=== PATIENT | female | born 1945 | race Caucasian/White ===

== ENCOUNTER → 2019-03-19 11:52 | Outpatient (BNVA) | payer MEDICARE, SELFPAY | PROVIDERS: Family Provider Family Medicine; PCP Physician Assistant; Visit Provider Orthopaedic Surgery | DX: R22.31 Localized swelling, mass and lump, right upper limb (principal) | CPT/HCPCS: 73110; 73130 ==

== ENCOUNTER 2019-04-09 14:08 | Outpatient (CLI) | payer MEDICARE, SELFPAY ==
--- NOTE | 2019-04-09 14:14 | US_ITS ---
WS: [id number] Ultrasound of the soft tissue of the right hand, 04/09/2019 Clinical Data: MASS OF RIGHT WRIST Comparison: None. Findings: There are 3 soft tissue nodules of the right hand. The largest soft tissue nodule is over the thenar eminence and it measures 1.86 x 2.46 x 5.67 cm. It has a well-defined border with mixed echotexture. Vascular flow is noted. The next soft tissue nodule is in the interspace between the heads of the right second and third meta carpals. This small nodule measured 0.36 x 0.69 x 0.8 cm. Again it has a well-defined border with nex t echotexture. There is also vascular supply. The third nodule is on the soft tissue overlying the distal phalanx of the second finger on the ulnar side. It measures 0.36 x 0.69 x 0.80 cm. Again the border is well defined with a mixed echotexture. There is also a vascular supply. US/US soft tissue/extremity 41505 Impression: Nonspecific subcutaneous soft tissue nodules of the right hand which have no di stinguishing characteristics. A biopsy would provide the diagnosis.
== END 2019-04-09 14:09 | disposition home or self-care (01) ==
LOC: US 14:10
PROVIDERS: Family Provider Physician Assistant; PCP Physician Assistant; Visit Provider Orthopaedic Surgery
DX: R22.31 Localized swelling, mass and lump, right upper limb (principal)
CPT/HCPCS: 76882

== ENCOUNTER 2019-06-28 05:55 | Day surgery (SDC) | payer MEDICARE, SELFPAY ==
[2019-06-24 11:43] VITALS: BMI 28.3
--- NOTE | 2019-06-24 11:58 | XR_ITS ---
WS: [id number] PROCEDURE: XR chest 2V* [id number] CLINICAL INFORMATION: Pacemaker generator exchange COMPARISON: July 13, 2018 FINDINGS: Cardiac pacer. Heart: Cardiomegaly. Aortic calcification. Lungs: Moderate chronic emphysematous changes. No acute-appearing pulmonary infiltrates. Bones: Normal visualized bony structures. XR/XR chest 2V* [id number] IMPRESSION: No acute chest findings.
--- NOTE | 2019-06-24 12:29 | ECG_ITS ---
Measurements Intervals [place] Rate: 90 P: 80 ID: [id number] QRS: 257 QRSD: 150 T: -61 QT: 402 QTc: 492 ELECTRONIC VENTRICULAR PACEMAKER ABNORMAL RHYTHM ECG Compared to ECG 07/13/2018 00:24:12 No significant changes Electronically Signed On 06-24-2019 18:14:16 CDT by Derik Worthington M.D. [id number]
--- NOTE | 2019-06-24 12:45 | P.ANESASSM_ITS ---
Pre-Anesthetic Assessment Pre-Anesthetic Assessment: Height/Weight: Height 1.63 m Weight 74.843 kg Proposed Procedure: Operation Date: 06/28/19 07:00 Proposed Procedures p Defibillator Generator Exchange(Not Applicable) - Bill King MD Social: Social History: No alcohol and No tobacco Exam: Pre-Anes Outpt Exam: alert, oriented x 3, clear to auscultation bilaterally and regular rate & rhythm Airway: Submandibular: WNL Cervical ROM: WNL MP: 2 Dentition: False (upper and lower) History/ROS: No significant history except as noted Pulmonary: Pulmonary: COPD and CASAS : : None reported Hepatic: Hepatic: None reported GI: GI: GERD (controlled) Metabolic: Metabolic: DM and Hyperlipidemia Musc/skel: Musc/skel: RA Neuropsych: Neuropsych: Neuropathy (feet) and None reported Anesthetic Plan: ASA status: 4 Anesthesia: Anesthesia Evaluation and MAC Risk of > 500 ml blood loss (7ml/kg in children): No PFSH Anesthesia 2 PFSH: Medical History Anemia Cardiomyopathy CHF (congestive heart failure), NYHA class III Chronic systolic (congestive) heart failure COPD (chronic obstructive pulmonary disease) Diabetes mellitus Hypertension ICD (implantable cardioverter-defibrillator) battery depletion Non-ischemic cardiomyopathy Peripheral neuropathy Rheumatoid arthritis Surgical History S/P ICD (internal cardiac defibrillator) procedure Family History Mother Diabetes Hypertension CHF (congestive heart failure) Social History Smoking and tobacco status: never smoked Alcohol intake: never Data Anesthesia Cardiac Studies: No Data to Display
[2019-06-24 12:47] LABS: Anion Gap 19.5 (5-19); Blood Urea Nitrogen 21 mg/dL (8-23); Calcium 9.8 mg/dL (8.5-10.5); Carbon Dioxide 22 mmol/L (22-29); Chloride 99 mmol/L (98-107); Glucose 270 mg/dL (65-115); Osmolality Calculated 288 mOsm/kg (285-295); Potassium 4.5 mmol/L (3.5-5.1); Sodium 136 mmol/L (136-145)
[2019-06-24 13:07] LABS: Basophils # 0.1 10^3/uL (0.0-0.1); Basophils % 0.6 %; Eosinophils # 0.7 10^3/uL (0.0-0.8); Eosinophils % 7.4 %; Hematocrit 34.8 % (37.0-47.0); Hemoglobin 10.5 g/dL (11.5-15.3); Lymphocytes # 1.4 10^3/uL (0.8-4.8); Lymphocytes % 14.5 %; Mean Corpuscular HGB Conc 30.2 g/dL (30.0-36.0); Mean Corpuscular Hemoglobin 25.3 pg (28.0-34.0); Mean Corpuscular Volume 83.9 fL (81-99); Mean Platelet Volume 10.4 fL (7.4-10.4); Monocytes # 0.7 10^3/uL (0.2-0.9); Monocytes % 7.5 %; Neutrophils # 6.4 10^3/uL (1.8-7.7); Neutrophils % 68.9 %; Nucleated Red Blood Cells % 0 %; Platelet Count 189 10^3/cmm (130-400); Red Blood Count 4.15 10^6/uL (4.1-5.3); Red Cell Distribution Width 15.7 % (12.1-15.1); White Blood Count 9.3 10^3/uL (4.0-10.0)
[2019-06-24 13:23] LABS: INR 0.99 (0.8-1.2)
[2019-06-24 13:26] LABS: Add Urine Microscopic? YES; Bilirubin Urine Neg (NEGATIVE); Blood Urine Neg (Negative); Glucose Urine UA 1+ (Normal); Ketones Urine Negative (Negative); Leukocyte Esterase Urine 1+ (Negative); Nitrate Urine Negative (Negative); Protein Urine Neg (Negative); Urine Appearance Clear (CLEAR); Urine Color Yellow (Yellow); Urobilinogen Urine Norm (Negative); pH Urine 5 (5-7)
[2019-06-24 13:27] LABS: Add Urine Culture? Yes; Bacteria Urine 1+; Squamous Epithelial Cell Urine 0-4 (0-5)
[2019-06-28 06:05] VITALS: BP 179/83; PULSE 77; RESP 18; TEMP 36.4; O2SAT 97
[2019-06-28] MEDS: sodium chloride 0.9% 1,000 ML 30 ML IV (06:19)
[2019-06-28 06:22] LABS: Glucose Point of Care 237 mg/dL (70-110)
--- NOTE | 2019-06-28 06:32 | ANES.PAUD2 ---
Pre-Anesthetic Update Pre-Anesthetic Assessment: Date of Surgery/Procedure: 06/28/19 Proposed Procedure: Operation Date: 06/28/19 07:00 Proposed Procedures p Defibillator Generator Exchange(Not Applicable) - Bill King MD Any changes to Pre-Anesthetic Assessment?: No Last Intake: Intake Last Liquid Date 06/27/19 Last Solid Date 06/27/19 Labs Last 48hrs: Laboratory Results - last 48 hr 06/28/19 06:18 POC Glucose 237 Vitals: Temperature 97.5 F L 06/28/19 06:05 Temperature Source Temporal Artery S can 06/28/19 06:05 Pulse Rate 77 06/28/19 06:05 Pulse Rhythm 06/28/19 06:05 Pulse Strength 3+ Normal 06/28/19 06:05 Respiratory Rate 18 06/28/19 06:05 Blood Pressure 179/83 06/28/19 06:05 Blood Pressure Jerrica n 115 06/28/19 06:05 Pulse Oximetry 97 06/28/19 06:05 Oxygen Delivery Me thod 06/28/19 06:05 Exam: Pre-Anes Outpt Exam: alert, oriented x 3, clear to auscultation bilaterally and regular rate & rhythm Cardiac Studies: No Data to Display
--- NOTE | 2019-06-28 06:37 | W.PM.OPSUD ---
Surgery/Procedure H&P Update DATE OF PROCEDURE: June 28, 2019 DATE H&P PERFORMED: 06/24/19 H&P UPDATE INFORMATION: I have reviewed H&P completed within last 30 days, I have examined patient prior to procedure and No changes to prior documentation PREOP DIAGNOSIS: Defibrillator generator end of service PRIMARY INDICATION FOR PROCEDURE: Defibrillator generator end of service PLANNED PROCEDURE: Operation Date: 06/28/19 07:00 Proposed Procedures p Defibillator Generator Exchange(Not Applicable) - Bill King MD
[2019-06-28] MEDS: lidocaine 1% INJ 20 mL SUBCUT (07:18)
[2019-06-28] MEDS: vancomycin 1,000 MG SDV 1000 MG IRRIGATION (07:18)
[2019-06-28 07:59] VITALS: BP 153/63; PULSE 70; RESP 16; TEMP 36.4; O2SAT 99
[2019-06-28 08:19] VITALS: RESP 18
[2019-06-28] MEDS: meperidine 50 mg/mL INJ 12.5 MG IVP (08:19)
[2019-06-28 08:27] VITALS: BP 156/59; PULSE 70; RESP 18; O2SAT 98
--- NOTE | 2019-06-28 09:44 | P.OP_ITS ---
Operative Report Date of procedure: June 28, 2019 Pre-op Diagnosis: Defibrillator generator end of service Post-op diagnosis: same Procedure Done: Implantable defibrillator generator exchange Implants: Medtronic Amplia MRI Quad JUNIOR NETWORK ENGINEER-D SureScan Specimens removed/disposition: Old generator given to the Medtronic in home sales representative Pathology: none sent Anesthesia: MAC and Local (9 cc) Complications: None Condition: stable Disposition: same day Brief History: Pleasant 73-year-old female with a Medtronic defibrillator at end of service. Leads have been previously interrogated and are appropriately functioning. We will plan for generator exchange. Details risk procedure Discussed. Proper consents reviewed and signed. Procedure: Patient was appropriately positioned and sterilely prepped and draped. IV consicious sedation was given with anesthesia monitoring. 1% lidocaine was infiltrated through the prior insertion incision site. # 15 scalpel blade was used to incise the skin down to subcutaneous layer. Subsequently, using sharp and blunt dissection the pseudocapsule to the old generator was reached and opened with a scalpel blade. This area was then enhanced utilizing Metzenbaum scissors with care taken not to injure the pacing leads. Once the pocket was adequate opened, hemostats were utilized to deliver the old generator. Set screws were released and the leads were removed and inserted properly into the new generator with set screws then secured. The old generator was removed from the field. The incision was irrigated with antibiotic solution. Hemostasis was confirmed. The new generator was placed back into the old subcutaneous pocket. The wound was then closed in 2 layers of 3-0 Vicryl suture. Skin was closed in a subcuticular manner with 4-0 undyed Vicryl suture. A 2 layer pressure dressing was then applied. The entire system was interrogated and appropriate parameters obtained. Patient tolerated procedure well and was taken to the recovery room in stable condition. I did risk reduction counselor with the family at the completion of the procedure. Medtronic Generator: [id number]
== END 2019-06-28 09:45 | disposition home or self-care (01) ==
PROVIDERS: Anesthesiology; Family Provider Physician Assistant; PCP Physician Assistant; Visit Provider Thoracic Surgery (Cardiothoracic Vascular Surgery)
PROC: 0JPT0PZ Removal of Cardiac Rhythm Related Device from Trunk Subcutaneous Tissue and Fascia, Open Approach (ICD-10-PCS; CPT 33263; principal; 2019-06-28 07:00)
DX: Z45.02 Encounter for adjustment and management of automatic implantable cardiac defibrillator (principal); J44.9 Chronic obstructive pulmonary disease, unspecified; K21.9 Gastro-esophageal reflux disease without esophagitis; E78.5 Hyperlipidemia, unspecified; M06.9 Rheumatoid arthritis, unspecified; I11.0 Hypertensive heart disease with heart failure; I50.20 Unspecified systolic (congestive) heart failure; E11.42 Type 2 diabetes mellitus with diabetic polyneuropathy; Z82.49 Family history of ischemic heart disease and other diseases of the circulatory system; Z83.3 Family history of diabetes mellitus; Z79.82 Long term (current) use of aspirin; Z79.4 Long term (current) use of insulin
CPT/HCPCS: 33263; 12345; 36415; 36416; 71046; 80048; 81001; 82962; 85025; 85610; 87086; 93005; 96365; 96374; C1882; J2001; J2175; J2250; J2704; J3010; J3370; J7030; J7050

== ENCOUNTER 2019-08-11 13:37 | Outpatient (CLI) | payer MEDICARE, SELFPAY | END 2019-08-11 13:38 | disposition home or self-care (01) | LOC: SPT 13:41 | PROVIDERS: Family Provider Physician Assistant; PCP Physician Assistant; Visit Provider Orthopaedic Surgery | DX: Z46.89 Encounter for fitting and adjustment of other specified devices (principal); G56.00 Carpal tunnel syndrome, unspecified upper limb | CPT/HCPCS: 97760; L3908 ==

== ENCOUNTER 2019-09-30 18:26 | Observation (INO) | payer MEDICARE, SELFPAY ==
[2019-09-30 18:28] VITALS: BMI 27.6
--- NOTE | 2019-09-30 18:31 | ECG_ITS ---
[facility] Test Date: 2019-09-30 Pat Name: Peri Monge Department: Room: Gender: Female Edi Consultant: : 1945 Requested By: Angel Lamar Order Number: [id number] Jacey MD: Haroon Solis M.D. Measurements Intervals [place] Rate: 91 P: 66 IN: 148 QRS: 232 QRSD: 152 T: 42 QT: 416 QTc: 514 Interpretive Statements ELECTRONIC VENTRICULAR PACEMAKER ABNORMAL RHYTHM ECG Compared to ECG 06/24/2019 12:36:25 No significant changes Electronically Signed On 10-01-2019 16:01:27 CDT by Haroon Solis M.D. [id number]
--- NOTE | 2019-09-30 18:31 | XRR_ITS ---
PROCEDURE INFORMATION: Exam: XR Chest, 1 View Exam date and time: 09/30/2019 6:57 PM Age: 74 years old Clinical indication: Type not specified; Prior surgery; Surgery type: Pacemaker; Patient HX: Chest pain and high BP today; Additional info: Cp TECHNIQUE: Imaging protocol: XR of the chest Views: 1 view. COMPARISON: CR XR chest 2V* [id number] 06/24/2019 12:49 PM FINDINGS: Lungs: Lungs are well aerated without a focal area of consolidation. Pleural space: Unremarkable. No pleural effusion. No pneumothorax. Heart/Mediastinum: Unremarkable. No cardiomegaly. Vasculature: Pacemaker is present via a left subclavian approach. Bones/joints: Unremarkable. XR/XR chest 1V portable [id number] IMPRESSION: Lungs are well aerated without a focal area of consolidation.
[2019-09-30 18:33] VITALS: BP 216/79; PULSE 95; RESP 16; TEMP 37; O2SAT 96
--- NOTE | 2019-09-30 18:43 | PC.NURSE ---
EKG done at 1840 and shown to ER doctor
--- NOTE | 2019-09-30 18:46 | ED_ITS ---
HPI - Chest Pain General: Chief Complaint: Chest Pain Stated Complaint: CHEST PAIN Time Seen by Provider: 09/30/19 18:31 Source: patient and EMS Mode of arrival: EMS Limitations: no limitations History of Present Illness: HPI narrative: 74-year-old female who has a pacemaker and states started having chest pain roughly 1 hour ago. States her pain was a pressure type pain was having dyspnea along with diaphoresis. Patient states her pain is improved with nitro. She denies any abdominal pain. She did have nausea. MD complaint: chest pain Onset (ago): hour(s) Timing of current episode: episodic Prior episodes: No Pain location: substernal Pain radiation: left arm Severity: moderate Quality: tightness Relieving factors: nitroglycerin Exacerbating factors: nothing Associated symptoms: Deny abdominal pain, dyspnea, fever(s), nausea or vomiting Treatment prior to arrival: aspirin and nitroglycerin Review of Systems Const: Denies: fever(s), chills, body aches or change in appetite Eyes: Denies: blurry vision or eye discomfort ENMT: Denies: throat pain or dental pain Card: Reports: chest pain Resp: Denies: dyspnea GI: Denies: abdominal pain, nausea, vomiting or diarrhea : Denies: dysuria Musc: Denies: neck pain or back pain Skin/Breast: Denies: rash Neuro: Denies: headache(s) Psych: Denies: depression Bernabe/Lymph: Denies: easy bruising All/Imm: Denies: urticaria PFSH ED PFSH: Medical History Anemia Cardiac resynchronization therapy defibrillator (COMPUTER FORENSICS EXAMINER-D) in place Cardiomyopathy Carpal tunnel syndrome of right wrist CHF (congestive heart failure), NYHA class III Chronic systolic (congestive) heart failure COPD (chronic obstructive pulmonary disease) Diabetes mellitus Hypertension ICD (implantable cardioverter-defibrillator) battery depletion Non-ischemic cardiomyopathy Peripheral neuropathy Rheumatoid arthritis Surgical History S/P ICD (internal cardiac defibrillator) procedure Family History Mother Diabetes Hypertension CHF (congestive heart failure) Social History Smoking and tobacco status: never smoked Alcohol intake: never Physical Exam Const: COMMON NORMALS: no acute distress, patient oriented x3 and healthy appearing HENMT: COMMON NORMALS: normocephalic and atraumatic HEAD & SCALP: normocephalic and atraumatic Eye: COMMON NORMALS: Equal, round and reactive pupils present and EOMs intact bilaterally PUPIL: Yes Equal, round and reactive pupils present Neck/C-Spine: COMMON NORMALS: full ROM and supple Chest: COMMONS NORMALS: normal inspection of the chest and normal palpation of entire chest wall Resp: COMMON NORMALS: normal respiratory effort, No retractions, No use of accessory muscles and clear to auscultation bilaterally AUSCULTATION: clear to auscultation bilaterally Cardio: COMMON NORMALS: regular rate, regular rhythm and No murmurs present (Cardio) RATE: regular rate RHYTHM: regular rhythm GI: COMMON NORMALS: Normal to inspection, nondistended, normoactive bowel sounds present, Soft to palpation, non-tender and no masses PALPATION: Yes Soft to palpation Extremity: COMMON NORMALS: normal to inspection and full ROM Neuro: COMMON NORMALS: patient oriented x3, moves all extremities and no focal motor deficits Psych: COMMON NORMALS: mental status grossly normal, Normal thought process present and cooperative THOUGHT PROCESS: Normal thought process present Skin: COMMON NORMALS: no rashes or lesions noted and no wounds GENERAL SKIN EXAM: no rashes or lesions noted Course Vital Signs: Vital signs: Vital Signs Temperature 98.6 F 09/30/19 18:33 Pulse Rate 93 09/30/19 19:18 Respiratory Rate 20 H 09/30/19 21:20 Blood Pressure 214/113 09/30/19 21:20 Pulse Oximetry 97 09/30/19 21:20 MDM - Chest Pain MDM Narrative: Medical decision making narrative: Patient presents here with chest pain. Patient initial troponin repeat troponin had a negative delta. Patient does have multiple risk factors and will admit for chest pain rule out. Patient has been hypertensive here as well. I spoke to hospitalist who is seen patient will admit to the CSU. Lab Data: Labs: Lab Results 09/30/19 09/30/19 09/30/19 Range/Units 18:27 18:27 18:57 WBC 8.8 (4.0-10.0) 10^3/ uL RBC 4.27 (4.1-5.3) 10^6/u L Hgb 11.1 L (11.5-15.3) g/dL Hct 36.7 L (37.0-47.0) % MCV 85.9 (81-99) fL MCH 26.0 L (28.0-34.0) pg MCHC 30.2 (30.0-36.0) g/dL RDW 14.8 (12.1-15.1) % Plt Count 194 (130-400) 10^3/c mm MPV 10.2 (7.4-10.4) fL Neut % (Auto) 68.8 % Lymph % (Auto) 17.9 % Greenlee % (Auto) 8.0 % Eos % (Auto) 3.7 % Baso % (Auto) 0.8 % Neut # (Auto) 6.06 (1.8-7.7) 10^3/u L Lymph # (Auto) 1.6 (0.8-4.8) 10^3/u L Greenlee # (Auto) 0.7 (0.2-0.9) 10^3/u L Eos # (Auto) 0.3 (0.0-0.8) 10^3/u L Baso # (Auto) 0.1 (0.0-0.1) 10^3/u L Nucleated RBC % (a uto) 0 % Nucleated RBCs # 0.0 /100WBC PT (10.5-13.3) SECO NDS INR (0.8-1.2) Sodium 142 (136-145) mmol/L Potassium 4.1 (3.5-5.1) mmol/L Chloride 107 (98-107) mmol/L Carbon Dioxide 22 (22-29) mmol/L Anion Gap 17.1 (5-19) BUN 23 (8-23) mg/dL Creatinine 1.3 H (0.5-0.9) mg/dL GFR Calculation Not Reportable Glucose 200 H (65-115) mg/dL Calculated Osmolal ity 296 H (285-295) mOsm/k g Calcium 9.6 (8.5-10.5) mg/dL Total Bilirubin 0.2 (0.15-1.2) mg/dL AST 20 (0-32) U/L ALT 22 (0-33) U/L Alkaline Phosphata se 66 (35-105) IU/L Troponin T Baselin e 19 H (0-10) ng/L Troponin T [address] [facility] [place] (0-10) ng/L Total Protein 7.4 (6.6-8.7) g/dL Albumin 4.5 (3.5-5.2) g/dL Globulin 2.9 (1.3-4.6) g/dL 09/30/19 09/30/19 Range/Units 18:57 20:40 WBC (4.0-10.0) 10^3/ uL RBC (4.1-5.3) 10^6/u L Hgb (11.5-15.3) g/dL Hct (37.0-47.0) % MCV (81-99) fL MCH (28.0-34.0) pg MCHC (30.0-36.0) g/dL RDW (12.1-15.1) % Plt Count (130-400) 10^3/c mm MPV (7.4-10.4) fL Neut % (Auto) % Lymph % (Auto) % Greenlee % (Auto) % Eos % (Auto) % Baso % (Auto) % Neut # (Auto) (1.8-7.7) 10^3/u L Lymph # (Auto) (0.8-4.8) 10^3/u L Greenlee # (Auto) (0.2-0.9) 10^3/u L Eos # (Auto) (0.0-0.8) 10^3/u L Baso # (Auto) (0.0-0.1) 10^3/u L Nucleated RBC % (a uto) % Nucleated RBCs # /100WBC PT 13.10 (10.5-13.3) SECO NDS INR 0.97 (0.8-1.2) Sodium (136-145) mmol/L Potassium (3.5-5.1) mmol/L Chloride (98-107) mmol/L Carbon Dioxide (22-29) mmol/L Anion Gap (5-19) BUN (8-23) mg/dL Creatinine (0.5-0.9) mg/dL GFR Calculation Glucose (65-115) mg/dL Calculated Osmolal ity (285-295) mOsm/k g Calcium (8.5-10.5) mg/dL Total Bilirubin (0.15-1.2) mg/dL AST (0-32) U/L ALT (0-33) U/L Alkaline Phosphata se (35-105) IU/L Troponin T Baselin e (0-10) ng/L Troponin T [address] [facility] [place] 26.51 H (0-10) ng/L Total Protein (6.6-8.7) g/dL Albumin (3.5-5.2) g/dL Globulin (1.3-4.6) g/dL Imaging Data^: CXR: Attestation: I personally reviewed and interpreted this imaging study as follows: My impression: no acute abnormality EKG Data^: EKG 1: Attestation: I personally reviewed and interpreted this EKG as follows: EKG interpretation date: 09/30/19 EKG interpretation time: 18:39 Interpretation: paced rhythm hr91 no st or t wave abnormalities qrs 148 qtc 152 EKG 2: Attestation: I personally reviewed and interpreted this EKG as follows: EKG interpretation date: 09/30/19 EKG interpretation time: 19:57 Interpretation: paced rhythm no st or t wave abnormalities qrs 152 qtc 486 Discharge Plan Discharge Patient Disposition: Admitted As Inpatient Admit Provider: Harry Qureshi Clinical Impression: Chest pain Qualifiers: Chest pain type: unspecified Qualified Code(s): R07.9 - Chest pain, unspecified Condition: Stable Referrals: Nancy Swan PA [Primary Care Provider] - Coding Level of Care Code ED Enrollment Nurse for Chg Fwd Exam Comprehensive
[2019-09-30 19:01] LABS: Basophils # 0.1 10^3/uL (0.0-0.1); Basophils % 0.8 %; Eosinophils # 0.3 10^3/uL (0.0-0.8); Eosinophils % 3.7 %; Hematocrit 36.7 % (37.0-47.0); Hemoglobin 11.1 g/dL (11.5-15.3); Lymphocytes # 1.6 10^3/uL (0.8-4.8); Lymphocytes % 17.9 %; Mean Corpuscular HGB Conc 30.2 g/dL (30.0-36.0); Mean Corpuscular Volume 85.9 fL (81-99); Mean Platelet Volume 10.2 fL (7.4-10.4); Monocytes # 0.7 10^3/uL (0.2-0.9); Neutrophils # 6.06 10^3/uL (1.8-7.7); Neutrophils % 68.8 %; Nucleated Red Blood Cells % 0 %; Platelet Count 194 10^3/cmm (130-400); Red Blood Count 4.27 10^6/uL (4.1-5.3); Red Cell Distribution Width 14.8 % (12.1-15.1); White Blood Count 8.8 10^3/uL (4.0-10.0)
[2019-09-30 19:10] LABS: INR 0.97 (0.8-1.2)
[2019-09-30 19:15] LABS: Alanine Aminotransferase 22 U/L (0-33); Albumin Level 4.5 g/dL (3.5-5.2); Alkaline Phosphatase 66 IU/L (35-105); Anion Gap 17.1 (5-19); Aspartate Amino Transferase 20 U/L (0-32); Blood Urea Nitrogen 23 mg/dL (8-23); Calcium 9.6 mg/dL (8.5-10.5); Carbon Dioxide 22 mmol/L (22-29); Chloride 107 mmol/L (98-107); Globulin 2.9 g/dL (1.3-4.6); Glucose 200 mg/dL (65-115); Osmolality Calculated 296 mOsm/kg (285-295); Potassium 4.1 mmol/L (3.5-5.1); Sodium 142 mmol/L (136-145); Total Bilirubin 0.2 mg/dL (0.15-1.2); Total Protein 7.4 g/dL (6.6-8.7)
[2019-09-30 19:18] VITALS: BP 228/89; PULSE 93; RESP 15; O2SAT 96
[2019-09-30] MEDS: hyDRALAzine 20 mg/mL INJ 1 mL 10 MG IVP (19:32)
[2019-09-30 20:08] LABS: Troponin(5th) Baseline 19 ng/L (0-10)
[2019-09-30] MEDS: nitroglycerin 0.4 mg sublingual Tablet SUBLINGUAL (20:22)
--- NOTE | 2019-09-30 20:31 | ECG_ITS ---
[facility] Test Date: 2019-09-30 Pat Name: Peri Monge Department: Room: Gender: Female Claims Vice President: : 1945 Requested By: Angel Lamar Order Number: [id number] Jacey MD: Haroon Solis M.D. Measurements Intervals [place] Rate: 101 P: 83 ND: 142 QRS: 267 QRSD: 152 T: 87 QT: 428 QTc: 555 Interpretive Statements ELECTRONIC VENTRICULAR PACEMAKER ABNORMAL RHYTHM ECG Compared to ECG 09/30/2019 18:39:53 No significant changes Electronically Signed On 10-01-2019 16:15:05 CDT by Haroon Solis M.D. [id number]
[2019-09-30 21:05] LABS: Troponin 5 2HR 26.51 ng/L (0-10); Troponin 5 2HR Delta 7.51 ABS# (0-10)
--- NOTE | 2019-09-30 21:05 | P.HP_ITS ---
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 King for convenience of care, her lives in [place], she never had discharge of her device, coming in with chief complaint of chest pain. Dr. King has exchanged device around June when she saw him for orthopnea and PND, her Lasix dose was increased at that time. Recent interrogation of ICD revealed normal function of the leads no ICD discharge noted no significant arrhythmia. She got diagnosed with carpal tunnel syndrome 09/09 EMG. Patient is stating that she was in [place] with her in her car when she started experiencing chest discomfort which he is describing a pressure-like sensation with a bandlike pattern around her chest, she started experiencing shortness of breath, could not take deep breaths, her phone deception was bad hence called her cousin who called ambulance for her while she was in the parking lot [facility] Patient is stating that she kept experiencing band like constrictin discomfort around her chest until she got 2 doses of nitroglycerin and loading dose of aspirin. On arrival to the ED she was hypertensive systolic pressure in 2 20s/120, EKG showed paced rhythm, first troponin 19second troponin, 27, she has been having intermittent chest discomfort in the ED, her chest discomfort improved with hydralazine and use of labetalol which decreased her blood pressure from 200 to 170s. Patient is denying dysuria, diarrhea, she is endorsing using 3 L of oxygen [id number], limited physical activity because of dyspnea on exertion, recently her Lasix dose has been increased to [address] Worthington. She has quit smoking in remote past, denies recent firing of AICD. Patient is endorsing that she keeps feeling pain around her device area and it has been sensitive since June. Review of Systems Const: Reports: body aches and fatigue; Denies: fever(s) or chills Eyes: Denies: change in vision ENMT: Denies: throat pain Card: Reports: chest pain, palpitations and orthopnea; Denies: edema or swelling of feet/ankles Resp: Reports: dyspnea and pain on inspiration; Denies: productive cough or non-productive cough GI: Reports: diarrhea; Denies: abdominal pain, vomiting, coffee ground emesis or constipation : Denies: flank pain Musc: Denies: neck pain Skin/Breast: Denies: rash Neuro: Denies: headache(s) Psych: Denies: anxiety Endo: Denies: polyuria Bernabe/Lymph: Denies: easy bruising All/Imm: Denies: urticaria Medications/Allergies Home Medications Medication Instructions Recorded Confirmed Last Taken Type cholecalciferol (vitamin D3) 125 5,000 unit PO DAILY 03/19/19 09/30/19 06/27/19 History mcg (5,000 unit) capsule doxepin 50 mg capsule 50 mg PO BEDTIME 03/19/19 09/30/19 06/27/19 History ferrous sulfate 325 mg (65 mg 325 mg PO BEDTIME 03/19/19 09/30/19 06/27/19 History iron) tablet gabapentin 300 mg capsule 300 mg PO DAILY 03/19/19 09/30/19 09/29/19 History garlic 500 mg capsule 1,000 mg PO DAILY 03/19/19 09/30/19 06/27/19 History hydroxychloroquine 200 mg tablet 200 mg PO BID 03/19/19 09/30/19 09/30/19 History melatonin 5 mg capsule 5 mg PO BEDTIME 03/19/19 09/30/19 06/26/19 History omeprazole 40 mg capsule,delayed 40 mg PO DAILY 03/19/19 09/30/19 09/30/19 History release aspirin 81 mg tablet,delayed 81 mg PO DAILY 06/24/19 09/30/19 09/30/19 History release fluticasone 250 mcg-salmeterol 50 1 inh INHALATION DAILY 06/24/19 09/30/19 06/26/19 History mcg/dose blistr powdr for inhalation furosemide 20 mg tablet 40 mg PO DAILY tab 06/24/19 09/30/19 09/30/19 History lisinopril 2.5 mg tablet 10 mg PO DAILY tab 06/24/19 09/30/19 09/30/19 History tiotropium bromide 2.5 1 inh INHALATION BID 06/24/19 09/30/19 09/30/19 History mcg/actuation mist for inhalation Carpal Tunnel Brace #1 ea NS 08/11/19 09/30/19 Unknown Rx carvedilol 25 mg tablet 25 mg PO BID 30 Days #60 tab 09/01/19 09/30/19 09/30/19 Rx insulin degludec 200 unit/mL (3 98 unit SUBCUT QAM ml 09/01/19 09/30/19 09/30/19 History mL) subcutaneous pen biotin 2 cap PO DAILY 09/30/19 09/30/19 Unknown History flaxseed oil 2,000 mg PO DAILY 09/30/19 09/30/19 Unknown History metformin 1,000 mg PO BID 09/30/19 09/30/19 09/30/19 History potassium gluconate 595 mg PO DAILY 09/30/19 09/30/19 Unknown History triamcinolone acetonide 1 applic TOPICAL BID PRN 09/30/19 09/30/19 Unknown Hi story Allergies Allergy/AdvReac Type Severity Reaction Status Date / Time codeine Allergy Severe ALGY-Swell Verified 09/30/19 18:37 Lip/Tongue/Throat Penicillins Allergy ALGY-Swell Verified 09/30/19 18:37 Lip/Tongue/Throat PFSH Acute PFSH: Medical History Anemia Cardiac resynchronization therapy defibrillator (DIGITAL CONTENT COORDINATOR-D) in place Cardiomyopathy Carpal tunnel syndrome of right wrist CHF (congestive heart failure), NYHA class III Chronic systolic (congestive) heart failure COPD (chronic obstructive pulmonary disease) Diabetes mellitus Hypertension ICD (implantable cardioverter-defibrillator) battery depletion Non-ischemic cardiomyopathy Peripheral neuropathy Rheumatoid arthritis Surgical History S/P ICD (internal cardiac defibrillator) procedure Family History Mother Diabetes Hypertension CHF (congestive heart failure) Social History (Updated 09/30/19 @ 22:15 by Harry Qureshi MD) Smoking and tobacco status: former smoker Alcohol intake: current Alcohol intake frequency: holidays/special occasions only Substance/Drug Use: never Household members: spouse Housing: House Marital status: Vitals/I&O/Wt Last Vital Signs Temp 98.6 F 09/30/19 18:33 Pulse 93 09/30/19 19:18 Resp 15 09/30/19 19:18 BP 228/89 09/30/19 19:18 Pulse Ox 96 09/30/19 19:18 Weight last 48 hrs Weight 73.028 kg Physical Exam Narrative: EXAM NARRATIVE: Head to toe examination This is a very pleasant female No active chest discomfort, Systolic blood pressure ranging between 1 70-200mmhg No active signs of CHF exacerbation Currently pursed lip chronic breathing saturating well treated nasal cannula no active use of respiratory accessory muscles AICD device area sensitive to touch No active drainage or signs of cellulitis S1, S2 no active signs of heart failure No lower extremity edema Abdomen soft distended bowel sound present Bilateral breath sounds diminished, no active rhonchi or wheezing Appropriate mood and affect EOMI, PERRLA Data : 09/30/19 18:57 09/30/19 18:27 A&P Assessment and plan (1) Unstable angina: Status: Acute (2) Hypertensive emergency: Status: Acute (3) Non-ischemic cardiomyopathy: Status: Acute (4) Chronic systolic (congestive) heart failure: Status: Acute (5) CHF (congestive heart failure), NYHA class III: Status: Acute Qualifiers: Congestive heart failure type: systolic Congestive heart failure chronicity: chronic Qualified Code(s): I50.22 - Chronic systolic (congestive) heart failure (6) Diabetes mellitus: Status: Acute Qualifiers: Diabetes mellitus type: type 2 Diabetes mellitus assistant terminal manager insulin use: without care home use Diabetes mellitus complication status: without complication Qualified Code(s): E11.9 - Type 2 diabetes mellitus without complications (7) Hypertension: Status: Acute Qualifiers: Hypertension type: essential hypertension Qualified Code(s): I10 - Essential (primary) hypertension (8) Subcutaneous mass of right hand: Status: Acute Additional A&P Information Unstable angina Paced rhythm chest pain-free Troponin not significantly high I am suspecting hypertensive emergency to be the cause of her symptoms considering her poor ejection fraction, will interrogate her device tonight Rule out coronary ischemia with stress test in the morning N.p.o. after midnight, hold Coreg Echo and stress test in the morning if abnormal will inform Dr. Worthington Hypertensive emergency Chest discomfort with troponin leak I would add hydralazine because of her poor EF Target mean arterial pressure reduction 25% in next few hours Congestive heart failure without acute exacerbation Clinically looks compensated, continue home dose of Lasix Added hydralazine Subcutaneous mass of right hand No active exacerbation, seems to be a ganglion Seeing surgeon outpatient Oxygen dependent COPD: No acute exacerbation currently saturating well on 3 L Chronic kidney disease: Baseline creatinine 1.3, No acute exacerbation Poorly controlled type 2 diabetes I would continue moderate sliding scale Full code DVT prophylaxis Heparin Cardiac diet n.p.o. after midnight Attestations Medical Necessity Statement*: Anticipating discharge in less than 48 hours currently needs stress test to rule coronary ischemia to be the cause of her chest pain considering poor EF nonischemic cardiomyopathy Time Spent in Patient Care: (>than 50% of time spent in counselling and/or direct pt care on unit) . 40 minutes Coding Level of Care Code Acute Hotel Or Motel Room Service Supervisor for Ora Fwd Diagnoses Unstable angina I20.0 Hypertensive emergency I16.1 Non-ischemic cardiomyopathy I42.8 Chronic systolic (congestive) heart failure I50.22 CHF (congestive heart failure), NYHA class III I50.22 Congestive heart failure type: systolic Congestive heart failure chronicity: chronic Diabetes mellitus E11.9 Diabetes mellitus type: type 2 Diabetes mellitus assistant terminal manager insulin use: without care home use Diabetes mellitus complication status: without complication Hypertension I10 Hypertension type: essential hypertension Subcutaneous mass of right hand R22.31
[2019-09-30 21:20] VITALS: BP 214/113; RESP 20; O2SAT 97
[2019-09-30] MEDS: labetalol 5 mg/mL SDV 20mL 20 MG IVP (21:21)
[2019-09-30 21:32] VITALS: BP 188/78; PULSE 82; RESP 20; O2SAT 97
[2019-09-30 22:31] LABS: D Dimer 0.68 ug/mIFEU (0-0.59)
--- NOTE | 2019-09-30 22:32 | CTR_ITS ---
PROCEDURE INFORMATION: Exam: CT Angiography Chest With Contrast Exam date and time: 09/30/2019 10:43 PM Age: 74 years old Clinical indication: Other: Hypoxia; Prior surgery; Surgery date: 6+ months; Surgery type: Pacer TECHNIQUE: Imaging protocol: Computed tomographic angiography of the chest with intravenous contrast. 3D rendering: MIP and/or 3D reconstructed images were created by the technologist. Radiation optimization: All CT scans at this facility use at least one of these dose optimization techniques: automated exposure control; mA and/or kV adjustment per patient size (includes targeted exams where dose is matched to clinical indication); or iterative reconstruction. Contrast material: OMNI; Contrast volume: 95 ml; Contrast route: INTRAVENOUS (IV); COMPARISON: CTA Chest-Pulmonary Emb [id number] 07/13/2018 12:57 AM RADIATION DOSE METRICS: Total DLP (mGy-cm): 635.73 FINDINGS: Tubes, catheters and devices: Pacemaker. Pulmonary arteries: Normal. No pulmonary emboli. Aorta: Unremarkable. No aortic aneurysm. No aortic dissection. Lungs: Centrilobular emphysematous changes. Pleural space: Unremarkable. No pneumothorax. No pleural effusion. Heart: Unremarkable. No cardiomegaly. No pericardial effusion. Lymph nodes: Unremarkable. No enlarged lymph nodes. Bones/joints: Unremarkable. No acute fracture. Soft tissues: Left adrenal 13 mm nodule, dedicated adrenal imaging advised. CT/CT angio chest PE protcl [id number] IMPRESSION: 1. Negative for pulmonary embolus or airspace infiltrate 2. Centrilobular emphysematous changes. 3. Left adrenal 13 mm nodule, dedicated adrenal imaging advised. Radiation Dose CTDIVOL = (mGy): DLP = 635.73 (mGy-cm)
[2019-09-30] MEDS: iodixanol 320 mg/mL 100mL Btl 95 ML IV (22:51)
--- NOTE | 2019-09-30 23:00 | ECG_ITS ---
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 Interpretive Statements NAME OF STUDY: LEXISCAN SESTAMIBI STRESS TEST INDICATION: Non Ischemic Cardiomyopathy with Chest Pain PROCEDURE: At the baseline, the EKG revealed 100% V paced rhythm. The baseline blood pressure was 226/113 mm Hg with a heart rate of 96 beats/min. Lexiscan was infused over a period of 20 seconds. A total of 0.4 milligrams of Lexiscan was infused. The stress phase was continued for a total of 5 minutes. Heart rate at the end of the stress phase was 112 with a blood pressure 216/76. The EKG at the peak infusion revealed no significant changes. Sestamibi was injected 20 seconds after the Lexiscan infusion. Blood pressure at the end of the recovery phase was 196/86 with a heart rate of 108 per minute. CONCLUSION: 1. No significant EKG changes with the LexiScan infusion 2. No LexiScan induced chest pain or cardiac arrhythmia 3. Normal blood pressure and heart rate response 4. Sestamibi/sestamibi perfusion scan pending; see separate report. Electronically Signed On 10-02-2019 12:41:06 CDT by Derik Worthington M.D. [id number]
[2019-09-30 23:31] VITALS: BP 218/95; PULSE 86; RESP 24; TEMP 36.7; O2SAT 100
--- NOTE | 2019-09-30 23:32 | PC.NURSE ---
Patient received from ed via stretcher. Patient able to ambulate without assistance. Had patient placed in wheelchair and taken to CT. Patient returned to room. VS taken. Current BP 218/95. Patient denies any c/o headache, chest pain or discomforts. Informed Dr Qureshi of elevated BP. Waiting for orders. Admission complete as documented. Provided patient with long nasal cannula. Patient reports using 3L O2 at home.
[2019-09-30] MEDS: hyDRALAzine 20 mg/mL INJ 1 mL IVP (23:47)
[2019-09-30] MEDS: heparin 5,000 unit/mL INJ 1 mL 5000 UNIT SUBCUT (23:49)
[2019-10-01] VITALS (11 sets, daily range): BP systolic 116–213; BP diastolic 48–96; PULSE 73–110; RESP 17–26; TEMP 36.8–36.9; O2SAT 96–100
--- NOTE | 2019-10-01 00:31 | ECG_ITS ---
[facility] Test Date: 2019-10-01 Pat Name: Peri Monge Department: Room: 105 Gender: Female Supervisor Receiving And Processing: : 1945 Requested By: Angel Lamar Order Number: [id number] Jacey MD: Haroon Solis M.D. Measurements Intervals [place] Rate: 93 P: 78 KS: 148 QRS: 251 QRSD: 157 T: 42 QT: 447 QTc: 559 Interpretive Statements ELECTRONIC VENTRICULAR PACEMAKER ABNORMAL RHYTHM ECG Compared to ECG 09/30/2019 19:57:46 No significant changes Electronically Signed On 10-01-2019 16:16:05 CDT by Haroon Solis M.D. [id number]
[2019-10-01 01:01] LABS: Anion Gap 17.8 (5-19); Blood Urea Nitrogen 19 mg/dL (8-23); Carbon Dioxide 22 mmol/L (22-29); Chloride 107 mmol/L (98-107); Glucose 142 mg/dL (65-115); Magnesium 1.8 mg/dL (1.7-2.3); Osmolality Calculated 295 mOsm/kg (285-295); Potassium 3.8 mmol/L (3.5-5.1); Sodium 143 mmol/L (136-145)
[2019-10-01 01:24] LABS: Troponin 5 6HR 39.73 ng/L (0-10)
[2019-10-01 01:32] LABS: Troponin 5 6HR Delta 20.73 ng/L (0-12)
[2019-10-01] MEDS: heparin 5,000 unit/mL INJ 1 mL 5000 UNIT SUBCUT ×2 (06:03→18:00)
[2019-10-01 06:04] LABS: Glucose Point of Care 104 mg/dL (70-110)
--- NOTE | 2019-10-01 07:00 | USCV_ITS ---
Peri Monge Age: 74 Gender: F : 1945 Exam Date: 10/01/2019 06:51 Ordering Phys: Harry Qureshi MD Technologist: Karely Gonzalez Exam Location: [facility] [place] Indication: CHEST PAIN BP: 182 / 78 HR: 94 Rhythm: Sinus Technical Quality: Technically difficult study MEASUREMENTS (Male / Female) Normal Values 2D ECHO LV Diastolic Diameter PLAX 2.3 cm 4.2 - 5.9 / 3.9 - 5.3 cm LV Systolic Diameter PLAX 1.3 cm LV Chamber Size 3.1 cm IVS Diastolic Thickness 1.6 cm 0.6 - 1.0 / 0.6 - 0.9 cm IVS Systolic Thickness 2.3 cm LVPW Diastolic Thickness 2.6 cm 0.6 - 1.0 / 0.6 - 0.9 cm LVPW Systolic Thickness 2.7 cm RV Chamber Size 1.4 cm LVOT Diameter 2.0 cm LV Ejection Fraction 2D Teich 75.1 % LV Ejection Fraction MOD 2C 57.5 % LV Ejection Fraction 2C AL 56.2 % LA Diameter 3.5 cm LA Width 1.9 cm LA Height 4.1 cm RA Width 2.4 cm RA Height 3.4 cm Aorta at Sinotubular Diameter 2.6 cm M-MODE LV Diastolic Diameter MM 4.6 cm 4.2 - 5.9 / 3.9 - 5.3 cm LV Systolic Diameter MM 3.6 cm LV Ejection Fraction MM Teich 43.8 % IVS Diastolic Thickness MM 0.9 cm 0.6 - 1.0 / 0.6 - 0.9 cm IVS Systolic Thickness MM 1.2 cm LVPW Diastolic Thickness MM 0.9 cm 0.6 - 1.0 / 0.6 - 0.9 cm LVPW Systolic Thickness MM 1.3 cm Aortic Annulus Diameter 3.5 cm LA Ao Ratio MM 1.0 MV E Point Septal Separation 1.1 cm DOPPLER AV Peak Velocity 168.0 cm/s LVOT Peak Velocity 119.0 cm/s AV Area Cont Eq vti 1.9 cm squared AV Area Cont Eq pk 2.3 cm squared MV Area PHT 3.0 cm squared Mitral E to A Ratio 0.8 MV E' Velocity 9.0 cm/s Mitral E to MV E' Ratio 8.3 Mitral E to LV E' Lateral Ratio 7.9 Mitral E to LV E' Septal Ratio 8.7 TR Peak Velocity 280.0 cm/s TR Peak Gradient 31.3 mmHg TV Peak E Velocity 68.0 cm/s Right Atrial Pressure 3.0 mmHg Pulmonary Artery Systolic Pressu 34.4 mmHg PV Peak Velocity 101.0 cm/s RV Acceleration Time 0.2 s RV Ejection Time 0.4 s RV AcT/ET 0.5 FINDINGS Left Ventricle Moderate left ventricular hypertrophy. Normal left ventricular size and systolic function, EF 60 %. Mild diffuse hypokinesia of the septum and inferior wall region.Grade I/IV diastolic dysfunction (abnormal relaxation filling pattern), normal to mildly elevated filling pressures. Right Ventricle Pacemaker/defibrillator wire in the right ventricle. Normal RV size ejection fraction. Right Atrium Pacemaker/defibrillator wire in the right atrium . Left Atrium Possibly of normal size Mitral Valve Thickened mitral valve. Aortic Valve Thickened aortic valve. Tricuspid Valve Could not be visualized well Pulmonic Valve Could not be visualized well Pericardium No significant pericardial effusion Aorta Normal aortic annulus size. CONCLUSIONS Moderate left ventricular hypertrophy. Normal left ventricular size and systolic function, EF 60 %. Mild diffuse hypokinesia of the septum and inferior wall region.Grade I/IV diastolic dysfunction (abnormal relaxation filling pattern), normal to mildly elevated filling pressures. Pacemaker/defibrillator wire in the right ventricle. Normal RV size ejection fraction. Thickened aortic valve. There is no pericardial effusion. Technically difficult study because of the poor ultrasonic window. Dr Derik Worthington MD FACC (Electronically Signed) Final Date: 01 October 2019 18:35 S
--- NOTE | 2019-10-01 07:15 | PC.NURSE ---
Patient taken to nuclear medicine for stress test.
[2019-10-01] MEDS: regadenoson 0.4 Mg/5 ml Syringe IVP (07:54)
--- NOTE | 2019-10-01 07:54 | SUR.PREOP ---
Patient reports no pain or discomfort prior to the start of the procedure.
--- NOTE | 2019-10-01 09:40 | PC.NURSE ---
Patient back in room. Assumed care of patient.
[2019-10-01] MEDS: carvedilol 25 mg Tablet PO ×2 (09:56→17:54)
[2019-10-01] MEDS: FUROsemide 40 mg Tablet PO (09:57)
[2019-10-01] MEDS: aspirin 81 mg EC Tablet PO (09:57)
[2019-10-01] MEDS: hydroxychloroquine 200 mg Tablet PO ×2 (09:57→17:54)
[2019-10-01] MEDS: pantoprazole DR 40 mg Tablet PO (09:57)
[2019-10-01] MEDS: gabapentin 300 mg Capsule PO (09:57)
[2019-10-01] MEDS: lisinopril 10 mg Tablet PO (09:58)
[2019-10-01] MEDS: hyDRALAzine 25 mg Tablet PO ×2 (09:58→17:55)
--- NOTE | 2019-10-01 10:08 | PC.CHAP ---
Pastoral Care Encounter/Spiritual Assessment Type of Contact [] Declined state highway police officer visit [] Patient/Family/Request visit [] Outpatient visit [] Follow-up visit [] Physician referral [] Code/Alert [x] Routine visit [] Staff referral [] Actively dying [] Patient sleeping [] Family support [] [] Out of room [] Palliative care [] [] Receiving care in room [] Pre-surgical visit [] Trauma [] Long length of stay [] ICU visit [] Other: Relational/Emotional Strength [] Patient feels connected with others/family/visitors/staff [] Distress [] Loneliness/isolation [] Abandonment Spirituality of Patient [] Person of Joycelyn [] Attends Scientology of their Joycelyn [] Believes in Prayer [] Reads Bible or Baptism materials [] There are Spiritual issues to be addressed Community Program Assistant Interventions [x] Prayer [x] Active listening [x] Non-anxious presence [x] Spiritual/emotional support [] Crisis/trauma care [] Spiritual counseling [] Bereavement support [] Provided bereavement packet [] Provided Bible/devotional materials [] Provided toy/stuffed animal, coloring book to patient or family member [] Provided Communion [] Anointing/[place] [] Salvation [x] Completed spiritual assessment [] Other: Impact on Illness or Injury [] Angry [] Fearful [] Anxious [] Often cries [] Exhaustion [] Unable to work [] Unable to attend adventism [] Unable to walk/stand [] Unable to read [] Unable to drive [] Unable to eat/drink [] Unable to sleep [] Unable to be with family [] Patient intubated [] Other: Summary patient complete stress test... pain in chest has passed..... Time spent with patient 10 min
[2019-10-01 11:34] LABS: Glucose Point of Care 249 mg/dL (70-110)
--- NOTE | 2019-10-01 12:56 | PC.RESP ---
Pulmonary Rehab information sent to patient.
[2019-10-01 17:08] LABS: Glucose Point of Care 128 mg/dL (70-110)
--- NOTE | 2019-10-01 18:41 | PM.DCS ---
Discharge Providers Date of Admission: 09/30/19 21:05 Date of Discharge: October 01, 2019 Attending Provider at Admission: Harry Qureshi MD Attending Provider at Discharge: Rena Garcia MD Primary Care Provider: Nancy Swan Diagnoses at Discharge Discharge Diagnosis (1) Unstable angina: Status: Acute (2) Hypertensive emergency: Status: Acute (3) Non-ischemic cardiomyopathy: Status: Acute (4) Chronic systolic (congestive) heart failure: Status: Acute (5) CHF (congestive heart failure), NYHA class III: Status: Acute Qualifiers: Congestive heart failure chronicity: chronic Congestive heart failure type: systolic Qualified Code(s): I50.22 - Chronic systolic (congestive) heart failure (6) Diabetes mellitus: Status: Acute Qualifiers: Diabetes mellitus complication status: without complication Diabetes mellitus director long term care insulin use: without director long term care use Diabetes mellitus type: type 2 Qualified Code(s): E11.9 - Type 2 diabetes mellitus without complications (7) Hypertension: Status: Acute Qualifiers: Hypertension type: essential hypertension Qualified Code(s): I10 - Essential (primary) hypertension (8) Subcutaneous mass of right hand: Status: Acute Reason for Visit Reason for Visit: CHEST PAIN Hospital Course Discharge Summary: Peri Monge is a 74 year old female who carries history of type 2 diabetes, chronic home 02 use at 3lpm, hypertension, systolic congestive heart failure nonischemic cardiomyopathy CHF class III 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 On arrival to the ED she was hypertensive systolic pressure in 2 20s/120, EKG showed paced rhythm, first troponin 19second troponin, 27, she has been having intermittent chest discomfort in the ED, her chest discomfort improved with hydralazine and use of labetalol which decreased her blood pressure from 200 to 170s. Suspected cause was hypertensive emergency to be the cause of her symptoms considering her poor ejection fraction. She did undergo a cardiac stress test on 09/29 which showed no significant reversibility, suggestive of myocardial scarring versus attenuation artifact. Normal LV action fraction 59%. LV wall motion analysis revealing no gross wall motion normalities. Echo showed Moderate left ventricular hypertrophy. Normal left ventricular size and systolic function, EF 60 %. Mild diffuse hypokinesia of the septum and inferior wall region.Grade I/IV diastolic dysfunction. CTA negative for PE or pneumonia. Above findings discussed with her outaoteint e business consultant. Recommend follow up in one week. Hydralazine was added to her home hypertensive regimen. Physical Exam Narrative: EXAM NARRATIVE: GEN: Awake, alert and oriented, no acute distress CVS: S1S2 N RS: CTA B/L Abd: Soft, nt/nd , bs+ BRIDAL GOWN FITTER: no focal neuro deficits Discharge Data Data Completed and Pending: Completed Studies During Hospitalization Category Date Time Status CT angio chest PE protcl [id number] Stat Cat Scan 09/30/19 22:32 Completed Sestamibi Stress Test Request Routi ne Exams 09/30/19 23:00 Draft XR chest 1V linus ble [id number] Stat Exams 09/30/19 18:31 Completed NM nain perf SPECT r/s* [id number] Routin e Nuc Med 10/01/19 23:00 Completed CV echo complete* [id number] Routine Ultrasound 10/01/19 07:00 Completed Labs from last 24 hours 10/01/19 10/01/19 10/01/19 17:01 11:18 06:00 WBC RBC Hgb Hct MCV MCH MCHC RDW Plt Count MPV Neut % (Auto) Lymph % (Auto) [place] % (Auto) Eos % (Auto) Baso % (Auto) Neut # (Auto) Lymph # (Auto) [place] # (Auto) Eos # (Auto) Baso # (Auto) Nucleated RBC % (a uto) Nucleated RBCs # PT INR D-Dimer Sodium Potassium Chloride Carbon Dioxide Anion Gap BUN Creatinine GFR Calculation Glucose POC Glucose 128 249 104 Calculated Osmolal ity Calcium Magnesium Total Bilirubin AST ALT Alkaline Phosphata se Troponin T Baselin e Troponin T 120 Min [place] Troponin T Troponin T Hi Sens 6Hr Troponin T Hi Sens 6Hr Delta Total Protein Albumin Globulin 10/01/19 10/01/19 09/30/19 00:40 00:40 20:40 WBC RBC Hgb Hct MCV MCH MCHC RDW Plt Count MPV Neut % (Auto) Lymph % (Auto) [place] % (Auto) Eos % (Auto) Baso % (Auto) Neut # (Auto) Lymph # (Auto) [place] # (Auto) Eos # (Auto) Baso # (Auto) Nucleated RBC % (a uto) Nucleated RBCs # PT INR D-Dimer Sodium 143 Potassium 3.8 Chloride 107 Carbon Dioxide 22 Anion Gap 17.8 BUN 19 Creatinine 1.1 H GFR Calculation Not Reportable Glucose 142 H POC Glucose Calculated Osmolal ity 295 Calcium 9.0 Magnesium 1.8 Total Bilirubin AST ALT Alkaline Phosphata se Troponin T Baselin e Troponin T 120 Min [place] 26.51 H Delta Troponin T 7.51 Troponin T Hi Sens 6Hr 39.73 H Troponin T Hi Sens 6Hr Delta 20.73 H* Total Protein Albumin Globulin 09/30/19 09/30/19 09/30/19 18:57 18:57 18:57 WBC 8.8 RBC 4.27 Hgb 11.1 L Hct 36.7 L MCV 85.9 MCH 26.0 L MCHC 30.2 RDW 14.8 Plt Count 194 MPV 10.2 Neut % (Auto) 68.8 Lymph % (Auto) 17.9 [place] % (Auto) 8.0 Eos % (Auto) 3.7 Baso % (Auto) 0.8 Neut # (Auto) 6.06 Lymph # (Auto) 1.6 [place]ern # (Auto) 0.7 Eos # (Auto) 0.3 Baso # (Auto) 0.1 Nucleated RBC % (a uto) 0 Nucleated RBCs # 0.0 PT 13.10 INR 0.97 D-Dimer 0.68 H Sodium Potassium Chloride Carbon Dioxide Anion Gap BUN Creatinine GFR Calculation Glucose POC Glucose Calculated Osmolal ity Calcium Magnesium Total Bilirubin AST ALT Alkaline Phosphata se Troponin T Baselin e Troponin T 120 Min [place] Troponin T Troponin T Hi Sens 6Hr Troponin T Hi Sens 6Hr [place] Total Protein Albumin Globulin 09/30/19 09/30/19 18:27 18:27 WBC RBC Hgb Hct MCV MCH MCHC RDW Plt Count MPV Neut % (Auto) Lymph % (Auto) [place] % (Auto) Eos % (Auto) Baso % (Auto) Neut # (Auto) Lymph # (Auto) [place] # (Auto) Eos # (Auto) Baso # (Auto) Nucleated RBC % (a uto) Nucleated RBCs # PT INR D-Dimer Sodium 142 Potassium 4.1 Chloride 107 Carbon Dioxide 22 Anion Gap 17.1 BUN 23 Creatinine 1.3 H GFR Calculation Not Reportable Glucose 200 H POC Glucose Calculated Osmolal ity 296 H Calcium 9.6 Magnesium Total Bilirubin 0.2 AST 20 ALT 22 Alkaline Phosphata se 66 Troponin T Baselin e 19 H Troponin T 120 Min [place] Troponin T Troponin T Hi Sens 6Hr Troponin T Hi Sens 6Hr [place] Total Protein 7.4 Albumin 4.5 Globulin 2.9 Vitals: Last Vital Signs Temp 98.4 F 10/01/19 17:00 Pulse 74 10/01/19 17:00 Resp 26 H 10/01/19 17:00 BP 164/74 10/01/19 17:00 Pulse Ox 99 10/01/19 17:00 Discharge Plan Discharge Patient Disposition: Home Condition: Stable Prescriptions: New hydralazine 25 mg Tablet 25 mg PO TID 30 Days Qty: 90 RF: 0 Continued fluticasone propion-salmeterol [Wixela Inhub] 250-50 mcg/dose blister with device 1 inh INHALATION DAILY RF: 0 Spiriva Respimat 2.5 mcg/actuation mist 1 inh INHALATION BID RF: 0 aspirin 81 mg tablet,delayed release (DR/EC) 81 mg PO DAILY RF: 0 Tresiba FlexTouch U-200 200 unit/mL (3 mL) insulin pen 98 unit SUBCUT QAM RF: 0 (DME) Carpal Tunnel Brace See Rx Instructions .Route .MEDSUPPLY Qty: 1 RF: 0 doxepin 50 mg capsule 50 mg PO BEDTIME RF: 0 ferrous sulfate 325 mg (65 mg iron) tablet 325 mg PO BEDTIME RF: 0 gabapentin 300 mg capsule 300 mg PO DAILY RF: 0 hydroxychloroquine 200 mg tablet 200 mg PO BID RF: 0 omeprazole 40 mg capsule,delayed release(DR/EC) 40 mg PO DAILY RF: 0 cholecalciferol (vitamin D3) 5,000 unit capsule 5,000 unit PO DAILY RF: 0 garlic 500 mg capsule 1,000 mg PO DAILY RF: 0 melatonin 5 mg capsule 5 mg PO BEDTIME RF: 0 lisinopril 2.5 mg tablet 10 mg PO DAILY RF: 0 furosemide 20 mg tablet 40 mg PO DAILY RF: 0 carvedilol 25 mg tablet 25 mg PO BID 30 Days Qty: 60 RF: 5 metformin 1,000 mg Tablet 1,000 mg PO BID RF: 0 triamcinolone acetonide 0.5 % ointment 1 applic TOPICAL BID PRN (Reason: unknown) RF: 0 flaxseed oil 1,000 mg Capsule 2,000 mg PO DAILY RF: 0 potassium gluconate 595 mg (99 mg) Tablet 595 mg PO DAILY RF: 0 biotin 2 cap PO DAILY RF: 0 Discharge Orders: Discharge Order (Routine); Ordered 10/01/19 Ordered By: Rena Garcia Referrals: Derik Worthington MD [Physician] - 1 week (You will have a Cardiology follow up with Dr. Worthington within one week. [facility] will be calling you to arrange an appointment date and time. If you don't hear from them by Friday please call the office. ) Nancy Swan PA [Primary Care Provider] - (Please schedule a hospital follow up with your primary care doctor within one week. ) Discharge Diet: Cardiac and Low Salt Discharge Activity: Resume usual activity Patient Instructions: Hydralazine (By mouth), Hypertension, Chest Pain Stoplight Discharge Date/Time: 10/01/19 19:29 Discharge Attestations Time Spent in Discharge Care*: greater than 30 min Quality Metrics Clinical Quality Measures During this hospital stay, did patient experience: None Coding Level of Care Code Acute Can Top Setter for g Fwd Diagnoses Unstable angina I20.0 Hypertensive emergency I16.1 Non-ischemic cardiomyopathy I42.8 Chronic systolic (congestive) heart failure I50.22 CHF (congestive heart failure), NYHA class III I50.22 Congestive heart failure chronicity: chronic Congestive heart failure type: systolic Diabetes mellitus E11.9 Diabetes mellitus complication status: without complication Diabetes mellitus residential insulin use: without director long term care use Diabetes mellitus type: type 2 Hypertension I10 Hypertension type: essential hypertension Subcutaneous mass of right hand R22.31
--- NOTE | 2019-10-01 23:00 | NMCV_ITS ---
NM nain perf SPECT r/s* [id number] Peri Monge Age: 74 Gender: F : 1945 Exam Date: 10/01/2019 23:00 Ordering Phys: Harry Qureshi MD Technologist: ROXANNE Martin Exam Location: [facility] Indications: CHEST PAIN STRESS TEST [facility] IMAGE PROTOCOL Rest/Stress 1 Lexiscan Day Radiopharmaceutical Dose (mCi) Administration Site Administered by Rest: Tc-99m 10.8 IV ROXANNE Kang Sestamibi Stress:Tc-99m 32.6 IV ROXANNE Kang Sestamibi Rest: 01-Oct-2019 60 Discovery 630 Stress: 01-Oct-2019 30 Discovery 630 0.4mg Lexiscan. Images obtained in supine and prone position. SPECT RESULTS Technical Quality: Excellent Raw Data Analysis: Normal Image Corrections: No attenuation or motion correction applied Summed Stress Score: 1 Summed Rest Score: 0 Summed Difference Score: 1 PERFUSION FINDINGS A small area of slightly decreased tracer uptake was noted in the mid anterolateral region, with a supine imaging. No significant reversibility was noted in this region. With the prone imaging, there is fairly uniform tracer uptake. FUNCTIONAL RESULTS (calculated via Gated SPECT) Stress Image LV EF (%): 59 Stress EDV (mL):108 TID: 1.19 Stress ESV (mL):44 FUNCTIONAL FINDINGS: Segmental wall motion analysis revealing mild diffuse hypokinesia of the septum . IMPRESSIONS 1. Myocardial perfusion may revealing a small area of slightly decreased tracer uptake in the mid anterolateral region, with no significant reversibility, suggestive of myocardial scarring versus attenuation artifact. 2. Normal LV action fraction 59%. 3. LV wall motion analysis revealing no gross wall motion normalities. 4. LV volume, upper limit of normal. 5. Slightly elevated transient ischemic dilatation ratio, may suggest endocardial ischemia. But the positive predictive value of this finding is limited. Clinical correlation is recommended. No similar previous studies are available for comparison Dr Derik Worthington MD FACC (Electronically Signed) Final Date: 01 October 2019 17:36 S
== END 2019-10-01 19:29 | disposition home or self-care (01) ==
LOC: ER 21:06 → CSU 21:15
PROVIDERS: Emergency Medicine; Admitting Provider Internal Medicine; PCP Physician Assistant; Visit Provider Student in an Organized Health Care Education/Training Program
DX: I20.0 Unstable angina (principal); I16.1 Hypertensive emergency; I42.8 Other cardiomyopathies; I11.0 Hypertensive heart disease with heart failure; I50.22 Chronic systolic (congestive) heart failure; E11.42 Type 2 diabetes mellitus with diabetic polyneuropathy; Z79.4 Long term (current) use of insulin; R22.31 Localized swelling, mass and lump, right upper limb; Z79.82 Long term (current) use of aspirin; M06.9 Rheumatoid arthritis, unspecified; Z87.891 Personal history of nicotine dependence
CPT/HCPCS: 12345; 36415; 36416; 71045; 71275; 78452; 80048; 80053; 82962; 83735; 84484; 85025; 85378; 85610; 93005; 93017; 93306; 94640; 96372; 96374; 96375; 99282; 99285; A9500; G0378; J0360; J1644; J1815; J2785; J3490; Q9967

== ENCOUNTER → 2019-10-07 10:04 | Outpatient (BNVA) | payer MEDICARE, SELFPAY | PROVIDERS: PCP Physician Assistant; Visit Provider Internal Medicine Rheumatology | DX: M05.79 Rheumatoid arthritis with rheumatoid factor of multiple sites without organ or systems involvement (principal); Z79.899 Other long term (current) drug therapy; Z11.59 Encounter for screening for other viral diseases; Z11.1 Encounter for screening for respiratory tuberculosis; G56.03 Carpal tunnel syndrome, bilateral upper limbs; I50.22 Chronic systolic (congestive) heart failure; E11.9 Type 2 diabetes mellitus without complications; Z79.4 Long term (current) use of insulin; Z87.891 Personal history of nicotine dependence | CPT/HCPCS: 36415; 85651; 86140; 86480; 86704; 86803; 87340; 99204 ==

== ENCOUNTER → 2020-01-11 11:00 | Outpatient (BNVA) | payer MEDICARE, SELFPAY | PROVIDERS: PCP Physician Assistant; Visit Provider Internal Medicine Rheumatology | DX: M05.79 Rheumatoid arthritis with rheumatoid factor of multiple sites without organ or systems involvement (principal); R76.8 Other specified abnormal immunological findings in serum; I42.8 Other cardiomyopathies; E11.9 Type 2 diabetes mellitus without complications; Z79.4 Long term (current) use of insulin; I50.9 Heart failure, unspecified; Z87.891 Personal history of nicotine dependence; Z79.899 Other long term (current) drug therapy | CPT/HCPCS: 99214 ==

== ENCOUNTER → 2020-05-25 10:50 | Outpatient (BNVA) | payer MEDICARE, SELFPAY | PROVIDERS: PCP Physician Assistant; Visit Provider Internal Medicine Rheumatology | DX: M05.79 Rheumatoid arthritis with rheumatoid factor of multiple sites without organ or systems involvement (principal); Z79.899 Other long term (current) drug therapy; R76.8 Other specified abnormal immunological findings in serum; E11.9 Type 2 diabetes mellitus without complications; Z79.4 Long term (current) use of insulin; Z95.810 Presence of automatic (implantable) cardiac defibrillator; Z87.891 Personal history of nicotine dependence | CPT/HCPCS: 99214 ==

== ENCOUNTER → 2020-06-09 12:28 | Outpatient (BNVA) | payer MEDICARE, SELFPAY | PROVIDERS: PCP Physician Assistant; Visit Provider Orthopaedic Surgery | DX: Z20.828 Contact with and (suspected) exposure to other viral communicable diseases (principal) | CPT/HCPCS: 87635 ==

== ENCOUNTER 2020-06-15 05:53 | Day surgery (SDC) | payer MEDICARE, SELFPAY ==
[2020-06-14 14:59] VITALS: BMI 29.5
[2020-06-15] VITALS (7 sets, daily range): BP systolic 164–205; BP diastolic 63–94; PULSE 60–87; RESP 16–20; TEMP 36.2–36.6; O2SAT 95–100
[2020-06-15] MEDS: sodium chloride 0.9% 1,000 ML 30 ML IV (06:06)
--- NOTE | 2020-06-15 06:40 | P.ANESASSM_ITS ---
Pre-Anesthetic Assessment Pre-Anesthetic Assessment: Height/Weight: Height 1.63 m Weight 78.018 kg Preop Diagnosis: Masses right hand, forearm, index, long finger Proposed Procedure: Operation Date: 06/15/20 07:00 Proposed Procedures p excision of mass right forearm, hand, index, long and ring fingers ([id number]) R22.31(Right) - Dc Sow MD Was Beta Lindsay taken within 24 hours: Yes Was Clonidine taken within 24 hours: N/A Last intake: Intake Last Liquid Date 06/14/20 Last Liquid Time 21:00 Last Solid Date 06/14/20 Last Solid Time 21:00 Social: Social History: No alcohol and No tobacco Exam: Pre-Anes Outpt Exam: alert and oriented x 3 Additional Exam Findings (including area of procedure): Markedly diminished BS Airway: Submandibular: WNL Cervical ROM: WNL MP: 2 Pulmonary: Pulmonary: COPD CV/HEM: CV/HEM: Arrythmia, CAD and CHF : : None reported Hepatic: Hepatic: None reported GI: GI: None reported Metabolic: Metabolic: DM Musc/skel: Musc/skel: None reported Neuropsych: Neuropsych: Anxiety Anesthetic Plan: ASA status: 4 Anesthesia: MAC Meds/Allergies Current Medications: Current Medications Generic Name Dose Route Start Last Admin Trade Name Freq PRN Reason Stop Dose Admin Sodium Chloride 1,000 mls @ 30 ml s/hr 06/15/20 06:00 06/15/20 06:06 Sodium Chloride 0.9% IV 06/16/20 05:59 30 mls/hr .Q24H AARON Administration PFSH Anesthesia PFSH: Medical History Anemia Cardiac resynchronization therapy defibrillator (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) in 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 Cardiomyopathy Carpal tunnel syndrome Carpal tunnel syndrome of right wrist CHF (congestive heart failure), NYHA class III Chronic systolic (congestive) heart failure COPD (chronic obstructive pulmonary disease) Diabetes mellitus Hepatitis B core antibody positive High risk medication use Hypertension ICD (implantable cardioverter-defibrillator) battery depletion Immunization counseling Non-ischemic cardiomyopathy Peripheral neuropathy Rheumatoid arthritis Seropositive rheumatoid arthritis of multiple sites Surgical History History of appendectomy History of hysterectomy with bilateral oophorectomy S/P ICD (internal cardiac defibrillator) procedure Family History Mother Diabetes Hypertension CHF (congestive heart failure) Other CAD (coronary artery disease) Cancer Hyperlipidemia Lung disease Denies family history of Rheumatoid arthritis Lupus Chronic kidney disease (CKD) Stroke Social History Smoking and tobacco status: former smoker Alcohol intake: current Alcohol intake frequency: holidays/special occasions only Household members: spouse Housing: House Marital status: History of recent travel: No Data Anesthesia Cardiac Studies: No Data to Display
--- NOTE | 2020-06-15 06:51 | W.PM.OPSUD ---
Surgery/Procedure H&P Update DATE OF PROCEDURE: June 15, 2020 DATE H&P PERFORMED: 05/15/20 PREOP DIAGNOSIS: Masses right hand, forearm, index, long finger PLANNED PROCEDURE: Operation Date: 06/15/20 07:00 Proposed Procedures p excision of mass right forearm, hand, index, long and ring fingers ([id number]) R22.31(Right) - Dc Sow MD
[2020-06-15] MEDS: clindamycin 600 MG/50 ML PREMIX 100 MG IV (07:00)
[2020-06-15 07:01] LABS: Glucose Point of Care 187 mg/dL (70-110)
--- NOTE | 2020-06-15 08:20 | W.PM.OPSUD ---
Surgery/Procedure H&P Update DATE OF PROCEDURE: June 15, 2020 DATE H&P PERFORMED: 05/15/20 PREOP DIAGNOSIS: Masses right hand, forearm, index, long finger PLANNED PROCEDURE: Operation Date: 06/15/20 07:00 Proposed Procedures p excision of mass right forearm, hand, index, long and ring fingers ([id number]) R22.31(Right) - Dc Sow MD
--- NOTE | 2020-06-15 08:21 | P.OP_ITS ---
Operative Report Date of procedure: June 15, 2020 Pre-op Diagnosis: Masses right hand, index, long finger Post-op diagnosis: same Post-op Findings: As above Implants: Excision ganglion right hand Excision mucinous cyst right index finger Excision fibrous nodule base right long finger Pathology: none sent Anesthesia: Local ([place] block) Estimated blood loss (mL): 5 Tourniquet time (min): 55 Findings: Patient had a ganglion cyst measuring approximately 3 x 3 cm over the dorsal radial wrist. The cyst was well encapsulated and filled with a thick gelatinous fluid. It was adherent to the deep wrist joint capsule and extensor pollicis longus tendon. There was a 5 mm x 5 mm mucinous cyst dorsally over the distal interphalangeal joint of the index finger. A small fibrous subcutaneous nodule perhaps 3 mm in diameter was identified in the subcutaneous tissues of the dorsal skin corresponding to the level of the radial base of the long finger just proximal to the metacarpal phalangeal joint Condition: stable Disposition: PACU Brief History: Ms Rader had a history of multiple tender masses over arm including a gelatinous mass over the dorsal radial wrist, a mucinous cyst about the DIP joint of the index finger and a palpable nodule at the base of the long finger. She also complained of swelling along her radial wrist which clinically did not correspond to a palpable mass and actually had improved by the time of surgery and surgical exploration and excision of cyst was not warranted. Procedure: The patient was taken to the operating room and given 900 mg of clindamycin. [place] block was provided by the anesthesia service. Initial attention was applied to the mass at the base of the long finger. A transverse vision 1 cm long was made overlying the palpable mass. Dissection was carried down bluntly through the skin revealing the fibrous nodule in the subcutaneous tissues. A small fibrous mass was easily excised from loose attachments in the subcutaneous fat. Dorsal extensor tendon was identified. Several small osteophytes were felt in the dorsal joint which were not excised. Attention was then focused on the distal interphalangeal joint of the index finger. A 6 mm transverse incision was made over the dorsum of the mass. The mass the incision was extended in the like fashion by extending one end of the incision proximally and distally. This brought us down to a fairly well-defined firm nodular mass over the lying the extensor tendon insertion. Utilizing a sc alpel this was sharply excised. Next a 3 cm long transverse incision was made in line with the increases over the volar radial wrist. Superficial neurovascular structures were retracted radially and ulnarly with skin hook and blunt dissection was used to the subcutaneous fat reviewed the dorsal aspect of the fluctuant ganglion. Initial dissection was accomplished from the radial aspect beneath the mass, allowing it to be elevated. Dissection was then accomplished distally and proximally elevating it off the capsule. It was finally dissected off the extensor pollicis longus tendon there is a sharply adherent. All wounds were irrigated with saline. space was closed with a 3-0 Vicryl deep over the dorsal radial wrist. Skin edges from all incisions were closed with interrupted 4-0 Prolene. Incisions were covered with Xeroflo gauze and 4 x 4's. Tube gauze was placed over the fingertip of the index finger. Web roll was applied across the long finger and wrist and an Darrius wrap applied over the wrist hand and index finger. The tourniquet was deflated.Patient was taken to recovery room in stable condition.
[2020-06-15] MEDS: HYDROmorphone 1 mg/mL INJ 1 mL 0.25 MG IVP (09:01)
--- NOTE | 2020-06-15 13:32 | ANE.PACU2 ---
Inpatient post-anesthesia follow up: Airway intact: Yes Vital signs: Temperature 97.2 F Pulse Rate 60 Respiratory Rate 18 Blood Pressure 205/88 Pulse Oximetry 100 Oxygen Delivery Me thod Nasal Cannula Oxygen Flow Rate 2 Fraction of Inspir ed Oxygen Hydration adequate: Yes Nausea and vomiting: No Pain level: 3 Mental status: Baseline
== END 2020-06-15 09:15 | disposition home or self-care (01) ==
PROVIDERS: PCP Physician Assistant; Visit Provider Orthopaedic Surgery
PROC: (CPT 25111; principal; 2020-06-15 07:00)
DX: M67.49 Ganglion, multiple sites (principal); Z79.82 Long term (current) use of aspirin; J44.9 Chronic obstructive pulmonary disease, unspecified; I11.0 Hypertensive heart disease with heart failure; I50.22 Chronic systolic (congestive) heart failure; E11.42 Type 2 diabetes mellitus with diabetic polyneuropathy; Z82.49 Family history of ischemic heart disease and other diseases of the circulatory system; Z83.3 Family history of diabetes mellitus; Z87.891 Personal history of nicotine dependence
CPT/HCPCS: 25111; 26160 ×2; 36416; 82962; J1170; J2704; J3490; J7030

== ENCOUNTER → 2020-08-21 11:03 | Outpatient (BNVA) | payer MEDICARE, SELFPAY | PROVIDERS: PCP Physician Assistant; Visit Provider Internal Medicine Cardiovascular Disease | DX: I50.22 Chronic systolic (congestive) heart failure (principal); I42.8 Other cardiomyopathies; I50.33 Acute on chronic diastolic (congestive) heart failure; R06.02 Shortness of breath | CPT/HCPCS: 80048; 83880 ==

== ENCOUNTER → 2020-08-31 13:57 | Outpatient (BNVA) | payer MEDICARE, SELFPAY | PROVIDERS: PCP Physician Assistant; Visit Provider Internal Medicine Rheumatology | DX: M05.79 Rheumatoid arthritis with rheumatoid factor of multiple sites without organ or systems involvement (principal); Z79.899 Other long term (current) drug therapy; Z79.52 Long term (current) use of systemic steroids; E11.9 Type 2 diabetes mellitus without complications; Z79.4 Long term (current) use of insulin; Z71.89 Other specified counseling; Z95.0 Presence of cardiac pacemaker; Z87.891 Personal history of nicotine dependence | CPT/HCPCS: 99214 ==

== ENCOUNTER 2020-09-01 20:14 | Emergency (ER) | payer MEDICARE, SELFPAY ==
[2020-09-01 20:19] VITALS: BP 176/67; PULSE 83; RESP 19; TEMP 36.9; O2SAT 96; BMI 27.8
--- NOTE | 2020-09-01 20:28 | CTR_ITS ---
PROCEDURE INFORMATION: Exam: CT Head Without Contrast Exam date and time: 09/01/2020 8:28 PM Age: 75 years old Clinical indication: Numbness / parasthesia; Patient HX: Left sided face/arm numbness x 1hour; Additional info: Facial and arm numbness TECHNIQUE: Imaging protocol: Computed tomography of the head without contrast. Radiation optimization: All CT scans at this facility use at least one of these dose optimization techniques: automated exposure control; mA and/or kV adjustment per patient size (includes targeted exams where dose is matched to clinical indication); or iterative reconstruction. Other technique: STROKE PROTOCOL was implemented. COMPARISON: No relevant prior studies available. RADIATION DOSE METRICS: Total DLP (mGy-cm): 904.71 FINDINGS: Brain: Mild atrophy and mild white matter chronic microvascular changes are noted. No hemorrhage or evidence of acute infarction is seen. Cerebral ventricles: No ventriculomegaly. Paranasal sinuses: Visualized sinuses are unremarkable. No fluid levels. Mastoid air cells: Visualized mastoid air cells are well aerated. Bones/joints: No acute fracture. Soft tissues: Unremarkable. CT/CT head wo con* [id number] IMPRESSION: No acute intracranial abnormality. ASSESSMENT: ASPECTS ([place] Stroke Program Early CT Score) is 10. Radiation Dose CTDIVOL = (mGy): DLP = 904.71 (mGy-cm)
--- NOTE | 2020-09-01 20:36 | XRR_ITS ---
PROCEDURE INFORMATION: Exam: XR Chest Exam date and time: 09/01/2020 8:36 PM Age: 75 years old Clinical indication: Chest wall pain; Prior surgery; Surgery type: Pacemaker; Patient HX: Left sided numbness face/arm x 1hour w/ cp TECHNIQUE: Imaging protocol: XR of the chest. Views: 1 view. COMPARISON: CR XR chest 1V portable [id number] 09/30/2019 6:45 PM FINDINGS: Tubes, catheters and devices: The AICD and its leads appear stable in position. Lungs: No acute airspace process is visualized. Pleural spaces: Unremarkable. No pleural effusion. No pneumothorax. Heart/Mediastinum: Unremarkable. No cardiomegaly. Bones/joints: Unremarkable. XR/XR chest 1V portable [id number] IMPRESSION: No acute cardiopulmonary abnormality.
--- NOTE | 2020-09-01 20:36 | CTR_ITS ---
PROCEDURE INFORMATION: Exam: CT Angiography Head With Contrast, Arteriography Exam date and time: 09/01/2020 8:36 PM Age: 75 years old Clinical indication: Numbness; Additional info: Left arm and face numbness TECHNIQUE: Imaging protocol: Computed tomography angiography of the head with contrast. Exam focused on the arteries. 3D rendering (Not supervised by radiologist): MIP and/or 3D reconstructed images were created by the technologist. Radiation optimization: All CT scans at this facility use at least one of these dose optimization techniques: automated exposure control; mA and/or kV adjustment per patient size (includes targeted exams where dose is matched to clinical indication); or iterative reconstruction. Contrast material: VISI 320; Contrast volume: 95 ml; Contrast route: INTRAVENOUS (IV); COMPARISON: CT head wo con* [id number] 09/01/2020 8:35 PM RADIATION DOSE METRICS: Total DLP (mGy-cm): 2633.48 FINDINGS: ANTERIOR CIRCULATION: Right internal carotid artery: Mild stenosis of the right carotid siphon is appreciated. No aneurysm. Right middle cerebral artery: Unremarkable. No occlusion or significant stenosis. No aneurysm. Right anterior cerebral artery: Unremarkable. No occlusion or significant stenosis. No aneurysm. Left internal carotid artery: Mild stenosis of the left carotid siphon is appreciated. No aneurysm. Left middle cerebral artery: Unremarkable. No occlusion or significant stenosis. No aneurysm. Left anterior cerebral artery: Unremarkable. No occlusion or significant stenosis. No aneurysm. POSTERIOR CIRCULATION: Right vertebral artery: Unremarkable. No occlusion or significant stenosis. No aneurysm. Left vertebral artery: The diminutive non-dominant left vertebral artery terminates as the PICA branch Basilar artery: Unremarkable. No occlusion or significant stenosis. No aneurysm. Right posterior cerebral artery: Unremarkable. No occlusion or significant stenosis. No aneurysm. Left posterior cerebral artery: Unremarkable. No occlusion or significant stenosis. No aneurysm. IMPRESSION: Mild stenoses of bilateral carotid siphons. Otherwise, the intracranial arteries are patent. PROCEDURE INFORMATION: Exam: CT Angiography Neck With Contrast Exam date and time: 09/01/2020 8:36 PM Age: 75 years old Clinical indication: Numbness; Additional info: Left arm and face numbness TECHNIQUE: Imaging protocol: Computed tomography angiography of the neck with contrast. 3D rendering (Not supervised by radiologist): MIP and/or 3D reconstructed images were created by the technologist. Radiation optimization: All CT scans at this facility use at least one of these dose optimization techniques: automated exposure control; mA and/or kV adjustment per patient size (includes targeted exams where dose is matched to clinical indication); or iterative reconstruction. Contrast material: VISI 320; Contrast volume: 95 ml; Contrast route: INTRAVENOUS (IV); COMPARISON: CT head wo con* [id number] 09/01/2020 8:35 PM RADIATION DOSE METRICS: Total DLP (mGy-cm): 2633.48 FINDINGS: Right common carotid artery: Atherosclerotic plaque is present in the right common carotid artery. Mild stenosis of the right carotid bulb is appreciated. Right internal carotid artery: See Right common carotid artery finding. Right external carotid artery: No occlusion or stenosis of the origin. Left common carotid artery: Atherosclerotic plaque is present in the left common carotid artery. No area of significant stenosis. Left internal carotid artery: Noncalcified plaque causes mild stenosis of the proximal left ICA. Left external carotid artery: No occlusion or stenosis of the origin. Right vertebral artery: Atherosclerotic plaque causes near-complete occlusion of the right vertebral artery origin. Otherwise, the right vertebral artery is patent. Left vertebral artery: No stenosis. No dissection or occlusion. Soft tissues: Normal. No significant soft tissue swelling. Bones/joints: A small 8 x 13 mm low-density lesion, possibly cyst, is seen in the right anterior aspect of the larynx posterior to the hyoid bone. 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 No acute fracture is visualized. Lungs: Mild centrilobular emphysema is appreciated. Mild scarring is observed in both lung apices. CT/CT angio headneck* [id number] IMPRESSION: 1. 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 2. Mild stenosis of the right carotid bulb and proximal left ICA. 3. Small low-density, possibly cystic, lesion in the superior larynx. 4. Centrilobular emphysema. REFERENCES: NASCET CRITERIA. The degree of internal carotid artery stenosis is based on NASCET criteria. Normal is no stenosis. Mild is less than 50% stenosis. Moderate is 50-69% stenosis. Severe is 70% to 99% stenosis. Total occlusion is no detectable patent lumen. Radiation Dose CTDIVOL = (mGy): DLP = 2633.48~2633.48 (mGy-cm)
--- NOTE | 2020-09-01 20:37 | ECG_ITS ---
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 Measurements Intervals [place] Rate: 78 P: 74 CA: 168 QRS: 237 QRSD: 148 T: 23 QT: 431 QTc: 492 Interpretive Statements ELECTRONIC VENTRICULAR PACEMAKER Compared to ECG 10/01/2019 01:48:58 No significant changes Electronically Signed On 09-01-2020 22:08:55 CDT by Adilson Montgomery M.D. [id number] f
[2020-09-01 20:52] LABS: Basophils % 0.5 %; Eosinophils # 0.2 10^3/uL (0.0-0.8); Eosinophils % 2.1 %; Hematocrit 29.5 % (37.0-47.0); Hemoglobin 9.2 g/dL (11.5-15.3); Lymphocytes % 25.2 %; Mean Corpuscular HGB Conc 31.2 g/dL (30.0-36.0); Mean Corpuscular Hemoglobin 29.1 pg (28.0-34.0); Mean Corpuscular Volume 93.4 fL (81-99); Mean Platelet Volume 10.5 fL (7.4-10.4); Monocytes # 0.6 10^3/uL (0.2-0.9); Monocytes % 7.6 %; Neutrophils # 5.13 10^3/uL (1.8-7.7); Neutrophils % 63.5 %; Nucleated Red Blood Cells % 0 %; Platelet Count 160 10^3/cmm (130-400); Red Blood Count 3.16 10^6/uL (4.1-5.3); Red Cell Distribution Width 15.4 % (12.1-15.1); White Blood Count 8.1 10^3/uL (4.0-10.0)
--- NOTE | 2020-09-01 20:53 | W.ED.NEUROSD ---
HPI - Neuro Symptoms/Deficit General: Chief Complaint: Neuro Symptoms/Deficit Stated Complaint: left sided numbess in face and arm Time Seen by Provider: 09/01/20 20:20 History of Present Illness: HPI Narrative: 75-year-old female with a history of nonischemic cardiomyopathy and pacer defibrillator placement. She states that an hour prior to arrival, she began to get some chest pain while sitting at the computer playing a game. Denies significant shortness of breath. She states her chest still hurts. She states there was a pressure in her head, and then her left face and left arm began to get numb. They do not feel weak. No language problems. No vision changes. No lower extremity symptoms. Onset (ago): hour(s) Last Observed Normal: 19:00 Timing confirmed by: spouse Location: left face and left arm History of same: No Severity: mild Quality: numb Relieving factors: none Exacerbating factors: none Context: sudden onset On Anticoagulants: No Associated symptoms: Reports chest pain, headache(s) and nausea; Deny cough, diaphoresis, fevers/chills, anorexia, short of breath, syncope, vomiting or weakness Treatments Prior to Arrival: Aspirin (Baby aspirin daily) Review of Systems Const: Denies: fever(s) or diaphoresis Eyes: Denies: change in vision or blurry vision ENMT: Denies: odynophagia or sinus pain Card: Reports: chest pain; Denies: syncope Resp: Denies: dyspnea, productive cough, non-productive cough or wheezing GI: Reports: nausea; Denies: vomiting : Denies: dysuria or hematuria Musc: Denies: neck pain Skin/Breast: Denies: rash or erythema Neuro: Reports: headache(s) Psych: Denies: anxiety PFSH ED PFSH: Medical History (Updated 09/02/20 @ 00:33 by Aaron Gutiérrez DO) Anemia Cardiac resynchronization therapy defibrillator (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 MACHINIST-D) in 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 Cardiomyopathy Carpal tunnel syndrome Carpal tunnel syndrome of right wrist CHF (congestive heart failure), NYHA class III Chronic steroid use counseled about blood sugar monitoring Chronic systolic (congestive) heart failure COPD (chronic obstructive pulmonary disease) Diabetes mellitus Hepatitis B core antibody positive Hepatitis B PCR is negative High risk medication use Hypertension ICD (implantable cardioverter-defibrillator) battery depletion Immunization counseling Non-ischemic cardiomyopathy Peripheral neuropathy Rheumatoid arthritis Seropositive rheumatoid arthritis of multiple sites Surgical History History of appendectomy History of hysterectomy with bilateral oophorectomy S/P ICD (internal cardiac defibrillator) procedure Family History Mother Diabetes Hypertension CHF (congestive heart failure) Other CAD (coronary artery disease) Cancer Hyperlipidemia Lung disease Denies family history of Rheumatoid arthritis Lupus Chronic kidney disease (CKD) Stroke Social History Smoking and tobacco status: former smoker Alcohol intake: current Alcohol intake frequency: holidays/special occasions only Household members: spouse Housing: House Marital status: History of recent travel: No NIH stroke score NIHSS: Level Of Consciousness - 1a: 0 Level Of Consciousness Questions - 1b: Both Correct Level Of Consciousness Commands - 1c: Both Correct Best Gaze - 2: Normal Visual Parnell - 3: No Visual Loss Facial Palsy - 4: Normal Motor Arm Right - 5: No Drift Motor Arm Left - 5: No Drift Motor Leg Right - 6: No Drift Motor Leg Left - 6: No Drift Limb Ataxia - 7: Absent Sensory - 8: Mild To Moderate Loss Best Language - 9: No Aphasia Dysarthia - 10: Normal Extinction And Inattention - 11: 0 Score: Total Score: 1 Physical Exam Const: GENERAL APPEARANCE: well developed ORIENTATION/CONSCIOUSNESS: Yes oriented to person, Yes oriented to place and Yes oriented to time HENMT: COMMON NORMALS: normocephalic, external ears normal and Normal external nose present HEAD & SCALP: normocephalic FACE & SINUS: normal facial exam NOSE: Normal external nose present and No nasal discharge present EXTERNAL EAR: Yes external ears normal Eye: COMMON NORMALS: Equal, round and reactive pupils present, EOMs intact bilaterally and conjunctivae normal EYELID: eyelids normal CONJUNCTIVA: Yes conjunctivae normal PUPIL: Yes Equal, round and reactive pupils present Neck/C-Spine: GENERAL: No tracheal deviation Chest: COMMONS NORMALS: normal inspection of the chest CHEST: No tenderness Resp: COMMON NORMALS: clear to auscultation bilaterally EFFORT & INSPECTION: No tachypneic, No respiratory distress, No retractions, No uses accessory muscles and No tracheal deviation AUSCULTATION: clear to auscultation bilaterally, no rhonchi, no wheezes and lung sounds not diminished Cardio: COMMON NORMALS: regular rate and regular rhythm RATE: regular rate RHYTHM: regular rhythm HEART SOUNDS: Murmur heart sound present PERIPHERAL PULSES: radial pulses present GI: INSPECTION: No abdominal distension AUSCULTATION: No Hyperactive bowel sounds present and No Hypoactive bowel sounds present PALPATION: No Guarding due to palpation present (GI) and No Rigid due to palpation PERCUSSION: no dullness to percussion and no tympanic to percussion Neuro: SENSORIUM/ORIENTATION: Yes oriented to person, Yes oriented to place and Yes oriented to time Psych: COMMON NORMALS: mental status grossly normal Skin: COMMON NORMALS: no rashes or lesions noted GENERAL SKIN EXAM: no rashes or lesions noted Course Vital Signs: Vital signs: Vital Signs Temperature 98.5 F 09/01/20 20:19 Pulse Rate 76 09/02/20 01:11 Respiratory Rate 18 09/02/20 01:11 Blood Pressure 142/96 09/02/20 01:11 Pulse Oximetry 96 09/02/20 01:11 MDM - Neuro Symptoms/Deficit MDM Narrative: Medical decision making narrative: NIH of 1 on arrival. This improved to 0 after IV fluid. Patient appears clinically dry. She has a increased BUN and creatinine over baseline. She was given IV fluid for this. She also has a potassium of 6 on arrival. She is given calcium, bicarbonate, IV fluid and albuterol. Repeat potassium shows 4.4. She informed us that her research pharmacist had increased her potassium of late, I think that that paired with mild dehydration may be the culprit. CT of the head is negative. CTA shows high-grade stenosis of the right vertebral artery, which does not match her symptoms. She was informed about this, and that follow-up as needed. She would like to go home. Lab Data: Labs: Lab Results 09/01/20 09/01/20 09/01/20 Range/Units 20:25 20:25 20:25 WBC 8.1 (4.0-10.0) 10^3/ uL RBC 3.16 L (4.1-5.3) 10^6/u L Hgb 9.2 L (11.5-15.3) g/dL Hct 29.5 L (37.0-47.0) % MCV 93.4 (81-99) fL MCH 29.1 (28.0-34.0) pg MCHC 31.2 (30.0-36.0) g/dL RDW 15.4 H (12.1-15.1) % Plt Count 160 (130-400) 10^3/c mm MPV 10.5 H (7.4-10.4) fL Neut % (Auto) 63.5 % Lymph % (Auto) 25.2 % [place] % (Auto) 7.6 % Eos % (Auto) 2.1 % Baso % (Auto) 0.5 % Neut # (Auto) 5.13 (1.8-7.7) 10^3/u L Lymph # (Auto) 2.0 (0.8-4.8) 10^3/u L [place] # (Auto) 0.6 (0.2-0.9) 10^3/u L Eos # (Auto) 0.2 (0.0-0.8) 10^3/u L Baso # (Auto) 0.0 (0.0-0.1) 10^3/u L Nucleated RBC % (a uto) 0 % Nucleated RBCs # 0.0 /100WBC PT 13.50 (12.1-14.9) SECO NDS INR 1.00 (0.8-1.2) APTT 26.0 (23.9-36.7) SECO NDS Sodium 139 (136-145) mmol/L Potassium 6.0 H (3.5-5.1) mmol/L Chloride 100 (98-107) mmol/L Carbon Dioxide 25 (22-29) mmol/L Anion Gap 20.0 H (5-19) BUN 40 H (8-23) mg/dL Creatinine 1.8 H (0.5-0.9) mg/dL GFR Calculation Not Reportable Glucose 193 H (65-115) mg/dL POC Glucose (70-110) mg/dL Calculated Osmolal ity 303 H (285-295) mOsm/k g Calcium 8.5 (8.5-10.5) mg/dL Magnesium 1.7 (1.7-2.3) mg/dL Total Bilirubin 0.2 (0.15-1.2) mg/dL AST 33 H (0-32) U/L ALT 40 H (0-33) U/L Alkaline Phosphata se 46 (35-105) IU/L Troponin T Baselin e (0-10) ng/L Troponin T 120 Min rosebud (0-10) ng/L Delta Troponin T (0-10) ABS# NT-Pro-B Natriuret Pep 320 H (0-125) pg/mL Total Protein 6.5 L (6.6-8.7) g/dL Albumin 4.4 (3.5-5.2) g/dL Globulin 2.1 (1.3-4.6) g/dL Triglycerides 541 H (0-150) mg/dL Cholesterol 258 H (0-200) mg/dL LDL Cholesterol Di rect 158 H (0-100) mg/dL LDL Cholesterol, C alc Not Reportable HDL Cholesterol 32 L (60-100) mg/dL LDL/HDL Ratio Not Reportable Cholesterol/HDL Ra pritesh 8.06 H (0.0-4.40) mg/dL Urine Color (Yellow) Urine Appearance (CLEAR) Urine pH (5-7) Ur Specific Gravit y (1.005-1.030) Urine Protein (Negative) Urine Glucose (UA) (Normal) Urine Ketones (Negative) Urine Blood (Negative) Urine Nitrate (Negative) Urine Bilirubin (Negative) Urine Urobilinogen (Negative) mg/dL Ur Leukocyte Yael ase (Negative) Urine RBC (0-2) /hpf Urine WBC (0-5) /hpf Ur Squamous Epith Cells (0-5) /hpf Amorphous Sediment Urine Bacteria (NONE) /hpf 09/01/20 09/01/20 09/01/20 Range/Units 20:25 21:15 21:25 WBC (4.0-10.0) 10^3/ uL RBC (4.1-5.3) 10^6/u L Hgb (11.5-15.3) g/dL Hct (37.0-47.0) % MCV (81-99) fL MCH (28.0-34.0) pg MCHC (30.0-36.0) g/dL RDW (12.1-15.1) % Plt Count (130-400) 10^3/c mm MPV (7.4-10.4) fL Neut % (Auto) % Lymph % (Auto) % [place] % (Auto) % Eos % (Auto) % Baso % (Auto) % Neut # (Auto) (1.8-7.7) 10^3/u L Lymph # (Auto) (0.8-4.8) 10^3/u L [place] # (Auto) (0.2-0.9) 10^3/u L Eos # (Auto) (0.0-0.8) 10^3/u L Baso # (Auto) (0.0-0.1) 10^3/u L Nucleated RBC % (a uto) % Nucleated RBCs # /100WBC PT (12.1-14.9) SECO NDS INR (0.8-1.2) APTT (23.9-36.7) SECO NDS Sodium (136-145) mmol/L Potassium (3.5-5.1) mmol/L Chloride (98-107) mmol/L Carbon Dioxide (22-29) mmol/L Anion Gap (5-19) BUN (8-23) mg/dL Creatinine (0.5-0.9) mg/dL GFR Calculation Glucose (65-115) mg/dL POC Glucose 181 H (70-110) mg/dL Calculated Osmolal ity (285-295) mOsm/k g Calcium (8.5-10.5) mg/dL Magnesium (1.7-2.3) mg/dL Total Bilirubin (0.15-1.2) mg/dL AST (0-32) U/L ALT (0-33) U/L Alkaline Phosphata se (35-105) IU/L Troponin T Baselin e 31 H (0-10) ng/L Troponin T 120 Min rosebud (0-10) ng/L Delta Troponin T (0-10) ABS# NT-Pro-B Natriuret Pep (0-125) pg/mL Total Protein (6.6-8.7) g/dL Albumin (3.5-5.2) g/dL Globulin (1.3-4.6) g/dL Triglycerides (0-150) mg/dL Cholesterol (0-200) mg/dL LDL Cholesterol Di rect (0-100) mg/dL LDL Cholesterol, C alc HDL Cholesterol (60-100) mg/dL LDL/HDL Ratio Cholesterol/HDL Ra pritesh (0.0-4.40) mg/dL Urine Color Straw (Yellow) Urine Appearance Clear (CLEAR) Urine pH 5 (5-7) Ur Specific Gravit y 1.005 (1.005-1.030) Urine Protein Neg (Negative) Urine Glucose (UA) Norm (Normal) Urine Ketones Negative (Negative) Urine Blood Neg (Negative) Urine Nitrate Negative (Negative) Urine Bilirubin Neg (Negative) Urine Urobilinogen Norm (Negative) mg/dL Ur Leukocyte Yael ase Trace H (Negative) Urine RBC 0-4 H (0-2) /hpf Urine WBC 5-10 H (0-5) /hpf Ur Squamous Epith Cells 0-4 H (0-5) /hpf Amorphous Sediment Not Reportable Urine Bacteria Trace (NONE) /hpf 09/01/20 09/01/20 Range/Units 22:45 23:40 WBC (4.0-10.0) 10^3/ uL RBC (4.1-5.3) 10^6/u L Hgb (11.5-15.3) g/dL Hct (37.0-47.0) % MCV (81-99) fL MCH (28.0-34.0) pg MCHC (30.0-36.0) g/dL RDW (12.1-15.1) % Plt Count (130-400) 10^3/c mm MPV (7.4-10.4) fL Neut % (Auto) % Lymph % (Auto) % [place] % (Auto) % Eos % (Auto) % Baso % (Auto) % Neut # (Auto) (1.8-7.7) 10^3/u L Lymph # (Auto) (0.8-4.8) 10^3/u L [place] # (Auto) (0.2-0.9) 10^3/u L Eos # (Auto) (0.0-0.8) 10^3/u L Baso # (Auto) (0.0-0.1) 10^3/u L Nucleated RBC % (a uto) % Nucleated RBCs # /100WBC PT (12.1-14.9) SECO NDS INR (0.8-1.2) APTT (23.9-36.7) SECO NDS Sodium (136-145) mmol/L Potassium 4.4 (3.5-5.1) mmol/L Chloride (98-107) mmol/L Carbon Dioxide (22-29) mmol/L Anion Gap (5-19) BUN (8-23) mg/dL Creatinine (0.5-0.9) mg/dL GFR Calculation Glucose (65-115) mg/dL POC Glucose (70-110) mg/dL Calculated Osmolal ity (285-295) mOsm/k g Calcium (8.5-10.5) mg/dL Magnesium (1.7-2.3) mg/dL Total Bilirubin (0.15-1.2) mg/dL AST (0-32) U/L ALT (0-33) U/L Alkaline Phosphata se (35-105) IU/L Troponin T Baselin e (0-10) ng/L Troponin T 120 Min rosebud 29.81 H (0-10) ng/L Delta Troponin T -1.19 L (0-10) ABS# NT-Pro-B Natriuret Pep (0-125) pg/mL Total Protein (6.6-8.7) g/dL Albumin (3.5-5.2) g/dL Globulin (1.3-4.6) g/dL Triglycerides (0-150) mg/dL Cholesterol (0-200) mg/dL LDL Cholesterol Di rect (0-100) mg/dL LDL Cholesterol, C alc HDL Cholesterol (60-100) mg/dL LDL/HDL Ratio Cholesterol/HDL Ra pritesh (0.0-4.40) mg/dL Urine Color (Yellow) Urine Appearance (CLEAR) Urine pH (5-7) Ur Specific Gravit y (1.005-1.030) Urine Protein (Negative) Urine Glucose (UA) (Normal) Urine Ketones (Negative) Urine Blood (Negative) Urine Nitrate (Negative) Urine Bilirubin (Negative) Urine Urobilinogen (Negative) mg/dL Ur Leukocyte Yael ase (Negative) Urine RBC (0-2) /hpf Urine WBC (0-5) /hpf Ur Squamous Epith Cells (0-5) /hpf Amorphous Sediment Urine Bacteria (NONE) /hpf Discharge Plan Discharge Patient Disposition: Home Clinical Impression: Arm paresthesia, left, Acute hyperkalemia Chest pain Qualifiers: Chest pain type: unspecified Qualified Code(s): R07.9 - Chest pain, unspecified Condition: Stable Prescriptions: No Action fluticasone propion-salmeterol [Wixela Inhub] 250-50 mcg/dose blister with device 1 inh INHALATION DAILY RF: 0 Spiriva Respimat 2.5 mcg/actuation mist 1 inh INHALATION BID RF: 0 aspirin 81 mg tablet,delayed release (DR/EC) 81 mg PO DAILY RF: 0 Tresiba FlexTouch U-200 200 unit/mL (3 mL) insulin pen 74 unit SUBCUT QAM RF: 0 (DME) Carpal Tunnel Brace See Rx Instructions .Route .MEDSUPPLY Qty: 1 RF: 0 prednisone 10 mg tablet See Rx Instructions PO DAILY Qty: 40 RF: 3 hydralazine 100 mg tablet 100 mg PO TID Qty: 270 RF: 0 prednisone 5 mg tablet 5 mg PO DAILY Qty: 30 RF: 3 Xeljanz 5 mg tablet 5 mg PO BID Qty: 60 RF: 3 doxepin 50 mg capsule 50 mg PO BEDTIME RF: 0 ferrous sulfate 325 mg (65 mg iron) tablet 325 mg PO BEDTIME RF: 0 gabapentin 300 mg capsule 300 mg PO DAILY RF: 0 omeprazole 40 mg capsule,delayed release(DR/EC) 40 mg PO DAILY RF: 0 melatonin 5 mg capsule 5 mg PO DAILY RF: 0 ascorbate calcium (vitamin C) 500 mg tablet 500 mg PO BID RF: 0 cholecalciferol (vitamin D3) 25 mcg (1,000 unit) capsule 25 mcg PO DAILY RF: 0 lisinopril 40 mg tablet 40 mg PO DAILY Qty: 90 RF: 3 nitroglycerin [Nitrostat] 0.4 mg tablet, sublingual 0.4 mg sublingual Q5M PRN (Reason: chest pain) Qty: 50 RF: 1 carvedilol 25 mg tablet 25 mg PO BID 30 Days Qty: 60 RF: 5 furosemide [Lasix] 20 mg tablet 60 mg PO DAILY Qty: 90 RF: 5 potassium gluconate 595 mg (99 mg) tablet 892.5 mg PO DAILY Qty: 45 RF: 5 metformin 1,000 mg Tablet 1,000 mg PO BID RF: 0 triamcinolone acetonide 0.5 % ointment 1 applic TOPICAL BID PRN (Reason: unknown) RF: 0 Discharge Orders: Discharge ED (Routine); Ordered 09/02/20 Ordered By: Aaron Gutiérrez Referrals: Nancy Swan PA [Primary Care Provider] - 4-7 days Discharge Diet: Advance as tolerated Discharge Activity: Increase activity as tolerated Patient Instructions: Chest Pain (ED), Hyperkalemia (ED), Paresthesia (ED) Activity Restrictions/Additional Instructions: Return for weakness, worsening numbness, return of chest pain, other concerning symptoms. Coding Level of Care Code ED Dedicated Local Truck Driver for Chg Fwd Exam Comprehensive
[2020-09-01] MEDS: iodixanol 320 mg/mL 100mL Btl IV (20:54)
[2020-09-01 21:09] LABS: Troponin(5th) Baseline 31 ng/L (0-10)
[2020-09-01] MEDS: sodium chloride 0.9% 500 ML IV (21:15)
[2020-09-01 21:18] LABS: Albumin Level 4.4 g/dL (3.5-5.2); Alkaline Phosphatase 46 IU/L (35-105); Blood Urea Nitrogen 40 mg/dL (8-23); Calcium 8.5 mg/dL (8.5-10.5); Carbon Dioxide 25 mmol/L (22-29); Chloride 100 mmol/L (98-107); Chol HDL Ratio 8.06 mg/dL (0.0-4.40); Cholesterol 258 mg/dL (0-200); Globulin 2.1 g/dL (1.3-4.6); Glucose 193 mg/dL (65-115); HDL Cholesterol 32 mg/dL (60-100); Magnesium 1.7 mg/dL (1.7-2.3); NT Pro B Type Natriuretic Pept 320 pg/mL (0-125); Osmolality Calculated 303 mOsm/kg (285-295); Sodium 139 mmol/L (136-145); Total Bilirubin 0.2 mg/dL (0.15-1.2); Total Protein 6.5 g/dL (6.6-8.7); Triglycerides 541 mg/dL (0-150)
[2020-09-01 21:20] LABS: Alanine Aminotransferase 40 U/L (0-33); Aspartate Amino Transferase 33 U/L (0-32)
[2020-09-01 21:31] LABS: Glucose Point of Care 181 mg/dL (70-110)
[2020-09-01 21:37] VITALS: BP 152/100; PULSE 80; RESP 20; O2SAT 96
[2020-09-01 22:03] LABS: Add Urine Microscopic? YES; Bilirubin Urine Neg (Negative); Blood Urine Neg (Negative); Glucose Urine UA Norm (Normal); Ketones Urine Negative (Negative); Leukocyte Esterase Urine Trace (Negative); Nitrate Urine Negative (Negative); Protein Urine Neg (Negative); Specific Gravity, Urine 1.005 (1.005-1.030); Urine Appearance Clear (CLEAR); Urine Color Straw (Yellow); Urobilinogen Urine Norm (Negative); pH Urine 5 (5-7)
[2020-09-01 22:05] LABS: Add Urine Culture? No; Bacteria Urine TRACE /hpf; RBC Urine 0-4 /hpf (0-2); Squamous Epithelial Cell Urine 0-4 /hpf (0-5)
[2020-09-01 22:27] VITALS: PULSE 70; RESP 17; O2SAT 96
[2020-09-01 22:33] VITALS: PULSE 78
--- NOTE | 2020-09-01 22:37 | ECG_ITS ---
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
[2020-09-01 22:38] VITALS: BP 146/92; PULSE 84; RESP 20; O2SAT 96
[2020-09-01 22:43] LABS: LDL Cholesterol Direct 158 mg/dL (0-100)
[2020-09-01] MEDS: calcium gluconate 0.1 gm/mL 10% SDV 10mL 1 GM IVP (22:45)
[2020-09-01] MEDS: sodium bicarbonate 8.4% 1 mEq/mL 50mL Syr 50 MEQ IVP (22:45)
[2020-09-01 23:23] LABS: Troponin 5 2HR 29.81 ng/L (0-10)
[2020-09-01 23:29] LABS: Troponin 5 2HR Delta -1.19 ABS# (0-10)
[2020-09-02 00:18] LABS: Potassium 4.4 mmol/L (3.5-5.1)
[2020-09-02 00:38] VITALS: BP 142/96; PULSE 76; RESP 18; O2SAT 96
[2020-09-02 01:11] VITALS: BP 142/96; PULSE 76; RESP 18; O2SAT 96
== END 2020-09-02 01:05 | disposition home or self-care (01) ==
PROVIDERS: Emergency Provider Emergency Medicine; PCP Physician Assistant
DX: R20.2 Paresthesia of skin (principal); E87.5 Hyperkalemia; R07.9 Chest pain, unspecified; Z79.82 Long term (current) use of aspirin; Z79.4 Long term (current) use of insulin; I11.0 Hypertensive heart disease with heart failure; I50.22 Chronic systolic (congestive) heart failure; J44.9 Chronic obstructive pulmonary disease, unspecified; Z86.19 Personal history of other infectious and parasitic diseases; E11.42 Type 2 diabetes mellitus with diabetic polyneuropathy; Z87.891 Personal history of nicotine dependence
CPT/HCPCS: 36415; 36416; 70450; 70496; 70498; 71045; 80053; 80061; 81001; 82962; 83721; 83735; 83880; 84132; 84484; 85025; 85610; 85730; 93005; 94640; 96361; 96374; 96375; 99284; J0610; J7040; J7611; Q9967

== ENCOUNTER → 2020-09-05 09:08 | Outpatient (BNVA) | payer MEDICARE, SELFPAY | PROVIDERS: PCP Physician Assistant; Visit Provider Internal Medicine Cardiovascular Disease | DX: I50.32 Chronic diastolic (congestive) heart failure (principal); I50.22 Chronic systolic (congestive) heart failure; E11.9 Type 2 diabetes mellitus without complications; I20.0 Unstable angina; I42.8 Other cardiomyopathies; I42.9 Cardiomyopathy, unspecified | CPT/HCPCS: 80048; 83880 ==

== ENCOUNTER → 2020-09-20 09:56 | Outpatient (BNVA) | payer MEDICARE, SELFPAY | PROVIDERS: PCP Physician Assistant; Visit Provider Internal Medicine Cardiovascular Disease | DX: I50.32 Chronic diastolic (congestive) heart failure (principal); I50.22 Chronic systolic (congestive) heart failure; E87.5 Hyperkalemia; R07.9 Chest pain, unspecified; Z79.899 Other long term (current) drug therapy; I42.9 Cardiomyopathy, unspecified | CPT/HCPCS: 80048; 83880 ==

== ENCOUNTER 2020-09-26 12:19 | Inpatient (IN) | payer MEDICARE, SELFPAY ==
[2020-09-26] VITALS (13 sets, daily range): BP systolic 130–222; BP diastolic 52–101; PULSE 65–89; RESP 16–24; TEMP 37.4; O2SAT 87–100; BMI 29.2
--- NOTE | 2020-09-26 12:39 | XR_ITS ---
WS: [id number] XR chest 1V portable [id number] REASON FOR EXAM: chest pain FINDINGS: Pacemaker in place over the left chest with transvenous left subclavian vein leads to the right atriu m and the right jugular apex. Additional old leads are also present. The heart is mildly enlarged. There is slight accentuation of the minor fissure and subtle increased density in the adjacent lung. This abnormality is not identifiable on previous examination of 09/01/2020. XR/XR chest 1V portable [id number] IMPRESSION: Subtle abnormality in the right lung which may be early manifestation of pneumo nitis.
--- NOTE | 2020-09-26 12:39 | ECG_ITS ---
[facility] ED Test Date: 2020-09-26 Pat Name: Peri Monge Department: Room: Gender: Female Ui Architect: : 1945 Requested By: Pamela Moreira Order Number: [id number] Jacey MD: Malathi Leon M.D. Measurements Intervals [place] Rate: 78 P: 72 MD: 163 QRS: 257 QRSD: 143 T: 47 QT: 397 QTc: 454 Interpretive Statements ELECTRONIC VENTRICULAR PACEMAKER A sense V paced rhythm Compared to ECG 09/01/2020 23:07:08 No significant changes Electronically Signed On 10-12-2020 9:59:25 CDT by Malathi Leon M.D. [id number]
--- NOTE | 2020-09-26 12:54 | ED_ITS ---
HPI - SOB/Dyspnea General: Chief Complaint: Shortness of Breath/Dyspnea Stated Complaint: chest pain, SOB Time Seen by Provider: 09/26/20 12:44 History of Present Illness: HPI Narrative: The patient is a 75-year-old female with past medical history COPD, CHF with malfunctional ICD, diabetes type 2, hypertension comes to the ER complaining of 4 days increased shortness of breath, hypoxia, and chest pain. She was seen at [facility] and sent over. She had a negative Covid swab around that time. She has very shallow respirations and was on a nonrebreather when I saw her. Ordered BiPAP. She also complains of worsening cough that has become productive over the past day or 2. She has pain with inspiration and feels like her lungs are catching on the sides of her ribs. MD elicited complaint: shortness of breath, cough, pain with inspiration and chest pain Pertinent past history: COPD, congestive heart failure and diabetes Onset (ago): day(s) (4) Context: recent illness Timing: constant Severity: severe Exacerbating factors: exertion, coughing and deep breaths Relieving factors: oxygen Known history of: COPD, congestive heart failure and diabetes Associated symptoms: Reports chest congestion, chest pain and cough; Deny abdominal pain, dizziness, extremity pain, fever(s), nausea or polyuria Treatment prior to arrival: oxygen Review of Systems General: Reports: 10 or more systems reviewed and unremarkable except in HPI and below Const: Denies: fever(s) Eyes: Denies: change in vision, blurry vision or eye redness ENMT: Denies: throat pain, swelling of lips/tongue, ear or mastoid pain or nasal congestion Card: Reports: chest pain Resp: Reports: dyspnea, productive cough, wheezing and chest congestion GI: Denies: abdominal pain or nausea : Denies: flank pain, difficulty voiding, urinary frequency or urinary urgency Musc: Denies: neck pain, back pain, extremity pain, joint pain, joint redness, limited range of motion or muscle weakness Skin/Breast: Denies: rash, pruritus, erythema, skin pain or skin tenderness Neuro: Denies: headache(s), numbness in extremities, weakness in extremities, sensory changes, difficulty walking, dizziness, confusion or Slurred speech present Psych: Denies: anxiety or depression Endo: Denies: polyuria All/Imm: Denies: urticaria, throat swelling or tongue swelling [facility] ED PFSH: Medical History (Updated 09/27/20 @ 00:22 by Octavio Shea MD) AICD malfunction Anemia Cardiac resynchronization therapy defibrillator (MANAGER OF BUSINESS-D) in place Cardiomyopathy Carpal tunnel syndrome Carpal tunnel syndrome of right wrist CHF (congestive heart failure), NYHA class III Chronic steroid use counseled about blood sugar monitoring Chronic systolic (congestive) heart failure COPD (chronic obstructive pulmonary disease) Diabetes mellitus Hepatitis B core antibody positive Hepatitis B PCR is negative High risk medication use Hypertension ICD (implantable cardioverter-defibrillator) battery depletion Immunization counseling Non-ischemic cardiomyopathy Peripheral neuropathy Rheumatoid arthritis Seropositive rheumatoid arthritis of multiple sites Surgical History History of appendectomy History of hysterectomy with bilateral oophorectomy S/P ICD (internal cardiac defibrillator) procedure Family History Mother Diabetes Hypertension CHF (congestive heart failure) Other CAD (coronary artery disease) Cancer Hyperlipidemia Lung disease Denies family history of Rheumatoid arthritis Lupus Chronic kidney disease (CKD) Stroke Social History Alcohol intake: current Alcohol intake frequency: holidays/special occasions only Household members: spouse Housing: House Marital status: History of recent travel: No Physical Exam Narrative: EXAM NARRATIVE: Patient on nonrebreather and respiratory distress with shallow breathing, tachypnea, use of accessory muscles. Reduced breath sounds as well. Const: COMMON NORMALS: no acute distress, patient oriented x3, no limitations, alert and well nourished GENERAL APPEARANCE: cooperative, well kempt, well developed, in distress and anxious NUTRITIONAL APPEARANCE: overweight ORIENTATION/CONSCIOUSNESS: Yes awake, Yes oriented to person, Yes oriented to place and Yes oriented to time HENMT: COMMON NORMALS: normocephalic, external ears normal and Normal external nose present HEAD & SCALP: normal to inspection and normocephalic NOSE: Normal external nose present EXTERNAL EAR: Yes external ears normal MOUTH: Normal oral and palatal mucosa present THROAT: posterior oropharynx normal Eye: COMMON NORMALS: Equal, round and reactive pupils present and EOMs intact bilaterally GENERAL EYE: appearance normal, both eyes and all related structures PUPIL: Yes Equal, round and reactive pupils present Neck/C-Spine: COMMON NORMALS: full ROM, no lymphadenopathy, no meningeal signs and no JVD GENERAL: Yes normal visual inspection Lymph: LYMPHATIC: no lymphadenopathy noted Chest: COMMONS NORMALS: normal inspection of the chest and normal palpation of entire chest wall Resp: EFFORT & INSPECTION: Yes able to speak in complete sentences, Yes tachypneic, Yes respiratory distress and Yes uses accessory muscles AUSCULTATION: diminished lung sounds Cardio: COMMON NORMALS: no JVD, regular rate, regular rhythm, S1 normal heart sound present, S2 normal heart sound present and Peripheral pulses 2+ throughout RATE: regular rate RHYTHM: regular rhythm HEART SOUNDS: S1 normal heart sound present and S2 normal heart sound present PERIPHERAL PULSES: Peripheral pulses 2+ throughout GI: COMMON NORMALS: Normal to inspection, nondistended, normoactive bowel sounds present, Soft to palpation, non-tender and no masses INSPECTION: Yes normal to inspection PALPATION: Yes Soft to palpation : COMMON NORMALS: Yes no CVA tenderness BLADDER/KIDNEY EXAM: Yes no CVA tenderness Back/Pelvis: COMMON NORMALS: no CVA tenderness, thoracic and lumbar spine normal to inspection, no thoracic nor lumbar tenderness and thoraco-lumbar ROM normal Extremity: COMMON NORMALS: normal to inspection, full ROM, capillary refill normal, no joint enlargement and no pedal edema GENERAL: Yes normal exam except as noted Neuro: COMMON NORMALS: patient oriented x3, CN's II-XII intact bilaterally, moves all extremities, no focal motor deficits, no sensory deficits noted and gait normal SENSORIUM/ORIENTATION: Yes alert, Yes oriented to person, Yes oriented to place and Yes oriented to time MENINGEAL SIGNS: Yes no meningeal signs Psych: COMMON NORMALS: mental status grossly normal, Normal thought process present, cooperative, normal affect and speech normal APPEARANCE: Yes well kempt ATTITUDE: Yes calm SPEECH: Yes normal speech THOUGHT PROCESS: Normal thought process present Skin: COMMON NORMALS: no rashes or lesions noted GENERAL SKIN EXAM: no rashes or lesions noted Course Vital Signs: Vital signs: Vital Signs Temperature 99.4 F 09/26/20 12:24 Pulse Rate 65 09/26/20 22:15 Respiratory Rate 16 09/26/20 22:15 Blood Pressure 130/52 09/26/20 22:15 Pulse Oximetry 94 09/26/20 22:58 MDM - SOB/Dyspnea MDM Narrative: Medical decision making narrative: The patient is a 75-year-old female with COPD who came to the ER significantly short of breath. She wears 3 L at baseline and was requiring 6 L, shallow respirations and satting in the 70s and her ABG. She required BiPAP. After CT she felt quite a bit better and was back to her baseline oxygenation on [address] did show right lung mass likely cancerous with local spread there and a metastasis in the left lung. Discussed this with the patient and recommended admission for further treatment. Discussed with Dr. Hargrove who will consult on this patient. Dr. Carpenter accepts for admission. Lab Data: Labs: Lab Results 09/26/20 09/26/20 09/26/20 Range/Units 13:45 14:00 14:32 WBC 14.0 H (4.0-10.0) 10^3/ uL RBC 3.22 L (4.1-5.3) 10^6/u L Hgb 9.0 L (11.5-15.3) g/dL Hct 30.1 L (37.0-47.0) % MCV 93.5 (81-99) fL MCH 28.0 (28.0-34.0) pg MCHC 29.9 L (30.0-36.0) g/dL RDW 15.3 H (12.1-15.1) % Plt Count 276 (130-400) 10^3/c mm MPV 9.5 (7.4-10.4) fL Neut % (Auto) 72.5 % Lymph % (Auto) 11.8 % Murray % (Auto) 8.5 % Eos % (Auto) 1.1 % Baso % (Auto) 0.4 % Neut # (Auto) 10.13 H (1.8-7.7) 10^3/u L Lymph # (Auto) 1.7 (0.8-4.8) 10^3/u L Murray # (Auto) 1.2 H (0.2-0.9) 10^3/u L Eos # (Auto) 0.2 (0.0-0.8) 10^3/u L Baso # (Auto) 0.1 (0.0-0.1) 10^3/u L Nucleated RBC % (a uto) 0.3 % Nucleated RBCs # 0.0 /100WBC D-Dimer (0-0.59) ug/mIFE U Specimen Type Arterial Sample Site Radial, left ABG pH 7.41 (7.35-7.45) ABG pCO2 54.2 H (35-45) mmHg ABG pO2 44.1 L (80.0-100.0) mmH g ABG HCO3 34.2 H (22-26) mmol/L ABG Base Excess 8.4 H (-2.0-2.0) mmol/ L Paco Test Pos Hematocrit 27.8 L (37-47) % Hgb O2 Saturation 77.4 L (95-100) % Carboxyhemoglobin 1.1 (0.4-20.1) %THgb Methemoglobin 0.6 (0.4-1.5) % Total Hemoglobin 9.1 L (12-16) g/dL O2 Delivery Device Nc O2 Liters/Min 6.0 % Burial Vault Deliverer And Installer ID Cak Sodium (136-145) mmol/L Potassium (3.5-5.1) mmol/L Chloride (98-107) mmol/L Carbon Dioxide (22-29) mmol/L Anion Gap (5-19) BUN (8-23) mg/dL Creatinine (0.5-0.9) mg/dL GFR Calculation Glucose (65-115) mg/dL Calculated Osmolal ity (285-295) mOsm/k g Lactate (0.5-2.2) mmol/L Calcium (8.5-10.5) mg/dL Iron (37-145) ug/dL TIBC mcg/dl % Saturation (20-50) % Unsat Iron Binding (112-347) ug/dL Total Bilirubin (0.15-1.2) mg/dL AST (0-32) U/L ALT (0-33) U/L Alkaline Phosphata se (35-105) IU/L Troponin T Baselin e (0-10) ng/L Troponin T 120 Min [place] (0-10) ng/L Delta Troponin T (0-10) ABS# NT-Pro-B Natriuret Pep (0-125) pg/mL Total Protein (6.6-8.7) g/dL Albumin (3.5-5.2) g/dL Globulin (1.3-4.6) g/dL Procalcitonin (0-0.5) ng/mL TSH (0.27-4.20) uIU/ mL Urine Color (Yellow) Urine Appearance (CLEAR) Urine pH (5-7) Ur Specific Gravit y (1.005-1.030) Urine Protein (Negative) Urine Glucose (UA) (Normal) Urine Ketones (Negative) Urine Blood (Negative) Urine Nitrate (Negative) Urine Bilirubin (Negative) Urine Urobilinogen (Negative) mg/dL Ur Leukocyte Yael ase (Negative) SARS-CoV-2 Ag (Rap id) Negative (Negative) 09/26/20 09/26/20 09/26/20 Range/Units 14:32 14:32 14:32 WBC (4.0-10.0) 10^3/ uL RBC (4.1-5.3) 10^6/u L Hgb (11.5-15.3) g/dL Hct (37.0-47.0) % MCV (81-99) fL MCH (28.0-34.0) pg MCHC (30.0-36.0) g/dL RDW (12.1-15.1) % Plt Count (130-400) 10^3/c mm MPV (7.4-10.4) fL Neut % (Auto) % Lymph % (Auto) % Murray % (Auto) % Eos % (Auto) % Baso % (Auto) % Neut # (Auto) (1.8-7.7) 10^3/u L Lymph # (Auto) (0.8-4.8) 10^3/u L Murray # (Auto) (0.2-0.9) 10^3/u L Eos # (Auto) (0.0-0.8) 10^3/u L Baso # (Auto) (0.0-0.1) 10^3/u L Nucleated RBC % (a uto) % Nucleated RBCs # /100WBC D-Dimer 1.71 H (0-0.59) ug/mIFE U Specimen Type Sample Site ABG pH (7.35-7.45) ABG pCO2 (35-45) mmHg ABG pO2 (80.0-100.0) mmH g ABG HCO3 (22-26) mmol/L ABG Base Excess (-2.0-2.0) mmol/ L Paco Test Hematocrit (37-47) % Hgb O2 Saturation (95-100) % Carboxyhemoglobin (0.4-20.1) %THgb Methemoglobin (0.4-1.5) % Total Hemoglobin (12-16) g/dL O2 Delivery Device O2 Liters/Min % Burial Vault Deliverer And Installer ID Sodium 140 (136-145) mmol/L Potassium 4.3 (3.5-5.1) mmol/L Chloride 95 L (98-107) mmol/L Carbon Dioxide 33 H (22-29) mmol/L Anion Gap 16.3 (5-19) BUN 41 H (8-23) mg/dL Creatinine 1.5 H (0.5-0.9) mg/dL GFR Calculation Not Reportable Glucose 122 H (65-115) mg/dL Calculated Osmolal ity 301 H (285-295) mOsm/k g Lactate (0.5-2.2) mmol/L Calcium 9.3 (8.5-10.5) mg/dL Iron (37-145) ug/dL TIBC mcg/dl % Saturation (20-50) % Unsat Iron Binding (112-347) ug/dL Total Bilirubin 0.2 (0.15-1.2) mg/dL AST 20 (0-32) U/L ALT 25 (0-33) U/L Alkaline Phosphata se 48 (35-105) IU/L Troponin T Baselin e 38 H (0-10) ng/L Troponin T 120 Min [place] (0-10) ng/L Delta Troponin T (0-10) ABS# NT-Pro-B Natriuret Pep 2282 H (0-125) pg/mL Total Protein 6.9 (6.6-8.7) g/dL Albumin 4.2 (3.5-5.2) g/dL Globulin 2.7 (1.3-4.6) g/dL Procalcitonin (0-0.5) ng/mL TSH (0.27-4.20) uIU/ mL Urine Color (Yellow) Urine Appearance (CLEAR) Urine pH (5-7) Ur Specific Gravit y (1.005-1.030) Urine Protein (Negative) Urine Glucose (UA) (Normal) Urine Ketones (Negative) Urine Blood (Negative) Urine Nitrate (Negative) Urine Bilirubin (Negative) Urine Urobilinogen (Negative) mg/dL Ur Leukocyte Yael ase (Negative) SARS-CoV-2 Ag (Rap id) (Negative) 09/26/20 09/26/20 09/26/20 Range/Units 14:32 14:37 15:23 WBC (4.0-10.0) 10^3/ uL RBC (4.1-5.3) 10^6/u L Hgb (11.5-15.3) g/dL Hct (37.0-47.0) % MCV (81-99) fL MCH (28.0-34.0) pg MCHC (30.0-36.0) g/dL RDW (12.1-15.1) % Plt Count (130-400) 10^3/c mm MPV (7.4-10.4) fL Neut % (Auto) % Lymph % (Auto) % Murray % (Auto) % Eos % (Auto) % Baso % (Auto) % Neut # (Auto) (1.8-7.7) 10^3/u L Lymph # (Auto) (0.8-4.8) 10^3/u L Murray # (Auto) (0.2-0.9) 10^3/u L Eos # (Auto) (0.0-0.8) 10^3/u L Baso # (Auto) (0.0-0.1) 10^3/u L Nucleated RBC % (a uto) % Nucleated RBCs # /100WBC D-Dimer (0-0.59) ug/mIFE U Specimen Type Sample Site ABG pH (7.35-7.45) ABG pCO2 (35-45) mmHg ABG pO2 (80.0-100.0) mmH g ABG HCO3 (22-26) mmol/L ABG Base Excess (-2.0-2.0) mmol/ L Paco Test Hematocrit (37-47) % Hgb O2 Saturation (95-100) % Carboxyhemoglobin (0.4-20.1) %THgb Methemoglobin (0.4-1.5) % Total Hemoglobin (12-16) g/dL O2 Delivery Device O2 Liters/Min % Burial Vault Deliverer And Installer ID Sodium (136-145) mmol/L Potassium (3.5-5.1) mmol/L Chloride (98-107) mmol/L Carbon Dioxide (22-29) mmol/L Anion Gap (5-19) BUN (8-23) mg/dL Creatinine (0.5-0.9) mg/dL GFR Calculation Glucose (65-115) mg/dL Calculated Osmolal ity (285-295) mOsm/k g Lactate 0.9 (0.5-2.2) mmol/L Calcium (8.5-10.5) mg/dL Iron 21 L (37-145) ug/dL TIBC 259 mcg/dl % Saturation 8.1 L (20-50) % Unsat Iron Binding 238 (112-347) ug/dL Total Bilirubin (0.15-1.2) mg/dL AST (0-32) U/L ALT (0-33) U/L Alkaline Phosphata se (35-105) IU/L Troponin T Baselin e (0-10) ng/L Troponin T 120 Min [place] (0-10) ng/L Delta Troponin T (0-10) ABS# NT-Pro-B Natriuret Pep (0-125) pg/mL Total Protein (6.6-8.7) g/dL Albumin (3.5-5.2) g/dL Globulin (1.3-4.6) g/dL Procalcitonin 0.12 (0-0.5) ng/mL TSH 1.65 (0.27-4.20) uIU/ mL Urine Color Yellow (Yellow) Urine Appearance Clear (CLEAR) Urine pH 5 (5-7) Ur Specific Gravit y 1.010 (1.005-1.030) Urine Protein Neg (Negative) Urine Glucose (UA) Norm (Normal) Urine Ketones Negative (Negative) Urine Blood Neg (Negative) Urine Nitrate Negative (Negative) Urine Bilirubin Neg (Negative) Urine Urobilinogen Norm (Negative) mg/dL Ur Leukocyte Yael ase Negative (Negative) SARS-CoV-2 Ag (Rap id) (Negative) 09/26/20 Range/Units 16:58 WBC (4.0-10.0) 10^3/ uL RBC (4.1-5.3) 10^6/u L Hgb (11.5-15.3) g/dL Hct (37.0-47.0) % MCV (81-99) fL MCH (28.0-34.0) pg MCHC (30.0-36.0) g/dL RDW (12.1-15.1) % Plt Count (130-400) 10^3/c mm MPV (7.4-10.4) fL Neut % (Auto) % Lymph % (Auto) % Murray % (Auto) % Eos % (Auto) % Baso % (Auto) % Neut # (Auto) (1.8-7.7) 10^3/u L Lymph # (Auto) (0.8-4.8) 10^3/u L Murray # (Auto) (0.2-0.9) 10^3/u L Eos # (Auto) (0.0-0.8) 10^3/u L Baso # (Auto) (0.0-0.1) 10^3/u L Nucleated RBC % (a uto) % Nucleated RBCs # /100WBC D-Dimer (0-0.59) ug/mIFE U Specimen Type Sample Site ABG pH (7.35-7.45) ABG pCO2 (35-45) mmHg ABG pO2 (80.0-100.0) mmH g ABG HCO3 (22-26) mmol/L ABG Base Excess (-2.0-2.0) mmol/ L Paco Test Hematocrit (37-47) % Hgb O2 Saturation (95-100) % Carboxyhemoglobin (0.4-20.1) %THgb Methemoglobin (0.4-1.5) % Total Hemoglobin (12-16) g/dL O2 Delivery Device O2 Liters/Min % Burial Vault Deliverer And Installer ID Sodium (136-145) mmol/L Potassium (3.5-5.1) mmol/L Chloride (98-107) mmol/L Carbon Dioxide (22-29) mmol/L Anion Gap (5-19) BUN (8-23) mg/dL Creatinine (0.5-0.9) mg/dL GFR Calculation Glucose (65-115) mg/dL Calculated Osmolal ity (285-295) mOsm/k g Lactate (0.5-2.2) mmol/L Calcium (8.5-10.5) mg/dL Iron (37-145) ug/dL TIBC mcg/dl % Saturation (20-50) % Unsat Iron Binding (112-347) ug/dL Total Bilirubin (0.15-1.2) mg/dL AST (0-32) U/L ALT (0-33) U/L Alkaline Phosphata se (35-105) IU/L Troponin T Baselin e (0-10) ng/L Troponin T 120 Min [place] 35.99 H (0-10) ng/L Delta Troponin T -2.01 L (0-10) ABS# NT-Pro-B Natriuret Pep (0-125) pg/mL Total Protein (6.6-8.7) g/dL Albumin (3.5-5.2) g/dL Globulin (1.3-4.6) g/dL Procalcitonin (0-0.5) ng/mL TSH (0.27-4.20) uIU/ mL Urine Color (Yellow) Urine Appearance (CLEAR) Urine pH (5-7) Ur Specific Gravit y (1.005-1.030) Urine Protein (Negative) Urine Glucose (UA) (Normal) Urine Ketones (Negative) Urine Blood (Negative) Urine Nitrate (Negative) Urine Bilirubin (Negative) Urine Urobilinogen (Negative) mg/dL Ur Leukocyte Yael ase (Negative) SARS-CoV-2 Ag (Rap id) (Negative) Discharge Plan Discharge Patient Disposition: Admitted As Inpatient Admit Provider: Soren Gerardo Clinical Impression: Lung mass, Acute respiratory distress, COPD (chronic obstructive pulmonary disease) Condition: Stable Coding Level of Care Code ED Assistant Professor Of History for Chg Fwd Exam Comprehensive
[2020-09-26] MEDS: albuterol 8 gm MDI 2 PUFF INHALATION (13:40)
[2020-09-26] MEDS: ondansetron 2 mg/ML SDV 2 mL 4 MG IVP (13:46)
[2020-09-26 13:57] LABS: ABG PCO2 54.2 mmHg (35-45); ABG PH Result 7.41 (7.35-7.45); Arterial Blood Gas Hematocrit 27.8 % (37-47); Base Excess ABG 8.4 mmol/L (-2.0-2.0); Blood Gas Allen Test Pos; Blood Gas Operator Identificat CAK; Blood Gas Sample Site Radial, left; Blood Gas Sample Type Arterial; Carboxyhemoglobin 1.1 %THgb (0.4-20.1); HCO3 ABG 34.2 mmol/L (22-26); HGB O2 Sat 77.4 % (95-100); Methemoglobin 0.6 % (0.4-1.5); Oxygen Device NC; PO2 ABG 44.1 mmHg (80.0-100.0); Total Hemoglobin 9.1 g/dL (12-16)
[2020-09-26 14:29] LABS: SARS Covid-2 Antigen Negative (Negative)
--- NOTE | 2020-09-26 14:39 | ECG_ITS ---
[facility] Test Date: 2020-09-26 Pat Name: Peri Monge Department: Room: Gender: Female Silk Spooler: : 1945 Requested By: Pamela Moreira Order Number: [id number] Jacey MD: Adilson Montgomery M.D. Measurements Intervals [place] Rate: 78 P: 75 IA: 159 QRS: 247 QRSD: 140 T: 24 QT: 417 QTc: 478 Interpretive Statements ELECTRONIC VENTRICULAR PACEMAKER ABNORMAL RHYTHM ECG Compared to ECG 09/26/2020 12:55:28 No significant changes Electronically Signed On 09-27-2020 0:53:58 CDT by Adilson Montgomery M.D. [id number]
[2020-09-26 14:44] LABS: Basophils # 0.1 10^3/uL (0.0-0.1); Basophils % 0.4 %; Eosinophils # 0.2 10^3/uL (0.0-0.8); Eosinophils % 1.1 %; Hematocrit 30.1 % (37.0-47.0); Lymphocytes # 1.7 10^3/uL (0.8-4.8); Lymphocytes % 11.8 %; Mean Corpuscular HGB Conc 29.9 g/dL (30.0-36.0); Mean Corpuscular Volume 93.5 fL (81-99); Mean Platelet Volume 9.5 fL (7.4-10.4); Monocytes # 1.2 10^3/uL (0.2-0.9); Monocytes % 8.5 %; Neutrophils # 10.13 10^3/uL (1.8-7.7); Neutrophils % 72.5 %; Nucleated Red Blood Cells % 0.3 %; Platelet Count 276 10^3/cmm (130-400); Positive C 1; Positive M 1; Red Blood Count 3.22 10^6/uL (4.1-5.3); Red Cell Distribution Width 15.3 % (12.1-15.1)
[2020-09-26 14:59] LABS: D Dimer 1.71 ug/mIFEU (0-0.59)
[2020-09-26 15:01] LABS: Lactate (Lactic Acid level) 0.9 mmol/L (0.5-2.2)
[2020-09-26 15:05] LABS: Troponin(5th) Baseline 38 ng/L (0-10)
[2020-09-26 15:15] LABS: Alanine Aminotransferase 25 U/L (0-33); Albumin Level 4.2 g/dL (3.5-5.2); Alkaline Phosphatase 48 IU/L (35-105); Aspartate Amino Transferase 20 U/L (0-32); Blood Urea Nitrogen 41 mg/dL (8-23); Calcium 9.3 mg/dL (8.5-10.5); Carbon Dioxide 33 mmol/L (22-29); Chloride 95 mmol/L (98-107); Globulin 2.7 g/dL (1.3-4.6); Glucose 122 mg/dL (65-115); NT Pro B Type Natriuretic Pept 2282 pg/mL (0-125); Osmolality Calculated 301 mOsm/kg (285-295); Sodium 140 mmol/L (136-145); Total Bilirubin 0.2 mg/dL (0.15-1.2); Total Protein 6.9 g/dL (6.6-8.7)
[2020-09-26 15:31] LABS: Add Urine Microscopic? NO; Charge for UA Resulting for Rev
[2020-09-26 15:36] LABS: Anion Gap 16.3 (5-19); Potassium 4.3 mmol/L (3.5-5.1)
--- NOTE | 2020-09-26 15:43 | CT_ITS ---
WS: [id number] CT angio chest PE protcl [id number] REASON FOR EXAM: dyspnea, on bipap. covid neg TECHNIQUE: Coronal and sagittal 2-D and MIP reformations. IV CONTRAST ADMINISTERED: 67 mL of Visipaque 320 TOTAL EXAM DLP: 615.[address] scans at [facility] use at least one of these dose optimization techniques: automat ed exposure control; mA and/or kV adjustment per patient size (includes targeted exams where dose is matched to clinical indication); or iterative reconstruction. FINDINGS: No pulmonary emboli. Normal thoracic aorta. As noted on the preceding chest x-ray there is volume loss of the right upper lobe and there is a coa rse reticular interstitial infiltrative pattern adjacent to the major. What was construed as possible infiltrate in the more central right lung is in fact a 3.2 x 3.0 spiculated mass inseparable from th e pleura in the posterior lateral right upper lung. There is a 1.5 cm cavitated satellite lesion carine cent to the main mass. There is a 3.4 x 2.0 cm mass infiltrating the right upper hilum and involving the right upper lobe bronchus. This mass may actually invade the mediastinum. There are an additional 8 mm nodule in the superior aspect of the right lower lobe and anterior aspect of the right lower lo be. There may be some smaller nodules in the right lower lobe as well. There is a 14 mm spiculated mass in the medial anterior right upper lobe at the level of the main pul monary artery. There is no pleural effusion. 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 Uncertain as to whether the peripheral or the central mass is primar y with the other as metastatic, but most likely the central abnormality is the primary. There are multiple presumed right lung metastases and very likely lymphangitic spread of carcinoma. There is a presumed left lung metastasis. The findings on the current chest x-ray are somewhat subtle but in retrospect m alignancy could have been suspicioned. The chest x-ray from 09/01/2020 shows no h int of the extensive abnormality that is now present in the right chest. Althou gh this is rapid development the appearance is that of carcinoma of the lung.
[2020-09-26 15:51] LABS: Bilirubin Urine Neg (Negative); Blood Urine Neg (Negative); Glucose Urine UA Norm (Normal); Ketones Urine Negative (Negative); Leukocyte Esterase Urine Negative (Negative); Nitrate Urine Negative (Negative); Protein Urine Neg (Negative); Urine Appearance Clear (CLEAR); Urine Color Yellow (Yellow); Urobilinogen Urine Norm (Negative); pH Urine 5 (5-7)
[2020-09-26] MEDS: iodixanol 320 mg/mL 100mL Btl IV (16:12)
[2020-09-26 17:47] LABS: Troponin 5 2HR 35.99 ng/L (0-10)
[2020-09-26 17:56] LABS: Troponin 5 2HR Delta -2.01 ABS# (0-10)
[2020-09-26] MEDS: levofloxacin-dextrose 5 % 750 MG/150 ML PREMIX 100 MG IV (18:29)
--- NOTE | 2020-09-26 18:39 | ECG_ITS ---
[facility] ED Test Date: 2020-09-26 Pat Name: Peri Monge Department: Room: Gender: Female Flame Burner: : 1945 Requested By: Pamela Moreira Order Number: [id number] Jacey MD: Malathi Leon M.D. Measurements Intervals [place] Rate: 80 P: 72 IN: 163 QRS: 237 QRSD: 144 T: 19 QT: 400 QTc: 462 Interpretive Statements ELECTRONIC VENTRICULAR PACEMAKER ABNORMAL RHYTHM ECG Compared to ECG 09/26/2020 15:11:39 No significant changes Electronically Signed On 10-05-2020 12:44:16 CDT by Malathi Leon M.D. [id number]
[2020-09-26] MEDS: cloNIDine 0.1 mg Tablet 0.2 MG PO (19:10)
[2020-09-26 20:40] LABS: Procalcitonin 0.12 ng/mL (0-0.5); Thyroid Stimulating Hormone 1.65 uIU/mL (0.27-4.20)
[2020-09-26 20:47] LABS: Troponin 5 6HR 30.76 ng/L (0-10)
[2020-09-26 20:49] LABS: Troponin 5 6HR Delta -7.24 ng/L (0-12)
--- NOTE | 2020-09-26 21:12 | PC.PHAR ---
Pharmacokinetic dosing service Date: 09/26/20 Time: 1899 Objective: Patient: Peri Monge Floor: ed Age: 75 yo Serum creatinine: 1.5 mg/dL Height: 64.0 Inches Weight (kg): 77.111 Diagnosis: Relevant medical/social history: Cultures and sensitivities: Other labs: Assessment: IBW (kg): 54.70 Dosing wt(kg): 77.111 Estimated Creatinine clearance (ml/min): 28.8 CRCL method: Cockcroft and Gault using ibw(default). Drug selected: Vancomycin Loading dose (mg): 0 Vd (liters): 69.4 (factor used: 0.9 L/kg) Deshawn (hr-1): 0.028 Half life (hrs): 24.76 Recommended dose: 1000 mg Interval: 24 hrs Infusion time (hrs): 1.5 Predicted peak (mcg/mL): 28.8 Predicted trough (mcg/mL): 15.34 Total body weight is being used for vancomycin dosing. Renal function is stable [ ] /unstable [ ] Recommendations: Give Vancomycin 1000 mg q 24 hrs with an expected Cpeak of 28.8 mcg/ml and an expected Ctrough of 15.34 mcg/ml Renal dosing of other antibiotics (review renal dosing of other medications and list guidelines here): Thank you for the consult, will continue to follow. Signature: Merly Gracia [facility]
[2020-09-26] MEDS: ipratropium-albuterol 3 mL Neb INHALATION (21:29)
[2020-09-26] MEDS: vancomycin 1,000 MG in sodium chloride 0.9% 250 ML 250 MG IV (22:12)
[2020-09-26] MEDS: FUROsemide 10 mg/mL SDV 4mL 40 MG IVP (22:12)
[2020-09-26 22:45] LABS: Iron 21 ug/dL (37-145); Percent Saturation 8.1 % (20-50); Total Iron Binding Capacity 259 mcg/dl; Unsaturated Iron Binding 238 ug/dL (112-347)
[2020-09-26] MEDS: hyDRALAzine 50 mg Tablet PO (23:06)
[2020-09-26] MEDS: carvedilol 25 mg Tablet PO (23:06)
--- NOTE | 2020-09-26 23:52 | PC.NURSE ---
Assumed care of patient from RENEE Zuleta at [id number] 09/26/20
[2020-09-27] VITALS (18 sets, daily range): BP systolic 118–147; BP diastolic 45–70; PULSE 62–78; RESP 16–22; TEMP 36.7–37; O2SAT 96–100
--- NOTE | 2020-09-27 02:07 | P.HP_ITS ---
Providers/Chief Complaint Admitting Physician: Soren Gerardo MD Primary Care Provider: Nancy Swan Chief Complaint: chest pain, SOB History of Present Illness Peri Monge is a 75 year old female with PMH as outlined below who presented to the ER today with c/o dyspnea, cough, minimal expectoration over past 4 days. Also reports pleuritic type chest pain with deep breaths on right side. Upon arrival at ER she was noted to be hypoxic with ABG 7.4/44/34/77.4%, started on BIpap following which 02 sat is currently 99% on 3lpm NC. This is her baseline home 02 requirement from COPD. CTA chest performed today showed 3.2 x 3.0 spiculated mass inseparable from the pleura in the posterior lateral right upper lung. There is a 1.5 cm cavitated satellite lesion adjacent to the main mass. 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 This is new compared to 09/2019. She denies any fever or chills. Rapid ccovid Ag negative here today and with PCP earlier today. SBP upon arrival at 222, has a h/o uncontrolled HTN, now BP aat 119/45 at time of eval after receiving Clonidine 0.2mg. Review of Systems General: Reports: 10 or more systems reviewed and unremarkable except in HPI and below Const: Denies: fever(s), chills or body aches Eyes: Denies: change in vision, blurry vision or photophobia ENMT: Reports: hoarseness; Denies: throat pain, enlarged tonsils, odynophagia or nasal congestion Card: Denies: chest pain, palpitations, irregular heart rhythm, edema, swelling of feet/ankles, lightheadedness, pre-syncope, dyspnea on exertion or orthopnea Resp: Denies: dyspnea, productive cough, non-productive cough, wheezing, stridor, pain on inspiration, change in phlegm color, hemoptysis or chest congestion GI: Denies: abdominal pain, nausea, vomiting, hematemesis, coffee ground emesis, dysphagia, heartburn, diarrhea, constipation, GI cramping, change in stool character, hematochezia or melena : Denies: flank pain, difficulty voiding, dysuria, urinary frequency, urinary urgency, urinary hesitancy or hematuria Musc: Denies: neck pain, back pain, extremity pain, joint swelling, joint warmth or deformity Neuro: Denies: headache(s), numbness in extremities, weakness in extremities, sensory changes, difficulty walking, frequent falls, dizziness, vertigo, behavioral changes, Slurred speech present or seizure-like activity Psych: Denies: anxiety, depression, suicidal ideation or homicidal ideation Endo: Denies: polyuria, polydipsia, tired all the time, cold intolerance or hot flashes Bernabe/Lymph: Denies: easy bruising or easy bleeding Medications/Allergies Home Medications Medication Instructions Recorded Confirmed Last Taken Type doxepin 50 mg capsule 50 mg PO BEDTIME 03/19/19 09/26/20 09/25/20 History ferrous sulfate 325 mg (65 mg 325 mg PO BID 03/19/19 09/26/20 09/25/20 History iron) tablet gabapentin 300 mg capsule 300 mg PO DAILY 03/19/19 09/26/20 09/25/20 History aspirin 81 mg tablet,delayed 81 mg PO DAILY 06/24/19 09/26/20 09/25/20 History release fluticasone 250 mcg-salmeterol 50 1 inh INHALATION DAILY 06/24/19 09/26/20 06/14/20 History mcg/dose blistr powdr for inhalation tiotropium bromide 2.5 1 inh INHALATION BID 06/24/19 09/26/20 06/14/20 History mcg/actuation mist for inhalation Carpal Tunnel Brace #1 ea NS 08/11/19 09/26/20 Unknown Rx metformin 1,000 mg PO BID 09/30/19 09/26/20 09/25/20 History triamcinolone acetonide 1 applic TOPICAL BID PRN 09/30/19 09/26/20 06/14/20 History ascorbate calcium (vitamin C) 500 500 mg PO BID 03/09/20 09/26/20 09/25/20 History mg tablet cholecalciferol (vitamin D3) 25 25 mcg PO DAILY 03/09/20 09/26/20 09/25/20 History mcg (1,000 unit) capsule melatonin 5 mg capsule 5 mg PO DAILY cap 03/09/20 09/26/20 09/25/20 History omeprazole 40 mg capsule,delayed 40 mg PO DAILY 03/09/20 09/26/20 09/25/20 History release lisinopril 40 mg tablet 40 mg PO DAILY #90 tab 04/20/20 09/26/20 09/25/20 Rx nitroglycerin 0.4 mg sublingual 0.4 mg SUBLINGUAL Q5M PRN #50 tab 04/21/20 09/26/20 Unknown Rx tablet prednisone 10 mg tablet See Rx Instructions PO DAILY #40 05/25/20 09/26/20 06/14/20 Rx tab carvedilol 25 mg tablet 25 mg PO BID 30 Days #60 tab 05/31/20 09/26/20 09/25/20 Rx insulin degludec 200 unit/mL (3 70 unit SUBCUT QAM ml 08/21/20 09/26/20 09/25/20 History mL) subcutaneous pen potassium gluconate 595 mg (99 mg) 892.5 mg PO DAILY #45 tab 08/22/20 09/26/20 09/25/20 Rx tablet prednisone 5 mg tablet 5 mg PO DAILY #30 tab 08/31/20 09/26/20 Unknown Rx tofacitinib 5 mg tablet 5 mg PO BID #60 tab 08/31/20 09/26/20 09/25/20 Rx isosorbide mononitrate 60 mg 60 mg PO DAILY #90 tab 09/21/20 09/26/20 09/25/20 Rx tablet,extended release 24 hr Lasix 40 mg PO DAILY 09/26/20 09/26/20 09/25/20 History garlic 300 mg PO DAILY 09/26/20 09/26/20 09/25/20 History hydralazine 50 mg PO TID 09/26/20 09/26/20 09/25/20 History Allergies Allergy/AdvReac Type Severity Reaction Status Date / Time codeine Allergy Severe ALGY-Swell Verified 09/22/20 10:22 Lip/Tongue/Throat Penicillins Allergy ALGY-Swell Verified 09/22/20 10:22 Lip/Tongue/Throat sulfasalazine AdvReac Intermediate made her Verified 09/22/20 10:22 feel very bad PFSH Acute PFSH: Medical History AICD malfunction Anemia Cardiac resynchronization therapy defibrillator (CHUCKING MACHINE SET UP OPERATOR-D) in place Cardiomyopathy Carpal tunnel syndrome Carpal tunnel syndrome of right wrist CHF (congestive heart failure), NYHA class III Chronic steroid use counseled about blood sugar monitoring Chronic systolic (congestive) heart failure COPD (chronic obstructive pulmonary disease) Diabetes mellitus Hepatitis B core antibody positive Hepatitis B PCR is negative High risk medication use Hypertension ICD (implantable cardioverter-defibrillator) battery depletion Immunization counseling Non-ischemic cardiomyopathy Peripheral neuropathy Rheumatoid arthritis Seropositive rheumatoid arthritis of multiple sites Surgical History History of appendectomy History of hysterectomy with bilateral oophorectomy S/P ICD (internal cardiac defibrillator) procedure Family History Mother Diabetes Hypertension CHF (congestive heart failure) Other CAD (coronary artery disease) Cancer Hyperlipidemia Lung disease Denies family history of Rheumatoid arthritis Lupus Chronic kidney disease (CKD) Stroke Social History Alcohol intake: current Alcohol intake frequency: holidays/special occasions only Household members: spouse Housing: House Marital status: History of recent travel: No Vitals/I&O/Wt Last Vital Signs Temp 99.4 F 09/26/20 12:24 Pulse 63 09/27/20 01:27 Resp 18 09/27/20 01:27 BP 119/45 09/27/20 01:27 Pulse Ox 99 09/27/20 01:27 09/26/20 09/26/20 09/27/20 14:59 22:59 06:59 Intake Total 150 / 150 250 / 400 Output Total 1000 / 1000 Balance 150 / 150 -750 / -600 Weight last 48 hrs Weight 77.111 kg Physical Exam Narrative: EXAM NARRATIVE: General: No acute distress, AO x3 HEENT: PERRLA, pupils bilaterally equal and reactive, pallors not present Chest: Normal vesicular breath sounds, no added sounds, equal good air entry bilaterally CVS: S1-S2 regular, no murmurs, no tachycardia, no gallops, no rubs Abdomen: Soft, nontender, no organomegaly, bowel sounds present Neuro: No focal deficits, no facial deformity, AO x3, power 5/5 in all limbs Extremities: LE swelling +, 1+ edema, chronic per patient. Data : 09/26/20 14:32 09/26/20 14:32 Micro: Microbiology 09/26/20 16:58 Blood Culture - Preliminary Blood SPECIMEN COLLECTED 09/26/20 16:55 Blood Culture - Preliminary Blood SPECIMEN COLLECTED A&P Assessment and plan (1) Lung mass: Newly discovered lung mass, possible maliganancy per CT description Pulmonary consult for possible tissue diagnosis Status: Acute (2) Acute respiratory distress: Likely multifactorial related to lung mass, COPD exacerbation, hypertensive urgency and CHF. Possibility of pneumonia cannot be excluded at this time. Check pro-Jerry Currently back to baseline oxygen requirement of 3 L/min BP now better controlled Resume home dose of antihypertensives. Lasix 40 mg IV every 12 hours Daily weight, monitor PAO DuoNeb every 6 hours scheduled along with budesonide 0.5 twice daily for COPD exacerbation Continue home dose of steroids BiPAP as needed Empiric antibiotic coverage for possible pneumonia Aspergillus galactomannan index with a.m. labs to screen for opportunistic fungal pneumonia Status: Acute (3) COPD (chronic obstructive pulmonary disease): As above Status: Acute (4) Chronic diastolic heart failure: Lasix 60 mg IV every 12 Status: Acute (5) Seropositive rheumatoid arthritis of multiple sites: Status: Acute Additional A&P Information DVT prophylaxis: Lovenox Full code Attestations Medical Necessity Statement*: Expected to cross greater than 2 midnights for acute hypoxic respiratory failure, newly discovered lung mass, which may need further bronchoscopic assessment Coding Level of Care Code Acute Clinic Manager for [facility] Fwd Diagnoses Lung mass R91.8 Acute respiratory distress R06.03 COPD (chronic obstructive pulmonary disease) J44.9 Chronic diastolic heart failure I50.32 Seropositive rheumatoid arthritis of multiple sites M05.79
[2020-09-27 03:00] LABS: Procalcitonin 0.12 ng/mL (0-0.5)
[2020-09-27] MEDS: ipratropium-albuterol 3 mL Neb INHALATION ×4 (04:12→20:30)
[2020-09-27 06:41] LABS: Basophils % 0.3 %; Eosinophils % 0.1 %; Hematocrit 24.9 % (37.0-47.0); Hemoglobin 7.6 g/dL (11.5-15.3); Lymphocytes # 0.5 10^3/uL (0.8-4.8); Mean Corpuscular HGB Conc 30.5 g/dL (30.0-36.0); Mean Corpuscular Hemoglobin 28.1 pg (28.0-34.0); Mean Corpuscular Volume 92.2 fL (81-99); Mean Platelet Volume 10.1 fL (7.4-10.4); Monocytes # 0.3 10^3/uL (0.2-0.9); Monocytes % 2.7 %; Neutrophils # 8.92 10^3/uL (1.8-7.7); Neutrophils % 86.6 %; Nucleated Red Blood Cells % 0 %; Platelet Count 250 10^3/cmm (130-400); Red Cell Distribution Width 15.3 % (12.1-15.1); White Blood Count 10.3 10^3/uL (4.0-10.0)
[2020-09-27 06:50] LABS: Estmated Average Glucose 169; Hemoglobin A1C 7.5 % (4.0-6.0)
[2020-09-27] MEDS: budesonide 0.5 mg/2 mL Neb INHALATION ×2 (08:17→20:30)
--- NOTE | 2020-09-27 09:43 | PC.CHAP ---
Pastoral Care Encounter/Spiritual Assessment Type of Contact [] Declined quality assurance analyst visit [] Patient/Family/Request visit [] Outpatient visit [] Follow-up visit [] Physician referral [] Code/Alert [x] Routine visit [] Staff referral [] Actively dying [] Patient sleeping [] Family support [] [] Out of room [] Palliative care [] [] Receiving care in room [] Pre-surgical visit [] Trauma [] Long length of stay [] ICU visit [] Other: Relational/Emotional Strength [x] Patient feels connected with others/family/visitors/staff [] Distress [] Loneliness/isolation [] Abandonment Spirituality of Patient [x] Person of Joycelyn [] Attends Mu-Ism of their Joycelyn [] Believes in Prayer [] Reads Bible or Episcopalian materials [] There are Spiritual issues to be addressed Collections Technician Interventions [x] Prayer [x] Active listening [] Non-anxious presence [] Spiritual/emotional support [] Crisis/trauma care [] Spiritual counseling [] Bereavement support [] Provided bereavement packet [] Provided Bible/devotional materials [] Provided toy/stuffed animal, coloring book to patient or family member [] Provided Communion [] Anointing/Randolph [] Salvation [x] Completed spiritual assessment [] Other: Impact on Illness or Injury [] Angry [] Fearful [] Anxious [] Often cries [] Exhaustion [] Unable to work [] Unable to attend hindu [] Unable to walk/stand [] Unable to read [] Unable to drive [] Unable to eat/drink [] Unable to sleep [] Unable to be with family [] Patient intubated [] Other: Summary Time spent with patient 10 min
[2020-09-27 10:04] LABS: Alanine Aminotransferase 19 U/L (0-33); Albumin Level 3.6 g/dL (3.5-5.2); Alkaline Phosphatase 43 IU/L (35-105); Cholesterol 168 mg/dL (0-200); Creatine Phosphokinase 30 U/L (26-192); Potassium 4.7 mmol/L (3.5-5.1)
[2020-09-27 11:13] LABS: Aspartate Amino Transferase 12 U/L (0-32); Blood Urea Nitrogen 45 mg/dL (8-23); Calcium 8.7 mg/dL (8.5-10.5); Carbon Dioxide 29 mmol/L (22-29); Ferritin 177 ng/mL (15-150); Globulin 2.8 g/dL (1.3-4.6); Glucose 327 mg/dL (65-115); HDL Cholesterol 41 mg/dL (60-100); LDL Cholesterol Calculated 109 mg/dL (50-129); NT Pro B Type Natriuretic Pept 3088 pg/mL (0-125); Total Bilirubin 0.2 mg/dL (0.15-1.2); Total Protein 6.4 g/dL (6.6-8.7); Triglycerides 92 mg/dL (0-150); VLDL Cholestrol Calculation 18 mg/dL (0-30)
[2020-09-27 11:17] LABS: Anion Gap 16.7 (5-19); Chloride 94 mmol/L (98-107); Osmolality Calculated 304 mOsm/kg (285-295); Sodium 135 mmol/L (136-145)
[2020-09-27] MEDS: hyDRALAzine 50 mg Tablet PO ×3 (11:30→21:13)
[2020-09-27] MEDS: gabapentin 300 mg Capsule PO (11:30)
[2020-09-27] MEDS: carvedilol 25 mg Tablet PO ×2 (11:30→17:16)
[2020-09-27] MEDS: ascorbic acid 500 mg Tablet PO ×2 (11:30→17:16)
[2020-09-27] MEDS: isosorbide mononitrate ER 60 mg Tablet PO (11:30)
[2020-09-27] MEDS: pantoprazole DR 40 mg Tablet PO (11:30)
[2020-09-27] MEDS: aspirin 81 mg EC Tablet PO (11:30)
[2020-09-27] MEDS: ferrous sulfate EC 325 mg Tablet PO ×2 (11:30→17:16)
[2020-09-27] MEDS: FUROsemide 10 mg/mL SDV 4mL 40 MG IVP ×2 (11:31→21:14)
--- NOTE | 2020-09-27 14:46 | PM.CONSULT ---
Providers/Reason For Consult Consulting Physician/Specialty*: Peter Hargrove MD / Pulmonary Reason for Consult*: Lung opacities in pt with chronic smoking history Requesting Physician: Octavio Shea MD Attending Physician: Soren Gerardo MD Primary Care Provider: Nancy Swan History of Present Illness History of Present Illness Peri Monge is a 75 year old female With PMH COPD on 3 L home oxygen, chronic systolic heart failure, s/p AICD, uncontrolled hypertension, immunosuppressed due to seropositive rheumatoid arthritis on Xeljanz and prednisone, presented to ED on 09/26/2020 complaining of dyspnea, cough, minimal expectoration over past 4 days and pleuritic type chest pain on right side which started 6 months ago. In the ED, patient noted to be hypoxic with ABG 7. 4/44/34/77% (likely venous), initially started on BiPAP and later placed on 3 L nasal cannula saturating 99%. CT chest reported 3.2 x 3 spiculated mass inseparable from the pleura in the posterior lateral right posterior lateral right upper lung. There is a 1.5 cm cavitated satellite lesion adjacent to the main mass. There is a 3.4 x 2.0 cm mass infiltrating the right upper hilum and involving the right upper lobe bronchus.Findings were concerning for malignancy and this is new compared to 09/2019. She denies any fever or chills. Denied any recent weight loss or unusual fatigue. Rapid ccovid Ag negative here today and with PCP earlier today. Patient reported taking 2 doses of COVID-19 vaccine. SBP upon arrival at 222, has a h/o uncontrolled HTN, later down to 119/45 after receiving Clonidine 0.2mg. Pulmonary consulted for findings on the chest CT. Patient seen at bedside today She reported smoking for 51 years and quit 10 years ago-at some point 3 packs/day Her right pleuritic chest pain started 6 months ago but she she was not concerned to follow-up Reported having cough minimal expectoration with clear color. Review of Systems General: Reports: 10 or more systems reviewed and unremarkable except in HPI and below Meds/Allergies Home Medications and Allergies Home Medications Medication Instructions Recorded Confirmed Last Taken Type doxepin 50 mg capsule 50 mg PO BEDTIME 03/19/19 09/26/20 09/25/20 History ferrous sulfate 325 mg (65 mg 325 mg PO BID 03/19/19 09/26/20 09/25/20 History iron) tablet gabapentin 300 mg capsule 300 mg PO DAILY 03/19/19 09/26/20 09/25/20 History aspirin 81 mg tablet,delayed 81 mg PO DAILY 06/24/19 09/26/20 09/25/20 History release fluticasone 250 mcg-salmeterol 50 1 inh INHALATION DAILY 06/24/19 09/26/20 06/14/20 History mcg/dose blistr powdr for inhalation tiotropium bromide 2.5 1 inh INHALATION BID 06/24/19 09/26/20 06/14/20 History mcg/actuation mist for inhalation Carpal Tunnel Brace #1 ea NS 08/11/19 09/26/20 Unknown Rx metformin 1,000 mg PO BID 09/30/19 09/26/20 09/25/20 History triamcinolone acetonide 1 applic TOPICAL BID PRN 09/30/19 09/26/20 06/14/20 History ascorbate calcium (vitamin C) 500 500 mg PO BID 03/09/20 09/26/20 09/25/20 History mg tablet cholecalciferol (vitamin D3) 25 25 mcg PO DAILY 03/09/20 09/26/20 09/25/20 History mcg (1,000 unit) capsule melatonin 5 mg capsule 5 mg PO DAILY cap 03/09/20 09/26/20 09/25/20 History omeprazole 40 mg capsule,delayed 40 mg PO DAILY 03/09/20 09/26/20 09/25/20 History release lisinopril 40 mg tablet 40 mg PO DAILY #90 tab 04/20/20 09/26/20 09/25/20 Rx nitroglycerin 0.4 mg sublingual 0.4 mg SUBLINGUAL Q5M PRN #50 tab 04/21/20 09/26/20 Unknown Rx tablet prednisone 10 mg tablet See Rx Instructions PO DAILY #40 05/25/20 09/26/20 06/14/20 Rx tab carvedilol 25 mg tablet 25 mg PO BID 30 Days #60 tab 05/31/20 09/26/20 09/25/20 Rx insulin degludec 200 unit/mL (3 70 unit SUBCUT QAM ml 08/21/20 09/26/20 09/25/20 History mL) subcutaneous pen potassium gluconate 595 mg (99 mg) 892.5 mg PO DAILY #45 tab 08/22/20 09/26/20 09/25/20 Rx tablet prednisone 5 mg tablet 5 mg PO DAILY #30 tab 08/31/20 09/26/20 Unknown Rx tofacitinib 5 mg tablet 5 mg PO BID #60 tab 08/31/20 09/26/20 09/25/20 Rx isosorbide mononitrate 60 mg 60 mg PO DAILY #90 tab 09/21/20 09/26/20 09/25/20 Rx tablet,extended release 24 hr Lasix 40 mg PO DAILY 09/26/20 09/26/20 09/25/20 History garlic 300 mg PO DAILY 09/26/20 09/26/20 09/25/20 History hydralazine 50 mg PO TID 09/26/20 09/26/20 09/25/20 History Allergies Allergy/AdvReac Type Severity Reaction Status Date / Time codeine Allergy Severe ALGY-Swell Verified 09/22/20 10:22 Lip/Tongue/Throat Penicillins Allergy ALGY-Swell Verified 09/22/20 10:22 Lip/Tongue/Throat sulfasalazine AdvReac Intermediate made her Verified 09/22/20 10:22 feel very bad Current Medications Current Medications Generic Name Dose Route Start Last Admin Trade Name Contreras PRN Reason Stop Dose Admin Albuterol/Ipratropium 3 ml 09/26/20 21:00 09/27/20 14:25 Ipratropium-Albuterol 3 Ml Neb INHALATION 3 ml Q6H.RESPIRATORY AARON Administration Ascorbic Acid 500 mg 09/27/20 09:00 09/27/20 11:30 Ascorbic Acid 500 Mg Tablet PO 500 mg BID AARON Administration Aspirin 81 mg 09/27/20 09:00 09/27/20 11:30 Aspirin 81 Mg Ec Tablet PO 81 mg DAILY AARON Administration Budesonide 0.5 mg 09/27/20 08:00 09/27/20 08:17 Budesonide 0.5 Mg/2 Ml Neb INHALATION 0.5 mg BID.RESPIRATORY AARON Administration Carvedilol 25 mg 09/26/20 21:00 09/27/20 11:30 Carvedilol 25 Mg Tablet PO 25 mg BID AARON Administration Ferrous Sulfate 325 mg 09/27/20 09:00 09/27/20 11:30 Ferrous Sulfate Ec 325 Mg Tablet PO 325 mg BID AARON Administration Furosemide 40 mg 09/26/20 20:05 09/27/20 11:31 Furosemide 10 Mg/Ml Sdv 4ml IVP 40 mg Q12H AARON Administration Gabapentin 300 mg 09/27/20 09:00 09/27/20 11:30 Gabapentin 300 Mg Capsule PO 300 mg DAILY AARON Administration Hydralazine HCl 50 mg 09/26/20 21:00 09/27/20 11:30 Hydralazine 50 Mg Tablet PO 50 mg TID AARON Administration Vancomycin HCl 1,000 mg/ 250 mls @ 250 mls/hr 09/26/20 21:00 09/27/20 01:27 Sodium Chloride IV Infused Q24H AARON Infusion Imipenem/Cilastatin Sodium 250 100 mls @ 200 mls/hr 09/27/20 02:30 09/27/20 12:05 mg/ Sodium Chloride IV Infused Q6H AARON Infusion Protocol Isosorbide Mononitrate 60 mg 09/27/20 09:00 09/27/20 11:30 Isosorbide Mononitrate Er 60 Mg Tablet PO 60 mg DAILY AARON Administration Pantoprazole Sodium 40 mg 09/27/20 09:00 09/27/20 11:[address] 40 Mg Tablet PO 40 mg DAILY AARON Administration PFSH Acute PFSH: Medical History AICD malfunction Anemia Cardiac resynchronization therapy defibrillator (BOOKMOBILE LIBRARIAN-D) in place Cardiomyopathy Carpal tunnel syndrome Carpal tunnel syndrome of right wrist CHF (congestive heart failure), NYHA class III Chronic steroid use counseled about blood sugar monitoring Chronic systolic (congestive) heart failure COPD (chronic obstructive pulmonary disease) Diabetes mellitus Hepatitis B core antibody positive Hepatitis B PCR is negative High risk medication use Hypertension ICD (implantable cardioverter-defibrillator) battery depletion Immunization counseling Non-ischemic cardiomyopathy Peripheral neuropathy Rheumatoid arthritis Seropositive rheumatoid arthritis of multiple sites Surgical History History of appendectomy History of hysterectomy with bilateral oophorectomy S/P ICD (internal cardiac defibrillator) procedure Family History Mother Diabetes Hypertension CHF (congestive heart failure) Other CAD (coronary artery disease) Cancer Hyperlipidemia Lung disease Denies family history of Rheumatoid arthritis Lupus Chronic kidney disease (CKD) Stroke Social History Alcohol intake: current Alcohol intake frequency: holidays/special occasions only Household members: spouse Housing: House Marital status: History of recent travel: No Vitals/I&O/Wt Last Vital Signs Temp 98.1 F 09/27/20 08:00 Pulse 71 09/27/20 14:34 Resp 18 09/27/20 14:25 BP 147/65 09/27/20 08:00 Pulse Ox 97 09/27/20 14:25 09/26/20 09/27/20 09/27/20 22:59 06:59 14:59 Intake Total 150 / 150 550 / 700 450 / 450 Output Total 1000 / 1000 Balance 150 / 150 -450 / -300 450 / 450 Weight last 48 hrs Weight 173 lb 6.4 oz Weight 170 lb Physical Exam Narrative: EXAM NARRATIVE: General: alert, NAD, elderly lady, lying down comfortably in her bed on 2 L nasal cannula HEENT: conj clear, EOMI, PERRL, mmm, Neck: supple, no meningismus Heme: no cervical LAP Pulmonary: CTAB, no wheezing, rhonchi, crackles Cardiovascular: rrr, nl s1s2, no mrg Abdomen: soft, nt, nd, no r/g, bs+ Extremities: pulses +, no edema, no c/c : no CVA tenderness Skin: intact, no rash MSK: no back or neck pain Neurologic: grossly intact Data Micro: Micro: Microbiology 09/26/20 15:23 Bacterial Antigens - Final Urine Kidney 09/26/20 15:23 Legionella Urinary Antigen - Final Urine,Voided 09/26/20 16:58 Blood Culture - Pr eliminary Blood SPECIMEN [facility] 09/26/20 16:55 Blood Culture - Pr eliminary Blood SPECIMEN [facility] A&P Assessment and plan (1) Lung mass: Status: Acute (2) COPD (chronic obstructive pulmonary disease): Status: Acute Qualifiers: COPD type: emphysema Emphysema type: centrilobular Qualified Code(s): J43.2 - Centrilobular emphysema (3) Chronic steroid use: Status: Acute (4) Chronic diastolic heart failure: Status: Acute (5) High risk medication use: Status: Acute (6) Seropositive rheumatoid arthritis of multiple sites: Status: Acute (7) Chronic systolic (congestive) heart failure: Status: Acute #Multiple lung lesions on CT chest concerning for primary lung malignancy and patient with significant smoking history #History of COPD-not in acute exacerbation #Admitted with hypertensive urgency-now BP better controlled #Immunocompromised due to high risk medication prednisone 10 mg and Xeljanz for seropositive rheumatoid arthritis #Patient with history of CHF s/p AICD -CTA during admission showed 3.2 x 3.0 spiculated mass inseparable from the pleura in the posterior lateral right upper lung. 1.5 cm cavitated satellite lesion adjacent to the main mass. There is a 3.4 x 2.0 cm mass infiltrating the right upper hilum and involving the right upper lobe bronchus. This mass may actually invade the mediastinum. There are an additional 8 mm nodule in the superior aspect of the right lower lobe and anterior aspect of the right lower lobe. There may be some smaller nodules in the right lower lobe as well.There is a 14 mm spiculated mass in the medial anterior right upper lobe at the level of the main pulmonary artery. -Recommended to get CT-guided biopsy of the spiculated mass closer to the posterior lateral right upper lung -Discussed with pathology and agreed to coordinate with IR and do onsite evaluation -If negative plan is to send for MTB PCR and fungal PCR-given use of immunouppressive medications for seropositive rheumatoid arthritis -Currently held Xeljanz and prednisone and covered with vancomycin and imipenem -BNP 3000-on Lasix 40 every 12 -Currently on DuoNeb nebulization every 6 hour scheduled and Pulmicort 0.5 twice daily scheduled -Patient reported being on Advair and Spiriva previously-but not using anymore as she used frequently forgets taking it -I would recommend to discharge patient with Trelegy 1 puff daily -Aspergillus galactomannan index for opportunistic fungal pneumonia; Blood cultures pending, urine cultures, urine Legionella and bacterial antigens negative -If IR cannot obtain samples-I will plan for EBUS guided FNA C of mediastinal mass and do a PET/CT for complete staging. -Rest of the comorbidities managed as per hospitalist -Recommendations conveyed to hospitalist team taking care of the patient -Medical condition and plan of care explained in detail to the patient. She verbalized understanding and agreed with the plan Consult Attestations Medical Necessity Statement: Back to baseline respiratory neri and currently on 2 L nasal cannula; awaiting for CT-guided biopsy of newly discovered lung mass Time Spent in Patient Care: Greater than 35 minutes (>than 50% of time spent in counselling and/or direct pt care on unit). Critical Care Time: Critical Care Time (min): 45 Coding Level of Care Code Established Pt Acute Integration Director for O[facility] Patient Type Established History Comprehensive Exam Comprehensive Medical Decision Making Moderate Complexity Diagnoses Lung mass R91.8 COPD (chronic obstructive pulmonary disease) J43.2 COPD type: emphysema Emphysema type: centrilobular Chronic steroid use Chronic diastolic heart failure I50.32 High risk medication use Z79.899 Seropositive rheumatoid arthritis of multiple sites M05.79 Chronic systolic (congestive) heart failure I50.22 Time Spent (min) 45
[2020-09-27 16:59] LABS: Glucose Point of Care 248 mg/dL (70-110)
[2020-09-27 20:36] LABS: Glucose Point of Care 163 mg/dL (70-110)
[2020-09-27] MEDS: vancomycin 1,000 MG in sodium chloride 0.9% 250 ML 250 MG IV (21:53)
[2020-09-28] VITALS (25 sets, daily range): BP systolic 119–174; BP diastolic 54–82; PULSE 64–87; RESP 16–23; TEMP 36.1–37.2; O2SAT 92–100
[2020-09-28] MEDS: ipratropium-albuterol 3 mL Neb INHALATION ×4 (02:05→20:33)
[2020-09-28 05:35] LABS: Basophils % 0.1 %; Eosinophils # 0.1 10^3/uL (0.0-0.8); Hematocrit 23.7 % (37.0-47.0); Hemoglobin 7.3 g/dL (11.5-15.3); Lymphocytes % 10.5 %; Mean Corpuscular HGB Conc 30.8 g/dL (30.0-36.0); Mean Corpuscular Hemoglobin 28.4 pg (28.0-34.0); Mean Corpuscular Volume 92.2 fL (81-99); Mean Platelet Volume 9.6 fL (7.4-10.4); Monocytes # 0.8 10^3/uL (0.2-0.9); Monocytes % 8.3 %; Neutrophils # 6.81 10^3/uL (1.8-7.7); Neutrophils % 75.2 %; Nucleated Red Blood Cells % 0.2 %; Platelet Count 233 10^3/cmm (130-400); Red Blood Count 2.57 10^6/uL (4.1-5.3); Red Cell Distribution Width 15.6 % (12.1-15.1); White Blood Count 9.1 10^3/uL (4.0-10.0)
[2020-09-28 05:47] LABS: INR 1.09 (0.8-1.2)
[2020-09-28 05:53] LABS: Alanine Aminotransferase 27 U/L (0-33); Albumin Level 3.4 g/dL (3.5-5.2); Alkaline Phosphatase 42 IU/L (35-105); Anion Gap 13.7 (5-19); Aspartate Amino Transferase 27 U/L (0-32); Blood Urea Nitrogen 49 mg/dL (8-23); Calcium 8.7 mg/dL (8.5-10.5); Carbon Dioxide 32 mmol/L (22-29); Chloride 98 mmol/L (98-107); Globulin 2.5 g/dL (1.3-4.6); Glucose 163 mg/dL (65-115); Osmolality Calculated 307 mOsm/kg (285-295); Potassium 3.7 mmol/L (3.5-5.1); Sodium 140 mmol/L (136-145); Total Bilirubin 0.2 mg/dL (0.15-1.2); Total Protein 5.9 g/dL (6.6-8.7)
[2020-09-28 06:01] LABS: Creatinine Clr Calc Pharmacy 26.7074
[2020-09-28 06:19] LABS: NT Pro B Type Natriuretic Pept 1572 pg/mL (0-125)
[2020-09-28 06:41] LABS: Glucose Point of Care 162 mg/dL (70-110)
[2020-09-28] MEDS: budesonide 0.5 mg/2 mL Neb INHALATION ×2 (09:06→20:33)
[2020-09-28] MEDS: carvedilol 25 mg Tablet PO ×2 (10:05→18:25)
[2020-09-28] MEDS: hyDRALAzine 50 mg Tablet PO ×3 (10:06→20:28)
[2020-09-28] MEDS: isosorbide mononitrate ER 60 mg Tablet PO (10:06)
[2020-09-28] MEDS: ferrous sulfate EC 325 mg Tablet PO ×2 (10:07→18:26)
[2020-09-28 10:27] LABS: Glucose Point of Care 158 mg/dL (70-110)
[2020-09-28] MEDS: FUROsemide 10 mg/mL SDV 4mL 40 MG IVP (10:49)
--- NOTE | 2020-09-28 11:15 | CT_ITS ---
WS: [id number] CT-GUIDED LUNG BIOPSY CLINICAL INFORMATION: lung mass DLP: 1074.15 mGy.cm TECHNIQUE: The procedure including risk, benefits, and complications were discussed with the patient who agreed to proceed. Timeout was performed. Using sterile technique, the patient was prepped and dr aped in the usual sterile fashion. Patient was positioned [id number] and CT images were obtained through the right lung. The largest peripheral right lung nodule was selected. After 1% lidocaine us ing fluoroscopic guidance, a 17-gauge coaxial needle was advanced into the right lung mass. Approxima tely 5 18-gauge core samples were obtained. Post procedure CT images demonstrate small amount expecte d hemorrhage about the region. No visualized pneumothorax. No immediate complications. CT/CT biopsy lung [id number] IMPRESSION: 1. Multiple 18-gauge core samples were obtained of the right lung mass. No imm ediate complications. 2. 60 minute chest x-ray is pending. 3. Pathology is pending.
[2020-09-28 11:29] LABS: Glucose Point of Care 180 mg/dL (70-110)
[2020-09-28] MEDS: sodium chloride 0.9% 500 ML 999 ML IV (11:34)
--- NOTE | 2020-09-28 11:37 | PC.NURSE ---
Change in Condition During physician rounding this morning, Dr. Gerardo advised to give patient her cardiac medications even though she is NPO, due to patient's current hypertension. Scheduled medications were given. Patient's IV had infiltrated. During IV insertion, she became very anxious, diaphoretic, and clammy. She stated her vision became blurry. Manual BP--80/50. HR 66. Patient was placed in reverse trendelenberg while Marcia from ICU obtained IV access. Per Dr. Gerardo okay to insert IV in foot d/t patient's limited access and patient's recurrent infiltrations in arms. Per Dr. Gerardo, give 500mL bolus.
--- NOTE | 2020-09-28 11:42 | PC.NURSE ---
Bolus Volume Adjusted Per Dr. Gerardo, since BP stabilized (126/62), give 250ml of the 500ml bolus that was previously ordered.
[2020-09-28] MEDS: sodium chloride 0.9% 1,000 ML 30 ML IV (13:10)
[2020-09-28] MEDS: midazolam 1 mg/mL INJ 2 mL 2 MG IVP (13:10)
--- NOTE | 2020-09-28 13:10 | SUR.OPER ---
Addendum entered by Ching Beaver RN 09/28/20 14:20: Pt in CT at 1300 for procedure. Original Note: [address] guided biopsy of right lung mass. Time out completed. Procedure performed using moderate sedation. A total of 50 mcg Fentanyl IV and 2 mg Versed IV given. Lidocaine 1% 10 mL injected into right posterior back at area of lung biopsy per Dr. Gupta for local anesthetic. Pt tolerated well. Specimen sent to pathology as ordered. VSS. Dressing applied to right upper back following procedure. Pt to remain supine with right side down for 3 hours. Chest x-ray to be performed at 1445. Pt transferred to second floor room 256-1 via stretcher. Pt alert and oriented. Denies pain or SOB. Dressing remains D/I to back. Report given to RENEE Munguia.
[2020-09-28] MEDS: fentaNYL 50 mcg/mL INJ 2mL IVP (13:12)
--- NOTE | 2020-09-28 13:46 | XR_ITS ---
WS: [id number] CHEST XRAY TECHNIQUE: Portable chest. CLINICAL INFORMATION: post CT biopsy of right lung mass COMPARISON: September 26, 2020 FINDINGS: Heart: Stable cardiomegaly. AICD. Lungs: Status post right upper lobe lung mass biopsy. No evidence of pneumothorax or pleural fluid. P atchy interstitial pulmonary infiltrates more prominent in the right upper lobe not significantly lauren nged. Left lung is well aerated. Chronic emphysematous changes. Bones: Normal visualized bony structures. XR/XR chest 1V portable [id number] IMPRESSION: 1. No pneumothorax status post right upper lobe lung mass biopsy. 2. Stable interstitial infiltrates in the right lung worse in the right upper lobe. This is similar to previous. 3. Stable cardiomegaly.
--- NOTE | 2020-09-28 14:07 | PM.PN ---
Subjective Subjective: Interval history: No events overnight. Patient has remained comfortable. Currently on 2 L saturating 97%. Awaiting lung biopsy today. Denies any nausea vomiting, headache. States feeling is better. Vitals/I&O/Wt Last Vital Signs Temp 97.0 F L 09/28/20 13:52 Pulse 71 09/28/20 14:00 Resp 19 H 09/28/20 14:00 BP 142/55 09/28/20 14:00 Pulse Ox 97 09/28/20 14:00 09/27/20 09/28/20 09/28/20 22:59 06:59 14:59 Intake Total 440 / 890 350 / 1240 590 / 590 Output Total 550 / 550 600 / 1150 Balance -110 / 340 -250 / 90 590 / 590 Weight last 48 hrs Weight 78.335 kg Weight 78.653 kg Physical Exam Narrative: EXAM NARRATIVE: General: No acute distress, AO x3 HEENT: PERRLA, pupils bilaterally equal and reactive, pallors not present Chest: Normal vesicular breath sounds, no added sounds, equal good air entry bilaterally CVS: S1-S2 regular, no murmurs, no tachycardia, no gallops, no rubs Abdomen: Soft, nontender, no organomegaly, bowel sounds present Neuro: No focal deficits, no facial deformity, AO x3, power 5/5 in all limbs Extremities: LE swelling +, 1+ edema, chronic per patient. Data : 09/28/20 05:03 09/28/20 05:03 Micro: Microbiology 09/28/20 06:30 MRSA Culture - Final Nose 09/26/20 16:58 Blood Culture - Preliminary Blood NEGATIVE TO DATE 09/26/20 16:55 Blood Culture - Preliminary Blood NEGATIVE TO DATE 09/26/20 15:23 Bacterial Antigens - Final Urine Kidney A&P Assessment and plan (1) Lung mass: Newly discovered lung mass, possible malignancy per CT description Plan for lung biopsy today. NPO for now. Hold lovenox and ASA Status: Acute (2) Acute respiratory distress: Most likely secondary to CHF exacerbation because of hypertensive urgency likely multifactorial realong with newly diagnosed lung mass. Less likely pneumonia. Pro-Jerry negative. For now we will continue patient on broad-spectrum antibiotics with vancomycin and imipenem. MRSA negative, urine Legionella, bacterial antigen negative. Oxygen supplementation keeping saturation over 88%. Aspergillus galactomannan awaited. Check urine histoplasma antigen. Sputum culture awaited. For CHF exacerbation patient seems comfortable. Lasix 20 mg IV twice daily. Strict input output charting. Daily weights. For COPD exacerbation: DuoNebs every 6 hour, budesonide DuoNebs every 6 hour, budesonide twice daily. For now hold off on any steroids. Status: Acute (3) COPD (chronic obstructive pulmonary disease): As above Status: Acute Qualifiers: COPD type: emphysema Emphysema type: centrilobular Qualified Code(s): J43.2 - Centrilobular emphysema (4) Chronic diastolic heart failure: Status: Acute (5) Seropositive rheumatoid arthritis of multiple sites: Status: Acute Additional A&P Information Type 2 DM: A1c- 7.5 ISS at low dose protocol. DVT prophylaxis: Lovenox Full code NPO, Cardiac diet Attestations Medical Necessity Statement*: Requires further hospitalisation for management of respiratory distress 2/2 CHF, lung mass under eval most likely cancer Time Spent in Patient Care: Greater than 35 minutes (>than 50% of time spent in counselling and/or direct pt care on unit). Coding Level of Care Code Acute Cloth Laminating Supervisor for Chg Fwd Diagnoses Lung mass R91.8 Acute respiratory distress R06.03 COPD (chronic obstructive pulmonary disease) J43.2 COPD type: emphysema Emphysema type: centrilobular Chronic diastolic heart failure I50.32 Seropositive rheumatoid arthritis of multiple sites M05.79
[2020-09-28 16:48] LABS: Glucose Point of Care 178 mg/dL (70-110)
--- NOTE | 2020-09-28 18:03 | PC.RESP ---
Pulmonary Rehab information sent to patient.
[2020-09-28] MEDS: ascorbic acid 500 mg Tablet PO (18:26)
[2020-09-28 20:25] LABS: Glucose Point of Care 243 mg/dL (70-110)
[2020-09-28] MEDS: FUROsemide 10 mg/mL SDV 2mL 20 MG IVP (20:28)
[2020-09-28 20:47] LABS: Vancomycin Trough 15.3 ug/mL (10-15)
[2020-09-28] MEDS: vancomycin 1,000 MG in sodium chloride 0.9% 250 ML 250 MG IV (21:09)
--- NOTE | 2020-09-28 21:36 | P.PN_ITS ---
Subjective Subjective: Interval history: Patient seen at bedside today Appears comfortable saturating 99% on [address]-guided biopsy of right posterior pleural-based lesion today afternoon-postprocedure x-ray no evidence of pneumothorax Patient also denied any chest pain or difficulty breathing postprocedure Labs and imaging reviewed Medications: Reviewed: Yes Vitals/I&O/Wt Last Vital Signs Temp 98.9 F 09/28/20 20:00 Pulse 69 09/28/20 20:40 Resp 16 09/28/20 20:40 BP 136/64 09/28/20 20:00 Pulse Ox 98 09/28/20 20:40 09/28/20 09/28/20 09/28/20 06:59 14:59 22:59 Intake Total 350 / 1240 1090 / 1090 Output Total 600 / 1150 240 / 240 Balance -250 / 90 1090 / 1090 -240 / 850 Weight last 48 hrs Weight 172 lb 11.2 oz Weight 173 lb 6.4 oz Physical Exam Narrative: EXAM NARRATIVE: General: alert, NAD, elderly lady, lying down comfortably in her bed on 2 L nasal cannula HEENT: conj clear, EOMI, PERRL, mmm, Neck: supple, no meningismus Heme: no cervical LAP Pulmonary: CTAB, no wheezing, rhonchi, crackles Cardiovascular: rrr, nl s1s2, no mrg Abdomen: soft, nt, nd, no r/g, bs+ Extremities: pulses +, no edema, no c/c : no CVA tenderness Skin: intact, no rash MSK: no back or neck pain Neurologic: grossly intact Data : 09/28/20 05:03 09/28/20 05:03 Other Labs: Laboratory Results WBC 9.1 10^3/uL (4.0-10.0) 09/28/20 05:03 RBC 2.57 10^6/uL (4.1-5.3) L 09/28/20 05:03 Hgb 7.3 g/dL (11.5-15.3) L 09/28/20 05:03 Hct 23.7 % (37.0-47.0) L 09/28/20 05:03 MCV 92.2 fL (81-99) 09/28/20 05:03 MCH 28.4 pg (28.0-34.0) 09/28/20 05:03 MCHC 30.8 g/dL (30.0-36.0) 09/28/20 05:03 RDW 15.6 % (12.1-15.1) H 09/28/20 05:03 Plt Count 233 10^3/cmm (130-400) 09/28/20 05:03 MPV 9.6 fL (7.4-10.4) 09/28/20 05:03 Neut % (Auto) 75.2 % 09/28/20 05:03 Lymph % (Auto) 10.5 % 09/28/20 05:03 Hooker % (Auto) 8.3 % 09/28/20 05:03 Eos % (Auto) 1.0 % 09/28/20 05:03 Baso % (Auto) 0.1 % 09/28/20 05:03 Neut # (Auto) 6.81 10^3/uL (1.8-7.7) 09/28/20 05:03 Lymph # (Auto) 1.0 10^3/uL (0.8-4.8) 09/28/20 05:03 Hooker # (Auto) 0.8 10^3/uL (0.2-0.9) 09/28/20 05:03 Eos # (Auto) 0.1 10^3/uL (0.0-0.8) 09/28/20 05:03 Baso # (Auto) 0.0 10^3/uL (0.0-0.1) 09/28/20 05:03 Nucleated RBC % (auto) 0.2 % 09/28/20 05:03 Nucleated RBCs # 0.0 /100WBC 09/28/20 05:03 PT 14.40 SECONDS (12.1-14.9) 09/28/20 05:03 INR 1.09 (0.8-1.2) 09/28/20 05:03 D-Dimer 1.71 ug/mIFEU (0-0.59) H 09/26/20 14:32 Specimen Type Arterial 09/26/20 13:45 Sample Site Radial, left 09/26/20 13:45 ABG pH 7.41 (7.35-7.45) 09/26/20 13:45 ABG pCO2 54.2 mmHg (35-45) H 09/26/20 13:45 ABG pO2 44.1 mmHg (80.0-100.0) L 09/26/20 13:45 ABG HCO3 34.2 mmol/L (22-26) H 09/26/20 13:45 ABG Base Excess 8.4 mmol/L (-2.0-2.0) H 09/26/20 13:45 Paco Test Pos 09/26/20 13:45 Hematocrit 27.8 % (37-47) L 09/26/20 13:45 Hgb O2 Saturation 77.4 % (95-100) L 09/26/20 13:45 Carboxyhemoglobin 1.1 %THgb (0.4-20.1) 09/26/20 13:45 Methemoglobin 0.6 % (0.4-1.5) 09/26/20 13:45 Total Hemoglobin 9.1 g/dL (12-16) L 09/26/20 13:45 O2 Delivery Device Nc 09/26/20 13:45 O2 Liters/Min 6.0 % 09/26/20 13:45 Mutton Puncher ID Cak 09/26/20 13:45 Sodium 140 mmol/L (136-145) 09/28/20 05:03 Potassium 3.7 mmol/L (3.5-5.1) 09/28/20 05:03 Chloride 98 mmol/L (98-107) 09/28/20 05:03 Carbon Dioxide 32 mmol/L (22-29) H 09/28/20 05:03 Anion Gap 13.7 (5-19) 09/28/20 05:03 BUN 49 mg/dL (8-23) H 09/28/20 05:03 Creatinine 1.9 mg/dL (0.5-0.9) H 09/28/20 05:03 GFR Calculation Not Reportable 09/28/20 05:03 Glucose 163 mg/dL (65-115) H 09/28/20 05:03 POC Glucose 243 mg/dL (70-110) H 09/28/20 20:21 Estimat Average Glucose 169 09/27/20 05:45 Hemoglobin A1c 7.5 % (4.0-6.0) H 09/27/20 05:45 Calculated Osmolality 307 mOsm/kg (285-295) H 09/28/20 05:03 Lactate 0.9 mmol/L (0.5-2.2) 09/26/20 14:32 Calcium 8.7 mg/dL (8.5-10.5) 09/28/20 05:03 Iron 21 ug/dL (37-145) L 09/26/20 14:37 TIBC 259 mcg/dl 09/26/20 14:37 % Saturation 8.1 % (20-50) L 09/26/20 14:37 Unsat Iron Binding 238 ug/dL (112-347) 09/26/20 14:37 Ferritin 177 ng/mL (15-150) H 09/27/20 05:45 Total Bilirubin 0.2 mg/dL (0.15-1.2) 09/28/20 05:03 AST 27 U/L (0-32) 09/28/20 05:03 ALT 27 U/L (0-33) 09/28/20 05:03 Alkaline Phosphatase 42 IU/L (35-105) 09/28/20 05:03 Creatine Kinase 30 U/L (26-192) 09/27/20 05:45 Troponin T Baseline 38 ng/L (0-10) H 09/26/20 14:32 Troponin T 120 Minute 35.99 ng/L (0-10) H 09/26/20 16:58 Delta Troponin T -2.01 ABS# (0-10) L 09/26/20 16:58 Troponin T Hi Sens 6Hr 30.76 ng/L (0-10) H 09/26/20 20:26 Troponin T Hi Sens 6Hr Delta -7.24 ng/L (0-12) L 09/26/20 20:26 NT-Pro-B Natriuret Pep 1572 pg/mL (0-125) H 09/28/20 05:03 Total Protein 5.9 g/dL (6.6-8.7) L 09/28/20 05:03 Albumin 3.4 g/dL (3.5-5.2) L 09/28/20 05:03 Globulin 2.5 g/dL (1.3-4.6) 09/28/20 05:03 Triglycerides 92 mg/dL (0-150) 09/27/20 05:45 Cholesterol 168 mg/dL (0-200) 09/27/20 05:45 LDL Cholesterol, Calc 109 mg/dL (50-129) 09/27/20 05:45 Total VLDL Cholesterol 18 mg/dL (0-30) 09/27/20 05:45 HDL Cholesterol 41 mg/dL (60-100) L 09/27/20 05:45 Cholesterol/HDL Ratio 4.10 mg/dL (0.0-4.40) 09/27/20 05:45 Procalcitonin 0.12 ng/mL (0-0.5) 09/26/20 14:37 Procalcitonin 0.12 ng/mL (0-0.5) 09/26/20 14:37 TSH 1.65 uIU/mL (0.27-4.20) 09/26/20 14:37 Urine Color Yellow (Yellow) 09/26/20 15:23 Urine Appearance Clear (CLEAR) 09/26/20 15:23 Urine pH 5 (5-7) 09/26/20 15:23 Ur Specific [place] 1.010 (1.005-1.030) 09/26/20 15:23 Urine Protein Neg (Negative) 09/26/20 15:23 Urine Glucose (UA) Norm (Normal) 09/26/20 15:23 Urine Ketones Negative (Negative) 09/26/20 15:23 Urine Blood Neg (Negative) 09/26/20 15:23 Urine Nitrate Negative (Negative) 09/26/20 15:23 Urine Bilirubin Neg (Negative) 09/26/20 15:23 Urine Urobilinogen Norm mg/dL (Negative) 09/26/20 15:23 Ur Leukocyte Esterase Negative (Negative) 09/26/20 15:23 Vancomycin Trough 15.3 ug/mL (10-15) H 09/28/20 20:20 SARS-CoV-2 Ag (Rapid) Negative (Negative) 09/26/20 14:00 Impressions Chest CTA 09/26/20 15:43 IMPRESSION: 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 Uncertain as to whether the peripheral or the central mass is primary with the other as metastatic, but most likely the central abnormality is the primary. There are multiple presumed right lung metastases and very likely lymphangitic spread of carcinoma. There is a presumed left lung metastasis. The findings on the current chest x-ray are somewhat subtle but in retrospect malignancy could have been suspicioned. The chest x-ray from 09/01/2020 shows no hint of the extensive abnormality that is now present in the right chest. Although this is rapid development the appearance is that of carcinoma of the lung. Lung Biopsy CT 09/28/20 11:15 IMPRESSION: 1. Multiple 18-gauge core samples were obtained of the right lung mass. No immediate complications. 2. 60 minute chest x-ray is pending. 3. Pathology is pending. Chest X-Ray 09/28/20 13:46 IMPRESSION: 1. No pneumothorax status post right upper lobe lung mass biopsy. 2. Stable interstitial infiltrates in the right lung worse in the right upper lobe. This is similar to previous. 3. Stable cardiomegaly. Micro: Microbiology 09/28/20 13:36 Gram Stain - Final Lung - Right 09/28/20 06:30 MRSA Culture - Final Nose 09/26/20 16:58 Blood Culture - Preliminary Blood NEGATIVE TO DATE 09/26/20 16:55 Blood Culture - Preliminary Blood NEGATIVE TO DATE A&P Assessment and plan (1) Lung mass: Status: Acute (2) COPD (chronic obstructive pulmonary disease): Status: Acute Qualifiers: COPD type: emphysema Emphysema type: centrilobular Qualified Code(s): J43.2 - Centrilobular emphysema (3) Chronic steroid use: Status: Acute (4) Chronic diastolic heart failure: Status: Acute (5) High risk medication use: Status: Acute (6) Seropositive rheumatoid arthritis of multiple sites: Status: Acute (7) Chronic systolic (congestive) heart failure: Status: Acute #Multiple lung lesions on CT chest concerning for primary lung malignancy and patient with significant smoking history #History of COPD-not in acute exacerbation #Admitted with hypertensive urgency-now BP better controlled #Immunocompromised due to high risk medication prednisone 10 mg and Xeljanz for seropositive rheumatoid arthritis #Patient with history of CHF s/p AICD -CTA during admission showed 3.2 x 3.0 spiculated mass inseparable from the pleura in the posterior lateral right upper lung. 1.5 cm cavitated satellite lesion adjacent to the main mass. There is a 3.4 x 2.0 cm mass infiltrating the right upper hilum and involving the right upper lobe bronchus. This mass may a ctually invade the mediastinum. There are an additional 8 mm nodule in the superior aspect of the right lower lobe and anterior aspect of the right lower lobe. There may be some smaller nodules in the right lower lobe as well.There is a 14 mm spiculated mass in the medial anterior right upper lobe at the level of the main pulmonary artery. -Underwent CT-guided biopsy of the spiculated mass closer to the posterior lateral right upper lung on 09/28/2020-histopathology, MTB PCR, fungal PCR, microbial cultures-are pending -Also sent her urine histoplasma antigen -Currently held Xeljanz and prednisone and covered with vancomycin and imipenem -BNP 3000-on Lasix 40 every 12 -Currently on DuoNeb nebulization every 6 hour scheduled and Pulmicort 0.5 twice daily scheduled -Patient reported being on Advair and Spiriva previously-but not using anymore as she used frequently forgets taking it -I would recommend to discharge patient with Trelegy 1 puff daily -Aspergillus galactomannan index for opportunistic fungal pneumonia; Blood cultures pending, urine cultures, urine Legionella and bacterial antigens negative -Patient can be discharged from pulmonary standpoint-with 10 days of anaerobic coverage-Augmentin and I will follow up in pulmonary clinic next week to update her biopsy results and follow-up on lung findings on CT scan -Rest of the comorbidities managed as per hospitalist -Recommendations conveyed to hospitalist team taking care of the patient -Medical condition and plan of care explained in detail to the patient and her daughter at bedside. They both verbalized understanding and agreed with the plan Attestations Medical Necessity Statement*: S/p CT-guided biopsy today-can be discharged in 1 to 2 days if patient is stable Time Spent in Patient Care: Greater than 35 minutes (>than 50% of time spent in counselling and/or direct pt care on unit) . Coding Level of Care Code Established Pt Acute Wind Turbine Mechanical Engineer for Chg Fwd Patient Type Established History Comprehensive Exam Comprehensive Medical Decision Making Moderate Complexity Diagnoses Lung mass R91.8 COPD (chronic obstructive pulmonary disease) J43.2 COPD type: emphysema Emphysema type: centrilobular Chronic steroid use Chronic diastolic heart failure I50.32 High risk medication use Z79.899 Seropositive rheumatoid arthritis of multiple sites M05.79 Chronic systolic (congestive) heart failure I50.22 Time Spent (min) 45
[2020-09-29] VITALS (8 sets, daily range): BP systolic 102–139; BP diastolic 54–63; PULSE 67–76; RESP 15–18; TEMP 36.8–37.6; O2SAT 95–98
[2020-09-29 03:33] LABS: Basophils % 0.2 %; Eosinophils # 0.1 10^3/uL (0.0-0.8); Eosinophils % 1.6 %; Hematocrit 26.1 % (37.0-47.0); Hemoglobin 7.6 g/dL (11.5-15.3); Lymphocytes # 1.1 10^3/uL (0.8-4.8); Lymphocytes % 12.7 %; Mean Corpuscular HGB Conc 29.1 g/dL (30.0-36.0); Mean Corpuscular Hemoglobin 28.5 pg (28.0-34.0); Mean Corpuscular Volume 97.8 fL (81-99); Mean Platelet Volume 9.6 fL (7.4-10.4); Monocytes # 0.9 10^3/uL (0.2-0.9); Monocytes % 9.8 %; Neutrophils # 6.29 10^3/uL (1.8-7.7); Neutrophils % 72.4 %; Nucleated Red Blood Cells % 0 %; Platelet Count 200 10^3/cmm (130-400); Red Blood Count 2.67 10^6/uL (4.1-5.3); Red Cell Distribution Width 15.9 % (12.1-15.1); White Blood Count 8.7 10^3/uL (4.0-10.0)
[2020-09-29 04:00] LABS: NT Pro B Type Natriuretic Pept 795 pg/mL (0-125)
[2020-09-29] MEDS: ipratropium-albuterol 3 mL Neb INHALATION ×2 (04:07→08:30)
[2020-09-29 04:11] LABS: Alanine Aminotransferase 27 U/L (0-33); Alkaline Phosphatase 38 IU/L (35-105); Blood Urea Nitrogen 42 mg/dL (8-23); Calcium 8.3 mg/dL (8.5-10.5); Carbon Dioxide 27 mmol/L (22-29); Chloride 95 mmol/L (98-107); Globulin 2.9 g/dL (1.3-4.6); Glucose 141 mg/dL (65-115); Osmolality Calculated 293 mOsm/kg (285-295); Sodium 135 mmol/L (136-145); Total Bilirubin 0.2 mg/dL (0.15-1.2); Total Protein 5.9 g/dL (6.6-8.7)
[2020-09-29 04:12] LABS: Anion Gap 16.8 (5-19); Aspartate Amino Transferase 22 U/L (0-32); Potassium 3.8 mmol/L (3.5-5.1)
[2020-09-29 06:27] LABS: Glucose Point of Care 181 mg/dL (70-110)
[2020-09-29] MEDS: budesonide 0.5 mg/2 mL Neb INHALATION (08:30)
[2020-09-29] MEDS: ascorbic acid 500 mg Tablet PO (08:53)
[2020-09-29] MEDS: gabapentin 300 mg Capsule PO (08:54)
[2020-09-29] MEDS: pantoprazole DR 40 mg Tablet PO (08:54)
[2020-09-29] MEDS: ferrous sulfate EC 325 mg Tablet PO (08:54)
[2020-09-29] MEDS: hyDRALAzine 50 mg Tablet PO (08:54)
[2020-09-29] MEDS: isosorbide mononitrate ER 60 mg Tablet PO (08:54)
[2020-09-29] MEDS: carvedilol 25 mg Tablet PO (08:54)
--- NOTE | 2020-09-29 09:47 | PM.DCS ---
Discharge Providers Date of Admission: 09/26/20 19:19 Date of Discharge: September 29, 2020 Attending Provider at Admission: Soren Gerardo MD Attending Provider at Discharge: Soren Gerardo MD Consults: Pulmonology Intervention radiology Primary Care Provider: Nancy Swan Diagnoses at Discharge Discharge Diagnosis (1) Lung mass: Status: Acute (2) COPD (chronic obstructive pulmonary disease): Status: Acute Qualifiers: COPD type: emphysema Emphysema type: centrilobular Qualified Code(s): J43.2 - Centrilobular emphysema (3) Chronic steroid use: Status: Acute Permanent problem details: counseled about blood sugar monitoring (4) Chronic diastolic heart failure: Status: Acute Permanent problem details: Echocardiogram done in September 2019 showed EF of 60%, grade 1 diastolic dysfunction, normal RV functions. (5) High risk medication use: Status: Acute (6) Seropositive rheumatoid arthritis of multiple sites: Status: Acute (7) Chronic systolic (congestive) heart failure: Status: Acute Reason for Visit Reason for Visit: chest pain, SOB Hospital Course Hospital Course Peri Monge is a 75 year old female with PMH as outlined below who presented to the ER today with c/o dyspnea, cough, minimal expectoration over past 4 days. Also reports pleuritic type chest pain with deep breaths on right side. Upon arrival at ER she was noted to be hypoxic with ABG 7.4/44/34/77.4%, started on BIpap following which 02 sat is currently 99% on 3lpm NC. This is her baseline home 02 requirement from COPD. CTA chest performed today showed 3.2 x 3.0 spiculated mass inseparable from the pleura in the posterior lateral right upper lung. There is a 1.5 cm cavitated satellite lesion adjacent to the main mass. 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 This is new compared to 09/2019. She denies any fever or chills. Rapid ccovid Ag negative here today and with PCP earlier today. SBP upon arrival at 222, has a h/o uncontrolled HTN, now BP aat 119/45 at time of eval after receiving Clonidine 0.2mg. She returned to the hospital for management of acute respiratory failure most likely secondary from CHF because of uncontrolled hypertension. She responded well to the treatment with IV diuretics and better control of blood pressures. For last 2 days patient has remained on baseline oxygen supplementation. Patient was found to have lung mass which is highly suspicious of fungal infection versus malignancy for which she underwent right lung biopsy on September [address] guidance. She tolerated the procedure well. She is been discharged in hemodynamically stable condition with advised to follow-up with pulmonology next 1 week for further discussion biopsy results. She is to continue taking antibiotics for next 1 week. Her dose of diuretics and lisinopril have been adjusted. Physical Exam Narrative: EXAM NARRATIVE: General: No acute distress, AO x3 HEENT: PERRLA, pupils bilaterally equal and reactive, pallors not present Chest: Normal vesicular breath sounds, no added sounds, equal good air entry bilaterally CVS: S1-S2 regular, no murmurs, no tachycardia, no gallops, no rubs Abdomen: Soft, nontender, no organomegaly, bowel sounds present Neuro: No focal deficits, no facial deformity, AO x3, power 5/5 in all limbs Extremities: LE swelling +, 1+ edema, chronic per patient. Discharge Data Data Completed and Pending: Completed Studies During Hospitalization Category Date Time Status CT angio chest PE protcl [id number] Stat Cat Scan 09/26/20 15:[address] biopsy lung 32 405 Routine Cat Scan 09/28/20 11:15 Completed XR chest 1V linus ble [id number] Routine Exams 09/28/20 13:46 Completed XR chest 1V linus ble [id number] Urgent Exams 09/26/20 12:39 Completed Pending at discharge Category Date Time Status Aspergillus AG,EI A,Serum AM LABS Lab 09/27/20 05:45 Received Blood Culture Sta t Lab 09/26/20 16:58 Results Histoplasma Quant itative AG Routine Lab 09/28/20 15:25 Ordered Miscellaneous [place] t Routine Lab 09/28/20 13:36 Received Sputum Culture an d Gram Stain Stat Lab 09/27/20 11:07 Uncollected Tissue Culture an d Gram Stain Routi ne Lab 09/28/20 13:36 Results Pathology: Surgic al [PTH] Routine Pth 09/28/20 13:44 Received Labs from last 24 hours 09/29/20 09/29/20 09/29/20 06:15 02:35 02:35 WBC RBC Hgb Hct MCV MCH MCHC RDW Plt Count MPV Neut % (Auto) Lymph % (Auto) [place] % (Auto) Eos % (Auto) Baso % (Auto) Neut # (Auto) Lymph # (Auto) [place] # (Auto) Eos # (Auto) Baso # (Auto) Nucleated RBC % (a uto) Nucleated RBCs # Sodium 135 L Potassium 3.8 Chloride 95 L Carbon Dioxide 27 Anion Gap 16.8 BUN 42 H Creatinine 1.6 H GFR Calculation Not Reportable Glucose 141 H POC Glucose 181 H Calculated Osmolal ity 293 Calcium 8.3 L Total Bilirubin 0.2 AST 22 ALT 27 Alkaline Phosphata se 38 NT-Pro-B Natriuret Pep Cancelled 795 H Total Protein 5.9 L Albumin 3.0 L Globulin 2.9 Procalcitonin Cancelled 0.20 Vancomycin Trough Misc Test Referenc e 09/29/20 09/28/20 09/28/20 02:35 20:21 20:20 WBC 8.7 RBC 2.67 L Hgb 7.6 L Hct 26.1 L MCV 97.8 D MCH 28.5 MCHC 29.1 L D RDW 15.9 H Plt Count 200 MPV 9.6 Neut % (Auto) 72.4 Lymph % (Auto) 12.7 [place] % (Auto) 9.8 Eos % (Auto) 1.6 Baso % (Auto) 0.2 Neut # (Auto) 6.29 Lymph # (Auto) 1.1 [place] # (Auto) 0.9 Eos # (Auto) 0.1 Baso # (Auto) 0.0 Nucleated RBC % (a uto) 0 Nucleated RBCs # 0.0 Sodium Potassium Chloride Carbon Dioxide Anion Gap BUN Creatinine GFR Calculation Glucose POC Glucose 243 H Calculated Osmolal ity Calcium Total Bilirubin AST ALT Alkaline Phosphata se NT-Pro-B Natriuret Pep Total Protein Albumin Globulin Procalcitonin Vancomycin Trough 15.3 H Misc Test Referenc e 09/28/20 09/28/20 09/28/20 16:43 13:36 11:24 WBC RBC Hgb Hct MCV MCH MCHC RDW Plt Count MPV Neut % (Auto) Lymph % (Auto) [place] % (Auto) Eos % (Auto) Baso % (Auto) Neut # (Auto) Lymph # (Auto) [place] # (Auto) Eos # (Auto) Baso # (Auto) Nucleated RBC % (a uto) Nucleated RBCs # Sodium Potassium Chloride Carbon Dioxide Anion Gap BUN Creatinine GFR Calculation Glucose POC Glucose 178 H 180 H Calculated Osmolal ity Calcium Total Bilirubin AST ALT Alkaline Phosphata se NT-Pro-B Natriuret Pep Total Protein Albumin Globulin Procalcitonin Vancomycin Trough Misc Test Referenc e Pending 09/28/20 10:18 WBC RBC Hgb Hct MCV MCH MCHC RDW Plt Count MPV Neut % (Auto) Lymph % (Auto) [place] % (Auto) Eos % (Auto) Baso % (Auto) Neut # (Auto) Lymph # (Auto) [place] # (Auto) Eos # (Auto) Baso # (Auto) Nucleated RBC % (a uto) Nucleated RBCs # Sodium Potassium Chloride Carbon Dioxide Anion Gap BUN Creatinine GFR Calculation Glucose POC Glucose 158 H Calculated Osmolal ity Calcium Total Bilirubin AST ALT Alkaline Phosphata se NT-Pro-B Natriuret Pep Total Protein Albumin Globulin Procalcitonin Vancomycin Trough Misc Test Referenc e Addt'l Data from Hospital Stay: Laboratory Results WBC 8.7 10^3/uL (4.0- 10.0) 09/29/20 02:35 RBC 2.67 10^6/uL (4.1 -5.3) L 09/29/20 02:35 Hgb 7.6 g/dL (11.5-15 .3) L 09/29/20 02:35 Hct 26.1 % (37.0-47.0 ) L 09/29/20 02:35 MCV 97.8 fL (81-99) D 09/29/20 02:35 MCH 28.5 pg (28.0-34. 0) 09/29/20 02:35 MCHC 29.1 g/dL (30.0-3 6.0) L D 09/29/20 02:35 RDW 15.9 % (12.1-15.1 ) H 09/29/20 02:35 Plt Count 200 10^3/cmm (130 -400) 09/29/20 02:35 MPV 9.6 fL (7.4-10.4) 09/29/20 02:35 Neut % (Auto) 72.4 % 09/29/20 02:35 Lymph % (Auto) 12.7 % 09/29/20 02:35 [place] % (Auto) 9.8 % 09/29/20 02:35 Eos % (Auto) 1.6 % 09/29/20 02:35 Baso % (Auto) 0.2 % 09/29/20 02:35 Neut # (Auto) 6.29 10^3/uL (1.8 -7.7) 09/29/20 02:35 Lymph # (Auto) 1.1 10^3/uL (0.8- 4.8) 09/29/20 02:35 [place] # (Auto) 0.9 10^3/uL (0.2- 0.9) 09/29/20 02:35 Eos # (Auto) 0.1 10^3/uL (0.0- 0.8) 09/29/20 02:35 Baso # (Auto) 0.0 10^3/uL (0.0- 0.1) 09/29/20 02:35 Nucleated RBC % (a uto) 0 % 09/29/20 02:35 Nucleated RBCs # 0.0 /100WBC 09/29/20 02:35 PT 14.40 SECONDS (12 .1-14.9) 09/28/20 05:03 INR 1.09 (0.8-1.2) 09/28/20 05:03 D-Dimer 1.71 ug/mIFEU (0- 0.59) H 09/26/20 14:32 Specimen Type Arterial 09/26/20 13:45 Sample Site Radial, left 09/26/20 13:45 ABG pH 7.41 (7.35-7.45) 09/26/20 13:45 ABG pCO2 54.2 mmHg (35-45) H 09/26/20 13:45 ABG pO2 44.1 mmHg (80.0-1 00.0) L 09/26/20 13:45 ABG HCO3 34.2 mmol/L (22-2 6) H 09/26/20 13:45 ABG Base Excess 8.4 mmol/L (-2.0- 2.0) H 09/26/20 13:45 Paco Test Pos 09/26/20 13:45 Hematocrit 27.8 % (37-47) L 09/26/20 13:45 Hgb O2 Saturation 77.4 % (95-100) L 09/26/20 13:45 Carboxyhemoglobin 1.1 %THgb (0.4-20 .1) 09/26/20 13:45 Methemoglobin 0.6 % (0.4-1.5) 09/26/20 13:45 Total Hemoglobin 9.1 g/dL (12-16) L 09/26/20 13:45 O2 Delivery Device Nc 09/26/20 13:45 O2 Liters/Min 6.0 % 09/26/20 13:45 Electrostatic Painter ID Cak 09/26/20 13:45 Sodium 135 mmol/L (136-1 45) L 09/29/20 02:35 Potassium 3.8 mmol/L (3.5-5 .1) 09/29/20 02:35 Chloride 95 mmol/L (98-107 ) L 09/29/20 02:35 Carbon Dioxide 27 mmol/L (22-29) 09/29/20 02:35 Anion Gap 16.8 (5-19) 09/29/20 02:35 BUN 42 mg/dL (8-23) H 09/29/20 02:35 Creatinine 1.6 mg/dL (0.5-0. 9) H 09/29/20 02:35 GFR Calculation Not Reportable 09/29/20 02:35 Glucose 141 mg/dL (65-115 ) H 09/29/20 02:35 POC Glucose 181 mg/dL (70-110 ) H 09/29/20 06:15 Estimat Average Gl ucose 169 09/27/20 05:45 Hemoglobin A1c 7.5 % (4.0-6.0) H 09/27/20 05:45 Calculated Osmolal ity 293 mOsm/kg (285- 295) 09/29/20 02:35 Lactate 0.9 mmol/L (0.5-2 .2) 09/26/20 14:32 Calcium 8.3 mg/dL (8.5-10 .5) L 09/29/20 02:35 Iron 21 ug/dL (37-145) L 09/26/20 14:37 TIBC 259 mcg/dl 09/26/20 14:37 % Saturation 8.1 % (20-50) L 09/26/20 14:37 Unsat Iron Binding 238 ug/dL (112-34 7) 09/26/20 14:37 Ferritin 177 ng/mL (15-150 ) H 09/27/20 05:45 Total Bilirubin 0.2 mg/dL (0.15-1 .2) 09/29/20 02:35 AST 22 U/L (0-32) 09/29/20 02:35 ALT 27 U/L (0-33) 09/29/20 02:35 Alkaline Phosphata se 38 IU/L (35-105) 09/29/20 02:35 Creatine Kinase 30 U/L (26-192) 09/27/20 05:45 Troponin T Baselin e 38 ng/L (0-10) H 09/26/20 14:32 Troponin T 120 Min laura 35.99 ng/L (0-10) H 09/26/20 16:58 Delta Troponin T -2.01 ABS# (0-10) L 09/26/20 16:58 Troponin T Hi Sens 6Hr 30.76 ng/L (0-10) H 09/26/20 20:26 Troponin T Hi Sens 6Hr Delta -7.24 ng/L (0-12) L 09/26/20 20:26 NT-Pro-B Natriuret Pep 795 pg/mL (0-125) H 09/29/20 02:35 NT-Pro-B Natriuret Pep Cancelled 09/29/20 02:35 Total Protein 5.9 g/dL (6.6-8.7 ) L 09/29/20 02:35 Albumin 3.0 g/dL (3.5-5.2 ) L 09/29/20 02:35 Globulin 2.9 g/dL (1.3-4.6 ) 09/29/20 02:35 Triglycerides 92 mg/dL (0-150) 09/27/20 05:45 Cholesterol 168 mg/dL (0-200) 09/27/20 05:45 LDL Cholesterol, C alc 109 mg/dL (50-129 ) 09/27/20 05:45 Total VLDL Cholest katherine 18 mg/dL (0-30) 09/27/20 05:45 HDL Cholesterol 41 mg/dL (60-100) L 09/27/20 05:45 Cholesterol/HDL Ra pritesh 4.10 mg/dL (0.0-4 .40) 09/27/20 05:45 Procalcitonin 0.20 ng/mL (0-0.5 ) 09/29/20 02:35 Procalcitonin Cancelled 09/29/20 02:35 TSH 1.65 uIU/mL (0.27 -4.20) 09/26/20 14:37 Urine Color Yellow (Yellow) 09/26/20 15:23 Urine Appearance Clear (CLEAR) 09/26/20 15:23 Urine pH 5 (5-7) 09/26/20 15:23 Ur Specific Gravit y 1.010 (1.005-1.0 30) 09/26/20 15:23 Urine Protein Neg (Negative) 09/26/20 15:23 Urine Glucose (UA) Norm (Normal) 09/26/20 15:23 Urine Ketones Negative (Negati ve) 09/26/20 15:23 Urine Blood Neg (Negative) 09/26/20 15:23 Urine Nitrate Negative (Negati ve) 09/26/20 15:23 Urine Bilirubin Neg (Negative) 09/26/20 15:23 Urine Urobilinogen Norm mg/dL (Negat gavin) 09/26/20 15:23 Ur Leukocyte Yael ase Negative (Negati ve) 09/26/20 15:23 Vancomycin Trough 15.3 ug/mL (10-15 ) H 09/28/20 20:20 SARS-CoV-2 Ag (Rap id) Negative (Negati ve) 09/26/20 14:00 Impressions Chest CTA 09/26/20 15:43 IMPRESSION: 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 Uncertain as to whether the peripheral or the central mass is primary with the other as metastatic, but most likely the central abnormality is the primary. There are multiple presumed right lung metastases and very likely lymphangitic spread of carcinoma. There is a presumed left lung metastasis. The findings on the current chest x-ray are somewhat subtle but in retrospect malignancy could have been suspicioned. The chest x-ray from 09/01/2020 shows no hint of the extensive abnormality that is now present in the right chest. Although this is rapid development the appearance is that of carcinoma of the lung. Lung Biopsy CT 09/28/20 11:15 IMPRESSION: 1. Multiple 18-gauge core samples were obtained of the right lung mass. No immediate complications. 2. 60 minute chest x-ray is pending. 3. Pathology is pending. Chest X-Ray 09/28/20 13:46 IMPRESSION: 1. No pneumothorax status post right upper lobe lung mass biopsy. 2. Stable interstitial infiltrates in the right lung worse in the right upper lobe. This is similar to previous. 3. Stable cardiomegaly. Vitals: Last Vital Signs Temp 99.6 F 09/29/20 07:29 Pulse 74 09/29/20 08:41 Resp 16 09/29/20 08:30 BP 139/58 09/29/20 07:29 Pulse Ox 97 09/29/20 08:30 Discharge Plan Discharge Patient Disposition: Home Condition: Stable Prescriptions: New Trelegy Ellipta 100-62.5-25 mcg blister with device 1 inh inhalation DAILY Qty: 60 RF: 3 doxycycline hyclate 100 mg capsule 100 mg PO BID 7 Days Qty: 14 RF: 0 levofloxacin 500 mg tablet 500 mg PO Q48H 7 Days Qty: 4 RF: 0 Lasix 40 mg tablet 40 mg PO BID Qty: 30 RF: 0 Continued Spiriva Respimat 2.5 mcg/actuation mist 1 inh INHALATION BID RF: 0 aspirin 81 mg tablet,delayed release (DR/EC) 81 mg PO DAILY RF: 0 Tresiba FlexTouch U-200 200 unit/mL (3 mL) insulin pen 70 unit SUBCUT QAM RF: 0 prednisone 10 mg tablet See Rx Instructions PO DAILY Qty: 40 RF: 3 prednisone 5 mg tablet 5 mg PO DAILY Qty: 30 RF: 3 Xeljanz 5 mg tablet 5 mg PO BID Qty: 60 RF: 3 doxepin 50 mg capsule 50 mg PO BEDTIME RF: 0 ferrous sulfate 325 mg (65 mg iron) tablet 325 mg PO BID RF: 0 gabapentin 300 mg capsule 300 mg PO DAILY RF: 0 omeprazole 40 mg capsule,delayed release(DR/EC) 40 mg PO DAILY RF: 0 melatonin 5 mg capsule 5 mg PO DAILY RF: 0 ascorbate calcium (vitamin C) 500 mg tablet 500 mg PO BID RF: 0 cholecalciferol (vitamin D3) 25 mcg (1,000 unit) capsule 25 mcg PO DAILY RF: 0 nitroglycerin [Nitrostat] 0.4 mg tablet, sublingual 0.4 mg sublingual Q5M PRN (Reason: chest pain) Qty: 50 RF: 1 carvedilol 25 mg tablet 25 mg PO BID 30 Days Qty: 60 RF: 5 potassium gluconate 595 mg (99 mg) tablet 892.5 mg PO DAILY Qty: 45 RF: 5 isosorbide mononitrate 60 mg tablet extended release 24 hr 60 mg PO DAILY Qty: 90 RF: 3 metformin 1,000 mg Tablet 1,000 mg PO BID RF: 0 triamcinolone acetonide 0.5 % ointment 1 applic TOPICAL BID PRN (Reason: unknown) RF: 0 hydralazine 50 mg tablet 50 mg PO TID RF: 0 garlic Tablet 300 mg PO DAILY RF: 0 Changed lisinopril 40 mg tablet 20 mg PO DAILY Qty: 90 RF: 3 Discontinued fluticasone propion-salmeterol [Wixela Inhub] 250-50 mcg/dose blister with device 1 inh INHALATION DAILY RF: 0 Lasix 20 mg tablet 40 mg PO DAILY RF: 0 No Action (DME) Carpal Tunnel Brace See Rx Instructions .Route .MEDSUPPLY Qty: 1 RF: 0 Discharge Orders: Discharge Order (Routine); Ordered 09/29/20 Ordered By: Soren Gerardo Referrals: Peter Hargrove MD [Physician] - 10/06/20 10:00 am Discharge Diet: Cardiac Discharge Activity: Resume usual activity Patient Instructions: Opioid Safety Activity Restrictions/Additional Instructions: Please follow-up with your primary care provider within next week. Please repeat BMP. Please follow-up with Dr. Hargrove in his office in next 1 week. He will discuss the biopsy results with you on his visit. Please continue taking antibiotics for next 1 week as prescribed. Discharge Attestations Time Spent in Discharge Care*: greater than 30 min Specific Discharge Activities: educating patient, educating and/or supporting family/caregiver, discussing with pcp/other providers, discussing with case operator/social workers/dc planners, documenting/other paperwork and evaluating patient/reviewing data Status at Discharge: Cognitive status at discharge: cognitively intact, Behavioral status at discharge: cooperative, Functional status at discharge: independent ambulation Overall status at discharge: patient is back to baseline Quality Metrics Clinical Quality Measures During this hospital stay, did patient experience: None Coding Level of Care Code Acute Chg FW DC note Diagnoses Lung mass R91.8 COPD (chronic obstructive pulmonary disease) J43.2 COPD type: emphysema Emphysema type: centrilobular Chronic steroid use Chronic diastolic heart failure I50.32 High risk medication use Z79.899 Seropositive rheumatoid arthritis of multiple sites M05.79 Chronic systolic (congestive) heart failure I50.22
[2020-09-29] MEDS: aspirin 81 mg EC Tablet PO (10:15)
--- NOTE | 2020-09-29 10:17 | PC.SOCIAL ---
IMM Update IMM updated with patient. She verbalized an understanding, no questions voiced. Initialed, dated, timed, and placed an chart.
[2020-09-30 21:52] LABS: Aspergillus AG,EIA,Serum NOT DETECTED; Aspergillus Galactomannan Inde <0.50
[2020-10-05 17:22] LABS: Histoplasma Antigen (Quant) NONE DETECTED; Histoplasma Antigen Interpreta NEGATIVE; Histoplasma Antigen Specimen URINE
== END 2020-09-29 13:54 | disposition home or self-care (01) | DRG 291 ==
LOC: ER 15:41 → MEDSURG 23:12
PROVIDERS: Physician Assistant; Radiology Neuroradiology; Student in an Organized Health Care Education/Training Program; Admitting Provider Student in an Organized Health Care Education/Training Program; Emergency Provider Family Medicine; PCP Physician Assistant; Visit Provider Student in an Organized Health Care Education/Training Program
DX: I11.0 Hypertensive heart disease with heart failure (principal); J96.01 Acute respiratory failure with hypoxia; I50.33 Acute on chronic diastolic (congestive) heart failure; R91.8 Other nonspecific abnormal finding of lung field; J43.2 Centrilobular emphysema; E11.42 Type 2 diabetes mellitus with diabetic polyneuropathy; I42.8 Other cardiomyopathies; G56.01 Carpal tunnel syndrome, right upper limb; M05.9 Rheumatoid arthritis with rheumatoid factor, unspecified; Z99.81 Dependence on supplemental oxygen; I16.0 Hypertensive urgency; Z79.52 Long term (current) use of systemic steroids; Z79.82 Long term (current) use of aspirin; Z79.4 Long term (current) use of insulin; Z95.0 Presence of cardiac pacemaker
CPT/HCPCS: 32408; 36415; 36416; 36600; 71045; 71275; 80053; 80061; 80202; 81003; 82550; 82728; 82805; 82962; 83036; 83540; 83550; 83605; 83880; 84145; 84443; 84484; 85025; 85378; 85610; 86403; 87040; 87070; 87077; 87102; 87176; 87186; 87205; 87206; 87305; 87385; 87426; 87449; 87641; 87801; 88307; 93005; 94640; 94660; 96365; 96367; 96372; 96374; 96375; 99291; J0743; J1815; J1940; J1956; J2250; J2405; J2930; J3010; J3370; J3535; J7030; J7040; J7050; J7626; Q9967

== ENCOUNTER 2020-11-10 10:01 | Outpatient (CLI) | payer MEDICARE, SELFPAY ==
--- NOTE | 2020-11-10 10:30 | CT_ITS ---
WS: [id number] CT CHEST WITHOUT INTRAVENOUS CONTRAST HISTORY: resolution of pneumonia TECHNIQUE: Contiguous 5 mm axial imaging performed on the thorax. Coronal and sagittal reformats are submitted. All CT scans at [facility] use at least one of these dose optimization techniques: automated exposure control; mA and/or kV adjustment per patient size (includes targeted exams where dose is matched to clinical indication); or iterative reconstruction. CONTRAST: None DLP: 808.86 mGycm COMPARISON: 09/28/2020 and 09/26/2020 Lungs and central airway: Significant improvement in the dense consolidation in the RIGHT upper lobe since the prior examination. There is a residual nodular and groundglass wedge-shaped consolidation p ersisting measuring 2.5 x 2.7 cm. No additional masses or nodules. Pleura: Normal. No pleural effusion. Heart and pericardium: Mildly enlarged heart. No effusion. Pacer wires and defibrillator wire noted. Mediastinum and bubba: No adenopathy. Previously described lymph nodes have improved. Vessels: Moderate atherosclerosis thoracic aorta. No aneurysm. Pulmonary artery size is prominent. Chest wall and lower neck: No soft tissue masses. Upper abdomen: Suprarenal calcification within the aorta. Mild hepatic steatosis. No adrenal mass. Osseous structures: Mild thoracic spondylitic changes. CT/CT chest wo con [id number] IMPRESSION: 1. Nearly completely resolved RIGHT upper lobe dense consolidation since 2020. There is still a focal nodular groundglass component which is wedge-shape d. Recommend continued follow-up to assure resolution. Follow-up noncontrast ch est CT in 3 months. 2. Improving mediastinal and hilar lymph nodes. 3. Atherosclerosis aorta.
== END 2020-11-10 10:02 | disposition home or self-care (01) ==
LOC: RADWPI 10:10
PROVIDERS: PCP Physician Assistant; Visit Provider Internal Medicine Pulmonary Disease
DX: J18.9 Pneumonia, unspecified organism (principal); I70.0 Atherosclerosis of aorta
CPT/HCPCS: 71250

== ENCOUNTER → 2020-12-12 10:23 | Outpatient (BNVA) | payer MEDICARE, SELFPAY | PROVIDERS: PCP Physician Assistant; Visit Provider Internal Medicine Rheumatology | DX: M05.79 Rheumatoid arthritis with rheumatoid factor of multiple sites without organ or systems involvement (principal); Z79.899 Other long term (current) drug therapy; E11.69 Type 2 diabetes mellitus with other specified complication; Z79.4 Long term (current) use of insulin; Z71.89 Other specified counseling; Z95.0 Presence of cardiac pacemaker; Z87.891 Personal history of nicotine dependence | CPT/HCPCS: 99214 ==

== ENCOUNTER 2021-03-28 09:23 | Outpatient (CLI) | payer MEDICARE, SELFPAY ==
[2021-03-28 10:23] LABS: Basophils % 0.5 %; Eosinophils # 0.2 10^3/uL (0.0-0.8); Eosinophils % 2.2 %; Hematocrit 25.1 % (37.0-47.0); Hemoglobin 7.5 g/dL (11.5-15.3); Lymphocytes # 1.7 10^3/uL (0.8-4.8); Lymphocytes % 20.8 %; Mean Corpuscular HGB Conc 29.9 g/dL (30.0-36.0); Mean Corpuscular Hemoglobin 26.1 pg (28.0-34.0); Mean Corpuscular Volume 87.5 fl (81-99); Mean Platelet Volume 9.9 fL (7.4-10.4); Monocytes # 0.7 10^3/uL (0.2-0.9); Monocytes % 8.4 %; Neutrophils % 66.5 %; Nucleated Red Blood Cells % 0 %; Platelet Count 247 10^3/cmm (130-400); Red Blood Count 2.87 10^6/uL (4.1-5.3); Red Cell Distribution Width 16.2 % (12.1-15.1); White Blood Count 8.1 10^3/uL (4.0-10.0)
[2021-03-28 10:51] LABS: Alanine Aminotransferase 20 U/L (0-33); Albumin Level 4.4 g/dL (3.5-5.2); Alkaline Phosphatase 43 IU/L (35-105); Anion Gap 20.4 (5-19); Aspartate Amino Transferase 17 U/L (0-32); Blood Urea Nitrogen 33 mg/dL (8-23); Calcium 9.6 mg/dL (8.5-10.5); Carbon Dioxide 23 mmol/L (22-29); Chloride 100 mmol/L (98-107); Ferritin 30 ng/mL (15-150); Globulin 2.6 g/dL (1.3-4.6); Glucose 89 mg/dL (65-115); Iron 45 ug/dL (37-145); Osmolality Calculated 295 mOsm/kg (285-295); Potassium 4.4 mmol/L (3.5-5.1); Sodium 139 mmol/L (136-145); Total Bilirubin 0.2 mg/dL (0.15-1.2)
[2021-03-28 11:06] LABS: Vitamin B12 1601 pg/mL (232-1245)
[2021-03-28 11:07] LABS: Folate Level 11.9 ng/mL (4.8-37.3)
[2021-03-28 12:23] LABS: Percent Saturation 14.4 % (20-50); Total Iron Binding Capacity 311 mcg/dl; Unsaturated Iron Binding 266 ug/dL (112-347)
--- NOTE | 2021-03-28 17:13 | ONC CON_ITS ---
Dr. Reddy New Patient Note Patient: Peri Monge Unit #: [id number]: 1945 Dicatated By: Raymond Reddy M.D.Date of Visit: Mar 28, 2021 Onc MED New Patient/Consult Referring Physician: Darren NORTH History of Present Illness: Ms. Peri Monge, is a 75-year-old female with history of anemia, as per patient she was started on oral iron about 2 years ago and about 6-month ago B12 supplements were added but there was no improvement in her hemoglobin, as per medical record available to us her lab work-up done on January 31, 2021 showed white blood count 9.1 hemoglobin 7.9 hematocrit 25 platelets 263,000 with MCV 80 with a normal differential and repeat CBC on March 12, 2021 showed white blood count 8.9 hemoglobin 7.5 hematocrit 24.1 MCV 85.8 platelets 243,000 and her CMP showed creatinine around 1.7 and rest within normal range., As per PMDs note patient underwent colonoscopy on June 30 04/07/2017 which showed normal exam except a few small sized uncomplicated internal hemorrhoids and they were not bleeding. 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 Hargrove and she was diagnosed with pneumonia instead of cancer and was treated with antibiotics, with resolution. She is on home oxygen Patient denies any history of melena or hematochezia, denies any hemoptysis hematemesis but off-and-on mild, self-limiting nosebleed. Denies any indigestion heartburn denies any hematuria or vaginal bleeding denies any jaundice, Denies any night sweats, denies any weight loss, denies any recurrent fever. Denies any peripheral lymphadenopathy her past medical history significant for CHF, COPD, type 2 diabetes mellitus, peripheral neuropathy, rheumatoid arthritis with rheumatoid factor of multiple sites without organ or system involvement, chronic renal disease Patient has history of smoking quit in 2016 Past Medical History: Ms. Solorzano medical history consists of cardiomyopathy, chronic kidney disease, chronic obstructive pulmonary disease, congestive heart failure, hypertension, peripheral neuropathy, rheumatoid arthritis, and type II diabetes. Past Surgical History: Ms. Solorzano surgical/procedural history consists of defibrillator implant, right carpal tunnel repair, surgery to open fallopian tubes x3, Covid 19 vaccine-Moderna in 2020, colonoscopy in 2018, and hysterectomy in 1967 - due to cancer. Medications: Advair Diskus 1 Puff(s) (of 250-50 mcg/dose) Aerosol Powder, Breath Activated Inhalation b.i.d., Ambien 1 Tablet (of 10 mg) Oral at bedtime, Aspirin 1 Tablet (of 81 mg) Tablet, enteric coated Oral daily, Carvedilol 1 Tablet (of 12.5 mg) Oral b.i.d., Cholecalciferol 1 Tablet (of 25 mcg ) Tablet, chewable Oral b.i.d., CVS Vitamin B-12 1 Tablet (of 1000 mcg) Oral b.i.d., Doxepin HCl 1 Capsule (of 50 mg) Oral at bedtime, Furosemide 2 Tablet (of 20 mg) Oral daily, hydrALAZINE HCl 1 Tablet (of 50 mg) Oral b.i.d., Iron (Ferrous Sulfate) 1 Tablet (of 325 (65 fe) mg) Oral daily, Isosorbide Mononitrate ER 1 Tablet (of 60 mg) Tablet SR 24 HR Oral daily, Melatonin 1 Tablet (of 5 mg) Tablet, chewable Oral daily, metFORMIN HCl 1 Tablet (of 1000 mg) Oral b.i.d., Nitroglycerin Tablet, sublingual Sublingual PRN, Omeprazole 1 Capsule (of 40 mg) Capsule Delayed Release Oral daily, predniSONE 1 Tablet (of 5 mg) Oral, Spiriva Respimat 2 Puff(s) (of 1.25 mcg/act) Aerosol, solution Inhalation daily, traZODone HCl 1 Tablet (of 50 mg) Oral at bedtime, Tresiba FlexTouch 70 Unit(s) (of 200 Units/mL) Subcutaneous daily, Triamcinolone Acetonide (0.5 %) Ointment Topical b.i.d., Vitamin C 1 Tablet (of 500 mg) Tablet, chewable Oral b.i.d., Xeljanz 1 Tablet (of 5 mg) Oral b.i.d. Allergies: Codeine Phosphate and Penicillins. Social History: Ms. Monge is . Ms. Monge no longer smokes. Family History: There is no documented family history. Review Of Symptoms: Review of Systems is not available for this patient. Vital Signs: Performed on Mar 28, 2021 11:30: 4, 0, 0.00 (LOW), sq.m, 96 %, 96 /min, 20 /min, 177/71 mm(hg) (HIGH), 97.5 F (LOW), and 171 lbs (HIGH). Performance Status: 1 - No physically strenuous activity, but ambulatory and able to carry out light or sedentary work (e.g. office work, light house work). (ECOG) Physical Examination: ENMT - No mouth sores, no thrush, no jaundice, Respiratory - Poor air entry otherwise clear, Cardiovascular - Regular rate and rhythm of heart, Abdomen - Soft, bowel sounds present, Extremities - 1+ edema bilaterally. Lab/Imaging: Most recent lab results are not available for this patient. Impression: Normocytic hypochromic anemia, etiology appears multifactorial including iron deficiency, and or anemia of chronic disease, patient has underlying rheumatoid arthritis or chronic renal insufficiency or considering her age underlying myelodysplasia cannot be ruled out Chronic renal disease CHF Rheumatoid arthritis Type 2 diabetes mellitus Plan: Discussed with patient regarding her labs white blood count 8.1 hemoglobin 7.5 hematocrit 25.1 platelets 247,000 MCV 87.5 MCH 26.1 CMP within normal limit except creatinine 1.7 ferritin 30, folic acid 11.9 B12 1601, iron 45 Clinically, patient is doing reasonably well now with generalized weakness and fatigue which could be multifactorial including due to moderate anemia. Etiology of her anemia again could be multifactorial including iron deficiency as her ferritin is 30 and being acute phase reactant and patient with rheumatoid arthritis, could be falsely elevated. Patient is on oral iron supplement over 2 years, it appears she may have iron malabsorption or chronic blood loss. At this point, will consider discontinuing oral iron and give her a trial of parenteral iron Injectafer 750 mg IV weekly x2 and then repeat CBC and iron studies in 1 month after second dose, if there is no improvement in her hemoglobin, then will consider bone marrow evaluation to rule out underlying myelodysplasia. We will also suggest PMD to consider nephrology consult for chronic renal insufficiency Return to clinic 1 month after second dose of Injectafer infusion. Signed By: Raymond Reddy M.D. <<Signature on File>>
== END 2021-03-28 09:24 | disposition home or self-care (01) ==
PROVIDERS: PCP Physician Assistant; Visit Provider Internal Medicine Hematology & Oncology
DX: D50.8 Other iron deficiency anemias (principal); M06.9 Rheumatoid arthritis, unspecified; N18.9 Chronic kidney disease, unspecified; I50.9 Heart failure, unspecified; E11.9 Type 2 diabetes mellitus without complications; Z79.899 Other long term (current) drug therapy; I10 Essential (primary) hypertension
CPT/HCPCS: 36415; 80053; 82607; 82728; 82746; 83540; 83550; 85025; 99205

== ENCOUNTER 2021-04-10 14:32 | Observation (INO) | payer MEDICARE, SELFPAY ==
[2021-04-10 15:07] VITALS: BP 167/63; PULSE 88; RESP 17; TEMP 36.7; O2SAT 93; BMI 29.3
--- NOTE | 2021-04-10 15:45 | XR_ITS ---
WS: [id number] XR chest 1V portable [id number] REASON FOR EXAM: sob FINDINGS: The chest is unchanged compared to previous examination of 06/24/2019. Cardiac device over the left anterolateral chest wall with left subclavian vein leads to the right ve ntricular apex and atrium. Mild tortuosity the thoracic aorta without aneurysmal dilatation. The heart is at the upper limits of normal in size. Calcified granulomatous disease in both hemithoraces. No acute pulmonary parenchymal or pleural abnormality. Mild changes of degenerative spondylosis in the mid and lower thoracic spine. XR/XR chest 1V portable [id number] IMPRESSION: No acute chest abnormality.
--- NOTE | 2021-04-10 15:45 | ECG_ITS ---
[facility] Test Date: 2021-04-10 Pat Name: Peri Monge Department: Room: Gender: Female Equine Breeder: : 1945 Requested By: Freedom Brewer Order Number: [id number] Jacey MD: Adilson Montgomery M.D. Measurements Intervals [place] Rate: 87 P: 63 MA: 152 QRS: 253 QRSD: 146 T: 41 QT: 417 QTc: 503 Interpretive Statements ELECTRONIC VENTRICULAR PACEMAKER ABNORMAL RHYTHM ECG Compared to ECG 09/26/2020 19:12:12 No significant changes Electronically Signed On 04-10-2021 17:07:53 DIRECTOR MEDICAID by Adilson Montgomery M.D. [id number]
--- NOTE | 2021-04-10 17:16 | W.ED.SOB ---
HPI - SOB/Dyspnea General: Chief Complaint: ER Hold Stated Complaint: SOB Time Seen by Provider: 04/10/21 17:07 History of Present Illness: HPI Narrative: 75-year-old female presents emergency room with increasing shortness of breath. She has had orthopnea and exertional dyspnea with no chest pain. She has a history of COPD and congestive heart failure. She is chronically on 3 L by nasal cannula. At rest she is maintaining her oxygen sats fine on her usual 3 L but with minimal exertion she notices marked increase in dyspnea. She is not monitoring her sats at home with this at all. She is on diuretics has not recently changed them. She denies any chest pain. She has noticed increased swelling in her legs as well she does not track her weight daily so she does not know if she has gained a lot of weight. MD elicited complaint: shortness of breath, cough and pain with inspiration Timing: constant Severity: moderate Exacerbating factors: exertion Relieving factors: oxygen and rest Associated symptoms: Reports cough and orthopnea; Deny abdominal pain, chest congestion, chest pain, diaphoresis, dizziness, extremity pain, fever(s), hemoptysis, lightheadedness, myalgias, nausea, palpitations, paresthesias, polydipsia, rash, sense of impending doom, syncope or vomiting Treatment prior to arrival: oxygen Review of Systems Const: Denies: fever(s) or diaphoresis Card: Reports: orthopnea; Denies: chest pain, palpitations, lightheadedness or syncope Resp: Denies: hemoptysis or chest congestion GI: Denies: abdominal pain, nausea or vomiting : Denies: flank pain, difficulty voiding, dysuria, urinary frequency or urinary urgency Musc: Denies: extremity pain Skin/Breast: Denies: rash or pruritus Neuro: Denies: dizziness Endo: Denies: polydipsia PFS ED PFSH: Medical History AICD malfunction Anemia Cardiac resynchronization therapy defibrillator (FOUNDRY METALLURGIST-D) in place Cardiomyopathy Carpal tunnel syndrome Carpal tunnel syndrome of right wrist CHF (congestive heart failure), NYHA class III Chronic diastolic heart failure Echocardiogram done in September 2019 showed EF of 60%, grade 1 diastolic dysfunction, normal RV functions. Chronic steroid use counseled about blood sugar monitoring Chronic systolic (congestive) heart failure COPD (chronic obstructive pulmonary disease) COPD (chronic obstructive pulmonary disease) Diabetes mellitus Hepatitis B core antibody positive Hepatitis B PCR is negative High risk medication use Hypertension ICD (implantable cardioverter-defibrillator) battery depletion Immunization counseling Non-ischemic cardiomyopathy Peripheral neuropathy Rheumatoid arthritis Seropositive rheumatoid arthritis of multiple sites Surgical History History of appendectomy History of hysterectomy with bilateral oophorectomy S/P ICD (internal cardiac defibrillator) procedure Family History Mother Diabetes Hypertension CHF (congestive heart failure) Other CAD (coronary artery disease) Cancer Hyperlipidemia Lung disease Denies family history of Rheumatoid arthritis Lupus Chronic kidney disease (CKD) Stroke Social History Quit status (tobacco): has quit using tobacco Year quit tobacco: 2010 Former quit date comment: 1ppd x 45years Second hand smoke exposure: No Alcohol intake: never Household members: spouse Housing: House Marital status: History of recent travel: No Current gender identity: Female Physical Exam Const: COMMON NORMALS: no acute distress GENERAL APPEARANCE: cooperative and comfortable ORIENTATION/CONSCIOUSNESS: Yes awake, Yes oriented to person, Yes oriented to place and Yes oriented to time HENMT: COMMON NORMALS: normocephalic, atraumatic and hearing grossly normal bilaterally HEAD & SCALP: normocephalic and atraumatic Neck/C-Spine: COMMON NORMALS: no JVD Resp: AUSCULTATION: diminished lung sounds Cardio: COMMON NORMALS: no JVD, regular rate, regular rhythm and No murmurs present (Cardio) RATE: regular rate RHYTHM: regular rhythm GI: COMMON NORMALS: Soft to palpation and No hepatosplenomegaly present AUSCULTATION: Yes normoactive bowel sounds PALPATION: Yes Soft to palpation, No Tenderness to palpation present (GI), No Guarding due to palpation present (GI) and Yes No hepatosplenomegaly present Extremity: COMMON NORMALS: normal to inspection, capillary refill normal, no clubbing, cyanosis or edema, no calf tenderness and no pedal edema Neuro: SENSORIUM/ORIENTATION: Yes oriented to person, Yes oriented to place and Yes oriented to time Skin: COMMON NORMALS: no rashes or lesions noted GENERAL SKIN EXAM: no rashes or lesions noted Course Vital Signs: Vital signs: Vital Signs Temperature 98.5 F 04/11/21 12:00 Pulse Rate 73 04/11/21 12:00 Respiratory Rate 18 04/11/21 12:00 Blood Pressure 146/78 04/11/21 12:00 Pulse Oximetry 99 04/11/21 12:00 MDM - SOB/Dyspnea Medical Decision Making Symptomatic anemia with a hemoglobin of 6 1 patient has been chronically anemic has seen oncology has been receiving iron infusion has work-up ongoing. Will admit for transfusion discussed with hospitalist orders written Medical Records I reviewed the patient's medical records. Lab Data I reviewed the patient's lab results. : 04/11/21 04:15 04/11/21 04:15 Labs/Radiology: Radiology Impressions Chest X-Ray 04/10/21 15:45 IMPRESSION: No acute chest abnormality. Laboratory Results WBC 7.1 10^3/uL (4.0-10.0) 04/10/21 17:30 RBC 2.36 10^6/uL (4.1-5.3) L 04/10/21 17:30 Hgb 6.1 g/dL (11.5-15.3) L* 04/10/21 17:30 Hct 20.8 % (37.0-47.0) L* 04/10/21 17:30 MCV 88.1 fl (81-99) 04/10/21 17:30 MCH 25.8 pg (28.0-34.0) L 04/10/21 17:30 MCHC 29.3 g/dL (30.0-36.0) L 04/10/21 17:30 RDW 16.4 % (12.1-15.1) H 04/10/21 17:30 Plt Count 187 10^3/cmm (130-400) 04/10/21 17:30 MPV 10.8 fL (7.4-10.4) H 04/10/21 17:30 Neut % (Auto) 76.2 % 04/10/21 17:30 Lymph % (Auto) 9.9 % 04/10/21 17:30 [facility] % (Auto) 10.6 % 04/10/21 17:30 Eos % (Auto) 2.0 % 04/10/21 17:30 Baso % (Auto) 0.3 % 04/10/21 17:30 Reticulocyte % (Auto) 2.7 % (0.5-2.0) H 04/10/21 17:30 Neut # (Auto) 5.40 10^3/uL (1.8-7.7) 04/10/21 17:30 Lymph # (Auto) 0.7 10^3/uL (0.8-4.8) L 04/10/21 17:30 [facility] # (Auto) 0.8 10^3/uL (0.2-0.9) 04/10/21 17:30 Eos # (Auto) 0.1 10^3/uL (0.0-0.8) 04/10/21 17:30 Baso # (Auto) 0.0 10^3/uL (0.0-0.1) 04/10/21 17:30 Nucleated RBC % (auto) 0 % 04/10/21 17:30 Nucleated RBCs # 0.0 /100WBC 04/10/21 17:30 Haptoglobin 245.0 mg/L (30-200) H 04/10/21 17:30 Sodium 140 mmol/L (136-145) 04/10/21 17:30 Potassium 4.4 mmol/L (3.5-5.1) 04/10/21 17:30 Chloride 106 mmol/L (98-107) 04/10/21 17:30 Carbon Dioxide 22 mmol/L (22-29) 04/10/21 17:30 Anion Gap 16.4 (5-19) 04/10/21 17:30 BUN 28 mg/dL (8-23) H 04/10/21 17:30 Creatinine 1.4 mg/dL (0.5-0.9) H 04/10/21 17:30 GFR Calculation Not Reportable 04/10/21 17:30 Glucose 152 mg/dL (65-115) H 04/10/21 17:30 Calculated Osmolality 298 mOsm/kg (285-295) H 04/10/21 17:30 Calcium 9.2 mg/dL (8.5-10.5) 04/10/21 17:30 Iron 31 ug/dL (37-145) L 04/10/21 17:30 TIBC 292 mcg/dl 04/10/21 17:30 % Saturation 10.6 % (20-50) L 04/10/21 17:30 Unsat Iron Binding 261 ug/dL (112-347) 04/10/21 17:30 Erythropoietin 149.4 mIU/mL (2.6-18.5) H 04/10/21 18:24 Total Bilirubin 0.2 mg/dL (0.15-1.2) 04/10/21 17:30 AST 15 U/L (0-32) 04/10/21 17:30 ALT 17 U/L (0-33) 04/10/21 17:30 Alkaline Phosphatase 49 IU/L (35-105) 04/10/21 17:30 Troponin T Baseline 28 ng/L (0-10) H 04/10/21 17:30 NT-Pro-B Natriuret Pep 1673 pg/mL (0-125) H 04/10/21 17:30 Total Protein 6.4 g/dL (6.6-8.7) L 04/10/21 17:30 Albumin 4.3 g/dL (3.5-5.2) 04/10/21 17:30 Globulin 2.1 g/dL (1.3-4.6) 04/10/21 17:30 Vitamin B12 1261 pg/mL (232-1245) H 04/10/21 17:30 Folate 13.5 ng/mL (4.8-37.3) 04/10/21 18:24 TSH 2.40 uIU/mL (0.27-4.20) 04/10/21 18:24 Blood Type B Negative 04/10/21 18:24 Rho(D) Type Negative 04/10/21 18:24 Antibody Screen Negative 04/10/21 18:24 Crossmatch See Detail 04/10/21 18:24 Discharge Plan Discharge Patient Disposition: Admitted As Inpatient Admit Provider: Jake Reaves Clinical Impression: Anemia, CHF (congestive heart failure), NYHA class III, COPD (chronic obstructive pulmonary disease), Diabetes mellitus, Rheumatoid arthritis Condition: Stable Discharge Diet: Cardiac and Diabetic Discharge Activity: Increase activity as tolerated Coding Level of Care Code ED Electronics Technology Instructor for Joseg Usha
[2021-04-10] MEDS: FUROsemide 10 mg/mL SDV 10mL 80 MG IVP (17:38)
[2021-04-10 17:39] LABS: Basophils % 0.3 %; Eosinophils # 0.1 10^3/uL (0.0-0.8); Lymphocytes # 0.7 10^3/uL (0.8-4.8); Lymphocytes % 9.9 %; Mean Corpuscular HGB Conc 29.3 g/dL (30.0-36.0); Mean Corpuscular Hemoglobin 25.8 pg (28.0-34.0); Mean Corpuscular Volume 88.1 fl (81-99); Mean Platelet Volume 10.8 fL (7.4-10.4); Monocytes # 0.8 10^3/uL (0.2-0.9); Monocytes % 10.6 %; Neutrophils % 76.2 %; Nucleated Red Blood Cells % 0 %; Platelet Count 187 10^3/cmm (130-400); Red Blood Count 2.36 10^6/uL (4.1-5.3); Red Cell Distribution Width 16.4 % (12.1-15.1); White Blood Count 7.1 10^3/uL (4.0-10.0)
--- NOTE | 2021-04-10 17:45 | ECG_ITS ---
[facility] Test Date: 2021-04-10 Pat Name: Peri Monge Department: Room: Gender: Female Waterproofer Helper: : 1945 Requested By: Freedom Brewer Order Number: [id number] Mari MD: Adilson Montgomery M.D. Measurements Intervals [place] Rate: 81 P: 64 AR: 177 QRS: -16 QRSD: 145 T: 35 QT: 411 QTc: 479 Interpretive Statements ELECTRONIC VENTRICULAR PACEMAKER Compared to ECG 04/10/2021 15:19:40 ST (T wave) deviation now present Myocardial infarct finding now present Electronically Signed On 04-10-2021 20:55:09 COMMERCIAL REAL ESTATE SALES MANAGER by Adilson Montgomery M.D. [id number]
[2021-04-10 17:53] LABS: Hematocrit 20.8 % (37.0-47.0); Hemoglobin 6.1 g/dL (11.5-15.3)
[2021-04-10 18:21] LABS: Reticulocyte % 2.7 % (0.5-2.0)
--- NOTE | 2021-04-10 18:38 | PM.HP ---
Providers/Chief Complaint Admitting Physician: Jake Tillman Primary Care Provider: Nancy Swan Chief Complaint: SOB History of Present Illness Peri Monge is a 75 year old female who presents to the emergency department with complaints of swelling, and shortness of breath. She is recently been evaluated by her oncology physician, for significant anemia. She was to get an iron transfusion tomorrow. There is concerned she might need a bone marrow if this did not work. She denies any black or tarry stools. She has had no heartburn or reflux. She has had a colonoscopy in the past 2 to 3 years but has not had an EGD. No chest discomfort. She is vaccinated and had all of her immunizations including booster for Covid. In the emergency department, transfusion of blood was ordered as well as 80 mg IV of Lasix. I have changed the 2 unit transfusion to 1 unit. Review of Systems General: Reports: 10 or more systems reviewed and unremarkable except in HPI and below Const: Reports: fatigue; Denies: fever(s) Eyes: Denies: change in vision ENMT: Denies: throat pain Card: Reports: swelling of feet/ankles and dyspnea on exertion; Denies: chest pain Resp: Reports: dyspnea GI: Denies: abdominal pain, hematochezia or melena : Denies: flank pain Musc: Denies: neck pain Skin/Breast: Denies: rash Neuro: Denies: headache(s) Psych: Denies: anxiety or depression Endo: Denies: polyuria Bernabe/Lymph: Denies: easy bruising All/Imm: Denies: urticaria Medications/Allergies Home Medications Medication Instructions Recorded Confirmed Last Taken Type doxepin 50 mg capsule 50 mg PO BEDTIME 03/19/19 03/21/21 09/25/20 History ferrous sulfate 325 mg (65 mg 325 mg PO BID 03/19/19 03/21/21 09/25/20 History iron) tablet aspirin 81 mg tablet,delayed 81 mg PO DAILY 06/24/19 03/21/21 09/25/20 History release Carpal Tunnel Brace #1 ea NS 08/11/19 03/21/21 Unknown Rx metformin 1,000 mg tablet 1,000 mg PO BID 09/30/19 03/21/21 09/25/20 History ascorbate calcium (vitamin C) 500 500 mg PO BID 03/09/20 03/21/21 09/25/20 History mg tablet cholecalciferol (vitamin D3) 25 25 mcg PO DAILY 03/09/20 03/21/21 09/25/20 History mcg (1,000 unit) capsule omeprazole 40 mg capsule,delayed 40 mg PO DAILY 03/09/20 03/21/21 09/25/20 History release nitroglycerin 0.4 mg sublingual 0.4 mg SUBLINGUAL Q5M PRN #50 tab 04/21/20 03/21/21 Unknown Rx tablet (Nitrostat) prednisone 10 mg tablet See Rx Instructions PO DAILY #40 05/25/20 03/21/21 06/14/20 Rx tab insulin degludec 200 unit/mL (3 70 unit SUBCUT QAM ml 08/21/20 03/21/21 09/25/20 History mL) subcutaneous pen (Tresiba FlexTouch U-200 insulin) potassium gluconate 595 mg (99 mg) 892.5 mg PO DAILY #45 tab 08/22/20 03/21/21 09/25/20 Rx tablet garlic 300 mg PO DAILY 09/26/20 03/21/21 09/25/20 History isosorbide mononitrate 60 mg 60 mg PO QNOON #90 tab 09/29/20 03/21/21 09/25/20 Rx tablet,extended release 24 hr albuterol sulfate 90 mcg/actuation 1 inh INHALATION QID PRN #8.5 g 11/23/20 03/21/21 Unknown Rx aerosol inhaler tofacitinib 5 mg tablet (Xeljanz) 5 mg PO BID #60 tab 12/12/20 03/21/21 Unknown Rx amlodipine 5 mg tablet 5 mg PO DAILY 03/21/21 03/21/21 Unknown History carvedilol 25 mg tablet 25 mg PO BID tab 03/21/21 03/21/21 Unknown History fluticasone 250 mcg-salmeterol 50 1 inh INHALATION BID 03/21/21 03/21/21 Unknown History mcg/dose blistr powdr for inhalation (Advair Diskus) furosemide 40 mg tablet (Lasix) 40 mg PO DAILY tab 03/21/21 03/21/21 Unknown History hydralazine 25 mg tablet 25 mg PO BID #60 tab 03/21/21 03/21/21 Unknown Rx mecobalamin (vitamin B12) 1,000 1,000 mcg PO DAILY 03/21/21 03/21/21 Unknown History mcg chewable tablet zolpidem 10 mg tablet 10 mg PO BEDTIME tab 03/21/21 03/21/21 Unknown History Allergies Allergy/AdvReac Type Severity Reaction Status Date / Time codeine Allergy Severe ALGY-Swell Verified 03/21/21 07:24 Lip/Tongue/Throat Penicillins Allergy ALGY-Swell Verified 03/21/21 07:24 Lip/Tongue/Throat sulfasalazine AdvReac Intermediate made her Verified 03/21/21 07:24 feel very bad PFSH Acute PFSH: Medical History (Updated 04/10/21 @ 18:42 by Jake Reaves MD) AICD malfunction Anemia Cardiac resynchronization therapy defibrillator (GRINDING MACHINE TENDER-D) in place Cardiomyopathy Carpal tunnel syndrome Carpal tunnel syndrome of right wrist CHF (congestive heart failure), NYHA class III Chronic diastolic heart failure Echocardiogram done in September 2019 showed EF of 60%, grade 1 diastolic dysfunction, normal RV functions. Chronic steroid use counseled about blood sugar monitoring Chronic systolic (congestive) heart failure COPD (chronic obstructive pulmonary disease) COPD (chronic obstructive pulmonary disease) Diabetes mellitus Hepatitis B core antibody positive Hepatitis B PCR is negative High risk medication use Hypertension ICD (implantable cardioverter-defibrillator) battery depletion Immunization counseling Non-ischemic cardiomyopathy Peripheral neuropathy Rheumatoid arthritis Seropositive rheumatoid arthritis of multiple sites Surgical History History of appendectomy History of hysterectomy with bilateral oophorectomy S/P ICD (internal cardiac defibrillator) procedure Family History Mother Diabetes Hypertension CHF (congestive heart failure) Other CAD (coronary artery disease) Cancer Hyperlipidemia Lung disease Denies family history of Rheumatoid arthritis Lupus Chronic kidney disease (CKD) Stroke Social History Quit status (tobacco): has quit using tobacco Year quit tobacco: 2010 Former quit date comment: 1ppd x 45years Second hand smoke exposure: No Alcohol intake: never Household members: spouse Housing: House Marital status: History of recent travel: No Current gender identity: Female Vitals/I&O/Wt Last Vital Signs Temp 98.0 F 04/10/21 15:07 Pulse 88 04/10/21 15:07 Resp 17 04/10/21 15:07 BP 167/63 04/10/21 15:07 Pulse Ox 93 04/10/21 15:07 Weight last 48 hrs Weight 77.564 kg Physical Exam Narrative: General exam is a white female, mild tachypnea, pale appearing HEENT: Atraumatic normocephalic. Oropharynx clear. Neck is supple no lymphadenopathy or thyromegaly Cardiovascular regular rate and rhythm, sounds distant, no murmur Lungs diminished breath sounds bilaterally. Few crackles in the left lower lung base. No wheezes. Abdomen is soft nontender positive bowel sounds. No obvious organomegaly. exam deferred Extremities 2+ edema. No cyanosis or clubbing Skin without rash Neuro no focal deficits Data : 04/10/21 17:30 04/10/21 17:30 Other Labs: EKG demonstrates a paced ventricular rhythm Last echocardiogram done September 2019 demonstrated an EF of 60%, 1/4 diastolic dysfunction. Chest x-ray no infiltrate. Pacemaker noted. A&P Assessment and plan (1) CHF (congestive heart failure), NYHA class III: Appears to have acute diastolic heart failure. No need for repeat echocardiogram even though last one was done 1-1/2 years ago. Lasix 80 mg IV was given in the emergency department Repeat Lasix dose after transfusion Close follow-up of electrolytes Check TSH Secondary to lower extremity edema, check venous duplex. Status: Acute Qualifiers: Congestive heart failure type: systolic Congestive heart failure chronicity: chronic Qualified Code(s): I50.22 - Chronic systolic (congestive) heart failure (2) Anemia: Significant anemia already evaluated by hematology. Iron transfusion was planned tomorrow We will give 1 unit of blood today Stool Hemoccult Protonix 40 mg twice daily Anemia panel Status: Acute (3) COPD (chronic obstructive pulmonary disease): No evidence of exacerbation DuoNeb as needed Continue home medications She is on 3 L of oxygen baseline which she is on currently. Status: Acute (4) Diabetes mellitus: Sliding scale insulin Status: Acute Qualifiers: Diabetes mellitus type: type 2 Diabetes mellitus longterm insulin use: without longterm use Diabetes mellitus complication status: without complication Qualified Code(s): E11.9 - Type 2 diabetes mellitus without complications Plan History of rheumatoid arthritis Multiple other medical problems as outlined in past medical history Full code SCDs for DVT prophylaxis, no anticoagulation secondary to severe anemia Attestations Medical Necessity Statement*: Will need less than 2 midnight stay for evaluation and treatment of fluid overload consistent with acute diastolic heart failure and anemia requiring transfusion. Time Spent in Patient Care: 59 minutes spend in patient care Coding Level of Care Code Acute Video Game Creator for g Fwd Diagnoses CHF (congestive heart failure), NYHA class III I50.22 Congestive heart failure type: systolic Congestive heart failure chronicity: chronic Anemia D64.9 COPD (chronic obstructive pulmonary disease) J44.9 Diabetes mellitus E11.9 Diabetes mellitus type: type 2 Diabetes mellitus longterm insulin use: without longterm use Diabetes mellitus complication status: without complication
[2021-04-10 18:51] LABS: Alanine Aminotransferase 17 U/L (0-33); Albumin Level 4.3 g/dL (3.5-5.2); Alkaline Phosphatase 49 IU/L (35-105); Aspartate Amino Transferase 15 U/L (0-32); Blood Urea Nitrogen 28 mg/dL (8-23); Calcium 9.2 mg/dL (8.5-10.5); Carbon Dioxide 22 mmol/L (22-29); Chloride 106 mmol/L (98-107); Globulin 2.1 g/dL (1.3-4.6); Glucose 152 mg/dL (65-115); NT Pro B Type Natriuretic Pept 1673 pg/mL (0-125); Osmolality Calculated 298 mOsm/kg (285-295); Sodium 140 mmol/L (136-145); Total Bilirubin 0.2 mg/dL (0.15-1.2); Total Protein 6.4 g/dL (6.6-8.7)
[2021-04-10 18:56] LABS: Anion Gap 16.4 (5-19); Potassium 4.4 mmol/L (3.5-5.1)
[2021-04-10 19:25] LABS: Troponin(5th) Baseline 28 ng/L (0-10)
[2021-04-10 19:38] LABS: Folate Level 13.5 ng/mL (4.8-37.3)
[2021-04-10 19:39] LABS: Iron 31 ug/dL (37-145); Percent Saturation 10.6 % (20-50); Total Iron Binding Capacity 292 mcg/dl; Unsaturated Iron Binding 261 ug/dL (112-347); Vitamin B12 1261 pg/mL (232-1245)
[2021-04-10] MEDS: doxepin 50 mg Capsule PO (20:58)
[2021-04-10 21:00] VITALS: BP 174/80; BP 178/84; PULSE 84; PULSE 86; RESP 18; TEMP 36.9; O2SAT 100
[2021-04-10 21:05] VITALS: BP 178/84; PULSE 86; RESP 18; TEMP 36.9; O2SAT 100
[2021-04-10 21:40] LABS: Troponin 5 2HR 27.92 ng/L (0-10)
[2021-04-10 21:41] VITALS: PULSE 96; RESP 20; O2SAT 99
[2021-04-10 21:41] LABS: Troponin 5 2HR Delta -0.08 ABS# (0-10)
[2021-04-10] MEDS: ipratropium-albuterol 3 mL Neb INHALATION (21:44)
[2021-04-10 21:45] VITALS: PULSE 90
[2021-04-10] MEDS: insulin lispro 100 unit/1 mL SUBCUT (22:07)
[2021-04-10 22:15] LABS: Glucose Point of Care 200 mg/dL (70-110)
[2021-04-10] MEDS: FUROsemide 10 mg/mL SDV 4mL 40 MG IVP (22:50)
[2021-04-10 23:38] VITALS: BP 161/46; PULSE 83; RESP 16; TEMP 36.9; O2SAT 100
[2021-04-11] VITALS (8 sets, daily range): BP systolic 146–179; BP diastolic 59–78; PULSE 73–86; RESP 16–18; TEMP 36.8–36.9; O2SAT 93–100
[2021-04-11 00:07] LABS: Troponin 5 6HR 30.38 ng/L (0-10)
[2021-04-11 00:13] LABS: Troponin 5 6HR Delta 2.38 ng/L (0-12)
[2021-04-11] MEDS: ipratropium-albuterol 3 mL Neb INHALATION ×2 (02:38→08:21)
[2021-04-11 04:34] LABS: Basophils % 0.3 %; Eosinophils # 0.2 10^3/uL (0.0-0.8); Eosinophils % 2.4 %; Hemoglobin 7.4 g/dL (11.5-15.3); Lymphocytes # 0.8 10^3/uL (0.8-4.8); Mean Corpuscular HGB Conc 29.6 g/dL (30.0-36.0); Mean Corpuscular Hemoglobin 26.7 pg (28.0-34.0); Mean Corpuscular Volume 90.3 fl (81-99); Mean Platelet Volume 10.1 fL (7.4-10.4); Monocytes # 0.7 10^3/uL (0.2-0.9); Monocytes % 10.8 %; Neutrophils % 73.3 %; Nucleated Red Blood Cells % 0 %; Platelet Count 170 10^3/cmm (130-400); Red Blood Count 2.77 10^6/uL (4.1-5.3); Red Cell Distribution Width 15.4 % (12.1-15.1); White Blood Count 6.6 10^3/uL (4.0-10.0)
[2021-04-11 05:16] LABS: Alanine Aminotransferase 15 U/L (0-33); Alkaline Phosphatase 47 IU/L (35-105); Anion Gap 18.6 (5-19); Aspartate Amino Transferase 12 U/L (0-32); Blood Urea Nitrogen 28 mg/dL (8-23); Calcium 9.7 mg/dL (8.5-10.5); Carbon Dioxide 24 mmol/L (22-29); Chloride 100 mmol/L (98-107); Globulin 2.4 g/dL (1.3-4.6); Glucose 152 mg/dL (65-115); Osmolality Calculated 296 mOsm/kg (285-295); Potassium 3.6 mmol/L (3.5-5.1); Sodium 139 mmol/L (136-145); Total Bilirubin 0.3 mg/dL (0.15-1.2); Total Protein 6.4 g/dL (6.6-8.7)
--- NOTE | 2021-04-11 07:25 | PC.NURSE ---
REPORT TO TERRANCE, NURSE ON MED SURG
--- NOTE | 2021-04-11 07:50 | PC.NURSE ---
PATIENT TAKEN TO MEDSURG BY ED STAFF VIA CART
[2021-04-11] MEDS: pantoprazole DR 40 mg Tablet PO (09:40)
[2021-04-11] MEDS: carvedilol 25 mg Tablet PO (09:40)
[2021-04-11] MEDS: amlodipine 5 mg Tablet PO (09:40)
[2021-04-11] MEDS: hyDRALAzine 25 mg Tablet PO (09:40)
[2021-04-11] MEDS: iron sucrose 200 MG in sodium chloride 0.9% (100 ml) 100 ML 220 MG IV (11:51)
--- NOTE | 2021-04-11 13:21 | P.DS_ITS ---
Discharge Providers Date of Admission: 04/10/21 18:53 Date of Discharge: April 11, 2021 Attending Provider at Admission: Jake Reaves MD Attending Provider at Discharge: Jake Reaves MD Primary Care Provider: Nancy Swan Diagnoses at Discharge Discharge Diagnosis (1) CHF (congestive heart failure), NYHA class III: Status: Acute Qualifiers: Congestive heart failure type: systolic Congestive heart failure chronicity: chronic Qualified Code(s): I50.22 - Chronic systolic (congestive) heart failure (2) Anemia: Status: Acute (3) COPD (chronic obstructive pulmonary disease): Status: Acute (4) Diabetes mellitus: Status: Acute Qualifiers: Diabetes mellitus type: type 2 Diabetes mellitus retirement insulin 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 She was found to be significantly anemic, acute on chronic. Hemoglobin was 6.1 down from her baseline in the mid sevens. She had been evaluated by hematology and was set up for iron infusions which she had not yet received. She has underlying rheumatoid arthritis. There have been no recent evidence for any kind of GI bleeding. There was also concern of acute diastolic heart failure with her edema. She was given IV Lasix, and transfused 1 unit of packed red blood cells. With this her hemoglobin increased to 7.4. She maintained on her home oxygen amount. Edema in her lower extremities went away and she felt back to normal. It was thought she could be discharged home on a slightly higher dose of Lasix, and close follow-up with her primary care provider for a BMP in the next 3 to 5 days. CBC will be obtained then as well. 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 She was given an iron transfusion of Venofer on day of discharge. Haptoglobin was checked, and not low. Venous duplex was checked showing no DVT. Troponin had no significant delta. Physical Exam Narrative: General exam no distress Neck is supple Cardiovascular regular rate and rhythm without murmur Lungs clear Abdomen is soft, positive bowel sounds Extremities no cyanosis clubbing or edema Discharge Data Studies Completed and Pending Completed Studies During Hospitalization Category Date Time Status XR chest 1V portable [id number] Stat Exams 04/10/21 15:45 [place] [id number] Urgent Ultrasound 04/11/21 18:43 Completed Pending at discharge Category Date Time Status Erythropoietin Stat Lab 04/10/21 18:24 Received Leukocyte Reduced RBC Routine Lab 04/10/21 18:24 Results Occult Blood Stool [Immunochemical Fecal OCB] Routine Lab 04/10/21 17:54 Uncollected Type and Screen Routine Lab 04/10/21 18:24 Results Radiology Impressions Chest X-Ray 04/10/21 15:45 IMPRESSION: No acute chest abnormality. Laboratory Results WBC 6.6 10^3/uL (4.0-10.0) 04/11/21 04:15 RBC 2.77 10^6/uL (4.1-5.3) L 04/11/21 04:15 Hgb 7.4 g/dL (11.5-15.3) L 04/11/21 04:15 Hct 25.0 % (37.0-47.0) L 04/11/21 04:15 MCV 90.3 fl (81-99) 04/11/21 04:15 MCH 26.7 pg (28.0-34.0) L 04/11/21 04:15 MCHC 29.6 g/dL (30.0-36.0) L 04/11/21 04:15 RDW 15.4 % (12.1-15.1) H 04/11/21 04:15 Plt Count 170 10^3/cmm (130-400) 04/11/21 04:15 MPV 10.1 fL (7.4-10.4) 04/11/21 04:15 Neut % (Auto) 73.3 % 04/11/21 04:15 Lymph % (Auto) 12.0 % 04/11/21 04:15 Rawlins % (Auto) 10.8 % 04/11/21 04:15 Eos % (Auto) 2.4 % 04/11/21 04:15 Baso % (Auto) 0.3 % 04/11/21 04:15 Reticulocyte % (Auto) 2.7 % (0.5-2.0) H 04/10/21 17:30 Neut # (Auto) 4.80 10^3/uL (1.8-7.7) 04/11/21 04:15 Lymph # (Auto) 0.8 10^3/uL (0.8-4.8) 04/11/21 04:15 Rawlins # (Auto) 0.7 10^3/uL (0.2-0.9) 04/11/21 04:15 Eos # (Auto) 0.2 10^3/uL (0.0-0.8) 04/11/21 04:15 Baso # (Auto) 0.0 10^3/uL (0.0-0.1) 04/11/21 04:15 Nucleated RBC % (auto) 0 % 04/11/21 04:15 Nucleated RBCs # 0.0 /100WBC 04/11/21 04:15 Haptoglobin 245.0 mg/L (30-200) H 04/10/21 17:30 Sodium 139 mmol/L (136-145) 04/11/21 04:15 Potassium 3.6 mmol/L (3.5-5.1) 04/11/21 04:15 Chloride 100 mmol/L (98-107) 04/11/21 04:15 Carbon Dioxide 24 mmol/L (22-29) 04/11/21 04:15 Anion Gap 18.6 (5-19) 04/11/21 04:15 BUN 28 mg/dL (8-23) H 04/11/21 04:15 Creatinine 1.7 mg/dL (0.5-0.9) H 04/11/21 04:15 GFR Calculation Not Reportable 04/11/21 04:15 Glucose 152 mg/dL (65-115) H 04/11/21 04:15 POC Glucose 200 mg/dL (70-110) H 04/10/21 22:04 Calculated Osmolality 296 mOsm/kg (285-295) H 04/11/21 04:15 Calcium 9.7 mg/dL (8.5-10.5) 04/11/21 04:15 Iron 31 ug/dL (37-145) L 04/10/21 17:30 TIBC 292 mcg/dl 04/10/21 17:30 % Saturation 10.6 % (20-50) L 04/10/21 17:30 Unsat Iron Binding 261 ug/dL (112-347) 04/10/21 17:30 Total Bilirubin 0.3 mg/dL (0.15-1.2) 04/11/21 04:15 AST 12 U/L (0-32) 04/11/21 04:15 ALT 15 U/L (0-33) 04/11/21 04:15 Alkaline Phosphatase 47 IU/L (35-105) 04/11/21 04:15 Troponin T Baseline 28 ng/L (0-10) H 04/10/21 17:30 Troponin T 120 Minute 27.92 ng/L (0-10) H 04/10/21 20:48 Delta Troponin T -0.08 ABS# (0-10) L 04/10/21 20:48 Troponin T Hi Sens 6Hr 30.38 ng/L (0-10) H 04/10/21 23:27 Troponin T Hi Sens 6Hr Delta 2.38 ng/L (0-12) 04/10/21 23:27 NT-Pro-B Natriuret Pep 1673 pg/mL (0-125) H 04/10/21 17:30 Total Protein 6.4 g/dL (6.6-8.7) L 04/11/21 04:15 Albumin 4.0 g/dL (3.5-5.2) 04/11/21 04:15 Globulin 2.4 g/dL (1.3-4.6) 04/11/21 04:15 Vitamin B12 1261 pg/mL (232-1245) H 04/10/21 17:30 Folate 13.5 ng/mL (4.8-37.3) 04/10/21 18:24 TSH 2.40 uIU/mL (0.27-4.20) 04/10/21 18:24 Blood Type B Negative 04/10/21 18:24 Rho(D) Type Negative 04/10/21 18:24 Antibody Screen Negative 04/10/21 18:24 Crossmatch See Detail 04/10/21 18:24 Vitals Last Vital Signs Temp 98.5 F 04/11/21 12:00 Pulse 73 04/11/21 12:00 Resp 18 04/11/21 12:00 BP 146/78 04/11/21 12:00 Pulse Ox 99 04/11/21 12:00 Discharge Plan Discharge Patient Disposition: Home Condition: Stable Prescriptions: New furosemide [Lasix] 40 mg tablet 60 mg PO QAM Qty: 45 0RF Continued aspirin 81 mg tablet,delayed release (DR/EC) 81 mg PO QPM 0RF Tresiba FlexTouch U-200 200 unit/mL (3 mL) insulin pen 70 unit SUBCUT QAM 0RF (DME) Carpal Tunnel Brace See Rx Instructions .Route .MEDSUPPLY Qty: 1 0RF Rx Instructions: As directed prednisone 10 mg tablet See Rx Instructions PO DAILY Qty: 40 3RF Rx Instructions: take 1 tab daily but can take 2 if in a joint pain flare daily prn carvedilol 25 mg tablet 25 mg PO BID 0RF Rx Instructions: must administer with a meal/food amlodipine 5 mg tablet 5 mg PO QAM 0RF zolpidem 10 mg tablet 10 mg PO BEDTIME 0RF Xeljanz 5 mg tablet 5 mg PO BID Qty: 60 3RF doxepin 50 mg capsule 50 mg PO BEDTIME 0RF omeprazole 40 mg capsule,delayed release(DR/EC) 40 mg PO QAM 0RF ascorbate calcium (vitamin C) 500 mg tablet 500 mg PO BID 0RF cholecalciferol (vitamin D3) 25 mcg (1,000 unit) capsule 25 mcg PO QAM 0RF albuterol sulfate 90 mcg/actuation HFA aerosol inhaler 1 inh inhalation QID PRN (Reason: shortness of breath or wheezing) Qty: 8.5 3RF nitroglycerin [Nitrostat] 0.4 mg tablet, sublingual 0.4 mg sublingual Q5M PRN (Reason: chest pain) Qty: 50 1RF Rx Instructions: do not exceed 3 doses per episode Vitamin B-12 1,000 mcg Tablet 1,000 mcg PO BID 0RF fluticasone propion-salmeterol 100-50 mcg/dose blister with device 1 ea INHALATION BID 0RF Probiotic Acidophilus 1.5 mg (250 million cell) Capsule 1.5 mg PO BID 0RF hydralazine 25 mg tablet 75 mg PO BID 0RF isosorbide mononitrate 60 mg tablet extended release 24 hr 60 mg PO QAM 0RF potassium gluconate 595 mg (99 mg) tablet 595 mg PO QPM 0RF metformin 1,000 mg Tablet 1,000 mg PO BID 0RF garlic Tablet 300 mg PO DAILY 0RF Discontinued Lasix 40 mg tablet 40 mg PO QAM 0RF Discharge Orders: Discharge Order (Routine); Ordered 04/11/21 Ordered By: Jake Reaves Referrals: Nancy Swan PA [Primary Care Provider] - 4-7 days (BMP on Friday for recheck of potassium and kidney function as well as CBC for recheck of hemoglobin) Discharge Diet: Cardiac and Diabetic Discharge Activity: Increase activity as tolerated Patient Instructions: Opioid Safety Activity Restrictions/Additional Instructions: Take all medicine as prescribed. Keep follow-up with your primary care provider. Keep follow-up with rheumatology, and hematology. I have notified hematology to contact you regarding further iron infusions. Resume your oxygen at 3 L. 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
--- NOTE | 2021-04-11 18:43 | USCV_ITS ---
Peri Monge Age: 75 Gender: F : 1945 Exam Date: 04/11/2021 06:47 Ordering Phys: Jake Reaves MD Technologist: Exam Location: [facility] – [place] Indication: EDEMA HISTORY: Edema. PROCEDURES: The venous duplex Doppler examination of both lower extremities was performed in the standard fashion. The following venous structures were evaluated: common femoral vein, profunda vein, proximal portion of the greater saphenous vein, superficial femoral vein, and the popliteal vein. FINDINGS: Normal 2-D Doppler and augmentation and compressibility throughout the lower extremity venous structures. Additional imaging through the proximal calf veins also reveals no thrombus. Limited evaluation of the greater saphenous vein is patent with no thrombus.. CONCLUSIONS No evidence of right lower extremity DVT. No evidence of left lower extremity DVT. Anshul Gupta MD (Electronically Signed) Final Date: 11 April 2021 09:19 S
[2021-04-13 09:41] LABS: Erythropoietin 149.4 mIU/mL (2.6-18.5)
[2021-04-13 21:28] LABS: Glucose Point of Care 243 mg/dL (70-110)
== END 2021-04-11 14:33 | disposition home or self-care (01) ==
LOC: ER 17:17 → ER IP 20:34 → MEDSURG 04-11 06:50
PROVIDERS: Physician Assistant; Admitting Provider Internal Medicine; Emergency Provider Family Medicine; PCP Physician Assistant; Visit Provider Internal Medicine
DX: I50.22 Chronic systolic (congestive) heart failure (principal); D64.9 Anemia, unspecified; J44.9 Chronic obstructive pulmonary disease, unspecified; E11.42 Type 2 diabetes mellitus with diabetic polyneuropathy; M06.9 Rheumatoid arthritis, unspecified; Z79.84 Long term (current) use of oral hypoglycemic drugs; Z79.4 Long term (current) use of insulin; Z79.899 Other long term (current) drug therapy; Z82.49 Family history of ischemic heart disease and other diseases of the circulatory system; Z83.3 Family history of diabetes mellitus; Z87.891 Personal history of nicotine dependence; R60.0 Localized edema
CPT/HCPCS: 36416; 36430; 71045; 80053; 82607; 82668; 82746; 82962; 83010; 83540; 83550; 83880; 84443; 84484; 85025; 85045; 86850; 86900; 86920; 93005; 93970; 94640; 96372; 96374; 96376; 99285; G0378; J1756; J1815; J1940; P9016

== ENCOUNTER → 2021-05-10 09:40 | Outpatient (BNVA) | payer MEDICARE, SELFPAY | PROVIDERS: PCP Physician Assistant; Visit Provider Internal Medicine Pulmonary Disease | DX: Z09 Encounter for follow-up examination after completed treatment for conditions other than malignant neoplasm (principal); J15.211 Pneumonia due to Methicillin susceptible Staphylococcus aureus; R91.8 Other nonspecific abnormal finding of lung field; T82.118A Breakdown (mechanical) of other cardiac electronic device, initial encounter; Z71.89 Other specified counseling; I50.9 Heart failure, unspecified; I42.8 Other cardiomyopathies; J44.9 Chronic obstructive pulmonary disease, unspecified; Z87.891 Personal history of nicotine dependence | CPT/HCPCS: 99214 ==

== ENCOUNTER → 2021-05-16 15:22 | Outpatient (BNVA) | payer MEDICARE, SELFPAY | PROVIDERS: PCP Physician Assistant; Visit Provider Internal Medicine Rheumatology | DX: M05.79 Rheumatoid arthritis with rheumatoid factor of multiple sites without organ or systems involvement (principal); Z79.899 Other long term (current) drug therapy; D64.9 Anemia, unspecified; E11.9 Type 2 diabetes mellitus without complications; Z79.4 Long term (current) use of insulin; Z95.0 Presence of cardiac pacemaker; Z71.89 Other specified counseling; Z87.891 Personal history of nicotine dependence | CPT/HCPCS: 99214 ==

== ENCOUNTER 2021-06-01 08:07 | Outpatient (CLI) | payer MEDICARE, SELFPAY ==
[2021-06-01 08:33] LABS: Basophils % 0.3 %; Eosinophils # 0.2 10^3/uL (0.0-0.8); Eosinophils % 2.4 %; Hematocrit 27.6 % (37.0-47.0); Hemoglobin 8.4 g/dL (11.5-15.3); Lymphocytes # 1.7 10^3/uL (0.8-4.8); Lymphocytes % 17.8 %; Mean Corpuscular HGB Conc 30.4 g/dL (30.0-36.0); Mean Corpuscular Hemoglobin 26.8 pg (28.0-34.0); Mean Corpuscular Volume 87.9 fl (81-99); Monocytes # 0.8 10^3/uL (0.2-0.9); Monocytes % 7.7 %; Neutrophils # 6.84 10^3/uL (1.8-7.7); Neutrophils % 70.3 %; Nucleated Red Blood Cells % 0 %; Platelet Count 291 10^3/cmm (130-400); Red Blood Count 3.14 10^6/uL (4.1-5.3); Red Cell Distribution Width 16.2 % (12.1-15.1); White Blood Count 9.7 10^3/uL (4.0-10.0)
[2021-06-01 08:46] LABS: Ferritin 38 ng/mL (15-150); Iron 61 ug/dL (37-145); Percent Saturation 17.6 % (20-50); Total Iron Binding Capacity 346 mcg/dl; Unsaturated Iron Binding 285 ug/dL (112-347)
--- NOTE | 2021-06-01 12:07 | ONC FU_ITS ---
Dr. Reddy follow up note Patient: Peri Monge Unit #: [id number]: 1945 Dicatated By: Raymond Reddy M.D.Date of Visit:Jun 01, 2021 Onc Med Follow-up/Prog Note History of Present Illness: Ms. Peri Monge, is a 75-year-old female with history of anemia, as per patient she was started on oral iron about 2 years ago and about 6-month ago B12 supplements were added but there was no improvement in her hemoglobin, as per medical record available to us her lab work-up done on January 31, 2021 showed white blood count 9.1 hemoglobin 7.9 hematocrit 25 platelets 263,000 with MCV 80 with a normal differential and repeat CBC on March 12, 2021 showed white blood count 8.9 hemoglobin 7.5 hematocrit 24.1 MCV 85.8 platelets 243,000 and her CMP showed creatinine around 1.7 and rest within normal range., As per PMDs note patient underwent colonoscopy on June 30 04/07/2017 which showed normal exam except a few small sized uncomplicated internal hemorrhoids and they were not bleeding. 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 Hargrove and she was diagnosed with pneumonia instead of cancer and was treated with antibiotics, with resolution. She is on home oxygen Patient denies any history of melena or hematochezia, denies any hemoptysis hematemesis but off-and-on mild, self-limiting nosebleed. Denies any indigestion heartburn denies any hematuria or vaginal bleeding denies any jaundice, Denies any night sweats, denies any weight loss, denies any recurrent fever. Denies any peripheral lymphadenopathy her past medical history significant for CHF, COPD, type 2 diabetes mellitus, peripheral neuropathy, rheumatoid arthritis with rheumatoid factor of multiple sites without organ or system involvement, chronic renal disease Patient has history of smoking quit in 2016 Came for follow-up, denies any specific complaint except generalized weakness and fatigue, as per patient since her last visit she was admitted to hospital on April 10, 2021 with progressive shortness of breath and congestive heart failure and her hemoglobin was 6.1 g and she was given 1 unit of packed RBC and also received a dose of Venofer. And she felt much better after blood transfusion since then now she has progressive weakness and fatigue, denies any melena or hematochezia denies any mops or hematemesis denies any jaundice. Patient says she her sister has similar problem requiring parenteral iron infusion. And other sister has polycythemia requiring phlebotomies. During her last visit, parenteral iron was ordered as there was a concern that she may have iron malabsorption as she was not responding to oral iron but her insurance approved INFeD instead of Injectafer. Patient is here to discuss about iron infusion. Medications: Advair Diskus 1 Puff(s) (of 250-50 mcg/dose) Aerosol Powder, Breath Activated Inhalation b.i.d., Ambien 1 Tablet (of 10 mg) Oral at bedtime, Aspirin 1 Tablet (of 81 mg) Tablet, enteric coated Oral daily, Carvedilol 1 Tablet (of 12.5 mg) Oral b.i.d., Cholecalciferol 1 Tablet (of 25 mcg ) Tablet, chewable Oral b.i.d., CVS Vitamin B-12 1 Tablet (of 1000 mcg) Oral b.i.d., Doxepin HCl 1 Capsule (of 50 mg) Oral at bedtime, Furosemide 2 Tablet (of 20 mg) Oral daily, hydrALAZINE HCl 1 Tablet (of 50 mg) Oral b.i.d., Iron (Ferrous Sulfate) 1 Tablet (of 325 (65 fe) mg) Oral daily, Isosorbide Mononitrate ER 1 Tablet (of 60 mg) Tablet SR 24 HR Oral daily, Melatonin 1 Tablet (of 5 mg) Tablet, chewable Oral daily, metFORMIN HCl 1 Tablet (of 1000 mg) Oral b.i.d., Nitroglycerin Tablet, sublingual Sublingual PRN, Omeprazole 1 Capsule (of 40 mg) Capsule Delayed Release Oral daily, predniSONE 1 Tablet (of 5 mg) Oral, Spiriva Respimat 2 Puff(s) (of 1.25 mcg/act) Aerosol, solution Inhalation daily, traZODone HCl 1 Tablet (of 50 mg) Oral at bedtime, Tresiba FlexTouch 70 Unit(s) (of 200 Units/mL) Subcutaneous daily, Triamcinolone Acetonide (0.5 %) Ointment Topical b.i.d., Vitamin C 1 Tablet (of 500 mg) Tablet, chewable Oral b.i.d., Xeljanz 1 Tablet (of 5 mg) Oral b.i.d. Allergies: Codeine Phosphate and Penicillins. Review of Systems: Review of Systems is not available for this patient. Vital Signs: Performed on Jun 01, 2021 09:41 BP - 156/62 mm(hg) (HIGH) Performed on Jun 01, 2021 09:39 Weight - 172.6 lbs (HIGH) BSA - 0.00 sq.m BMI - 0.00 Temperature - 96.5 F (LOW) Pulse - 88 /min Respiration - 16 /min BP - 172/70 mm(hg) (HIGH) O2 Sat - 96 % Pain - 0 Fatigue - 7 Performance Status: 1 - No physically strenuous activity, but ambulatory and able to carry out light or sedentary work (e.g. office work, light house work). (ECOG) Physical Examination: ENMT - No mouth sores, no thrush, no jaundice, Respiratory - Poor air entry otherwise clear, Cardiovascular - Regular rate and rhythm of heart, Abdomen - Soft, bowel sounds present, Extremities - No visible edema. Lab/Imaging: Test performed on Apr 16, 2021 14:19 Glucose 108 mg/dL BUN 31.0 mg/dL Creatinine 2.2 mg/dL Sodium 138 mmol/L Potassium 4.2 mmol/L Chloride 101 mmol/L CO2 31 mmol/L Ua Color yellow WBC 10.2 10^9/L RBC 2.85 10^12/L Ua Appearance clear HGB 7.8 g/dL Ua Specific [place] 1.010 HCT 24.5 % Ua pH 5.5 MCV 85.8 fl Ua Protein negative MCH 27.5 pg Ua Glucose negative MCHC 32.0 g/dL Ua Ketones negative RDW 16.9 % Ua Blood negative Platelet Count 221.1 10^9/L Ua Leuk Esterase trace Ua Nitrites negative Ua Bilirubin negative Lymphocytes 1.8768 10^9/L Ua Urobilinogen 0.2 Monocytes 0.7956 10^9/L Impression: Normocytic hypochromic anemia, etiology appears multifactorial including iron deficiency, and or anemia of chronic disease, patient has underlying rheumatoid arthritis or chronic renal insufficiency or considering her age underlying myelodysplasia cannot be ruled out Status post 1 unit of packed RBC and dose of Venofer on April 10, 2021 for hemoglobin 6.1 g Chronic renal disease CHF Rheumatoid arthritis Type 2 diabetes mellitus Plan: Discussed with patient regarding her labs white blood count 9.7 hemoglobin 8.4 g compared to 7.8 g previously hematocrit 27.6 platelets 291,000 iron studies shows iron saturation 17.6% ferritin 30 iron 61 TIBC 346 Clinically, patient doing reasonably well now with progressive generalized weakness and fatigue which could be multifactorial and her follow-up CBC shows persistent moderate anemia with low iron's stores. Will consider parenteral iron INFeD as approved by insurance, patient return to clinic on Friday for infusion and then we will see her back 1 month after iron infusion with CBC and iron studies, if after correction of iron stores, patient still has persistent anemia, may consider bone marrow evaluation to rule out underlying myelodysplasia. Patient was advised to discontinue oral iron. Signed By: Raymond Reddy M.D. <<Signature on File>>
== END 2021-06-01 08:08 | disposition home or self-care (01) ==
PROVIDERS: PCP Physician Assistant; Visit Provider Internal Medicine Hematology & Oncology
DX: D50.9 Iron deficiency anemia, unspecified (principal); N18.9 Chronic kidney disease, unspecified; I50.9 Heart failure, unspecified; M06.9 Rheumatoid arthritis, unspecified; E11.9 Type 2 diabetes mellitus without complications; Z79.899 Other long term (current) drug therapy
CPT/HCPCS: 36415; 82728; 83540; 83550; 85025; 99214

== ENCOUNTER 2021-06-04 08:03 | Outpatient (CLI) | payer MEDICARE, SELFPAY ==
[2021-06-04] MEDS: sodium chloride 0.9% 500 ML IV (08:50)
[2021-06-04] MEDS: acetaminophen 325 mg Tablet 650 MG PO (08:50)
[2021-06-04] MEDS: diphenhydrAMINE 50 mg/mL SDV 1mL 25 MG IVP (08:50)
[2021-06-04] MEDS: iron dextran 25 MG in SYRINGE 1 EACH 30 MG IVP (09:25)
== END 2021-06-04 08:04 | disposition home or self-care (01) ==
PROVIDERS: PCP Physician Assistant; Visit Provider Internal Medicine Medical Oncology
DX: D50.9 Iron deficiency anemia, unspecified (principal)
CPT/HCPCS: 96365; 96366; 96375; J1100; J1200; J1750; J7030; J7040

== ENCOUNTER 2021-08-06 11:29 | Oncology outpatient (recurring) (ONCR) | payer MEDICARE, SELFPAY ==
[2021-08-06 12:03] LABS: Basophils # 0.1 10^3/uL (0.0-0.1); Basophils % 0.6 %; Eosinophils # 0.2 10^3/uL (0.0-0.8); Hematocrit 31.5 % (37.0-47.0); Hemoglobin 9.3 g/dL (11.5-15.3); Lymphocytes # 1.1 10^3/uL (0.8-4.8); Mean Corpuscular HGB Conc 29.5 g/dL (30.0-36.0); Mean Corpuscular Hemoglobin 28.4 pg (28.0-34.0); Mean Corpuscular Volume 96.3 fl (81-99); Mean Platelet Volume 10.6 fL (7.4-10.4); Monocytes # 0.6 10^3/uL (0.2-0.9); Monocytes % 7.4 %; Neutrophils # 6.51 10^3/uL (1.8-7.7); Neutrophils % 75.8 %; Nucleated Red Blood Cells % 0 %; Platelet Count 162 10^3/cmm (130-400); Red Blood Count 3.27 10^6/uL (4.1-5.3); Red Cell Distribution Width 15.9 % (12.1-15.1); White Blood Count 8.6 10^3/uL (4.0-10.0)
[2021-08-06 12:33] LABS: Ferritin 485 ng/mL (15-150); Iron 70 ug/dL (37-145); Percent Saturation 31.5 % (20-50); Total Iron Binding Capacity 222 mcg/dl; Unsaturated Iron Binding 152 ug/dL (112-347)
== END 2021-08-30 23:59 | disposition home or self-care (01) ==
PROVIDERS: Internal Medicine Hematology & Oncology; PCP Physician Assistant; Referring Provider Physician Assistant; Visit Provider Nurse Practitioner Family
DX: D50.9 Iron deficiency anemia, unspecified (principal); I13.0 Hypertensive heart and chronic kidney disease with heart failure and stage 1 through stage 4 chronic kidney disease, or unspecified chronic kidney disease; E11.22 Type 2 diabetes mellitus with diabetic chronic kidney disease; N18.9 Chronic kidney disease, unspecified; I50.9 Heart failure, unspecified; M05.79 Rheumatoid arthritis with rheumatoid factor of multiple sites without organ or systems involvement; R53.1 Weakness; Z79.899 Other long term (current) drug therapy; Z79.4 Long term (current) use of insulin
CPT/HCPCS: 36415; 82728; 83540; 83550; 85025; 99214

== ENCOUNTER 2021-08-13 12:38 | Emergency (ER) | payer MEDICARE, SELFPAY ==
[2021-08-13 12:51] VITALS: BP 143/60; PULSE 74; RESP 16; TEMP 36.9; O2SAT 95
--- NOTE | 2021-08-13 14:42 | XR_ITS ---
WS: [id number] PORTABLE CHEST HISTORY: chest pain COMPARISON: 04/10/2021 LEFT subclavian pacer/defibrillator. Lungs are clear and well expanded. No pleural effusion or pneumothorax. Cardiac size: Normal. Mediastinum/Aorta: Mild atherosclerosis aorta. No osseous abnormality seen. XR/XR chest 1V portable [id number] IMPRESSION: Stable chest. No acute cardiopulmonary disease.
--- NOTE | 2021-08-13 14:42 | ECG_ITS ---
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 Measurements Intervals [place] Rate: 86 P: 70 AL: 172 QRS: 236 QRSD: 149 T: 2 QT: 430 QTc: 516 Interpretive Statements ELECTRONIC VENTRICULAR PACEMAKER, PVCs ABNORMAL RHYTHM ECG Compared to ECG 04/10/2021 17:45:28 No significant changes Electronically Signed On 08-13-2021 19:41:39 CDT by Derik Worthington M.D. [id number]
[2021-08-13 16:13] VITALS: BP 214/82; PULSE 79; RESP 18; O2SAT 100
[2021-08-13 16:27] LABS: Basophils % 0.4 %; Eosinophils # 0.2 10^3/uL (0.0-0.8); Eosinophils % 2.2 %; Hematocrit 30.2 % (37.0-47.0); Hemoglobin 9.7 g/dL (11.5-15.3); Lymphocytes # 1.4 10^3/uL (0.8-4.8); Lymphocytes % 12.9 %; Mean Corpuscular HGB Conc 32.1 g/dL (30.0-36.0); Mean Corpuscular Hemoglobin 28.2 pg (28.0-34.0); Mean Corpuscular Volume 87.8 fl (81-99); Mean Platelet Volume 11.8 fL (7.4-10.4); Monocytes # 0.7 10^3/uL (0.2-0.9); Monocytes % 6.7 %; Neutrophils # 8.09 10^3/uL (1.8-7.7); Neutrophils % 76.9 %; Nucleated Red Blood Cells % 0 %; Platelet Count 177 10^3/cmm (130-400); Red Blood Count 3.44 10^6/uL (4.1-5.3); Red Cell Distribution Width 15.7 % (12.1-15.1); White Blood Count 10.5 10^3/uL (4.0-10.0)
--- NOTE | 2021-08-13 16:37 | W.ED.SOB ---
HPI - SOB/Dyspnea General: Chief Complaint: Shortness of Breath/Dyspnea Stated Complaint: SOB, Chest Hurts, Headache Time Seen by Provider: 08/13/21 16:14 Source: patient Mode of arrival: ambulatory Limitations: no limitations History of Present Illness: HPI Narrative: 76-year-old female who presents to the emergency room with complaints of shortness of breath nausea headache for last 3 days. She normally wears 3 L by nasal cannula at home. She is still maintaining good oxygen sat on 3 L she has no significant fluid increase. She denies any chest pain no fever sweats or chills has had increasing orthopnea MD elicited complaint: shortness of breath Pertinent past history: COPD Onset (ago): day(s) (3) Timing: constant Severity: mild Exacerbating factors: exertion and coughing Relieving factors: oxygen and rest Known history of: COPD Associated symptoms: Deny abdominal pain, chest congestion, chest pain, cough, diaphoresis, dizziness, extremity pain, fever(s), hemoptysis, lightheadedness, myalgias, nausea, orthopnea, palpitations, paresthesias, polydipsia, polyuria, rash, sense of impending doom, syncope or vomiting Treatment prior to arrival: none Review of Systems Const: Denies: fever(s) or diaphoresis ENMT: Denies: throat pain, ear or mastoid pain, nasal discharge or nasal congestion Card: Denies: chest pain, palpitations, lightheadedness, syncope or orthopnea Resp: Denies: hemoptysis or chest congestion GI: Denies: abdominal pain, nausea or vomiting : Denies: flank pain, difficulty voiding, dysuria, urinary frequency or urinary urgency Musc: Denies: extremity pain Skin/Breast: Denies: rash or pruritus Neuro: Denies: dizziness Endo: Denies: polyuria or polydipsia PFSH ED PFSH: Medical History AICD malfunction Anemia Cardiac resynchronization therapy defibrillator (CLINICAL SERVICES MANAGER-D) in place Cardiomyopathy Carpal tunnel syndrome Carpal tunnel syndrome of right wrist CHF (congestive heart failure), NYHA class III Chronic diastolic heart failure Echocardiogram done in September 2019 showed EF of 60%, grade 1 diastolic dysfunction, normal RV functions. 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 Surgical History History of appendectomy History of hysterectomy with bilateral oophorectomy S/P ICD (internal cardiac defibrillator) procedure Family History Mother Diabetes Hypertension CHF (congestive heart failure) Other CAD (coronary artery disease) Cancer Hyperlipidemia Lung disease Denies family history of Rheumatoid arthritis Lupus Chronic kidney disease (CKD) Stroke Social History Smoking and tobacco status: never smoked Quit status (tobacco): has quit using tobacco Year quit tobacco: 2010 Former quit date comment: 1ppd x 45years Second hand smoke exposure: No Alcohol intake: never Household members: spouse Housing: House Marital status: History of recent travel: No Current gender identity: Female Physical Exam Const: COMMON NORMALS: no acute distress GENERAL APPEARANCE: cooperative and comfortable ORIENTATION/CONSCIOUSNESS: Yes awake, Yes oriented to person, Yes oriented to place and Yes oriented to time HENMT: COMMON NORMALS: normocephalic, atraumatic and hearing grossly normal bilaterally HEAD & SCALP: normocephalic and atraumatic Neck/C-Spine: COMMON NORMALS: no JVD Resp: COMMON NORMALS: normal respiratory effort, No retractions and No use of accessory muscles AUSCULTATION: crackles and wheezes Cardio: COMMON NORMALS: no JVD, regular rate, regular rhythm and No murmurs present (Cardio) RATE: regular rate RHYTHM: regular rhythm GI: COMMON NORMALS: Soft to palpation and No hepatosplenomegaly present AUSCULTATION: Yes normoactive bowel sounds PALPATION: Yes Soft to palpation, No Tenderness to palpation present (GI), No Guarding due to palpation present (GI) and Yes No hepatosplenomegaly present Extremity: COMMON NORMALS: normal to inspection, capillary refill normal, no clubbing, cyanosis or edema, no calf tenderness and no pedal edema Neuro: SENSORIUM/ORIENTATION: Yes oriented to person, Yes oriented to place and Yes oriented to time Skin: COMMON NORMALS: no rashes or lesions noted GENERAL SKIN EXAM: no rashes or lesions noted Course Vital Signs: Vital signs: Vital Signs Temperature 98.4 F 08/13/21 12:51 Pulse Rate 82 08/13/21 18:47 Respiratory Rate 18 08/13/21 18:47 Blood Pressure 185/65 08/13/21 18:47 Pulse Oximetry 99 08/13/21 18:47 MDM - SOB/Dyspnea Medical Decision Making Patient improved with interventions. She is feeling much better we will go ahead and discharge her home. Increase Lasix to 80 mg daily and recheck within the next 3 to 4 days. Return to the ER if has further problems Medical Records I reviewed the patient's medical records. Lab Data I reviewed the patient's lab results. : 08/13/21 16:18 08/13/21 16:18 Labs/Radiology: Radiology Impressions Chest X-Ray 08/13/21 14:42 IMPRESSION: Stable chest. No acute cardiopulmonary disease. Laboratory Results WBC 10.5 10^3/uL (4.0-10.0) H 08/13/21 16:18 RBC 3.44 10^6/uL (4.1-5.3) L 08/13/21 16:18 Hgb 9.7 g/dL (11.5-15.3) L 08/13/21 16:18 Hct 30.2 % (37.0-47.0) L 08/13/21 16:18 MCV 87.8 fl (81-99) 08/13/21 16:18 MCH 28.2 pg (28.0-34.0) 08/13/21 16:18 MCHC 32.1 g/dL (30.0-36.0) 08/13/21 16:18 RDW 15.7 % (12.1-15.1) H 08/13/21 16:18 Plt Count 177 10^3/cmm (130-400) 08/13/21 16:18 MPV 11.8 fL (7.4-10.4) H 08/13/21 16:18 Neut % (Auto) 76.9 % 08/13/21 16:18 Lymph % (Auto) 12.9 % 08/13/21 16:18 [place] % (Auto) 6.7 % 08/13/21 16:18 Eos % (Auto) 2.2 % 08/13/21 16:18 Baso % (Auto) 0.4 % 08/13/21 16:18 Neut # (Auto) 8.09 10^3/uL (1.8-7.7) H 08/13/21 16:18 Lymph # (Auto) 1.4 10^3/uL (0.8-4.8) 08/13/21 16:18 [place] # (Auto) 0.7 10^3/uL (0.2-0.9) 08/13/21 16:18 Eos # (Auto) 0.2 10^3/uL (0.0-0.8) 08/13/21 16:18 Baso # (Auto) 0.0 10^3/uL (0.0-0.1) 08/13/21 16:18 Nucleated RBC % (auto) 0 % 08/13/21 16:18 Nucleated RBCs # 0.0 /100WBC 08/13/21 16:18 Sodium 142 mmol/L (136-145) 08/13/21 16:18 Potassium 3.8 mmol/L (3.5-5.1) 08/13/21 16:18 Chloride 99 mmol/L (98-107) 08/13/21 16:18 Carbon Dioxide 29 mmol/L (22-29) 08/13/21 16:18 Anion Gap 17.8 (5-19) 08/13/21 16:18 BUN 28 mg/dL (8-23) H 08/13/21 16:18 Creatinine 1.7 mg/dL (0.5-0.9) H 08/13/21 16:18 GFR Calculation Not Reportable 08/13/21 16:18 Glucose 221 mg/dL (65-115) H 08/13/21 16:18 Calculated Osmolality 306 mOsm/kg (285-295) H 08/13/21 16:18 Calcium 9.1 mg/dL (8.5-10.5) 08/13/21 16:18 Total Bilirubin 0.2 mg/dL (0.15-1.2) 08/13/21 16:18 AST 21 U/L (0-32) 08/13/21 16:18 ALT 31 U/L (0-33) 08/13/21 16:18 Alkaline Phosphatase 60 IU/L (35-105) 08/13/21 16:18 Troponin T Baseline 32 ng/L (0-10) H 08/13/21 16:18 Troponin T 120 Minute 37.38 ng/L (0-10) H 08/13/21 18:15 Delta Troponin T 5.38 ABS# (0-10) 08/13/21 18:15 NT-Pro-B Natriuret Pep 1389 pg/mL (0-125) H 08/13/21 16:18 Total Protein 7.5 g/dL (6.6-8.7) 08/13/21 16:18 Albumin 4.5 g/dL (3.5-5.2) 08/13/21 16:18 Globulin 3.0 g/dL (1.3-4.6) 08/13/21 16:18 Discharge Plan Discharge Patient Disposition: Home Clinical Impression: CHF (congestive heart failure), NYHA class III Condition: Stable Prescriptions: New Lasix 80 mg tablet 80 mg PO DAILY Qty: 30 0RF No Action aspirin 81 mg tablet,delayed release (DR/EC) 81 mg PO QPM 0RF Tresiba FlexTouch U-200 200 unit/mL (3 mL) insulin pen 74 unit SUBCUT QAM 0RF amlodipine 5 mg tablet 5 mg PO QAM 0RF zolpidem 10 mg tablet 10 mg PO BEDTIME 0RF omeprazole 40 mg capsule,delayed release(DR/EC) 40 mg PO QAM 0RF ascorbate calcium (vitamin C) 500 mg tablet 500 mg PO BID 0RF cholecalciferol (vitamin D3) 25 mcg (1,000 unit) capsule 25 mcg PO QAM 0RF albuterol sulfate 90 mcg/actuation HFA aerosol inhaler 1 inh inhalation QID PRN (Reason: shortness of breath or wheezing) Qty: 8.5 3RF Xeljanz 5 mg tablet 5 mg PO BID Qty: 60 3RF prednisone 5 mg tablet See Rx Instructions PO .COMPLEX PRN (Reason: joint pain flare) Qty: 60 1RF Rx Instructions: take 1 tab daily for 3-5 days prn PO PRN; nitroglycerin [Nitrostat] 0.4 mg tablet, sublingual 0.4 mg sublingual Q5M PRN (Reason: chest pain) Qty: 50 1RF Rx Instructions: do not exceed 3 doses per episode fluticasone propion-salmeterol 100-50 mcg/dose blister with device 1 ea INHALATION BID Qty: 60 3RF cyanocobalamin (vitamin B-12) [Vitamin B-12] 1,000 mcg Tablet 1,000 mcg PO BID 0RF isosorbide mononitrate 60 mg tablet extended release 24 hr 60 mg PO QAM 0RF potassium gluconate 595 mg (99 mg) tablet 595 mg PO QPM 0RF furosemide [Lasix] 40 mg tablet 60 mg PO QAM Qty: 45 0RF garlic Tablet 300 mg PO DAILY 0RF carvedilol 12.5 mg tablet 12.5 mg PO BID 0RF hydralazine 25 mg tablet See Rx Instructions .ROUTE .COMPLEX 0RF Rx Instructions: 125mg morning and 25mg at night Discharge Orders: Discharge ED (Routine); Ordered 08/13/21 Ordered By: Terry Peguero Referrals: Nancy Swan PA [Primary Care Provider] - Discharge Diet: Low Salt Discharge Activity: Limit activity as instructed Patient Instructions: Opioid Safety Activity Restrictions/Additional Instructions: Increase your Lasix to 80 mg daily. Recheck with cardiology office in 3 to 4 days. Return to the emergency room if further problems. Continue oxygen daily. Coding Level of Care Code ED Wort Extractor for Ora Kerr
--- NOTE | 2021-08-13 16:42 | ECG_ITS ---
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 Measurements Intervals [place] Rate: 79 P: 71 RI: 166 QRS: 249 QRSD: 156 T: 38 QT: 426 QTc: 489 Interpretive Statements AV paced rhythm with occasional PVCs ABNORMAL RHYTHM ECG WARNING: DATA QUALITY MAY AFFECT INTERPRETATION Compared to ECG 08/13/2021 12:56:35 No significant changes Electronically Signed On 08-13-2021 19:48:31 CDT by Derik Worthington M.D. [id number]
[2021-08-13 16:48] LABS: Troponin(5th) Baseline 32 ng/L (0-10)
[2021-08-13 16:56] LABS: Alanine Aminotransferase 31 U/L (0-33); Albumin Level 4.5 g/dL (3.5-5.2); Alkaline Phosphatase 60 IU/L (35-105); Anion Gap 17.8 (5-19); Aspartate Amino Transferase 21 U/L (0-32); Blood Urea Nitrogen 28 mg/dL (8-23); Calcium 9.1 mg/dL (8.5-10.5); Carbon Dioxide 29 mmol/L (22-29); Chloride 99 mmol/L (98-107); Glucose 221 mg/dL (65-115); NT Pro B Type Natriuretic Pept 1389 pg/mL (0-125); Osmolality Calculated 306 mOsm/kg (285-295); Potassium 3.8 mmol/L (3.5-5.1); Sodium 142 mmol/L (136-145); Total Bilirubin 0.2 mg/dL (0.15-1.2); Total Protein 7.5 g/dL (6.6-8.7)
--- NOTE | 2021-08-13 16:56 | PC.NURSE ---
EKG done at 1645 and shown to ER doctor
[2021-08-13 17:19] LABS: Slide Review Slide Review Perform
[2021-08-13] MEDS: LORazepam 2 mg/mL INJ 1 mL 1 MG IVP (18:02)
[2021-08-13] MEDS: FUROsemide 10 mg/mL SDV 10mL 60 MG IVP (18:03)
[2021-08-13 18:09] VITALS: BP 188/77; PULSE 81; RESP 18; O2SAT 99
[2021-08-13 18:47] VITALS: BP 185/65; PULSE 82; RESP 18; O2SAT 99
[2021-08-13 19:13] LABS: Troponin 5 2HR 37.38 ng/L (0-10)
[2021-08-13 19:15] LABS: Troponin 5 2HR Delta 5.38 ABS# (0-10)
== END 2021-08-13 18:48 | disposition home or self-care (01) ==
PROVIDERS: Physician Assistant; Emergency Provider Family Medicine; PCP Physician Assistant
DX: I11.0 Hypertensive heart disease with heart failure (principal); I50.30 Unspecified diastolic (congestive) heart failure; E11.9 Type 2 diabetes mellitus without complications; I42.9 Cardiomyopathy, unspecified; J44.9 Chronic obstructive pulmonary disease, unspecified; D50.9 Iron deficiency anemia, unspecified; Z79.52 Long term (current) use of systemic steroids; Z79.899 Other long term (current) drug therapy
CPT/HCPCS: 71045; 80053; 83880; 84484; 85025; 93005; 96374; 96375; 99284; J1940; J2060

== ENCOUNTER → 2021-08-24 10:28 | Outpatient (BNVA) | payer MEDICARE, SELFPAY | PROVIDERS: PCP Physician Assistant; Visit Provider Nurse Practitioner Family | DX: I11.0 Hypertensive heart disease with heart failure (principal); I50.9 Heart failure, unspecified; Z95.810 Presence of automatic (implantable) cardiac defibrillator | CPT/HCPCS: 99214 ==

== ENCOUNTER 2021-09-06 10:07 | Oncology outpatient (recurring) (ONCR) | payer MEDICARE, SELFPAY ==
[2021-09-06 10:43] LABS: Basophils % 0.4 %; Eosinophils # 0.3 10^3/uL (0.0-0.8); Eosinophils % 3.6 %; Hematocrit 26.6 % (37.0-47.0); Hemoglobin 8.5 g/dL (11.5-15.3); Lymphocytes # 0.8 10^3/uL (0.8-4.8); Lymphocytes % 10.4 %; Mean Corpuscular Hemoglobin 28.5 pg (28.0-34.0); Mean Corpuscular Volume 89.3 fl (81-99); Mean Platelet Volume 10.3 fL (7.4-10.4); Monocytes # 0.7 10^3/uL (0.2-0.9); Neutrophils # 5.34 10^3/uL (1.8-7.7); Neutrophils % 74.1 %; Nucleated Red Blood Cells % 0.3 %; Platelet Count 156 10^3/cmm (130-400); Red Blood Count 2.98 10^6/uL (4.1-5.3); White Blood Count 7.2 10^3/uL (4.0-10.0)
[2021-09-06 10:50] LABS: Bilirubin Urine Neg (Negative); Blood Urine Neg (Negative); Glucose Urine UA 2+ (Normal); Ketones Urine Negative (Negative); Leukocyte Esterase Urine Negative (Negative); Nitrate Urine Negative (Negative); Protein Urine 1+ (Negative); Specific Gravity, Urine 1.015 (1.005-1.030); Urine Appearance Clear (CLEAR); Urine Color Yellow (Yellow); Urobilinogen Urine Norm (Negative); pH Urine 5 (5-7)
[2021-09-06 10:55] LABS: Add Urine Culture? No; Bacteria Urine TRACE /hpf; RBC Urine 0-4 /hpf (0-2)
[2021-09-06 11:07] LABS: Ferritin 433 ng/mL (15-150); Iron 39 ug/dL (37-145)
[2021-09-06 11:13] LABS: Percent Saturation 19.7 % (20-50); Total Iron Binding Capacity 197 mcg/dl; Unsaturated Iron Binding 158 ug/dL (112-347)
[2021-09-06 12:33] LABS: Creatinine Urine, Random 105 mg/dL (28-217); Total Protein, Random Urine 84.3 mg/dL (0.0-20.0)
[2021-09-06 12:45] LABS: Microalbum Creatinine Ratio Ur 410 mg/dL (0-20); Microalbumin Random Urine 43 ug/dL (0-20)
== END 2021-09-30 23:59 | disposition home or self-care (01) ==
PROVIDERS: Internal Medicine Hematology & Oncology; PCP Physician Assistant; Referring Provider Physician Assistant; Visit Provider Nurse Practitioner Family
DX: E11.22 Type 2 diabetes mellitus with diabetic chronic kidney disease (principal); N18.9 Chronic kidney disease, unspecified; Z79.4 Long term (current) use of insulin; D63.1 Anemia in chronic kidney disease; I50.32 Chronic diastolic (congestive) heart failure; M06.9 Rheumatoid arthritis, unspecified
CPT/HCPCS: 36415; 81001; 82044; 82728; 83540; 83550; 84156; 85025; 99214

== ENCOUNTER → 2021-09-19 11:09 | Outpatient (BNVA) | payer MEDICARE, SELFPAY | PROVIDERS: PCP Physician Assistant; Visit Provider Internal Medicine Rheumatology | DX: M05.79 Rheumatoid arthritis with rheumatoid factor of multiple sites without organ or systems involvement (principal); Z79.899 Other long term (current) drug therapy; D64.9 Anemia, unspecified; J44.9 Chronic obstructive pulmonary disease, unspecified; E11.9 Type 2 diabetes mellitus without complications; Z79.4 Long term (current) use of insulin; Z87.891 Personal history of nicotine dependence; Z95.0 Presence of cardiac pacemaker; Z86.19 Personal history of other infectious and parasitic diseases | CPT/HCPCS: 99214 ==

== ENCOUNTER → 2021-09-20 11:33 | Outpatient (BNVA) | payer MEDICARE, SELFPAY | PROVIDERS: PCP Physician Assistant; Visit Provider Internal Medicine Cardiovascular Disease | DX: I42.9 Cardiomyopathy, unspecified (principal); J44.9 Chronic obstructive pulmonary disease, unspecified; D64.9 Anemia, unspecified; Z95.810 Presence of automatic (implantable) cardiac defibrillator; I11.0 Hypertensive heart disease with heart failure; I50.9 Heart failure, unspecified; Z87.891 Personal history of nicotine dependence | CPT/HCPCS: 99214 ==

== ENCOUNTER 2021-09-21 11:33 | Outpatient (CLI) | payer MEDICARE, SELFPAY ==
--- NOTE | 2021-09-21 11:15 | USCV_ITS ---
Peri Monge Age: 76 Gender: F : 1945 Exam Date: 09/21/2021 12:11 Ordering Phys: Anum Recio Technologist: DEMETRIUS Exam Location: [facility] [place] Indication: SOB BP: 160 / 66 HR: 57 Rhythm: Sinus Technical Quality: MEASUREMENTS (Male / Female) Normal Values 2D ECHO LV Diastolic Diameter PLAX 4.1 cm 4.2 - 5.9 / 3.9 - 5.3 cm LV Systolic Diameter PLAX 3.2 cm IVS Diastolic Thickness 1.3 cm 0.6 - 1.0 / 0.6 - 0.9 cm IVS Systolic Thickness 1.4 cm LVPW Diastolic Thickness 1.7 cm 0.6 - 1.0 / 0.6 - 0.9 cm LVPW Systolic Thickness 1.7 cm LVOT Diameter 2.0 cm LV Ejection Fraction 2D Teich 44.4 % LV Ejection Fraction MOD 2C 51.9 % LV Ejection Fraction 2C AL 51.3 % LA Diameter 3.0 cm LA Width 3.3 cm LA Height 4.6 cm Aorta at Sinotubular Diameter 2.5 cm M-MODE MV E Point Septal Separation 0.6 cm DOPPLER AV Peak Velocity 156.0 cm/s LVOT Peak Velocity 98.0 cm/s AV Area Cont Eq vti 1.9 cm squared AV Area Cont Eq pk 2.0 cm squared MV Area PHT 3.2 cm squared Mitral E to A Ratio 1.1 MV E' Velocity 50.0 cm/s Mitral E to MV E' Ratio 11.9 Mitral E to LV E' Lateral Ratio 17.3 Mitral E to LV E' Septal Ratio 9.2 TR Peak Velocity 353.0 cm/s TR Peak Gradient 49.8 mmHg PV Peak Velocity 121.0 cm/s FINDINGS Left Ventricle Normal LV size with borderline low ejection fraction of 52%. Mild diffuse hypokinesia of the septum and anteroseptal segments. Mild concentric left ventricular hypertrophy Right Ventricle Pacemaker wire in the right ventricle Right Atrium Pacemaker wire in the right atrium Left Atrium The left atrium is normal in size. Mitral Valve Mild mitral valve regurgitation. Aortic Valve No gross abnormalities noted Tricuspid Valve No gross abnormalities noted. Pulmonic Valve No gross abnormalities noted Pericardium No pericardial effusion. Aorta Normal aortic annulus size. IVC Normal inferior vena cava. CONCLUSIONS Normal LV size with borderline low ejection fraction of 52%. Mild diffuse hypokinesia of the septum and anteroseptal segments. Mild concentric left ventricular hypertrophy. Mild mitral valve regurgitation. Pacemaker wire in the right atrium and right ventricle There is no pericardial effusion. There are no intracardiac masses. Compared to the study from 10/01/2019, there is slight drop in the LV ejection fraction from 60% to 52% Dr Derik Worthington MD [facility] (Electronically Signed) Final Date: 22 September 2021 16:07 S
== END 2021-09-21 11:34 | disposition home or self-care (01) ==
LOC: RAD 11:35
PROVIDERS: PCP Physician Assistant; Visit Provider Nurse Practitioner Family
DX: I42.8 Other cardiomyopathies (principal); I50.9 Heart failure, unspecified; Z95.810 Presence of automatic (implantable) cardiac defibrillator; I34.0 Nonrheumatic mitral (valve) insufficiency
CPT/HCPCS: 93306

== ENCOUNTER 2021-10-24 12:53 | Outpatient (CLI) | payer MEDICARE, SELFPAY ==
[2021-10-24 13:56] LABS: Basophils % 0.4 %; Eosinophils # 0.2 10^3/uL (0.0-0.8); Eosinophils % 2.1 %; Hematocrit 29.9 % (37.0-47.0); Hemoglobin 9.1 g/dL (11.5-15.3); Lymphocytes # 1.3 10^3/uL (0.8-4.8); Mean Corpuscular HGB Conc 30.4 g/dL (30.0-36.0); Mean Corpuscular Hemoglobin 26.9 pg (28.0-34.0); Mean Corpuscular Volume 88.5 fl (81-99); Mean Platelet Volume 10.2 fL (7.4-10.4); Monocytes # 0.8 10^3/uL (0.2-0.9); Monocytes % 8.2 %; Neutrophils # 6.64 10^3/uL (1.8-7.7); Neutrophils % 72.5 %; Nucleated Red Blood Cells % 0 %; Platelet Count 168 10^3/cmm (130-400); Red Blood Count 3.38 10^6/uL (4.1-5.3); Red Cell Distribution Width 14.3 % (12.1-15.1); White Blood Count 9.2 10^3/uL (4.0-10.0)
--- NOTE | 2021-10-24 14:27 | US_ITS ---
WS: [id number] RENAL ULTRASOUND HISTORY: CHRONIC KIDNEY DZ-STAGE 4 COMPARISON: None available. TECHNIQUE: 2-D and color Doppler imaging of the kidney submitted. Right kidney: 9.0 cm x 5.3 cm x 4.6 cm. Kidney is low normal size. Marked increased echogenicity throughout the kidney. Increased sinus fat. Cortex of the kidney is lobulated but no mass. Mild thinning of the renal cortex measures 1.1 cm. Left kidney: 9.9 cm x 4.0 cm x 5.8 cm. Low normal size kidney. Increased echogenicity throughout the kidney with lobulated cortex. There is mild thinning of the cortex. Cortex measures 1.0 cm. No mass identified. Increased sinus fat. Aorta: Small caliber mild atherosclerosis. Urinary Bladder: Normal distention. US/US renal BI* [id number] IMPRESSION: 1. Moderate to severe bilateral chronic medical renal disease. 2. No hydronephrosis.
== END 2021-10-24 12:54 | disposition home or self-care (01) ==
LOC: RAD 12:53
PROVIDERS: Internal Medicine Hematology & Oncology; PCP Physician Assistant; Visit Provider Internal Medicine Nephrology
DX: N18.4 Chronic kidney disease, stage 4 (severe)
CPT/HCPCS: 76770; 85025

== ENCOUNTER 2021-10-30 14:41 | Outpatient (CLI) | payer MEDICARE, SELFPAY ==
[2021-10-30 15:46] LABS: Albumin Level 4.2 g/dL (3.5-5.2); Anion Gap 17.6 (5-19); Blood Urea Nitrogen 35 mg/dL (8-23); Calcium 8.9 mg/dL (8.5-10.5); Carbon Dioxide 31 mmol/L (22-29); Chloride 86 mmol/L (98-107); Potassium 4.6 mmol/L (3.5-5.1); Sodium 130 mmol/L (136-145)
[2021-10-30 16:20] LABS: Glucose 749 mg/dL (65-115)
== END 2021-10-30 14:42 | disposition home or self-care (01) ==
PROVIDERS: PCP Physician Assistant; Visit Provider Internal Medicine Nephrology
DX: N18.4 Chronic kidney disease, stage 4 (severe) (principal)
CPT/HCPCS: 80069

== ENCOUNTER 2021-10-30 16:32 | Emergency (ER) | payer MEDICARE, SELFPAY ==
[2021-10-30 16:40] VITALS: BP 173/64; PULSE 81; RESP 18; TEMP 36.3; O2SAT 96; BMI 29.2
--- NOTE | 2021-10-30 17:42 | ED_ITS ---
HPI - General Adult General: Chief complaint: General Medical Stated complaint: Possible high blood sugar Time Seen by Provider: 10/30/21 17:41 History of Present Illness: Patient is a 76-year-old female with history of type 2 diabetes currently on basal insulin only presenting to the emergency room with concerns of hyperglycemia. Patient was tells me that she is waiting on her continuous glucose monitor currently. Patient is due to start on mealtime insulin. However because she is waiting on her machine she has not started. Patient had a glucose earlier today of over 700. Patient set to come to the emergency room for further evaluation. Patient denies any nausea/vomiting, diarrhea, melena/hematochezia. Patient denies any complaints, cough, runny nose, sore throat, chest pain or shortness of breath. At baseline, the patient takes 80u of tresiba daily and has been compliant with her medicine. Onset:earlier today Duration:ongoing Location:home Severity:moderate Associated symptoms: Deny chest pain, dyspnea, nausea, rash, palpitations or vomiting Review of Systems Const: Denies: fever(s) or chills Eyes: Denies: change in vision ENMT: Denies: mouth pain Card: Denies: chest pain or palpitations Resp: Denies: dyspnea or non-productive cough GI: Denies: abdominal pain, nausea, vomiting or diarrhea : Denies: dysuria Musc: Denies: extremity pain Skin/Breast: Denies: rash or new lesions Neuro: Denies: weakness in extremities Psych: Reports: other (Normal mood) Bernabe/Lymph: Denies: easy bruising PFS ED PFSH: Medical History AICD malfunction Anemia Cardiac resynchronization therapy defibrillator (HYPERCIL CORE TRANSFORMER ASSEMBLER-D) in place Cardiomyopathy Carpal tunnel syndrome Carpal tunnel syndrome of right wrist CHF (congestive heart failure), NYHA class III Chronic diastolic heart failure Echocardiogram done in September 2019 showed EF of 60%, grade 1 diastolic dysfunction, normal RV functions. 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 Surgical History History of appendectomy History of hysterectomy with bilateral oophorectomy S/P ICD (internal cardiac defibrillator) procedure Family History Mother Diabetes Hypertension CHF (congestive heart failure) Other CAD (coronary artery disease) Cancer Hyperlipidemia Lung disease Denies family history of Rheumatoid arthritis Lupus Chronic kidney disease (CKD) Stroke Social History Smoking and tobacco status: former smoker Quit status (tobacco): has quit using tobacco Year quit tobacco: 2010 Former quit date comment: 1ppd x 45years Second hand smoke exposure: No Alcohol intake: never Household members: spouse Housing: House Marital status: History of recent travel: No Current gender identity: Female Physical Exam Const: COMMON NORMALS: alert HENMT: COMMON NORMALS: atraumatic HEAD & SCALP: atraumatic MOUTH: moist mucous membranes not abnormal Eye: COMMON NORMALS: EOMs intact bilaterally and conjunctivae normal CONJUNCTIVA: Yes conjunctivae normal Neck/C-Spine: COMMON NORMALS: full ROM and supple Resp: COMMON NORMALS: normal respiratory effort and clear to auscultation bilaterally AUSCULTATION: clear to auscultation bilaterally Cardio: COMMON NORMALS: regular rate RATE: regular rate GI: COMMON NORMALS: Soft to palpation and non-tender PALPATION: Yes Soft to palpation OTHER: No focal TTP. NO guarding rebound, guarding, rigidity. No CVA tenderness to percussion. Neg Watkins/Neg McBurney's point tenderness, no suprabupic tenderness to palpation. Extremity: COMMON NORMALS: full ROM Neuro: SENSORIUM/ORIENTATION: Yes alert MOTOR EXAM: No Abnormal motor strength present and Other motor observations present (no focal motor deficits) Psych: COMMON NORMALS: speech normal SPEECH: Yes normal speech MOOD & AFFECT: Yes euthymic mood Course Vital Signs: Vital signs: Vital Signs Temperature 97.3 F L 10/30/21 16:40 Pulse Rate 75 10/30/21 19:17 Respiratory Rate 18 10/30/21 19:17 Blood Pressure 181/63 10/30/21 19:17 Pulse Oximetry 99 08/30/22 19:17 Oxygen Delivery Me thod 10/30/21 19:17 Oxygen Flow Rate 3 10/30/21 18:28 MDM - General Adult Medical Decision Making Patient is a 76-year-old female with a history of type 2 diabetes presenting to the emergency room with concerns of elevated glucose. On physical exam, patient is hemodynamically stable without any focal findings. Lab work-up showed a glucose of 606 today. Creatinine of 2.0 up from baseline of 1.4-1.7. Patient has a mild anion gap of 20.6. Serum acetest is negative. Do not suspect DKA. S/p NS and 13u of lispro with improvemnt of glucose to <400. Creatinine initially of 2.0 improved to 1.9 on reassessment after IVF. At the present time, patient's creatinine is similar to baseline. Have given patient close follow-up with primary care provider for serial glucose checks. Disposition: Discharge. Patient counseled regarding diagnostic impression, treatment plan. Patient given ED strict return precautions to return for continuation, worsening, or development of new symptoms. Instructed to f/u w/ PCP regarding symptoms today. Patient verbalized understanding. Lab Data : 10/30/21 18:00 10/30/21 21:18 Laboratory Results WBC 11.8 10^3/uL (4.0-10.0) H 10/30/21 18:00 RBC 3.65 10^6/uL (4.1-5.3) L 10/30/21 18:00 Hgb 9.8 g/dL (11.5-15.3) L 10/30/21 18:00 Hct 31.9 % (37.0-47.0) L 10/30/21 18:00 MCV 87.4 fl (81-99) 10/30/21 18:00 MCH 26.8 pg (28.0-34.0) L 10/30/21 18:00 MCHC 30.7 g/dL (30.0-36.0) 10/30/21 18:00 RDW 14.5 % (12.1-15.1) 10/30/21 18:00 Plt Count 198 10^3/cmm (130-400) 10/30/21 18:00 MPV 10.6 fL (7.4-10.4) H 10/30/21 18:00 Neut % (Auto) 77.4 % 10/30/21 18:00 Lymph % (Auto) 11.3 % 10/30/21 18:00 [place] % (Auto) 5.5 % 10/30/21 18:00 Eos % (Auto) 2.6 % 10/30/21 18:00 Baso % (Auto) 0.8 % 10/30/21 18:00 Neut # (Auto) 9.15 10^3/uL (1.8-7.7) H 10/30/21 18:00 Lymph # (Auto) 1.3 10^3/uL (0.8-4.8) 10/30/21 18:00 [place] # (Auto) 0.7 10^3/uL (0.2-0.9) 10/30/21 18:00 Eos # (Auto) 0.3 10^3/uL (0.0-0.8) 10/30/21 18:00 Baso # (Auto) 0.1 10^3/uL (0.0-0.1) 10/30/21 18:00 Nucleated RBC % (auto) 0 % 10/30/21 18:00 Nucleated RBCs # 0.0 /100WBC 10/30/21 18:00 Sodium 134 mmol/L (136-145) L 10/30/21 21:18 Potassium 3.3 mmol/L (3.5-5.1) L 10/30/21 21:18 Chloride 93 mmol/L (98-107) L 10/30/21 21:18 Carbon Dioxide 30 mmol/L (22-29) H 10/30/21 21:18 Anion Gap 14.3 (5-19) 10/30/21 21:18 BUN 31 mg/dL (8-23) H 10/30/21 21:18 Creatinine 1.9 mg/dL (0.5-0.9) H 10/30/21 21:18 GFR Calculation Not Reportable 10/30/21 21:18 Glucose 363 mg/dL (65-115) H 10/30/21 21:18 POC Glucose 384 mg/dL (70-110) H 10/30/21 21:20 Calculated Osmolality 299 mOsm/kg (285-295) H 10/30/21 21:18 Calcium 8.7 mg/dL (8.5-10.5) 10/30/21 21:18 Total Bilirubin 0.3 mg/dL (0.15-1.2) 10/30/21 18:00 AST 23 U/L (0-32) 10/30/21 18:00 ALT 24 U/L (0-33) 10/30/21 18:00 Alkaline Phosphatase 99 U/L (35-105) 10/30/21 18:00 Troponin T Gen 5 ng/L 27 ng/L (0-10) H 10/30/21 21:18 Total Protein 8.2 g/dL (6.6-8.7) 10/30/21 18:00 Albumin 4.4 g/dL (3.5-5.2) 10/30/21 18:00 Globulin 3.8 g/dL (1.3-4.6) 10/30/21 18:00 Urine Color Colorless (Yellow) 10/30/21 18:10 Urine Appearance Clear (CLEAR) 10/30/21 18:10 Urine pH 6 (5-7) 10/30/21 18:10 Ur Specific [place] 1.010 (1.005-1.030) 10/30/21 18:10 Urine Protein Neg (Negative) 10/30/21 18:10 Urine Glucose (UA) 4+ (Normal) H 10/30/21 18:10 Urine Ketones Negative (Negative) 10/30/21 18:10 Urine Blood Neg (Negative) 10/30/21 18:10 Urine Nitrate Negative (Negative) 10/30/21 18:10 Urine Bilirubin Neg (Negative) 10/30/21 18:10 Urine Urobilinogen Norm mg/dL (Negative) 10/30/21 18:10 Ur Leukocyte Esterase Negative (Negative) 10/30/21 18:10 Serum Ketones Negative (Negative) 10/30/21 18:10 Discharge Plan Discharge Patient Disposition: Home Clinical Impression: Hyperglycemia, CKD (chronic kidney disease) Condition: Stable Prescriptions: No Action aspirin 81 mg tablet,delayed release (DR/EC) 81 mg PO QPM Tresiba FlexTouch U-200 200 unit/mL (3 mL) insulin pen 80 unit SUBCUT QAM zolpidem 10 mg tablet 10 mg PO BEDTIME omeprazole 40 mg capsule,delayed release(DR/EC) 40 mg PO QAM ascorbate calcium (vitamin C) 500 mg tablet 500 mg PO BID cholecalciferol (vitamin D3) 25 mcg (1,000 unit) capsule 25 mcg PO QAM albuterol sulfate 90 mcg/actuation HFA aerosol inhaler 1 inh inhalation QID PRN (Reason: shortness of breath or wheezing) Qty: 8.5 3RF metoprolol tartrate 50 mg tablet 50 mg PO BID Qty: 180 5RF nitroglycerin [Nitrostat] 0.4 mg tablet, sublingual 0.4 mg sublingual Q5M PRN (Reason: chest pain) Qty: 50 1RF Rx Instructions: do not exceed 3 doses per episode fluticasone propion-salmeterol 100-50 mcg/dose blister with device 1 ea INHALATION BID Qty: 60 3RF amlodipine 10 mg tablet 10 mg PO QAM Qty: 90 3RF cyanocobalamin (vitamin B-12) [Vitamin B-12] 1,000 mcg Tablet 1,000 mcg PO BID isosorbide mononitrate 60 mg tablet extended release 24 hr 60 mg PO QAM potassium gluconate 595 mg (99 mg) tablet 595 mg PO QPM hydroxyzine HCl 25 mg tablet 25 mg PO BEDTIME clonazepam 0.25 mg tablet,disintegrating 0.25 mg PO BID prednisone 5 mg tablet 5 mg PO DAILY PRN (Reason: joint pain) hydralazine 25 mg tablet See Rx Instructions .ROUTE .COMPLEX Rx Instructions: 125mg morning and 75mg at night furosemide [Lasix] 80 mg tablet 80 mg PO DAILY Qty: 30 0RF Discharge Orders: Discharge ED (Routine); Ordered 10/30/21 Ordered By: Judy Owens Referrals: Nancy Swan PA [Primary Care Provider] - Patient Instructions: Hyperglycemia Activity Restrictions/Additional Instructions: Come back if you have any new or concerning issues. Coding Level of Care Code ED Legal Operations Manager for Ora Fwryan Exam Comprehensive
[2021-10-30 18:06] LABS: Basophils # 0.1 10^3/uL (0.0-0.1); Basophils % 0.8 %; Eosinophils # 0.3 10^3/uL (0.0-0.8); Eosinophils % 2.6 %; Hematocrit 31.9 % (37.0-47.0); Hemoglobin 9.8 g/dL (11.5-15.3); Lymphocytes # 1.3 10^3/uL (0.8-4.8); Lymphocytes % 11.3 %; Mean Corpuscular HGB Conc 30.7 g/dL (30.0-36.0); Mean Corpuscular Hemoglobin 26.8 pg (28.0-34.0); Mean Corpuscular Volume 87.4 fl (81-99); Mean Platelet Volume 10.6 fL (7.4-10.4); Monocytes # 0.7 10^3/uL (0.2-0.9); Monocytes % 5.5 %; Neutrophils # 9.15 10^3/uL (1.8-7.7); Neutrophils % 77.4 %; Nucleated Red Blood Cells % 0 %; Platelet Count 198 10^3/cmm (130-400); Red Blood Count 3.65 10^6/uL (4.1-5.3); Red Cell Distribution Width 14.5 % (12.1-15.1); White Blood Count 11.8 10^3/uL (4.0-10.0)
[2021-10-30 18:24] LABS: Ketone (Acetest) Serum Negative (Negative)
[2021-10-30 18:26] LABS: Glucose Point of Care 592 mg/dL (70-110)
[2021-10-30 18:27] LABS: Albumin Level 4.4 g/dL (3.5-5.2); Alkaline Phosphatase 99 U/L (35-105); Blood Urea Nitrogen 33 mg/dL (8-23); Calcium 9.4 mg/dL (8.5-10.5); Carbon Dioxide 29 mmol/L (22-29); Chloride 83 mmol/L (98-107); Globulin 3.8 g/dL (1.3-4.6); Osmolality Calculated 301 mOsm/kg (285-295); Sodium 128 mmol/L (136-145); Total Bilirubin 0.3 mg/dL (0.15-1.2); Total Protein 8.2 g/dL (6.6-8.7)
[2021-10-30 18:28] VITALS: BP 168/62; PULSE 74; O2SAT 98
[2021-10-30 18:28] LABS: Add Urine Microscopic? NO; Charge for UA Resulting for Rev
[2021-10-30] MEDS: sodium chloride 0.9% 1,000 ML 999 ML IV (18:28)
[2021-10-30 18:29] LABS: Alanine Aminotransferase 24 U/L (0-33); Anion Gap 20.6 (5-19); Aspartate Amino Transferase 23 U/L (0-32); Potassium 4.6 mmol/L (3.5-5.1)
[2021-10-30 18:30] VITALS: BP 168/67
[2021-10-30 18:30] LABS: Glucose 606 mg/dL (65-115)
[2021-10-30 18:32] LABS: Bilirubin Urine Neg (Negative); Blood Urine Neg (Negative); Glucose Urine UA 4+ (Normal); Ketones Urine Negative (Negative); Leukocyte Esterase Urine Negative (Negative); Nitrate Urine Negative (Negative); Protein Urine Neg (Negative); Urine Appearance Clear (CLEAR); Urine Color Colorless (Yellow); Urobilinogen Urine Norm (Negative); pH Urine 6 (5-7)
[2021-10-30] MEDS: insulin lispro 100 unit/1 mL 10 UNIT SUBCUT (19:01)
[2021-10-30 19:17] VITALS: BP 181/63; PULSE 75; RESP 18; O2SAT 99
[2021-10-30] MEDS: ondansetron 2 mg/ML SDV 2 mL 4 MG IVP (19:26)
[2021-10-30 19:56] LABS: Glucose Point of Care 480 mg/dL (70-110)
[2021-10-30] MEDS: sodium chloride 0.9% 500 ML IV (20:39)
[2021-10-30 20:42] LABS: Glucose Point of Care 427 mg/dL (70-110)
[2021-10-30 21:22] LABS: Glucose Point of Care 384 mg/dL (70-110)
[2021-10-30] MEDS: insulin lispro 100 unit/1 mL SUBCUT (21:27)
[2021-10-30 21:48] LABS: Troponin T (5th) Once 27 ng/L (0-10)
[2021-10-30 21:49] LABS: Anion Gap 14.3 (5-19); Blood Urea Nitrogen 31 mg/dL (8-23); Calcium 8.7 mg/dL (8.5-10.5); Carbon Dioxide 30 mmol/L (22-29); Chloride 93 mmol/L (98-107); Glucose 363 mg/dL (65-115); Osmolality Calculated 299 mOsm/kg (285-295); Potassium 3.3 mmol/L (3.5-5.1); Sodium 134 mmol/L (136-145)
[2021-10-30 22:28] LABS: Troponin T (5th) Once 29 ng/L (0-10)
[2021-10-30 22:56] LABS: Glucose Point of Care 309 mg/dL (70-110)
[2021-10-30 23:27] VITALS: BP 172/57; PULSE 73; RESP 18; TEMP 36.7; O2SAT 100
== END 2021-10-30 23:29 | disposition home or self-care (01) ==
PROVIDERS: Family Medicine; Emergency Provider Emergency Medicine; PCP Physician Assistant
DX: E11.65 Type 2 diabetes mellitus with hyperglycemia (principal); E11.22 Type 2 diabetes mellitus with diabetic chronic kidney disease; I13.0 Hypertensive heart and chronic kidney disease with heart failure and stage 1 through stage 4 chronic kidney disease, or unspecified chronic kidney disease; N18.9 Chronic kidney disease, unspecified; I50.9 Heart failure, unspecified; Z79.82 Long term (current) use of aspirin; Z79.4 Long term (current) use of insulin; J44.9 Chronic obstructive pulmonary disease, unspecified; Z86.19 Personal history of other infectious and parasitic diseases; Z95.810 Presence of automatic (implantable) cardiac defibrillator
CPT/HCPCS: 36416; 80048; 80053; 81003; 82009; 82962; 84484; 85025; 96361; 96372; 96374; 99284; J1815; J2405; J7030; J7040

== ENCOUNTER 2021-11-07 12:47 | Oncology outpatient (recurring) (ONCR) | payer MEDICARE, SELFPAY ==
[2021-11-07 13:13] LABS: Basophils # 0.1 10^3/uL (0.0-0.1); Basophils % 0.5 %; Eosinophils # 0.6 10^3/uL (0.0-0.8); Eosinophils % 5.9 %; Hematocrit 31.5 % (37.0-47.0); Hemoglobin 9.6 g/dL (11.5-15.3); Lymphocytes # 1.4 10^3/uL (0.8-4.8); Lymphocytes % 15.1 %; Mean Corpuscular HGB Conc 30.5 g/dL (30.0-36.0); Mean Corpuscular Hemoglobin 26.5 pg (28.0-34.0); Mean Platelet Volume 10.5 fL (7.4-10.4); Monocytes # 0.7 10^3/uL (0.2-0.9); Monocytes % 7.2 %; Neutrophils # 6.52 10^3/uL (1.8-7.7); Neutrophils % 69.7 %; Nucleated Red Blood Cells % 0 %; Platelet Count 177 10^3/cmm (130-400); Red Blood Count 3.62 10^6/uL (4.1-5.3); Red Cell Distribution Width 14.3 % (12.1-15.1); White Blood Count 9.4 10^3/uL (4.0-10.0)
== END 2021-11-30 23:59 | disposition home or self-care (01) ==
PROVIDERS: Internal Medicine Hematology & Oncology; PCP Physician Assistant; Referring Provider Physician Assistant; Visit Provider Nurse Practitioner Family
DX: D50.9 Iron deficiency anemia, unspecified; M06.9 Rheumatoid arthritis, unspecified; Z79.899 Other long term (current) drug therapy
CPT/HCPCS: 36415; 85025; 99214

== ENCOUNTER 2021-11-19 | Outpatient (CLI) | payer MEDICARE, SELFPAY | END 2021-11-19 23:00 | disposition home or self-care (01) | LOC: RT 01-01 01:40 | PROVIDERS: PCP Physician Assistant; Visit Provider Internal Medicine Pulmonary Disease | DX: J44.9 Chronic obstructive pulmonary disease, unspecified (principal) | CPT/HCPCS: 99214 ==

== ENCOUNTER → 2021-11-19 11:05 | Outpatient (BNVA) | payer MEDICARE, SELFPAY | PROVIDERS: PCP Physician Assistant; Visit Provider Internal Medicine Pulmonary Disease | DX: J44.9 Chronic obstructive pulmonary disease, unspecified (principal); R91.8 Other nonspecific abnormal finding of lung field; Z71.89 Other specified counseling; I50.9 Heart failure, unspecified; I42.8 Other cardiomyopathies; T82.11 Breakdown (mechanical) of cardiac electronic device; Z87.891 Personal history of nicotine dependence; M05.9 Rheumatoid arthritis with rheumatoid factor, unspecified; Z79.52 Long term (current) use of systemic steroids | CPT/HCPCS: 99214 ==

== ENCOUNTER → 2022-01-07 11:33 | Outpatient (BNVA) | payer MEDICARE, SELFPAY | PROVIDERS: PCP Physician Assistant; Visit Provider Internal Medicine Rheumatology | DX: M05.79 Rheumatoid arthritis with rheumatoid factor of multiple sites without organ or systems involvement (principal); Z79.899 Other long term (current) drug therapy; I50.9 Heart failure, unspecified; N18.4 Chronic kidney disease, stage 4 (severe); E11.22 Type 2 diabetes mellitus with diabetic chronic kidney disease; Z79.4 Long term (current) use of insulin; Z87.891 Personal history of nicotine dependence; Z95.0 Presence of cardiac pacemaker; Z86.19 Personal history of other infectious and parasitic diseases | CPT/HCPCS: 99214 ==

== ENCOUNTER 2022-01-14 13:03 | Oncology outpatient (recurring) (ONCR) | payer MEDICARE, SELFPAY ==
[2022-01-14 13:36] LABS: Basophils % 0.3 %; Eosinophils # 0.5 10^3/uL (0.0-0.8); Eosinophils % 5.9 %; Hematocrit 31.1 % (37.0-47.0); Hemoglobin 9.1 g/dL (11.5-15.3); Lymphocytes # 1.3 10^3/uL (0.8-4.8); Lymphocytes % 14.7 %; Mean Corpuscular HGB Conc 29.3 g/dL (30.0-36.0); Mean Corpuscular Hemoglobin 25.4 pg (28.0-34.0); Mean Corpuscular Volume 86.9 fl (81-99); Monocytes # 0.7 10^3/uL (0.2-0.9); Monocytes % 7.3 %; Neutrophils # 6.38 10^3/uL (1.8-7.7); Neutrophils % 70.5 %; Nucleated Red Blood Cells % 0 %; Platelet Count 190 10^3/cmm (130-400); Red Blood Count 3.58 10^6/uL (4.1-5.3); White Blood Count 9.1 10^3/uL (4.0-10.0)
[2022-01-14 14:10] LABS: Ferritin 288 ng/mL (15-150); Iron 44 ug/dL (37-145); Percent Saturation 22.1 % (20-50); Total Iron Binding Capacity 199 mcg/dl; Unsaturated Iron Binding 155 ug/dL (112-347)
[2022-01-14 14:48] LABS: Vitamin B12 > 2000 pg/mL (232-1245)
== END 2022-01-30 23:59 | disposition home or self-care (01) ==
PROVIDERS: Internal Medicine Hematology & Oncology; PCP Physician Assistant; Referring Provider Physician Assistant; Visit Provider Nurse Practitioner Family
DX: D50.9 Iron deficiency anemia, unspecified (principal); M06.9 Rheumatoid arthritis, unspecified; Z79.899 Other long term (current) drug therapy; Z79.52 Long term (current) use of systemic steroids; Z87.891 Personal history of nicotine dependence
CPT/HCPCS: 36415; 82607; 82728; 83540; 83550; 85025; 99214

== ENCOUNTER 2022-01-23 10:54 | Outpatient (CLI) | payer MEDICARE, SELFPAY ==
[2022-01-23 12:14] LABS: Anion Gap 13.7 (5-19); Blood Urea Nitrogen 50 mg/dL (8-23); Calcium 9.5 mg/dL (8.5-10.5); Carbon Dioxide 33 mmol/L (22-29); Chloride 96 mmol/L (98-107); Glucose 163 mg/dL (65-115); Phosphorus 3.3 mg/dL (2.5-4.5); Potassium 3.7 mmol/L (3.5-5.1); Sodium 139 mmol/L (136-145)
== END 2022-01-23 10:55 | disposition home or self-care (01) ==
PROVIDERS: PCP Physician Assistant; Visit Provider Internal Medicine Nephrology
DX: N18.4 Chronic kidney disease, stage 4 (severe) (principal)
CPT/HCPCS: 80069

== ENCOUNTER 2022-02-18 10:58 | Day surgery (SDC) | payer MEDICARE, SELFPAY ==
[2022-01-31 14:19] VITALS: BMI 28.6
[2022-02-14 09:16] VITALS: BMI 28.6
--- NOTE | 2022-02-18 11:58 | ANES.PREANE2 ---
Pre-Anesthetic Assessment Height/Weight: Height 1.63 m Weight 75.75 kg Preop Diagnosis: Masses right hand, index, long finger Operation Date: 02/18/22 12:30 Proposed Procedures p Bone Marrow Biospy With Aspiration(Not Applicable) - Raymond Reddy MD Was Beta Lindsay taken within 24 hours: Yes Was Clonidine taken within 24 hours: N/A Social No alcohol and No tobacco quit 15 years ago Exam alert, oriented x 3, clear to auscultation bilaterally and regular rate & rhythm Airway Submandibular: within normal limits Cervical ROM: within normal limits Mallampati: Class II Dentition: full History/ROS No significant history except as noted Pulmonary Chronic Obstructive Pulmonary Disease 3 L NC at home, METS < 4 CV/HEM Stable Angina, Arrythmia, Congestive Heart Failure and Hypertension PPM/defib. patient reports that the defib has been disabled and that the pacing is not appropriate, but she has not agreed to the recommended revision. Chronic Renal Failure stage 4. no dialysis yet Hepatic Hepatitis GI Gastroesophageal Reflux Disease controlled Metabolic Diabetes Mellitus and Hyperlipidemia [facility] [place] Fibromyalgia and Rheumatoid Arthritis chronic steroid usage for RA Neuropsych Anxiety and Neuropathy Anesthetic Plan ASA status: 4 Anesthesia: Anesthesia Evaluation and MAC Risk of > 500 ml blood loss (7ml/kg in children): Yes, adequate IV access and fluids planned Medications/Allergies Home Medications Medication Instructions Recorded Confirmed Last Taken Type aspirin 81 mg tablet,delayed 81 mg PO QPM 06/24/19 02/18/22 02/04/22 History release cholecalciferol (vitamin D3) 25 25 mcg PO QAM 03/09/20 02/18/22 02/17/22 History mcg (1,000 unit) capsule omeprazole 40 mg capsule,delayed 40 mg PO QAM 03/09/20 02/18/22 02/17/22 History release nitroglycerin 0.4 mg sublingual 0.4 mg sublingual Q5M PRN chest 04/21/20 02/18/22 02/17/22 Rx tablet (Nitrostat) pain #50 tabs albuterol sulfate 90 mcg/actuation 1 inh inhalation QID PRN shortness 11/23/20 02/18/22 02/17/22 Rx aerosol inhaler of breath or wheezing #8.5 grams zolpidem 10 mg tablet 10 mg PO BEDTIME 03/21/21 02/18/22 02/17/22 History cyanocobalamin (vitamin B-12) 1,000 mcg PO BID 04/11/21 02/18/22 02/17/22 History 1,000 mcg tablet (Vitamin B-12) potassium gluconate 595 mg (99 mg) 595 mg PO QPM 04/11/21 02/18/22 02/17/22 History tablet furosemide 80 mg tablet (Lasix) 80 mg PO DAILY #30 tabs 08/13/21 02/18/22 02/17/22 Rx metoprolol tartrate 50 mg tablet 50 mg PO BID #180 tabs 09/20/21 02/18/22 02/17/22 Rx amlodipine 10 mg tablet 10 mg PO QAM #90 tabs 10/24/21 02/18/22 02/17/22 Rx isosorbide mononitrate 60 mg 60 mg PO QAM #90 tabs 12/10/21 02/18/22 02/17/22 Rx tablet,extended release 24 hr etanercept 50 mg/mL (1 mL) 50 mg SUBCUT .Q7days #4 mL 01/07/22 02/18/22 02/17/22 Rx subcutaneous syringe (Enbrel) garlic 500 mg capsule 500 mg PO DAILY 01/07/22 02/18/22 02/17/22 History insulin aspart U-100 [Novolog 20 units SUBCUT TID 01/07/22 02/18/22 02/17/22 History U-100 Insulin aspart] prednisone 5 mg tablet 5 mg PO DAILY PRN joint pain #30 01/07/22 02/18/22 02/17/22 Rx tabs ascorbate calcium (vitamin C) 500 1,000 mg PO DAILY 01/14/22 02/18/22 02/17/22 History mg tablet fluticasone propionate 50 2 spray intranasal DAILY 01/14/22 02/18/22 02/17/22 History mcg/actuation nasal spray,suspension (Allergy Relief (fluticasone)) hydralazine 25 mg tablet See Rx Instructions .Route .COMPLEX 01/14/22 02/18/22 02/17/22 History insulin degludec 200 unit/mL (3 90 unit SUBCUT QPM 01/14/22 02/18/22 02/17/22 History mL) subcutaneous pen (Tresiba FlexTouch U-200 insulin) Allergies Allergy/AdvReac Type Severity Reaction Status Date / Time codeine Allergy Severe ALGY-Swell Verified 02/14/22 09:09 Lip/Tongue/Throat Penicillins Allergy ALGY-Swell Verified 02/14/22 09:09 Lip/Tongue/Throat sulfasalazine AdvReac Intermediate made her Verified 02/14/22 09:09 feel very bad [facility] Anesthesia Medical History AICD malfunction Anemia Cardiac resynchronization therapy defibrillator (RADIO EQUIPMENT INSTALLER-D) in place Cardiomyopathy Carpal tunnel syndrome Carpal tunnel syndrome of right wrist CHF (congestive heart failure), NYHA class III Chronic diastolic heart failure Echocardiogram done in September 2019 showed EF of 60%, grade 1 diastolic dysfunction, normal RV functions. Chronic steroid use counseled about blood sugar monitoring Chronic systolic (congestive) heart failure CKD (chronic kidney disease) stage 4, GFR 15-29 ml/min COPD (chronic obstructive pulmonary disease) COPD (chronic obstructive pulmonary disease) Diabetes mellitus Hepatitis B core antibody positive Hepatitis B PCR is negative High risk medication use High risk medication use Hypertension ICD (implantable cardioverter-defibrillator) battery depletion Immunization counseling Iron deficiency anemia, unspecified Non-ischemic cardiomyopathy Peripheral neuropathy Rheumatoid arthritis Rheumatoid arthritis, seropositive, 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 Surgical History History of appendectomy History of hysterectomy with bilateral oophorectomy S/P ICD (internal cardiac defibrillator) procedure Family History Mother Diabetes Hypertension CHF (congestive heart failure) Other CAD (coronary artery disease) Cancer Hyperlipidemia Lung disease Denies family history of Rheumatoid arthritis Lupus Chronic kidney disease (CKD) Stroke Social History Smoking and tobacco status: never smoked Quit status (tobacco): has quit using tobacco Year quit tobacco: 2010 Former quit date comment: 1ppd x 45years Second hand smoke exposure: No Alcohol intake: never Household members: spouse Housing: House Marital status: History of recent travel: No Current gender identity: Female Data Anesthesia 02/18/22 12:10 Cardiac Studies: Echocardiogram 09/21/21 Echocardiogram Ultrasound 10/01/19 Sestamibi Stress Test (Cardiology) 09/30/19
[2022-02-18 12:10] VITALS: BP 184/69; PULSE 72; RESP 18; TEMP 36.2; O2SAT 100
[2022-02-18] MEDS: sodium chloride 0.9% 1,000 ML 30 ML IV (12:21)
[2022-02-18 12:31] LABS: Glucose Point of Care 127 mg/dL (70-110)
[2022-02-18 12:34] LABS: Basophils # 0.1 10^3/uL (0.0-0.1); Basophils % 0.7 %; Eosinophils # 0.5 10^3/uL (0.0-0.8); Hemoglobin 9.5 g/dL (11.5-15.3); Lymphocytes # 1.4 10^3/uL (0.8-4.8); Lymphocytes % 17.1 %; Mean Corpuscular HGB Conc 30.6 g/dL (30.0-36.0); Mean Corpuscular Hemoglobin 26.2 pg (28.0-34.0); Mean Corpuscular Volume 85.6 fl (81-99); Mean Platelet Volume 10.3 fL (7.4-10.4); Monocytes # 0.8 10^3/uL (0.2-0.9); Neutrophils # 5.49 10^3/uL (1.8-7.7); Neutrophils % 66.1 %; Nucleated Red Blood Cells % 0 %; Platelet Count 159 10^3/cmm (130-400); Red Blood Count 3.62 10^6/uL (4.1-5.3); Red Cell Distribution Width 15.9 % (12.1-15.1); White Blood Count 8.3 10^3/uL (4.0-10.0)
--- NOTE | 2022-02-18 12:43 | W.PM.OPSUD ---
Surgery/Procedure H&P Update DATE OF PROCEDURE: February 18, 2022 DATE H&P PERFORMED: 01/14/22 CHANGES TO PREVIOUS DOCUMENTATION: Patient seen and examined, no obvious changes or new symptoms since her last visit to the clinic PREOP DIAGNOSIS: Masses right hand, index, long finger PRIMARY INDICATION FOR PROCEDURE: Progressive anemia PLANNED PROCEDURE: Operation Date: 02/18/22 12:30 Proposed Procedures p Bone Marrow Biospy With Aspiration(Not Applicable) - Raymond Reddy MD
--- NOTE | 2022-02-18 13:02 | P.PCN_ITS ---
Bone Marrow Biopsy Bone Marrow Biopsy: I was consulted by [] office regarding bone marrow biopsy on [Peri Monge]. Briefly, the patient is a [76] year old [Female] with [Anemia]. In the Outpatient Services Department, with nursing staff and laboratory technologists in attendance, the procedure was discussed with the patient. Appropriate consent form had been signed. Appropriate alternatives, benefits and risks of procedure were discussed with the patient and she was pre- operatively assessed with a history and physical by myself and cleared for the biopsy procedure. The patient did request IV sedation and that was provided by the Anesthesia Department.Under aseptic condition, right posterior iliac area was cleaned and prepped, local anesthesia was given, about 15 cc of bone marrow aspirate and core biopsy was obtained, patient tolerated procedure well, specimen was sent for routine histopathology, flow cytometry, cytogenetic and FISH for MDS. Postprocedure nursing instructions were given Thank you for allowing me to participate in this patient's care and diagnosis. Coding Level of Care Code Acute [employer] Senior Officer for Chg Fwd History Problem Focused Exam Problem Focused Medical Decision Making Straight Forward
[2022-02-18 13:04] VITALS: BP 126/52; PULSE 69; RESP 18; TEMP 36.3; O2SAT 100
[2022-02-18 13:21] VITALS: BP 175/75; PULSE 64; RESP 18; O2SAT 100
[2022-02-19 14:54] LABS: Leukemia Profile (BBPL) See Report; Lymphoma Profile (BBPL) See Report
[2022-02-28 07:14] LABS: MDS Panel (BBPL) See Report
[2022-03-01 15:08] LABS: Chromosome Analysis BBPL See Report
== END 2022-02-18 13:37 | disposition home or self-care (01) ==
PROVIDERS: PCP Physician Assistant; Visit Provider Internal Medicine Hematology & Oncology
PROC: 07DT3ZX Extraction of Bone Marrow, Percutaneous Approach, Diagnostic (ICD-10-PCS; CPT 38222; principal; 2022-02-18 12:30)
DX: D64.9 Anemia, unspecified (principal); J44.9 Chronic obstructive pulmonary disease, unspecified; Z99.81 Dependence on supplemental oxygen; E11.22 Type 2 diabetes mellitus with diabetic chronic kidney disease; I13.0 Hypertensive heart and chronic kidney disease with heart failure and stage 1 through stage 4 chronic kidney disease, or unspecified chronic kidney disease; N18.4 Chronic kidney disease, stage 4 (severe); K21.9 Gastro-esophageal reflux disease without esophagitis; E78.5 Hyperlipidemia, unspecified; M06.9 Rheumatoid arthritis, unspecified; E11.40 Type 2 diabetes mellitus with diabetic neuropathy, unspecified; Z79.4 Long term (current) use of insulin; I50.22 Chronic systolic (congestive) heart failure; Z79.52 Long term (current) use of systemic steroids
CPT/HCPCS: 36415; 36416; 38222; 82962; 85025; 88184; 88185; 88237; 88264; 88291; 88305; 88311; 88367; 88374; J2704; J7030

== ENCOUNTER 2022-02-28 13:36 | Oncology outpatient (recurring) (ONCR) | payer MEDICARE, SELFPAY ==
[2022-02-28 13:57] LABS: Basophils % 0.5 %; Eosinophils # 0.4 10^3/uL (0.0-0.8); Eosinophils % 4.4 %; Hematocrit 31.6 % (37.0-47.0); Hemoglobin 9.5 g/dL (11.5-15.3); Lymphocytes # 1.3 10^3/uL (0.8-4.8); Lymphocytes % 15.9 %; Mean Corpuscular HGB Conc 30.1 g/dL (30.0-36.0); Mean Corpuscular Hemoglobin 25.8 pg (28.0-34.0); Mean Corpuscular Volume 85.9 fl (81-99); Mean Platelet Volume 9.8 fL (7.4-10.4); Monocytes # 0.7 10^3/uL (0.2-0.9); Monocytes % 8.2 %; Neutrophils # 5.95 10^3/uL (1.8-7.7); Neutrophils % 70.5 %; Nucleated Red Blood Cells % 0 %; Platelet Count 178 10^3/cmm (130-400); Red Blood Count 3.68 10^6/uL (4.1-5.3); Red Cell Distribution Width 15.9 % (12.1-15.1); White Blood Count 8.4 10^3/uL (4.0-10.0)
== END 2022-03-02 23:59 | disposition home or self-care (01) ==
PROVIDERS: Internal Medicine Hematology & Oncology; PCP Physician Assistant; Visit Provider Nurse Practitioner Family
DX: D50.9 Iron deficiency anemia, unspecified (principal); I50.9 Heart failure, unspecified; J44.9 Chronic obstructive pulmonary disease, unspecified; Z99.81 Dependence on supplemental oxygen; M05.9 Rheumatoid arthritis with rheumatoid factor, unspecified; N18.9 Chronic kidney disease, unspecified; D63.1 Anemia in chronic kidney disease; Z79.899 Other long term (current) drug therapy
CPT/HCPCS: 36415; 85025; 99215

== ENCOUNTER 2022-03-18 08:03 | Oncology outpatient (recurring) (ONCR) | payer MEDICARE, SELFPAY ==
[2022-03-18 08:26] LABS: Basophils % 0.4 %; Eosinophils # 0.4 10^3/uL (0.0-0.8); Eosinophils % 4.3 %; Hematocrit 31.8 % (37.0-47.0); Hemoglobin 9.7 g/dL (11.5-15.3); Lymphocytes # 1.6 10^3/uL (0.8-4.8); Lymphocytes % 16.9 %; Mean Corpuscular HGB Conc 30.5 g/dL (30.0-36.0); Mean Corpuscular Hemoglobin 26.4 pg (28.0-34.0); Mean Corpuscular Volume 86.4 fl (81-99); Mean Platelet Volume 9.8 fL (7.4-10.4); Monocytes # 0.7 10^3/uL (0.2-0.9); Monocytes % 7.3 %; Neutrophils # 6.37 10^3/uL (1.8-7.7); Neutrophils % 69.5 %; Nucleated Red Blood Cells % 0 %; Platelet Count 190 10^3/cmm (130-400); Red Blood Count 3.68 10^6/uL (4.1-5.3); Red Cell Distribution Width 15.7 % (12.1-15.1); White Blood Count 9.2 10^3/uL (4.0-10.0)
[2022-03-18] MEDS: DARBEPOETIN SUBCUT (10:31)
== END 2022-04-02 23:59 | disposition home or self-care (01) ==
PROVIDERS: Internal Medicine Hematology & Oncology; PCP Physician Assistant; Visit Provider Nurse Practitioner Family
DX: E11.22 Type 2 diabetes mellitus with diabetic chronic kidney disease (principal); I12.9 Hypertensive chronic kidney disease with stage 1 through stage 4 chronic kidney disease, or unspecified chronic kidney disease; N18.4 Chronic kidney disease, stage 4 (severe); D63.1 Anemia in chronic kidney disease; Z79.4 Long term (current) use of insulin; Z79.899 Other long term (current) drug therapy; Z87.891 Personal history of nicotine dependence
CPT/HCPCS: 36415; 85025; 96372; 99215; J0881

== ENCOUNTER → 2022-03-26 13:28 | Outpatient (BNVA) | payer MEDICARE, SELFPAY | PROVIDERS: PCP Physician Assistant; Visit Provider Internal Medicine Pulmonary Disease | DX: R91.8 Other nonspecific abnormal finding of lung field (principal); Z87.891 Personal history of nicotine dependence; J44.9 Chronic obstructive pulmonary disease, unspecified; T82.118A Breakdown (mechanical) of other cardiac electronic device, initial encounter; I50.9 Heart failure, unspecified; I42.8 Other cardiomyopathies; Z95.810 Presence of automatic (implantable) cardiac defibrillator; M05.9 Rheumatoid arthritis with rheumatoid factor, unspecified; Z79.52 Long term (current) use of systemic steroids; Y71.8 Miscellaneous cardiovascular devices associated with adverse incidents, not elsewhere classified | CPT/HCPCS: 99214 ==

== ENCOUNTER → 2022-03-28 13:34 | Outpatient (BNVA) | payer MEDICARE, SELFPAY | PROVIDERS: PCP Physician Assistant; Visit Provider Nurse Practitioner Family | DX: I13.0 Hypertensive heart and chronic kidney disease with heart failure and stage 1 through stage 4 chronic kidney disease, or unspecified chronic kidney disease (principal); N18.4 Chronic kidney disease, stage 4 (severe); I50.9 Heart failure, unspecified; E11.22 Type 2 diabetes mellitus with diabetic chronic kidney disease; Z79.4 Long term (current) use of insulin; Z95.810 Presence of automatic (implantable) cardiac defibrillator; Z87.891 Personal history of nicotine dependence | CPT/HCPCS: 99214 ==

== ENCOUNTER 2022-04-08 11:41 | Outpatient (CLI) | payer MEDICARE, SELFPAY ==
[2022-04-08 12:38] LABS: Basophils % 0.4 %; Eosinophils # 0.4 10^3/uL (0.0-0.8); Hematocrit 32.4 % (37.0-47.0); Hemoglobin 9.8 g/dL (11.5-15.3); Lymphocytes # 1.5 10^3/uL (0.8-4.8); Lymphocytes % 13.8 %; Mean Corpuscular HGB Conc 30.2 g/dL (30.0-36.0); Mean Corpuscular Hemoglobin 25.9 pg (28.0-34.0); Mean Corpuscular Volume 85.5 fl (81-99); Mean Platelet Volume 9.9 fL (7.4-10.4); Monocytes # 0.6 10^3/uL (0.2-0.9); Monocytes % 5.5 %; Neutrophils # 8.44 10^3/uL (1.8-7.7); Neutrophils % 75.8 %; Nucleated Red Blood Cells % 0 %; Platelet Count 193 10^3/cmm (130-400); Red Blood Count 3.79 10^6/uL (4.1-5.3); Red Cell Distribution Width 15.5 % (12.1-15.1); White Blood Count 11.1 10^3/uL (4.0-10.0)
[2022-04-08 12:58] LABS: Creatinine Urine, Random 85 mg/dL (28-217); Microalbumin Random Urine 32 ug/dL (0-20)
[2022-04-08 13:00] LABS: Calcium 8.9 mg/dL (8.5-10.5); Iron 20 ug/dL (37-145); Microalbum Creatinine Ratio Ur 376 mg/dL (0-20); Total Iron Binding Capacity 199 mcg/dl; Unsaturated Iron Binding 179 ug/dL (112-347)
[2022-04-08 13:07] LABS: Parathyroid Hormone 68.1 pg/mL (15-65)
[2022-04-13 13:49] LABS: Vit D 1,25 (Oh)2, Total 28 pg/mL (18-72); Vit D2 1,25 (Oh)2 <8 pg/mL; Vit D3 1,25 (Oh)2 28 pg/mL
== END 2022-04-08 11:42 | disposition home or self-care (01) ==
PROVIDERS: PCP Physician Assistant; Visit Provider Internal Medicine
DX: N18.4 Chronic kidney disease, stage 4 (severe) (principal)
CPT/HCPCS: 82044; 82310; 82652; 83540; 83550; 83970; 85025

== ENCOUNTER 2022-04-15 13:37 | Outpatient (CLI) | payer MEDICARE, SELFPAY ==
--- NOTE | 2022-04-15 13:45 | CT_ITS ---
WS: [id number] LDCT LUNG CANCER SCREENING HISTORY: lung screening TECHNIQUE: Axial imaging performed from the apices to 1 cm below the costophrenic angles. Coronal and sagittal reformats are submitted with axial MIP series. All CT scans at [facility] use at least one of these dose optimization techniques: automated exposure control; mA and/or kV adjustment per patient size (includes targeted exams where dose is matched to clinical indication); or iterativ e reconstruction. DLP: 78.90 mGy.cm DIvol: Mean CTDIvol: 1.60 (mGy) COMPARISON: 11/10/2020 Diagnostic quality: Satisfactory Lung Nodules: No pulmonary nodules. Scarring in the posterior RIGHT upper lobe corresponds to a wedge -shaped opacification on the prior study. No endobronchial lesions. Lungs: Hyperexpanded lungs. Mild bronchial thickening and interstitial thickening in the RIGHT upper lobe. No interval change. Heart: Mild cardiomegaly. No pericardial effusion. Other findings: Mild pulmonary hypertension. Moderate atherosclerosis thoracic aorta. No adrenal mass . CT/CT lung screening [id number] IMPRESSION: LUNG-RADS: 2-Benign Appearance or Behavior FOLLOW UP: 12 Month: Continue annual screening with LDCT OTHER FINDINGS (S MODIFIER): None.
== END 2022-04-15 13:38 | disposition home or self-care (01) ==
LOC: RAD 13:39
PROVIDERS: PCP Physician Assistant; Visit Provider Internal Medicine Pulmonary Disease
DX: Z12.2 Encounter for screening for malignant neoplasm of respiratory organs (principal); J44.9 Chronic obstructive pulmonary disease, unspecified; R91.8 Other nonspecific abnormal finding of lung field; Z87.891 Personal history of nicotine dependence
CPT/HCPCS: 71271; 99214

== ENCOUNTER 2022-04-24 10:01 | Oncology outpatient (recurring) (ONCR) | payer MEDICARE, SELFPAY ==
[2022-04-24] MEDS: DARBEPOETIN SUBCUT (13:40)
[2022-04-24 13:45] VITALS: BP 148/88; PULSE 74; RESP 18; TEMP 36.6
== END 2022-04-30 23:59 | disposition home or self-care (01) ==
PROVIDERS: PCP Physician Assistant; Visit Provider Internal Medicine
DX: I11.0 Hypertensive heart disease with heart failure (principal); I50.9 Heart failure, unspecified; D63.8 Anemia in other chronic diseases classified elsewhere; J44.9 Chronic obstructive pulmonary disease, unspecified; Z99.81 Dependence on supplemental oxygen; Z87.891 Personal history of nicotine dependence
CPT/HCPCS: 96401; 99214; 99215; J0881

== ENCOUNTER 2022-04-24 10:19 | Outpatient (CLI) | payer MEDICARE, SELFPAY ==
[2022-04-24 11:40] LABS: Basophils # 0.1 10^3/uL (0.0-0.1); Basophils % 0.6 %; Eosinophils # 0.4 10^3/uL (0.0-0.8); Eosinophils % 3.5 %; Hematocrit 33.7 % (37.0-47.0); Hemoglobin 10.1 g/dL (11.5-15.3); Lymphocytes # 1.2 10^3/uL (0.8-4.8); Lymphocytes % 11.5 %; Mean Corpuscular Hemoglobin 25.9 pg (28.0-34.0); Mean Corpuscular Volume 86.4 fl (81-99); Mean Platelet Volume 10.3 fL (7.4-10.4); Monocytes # 0.6 10^3/uL (0.2-0.9); Neutrophils # 7.87 10^3/uL (1.8-7.7); Neutrophils % 76.8 %; Nucleated Red Blood Cells % 0 %; Platelet Count 188 10^3/cmm (130-400); Red Cell Distribution Width 15.3 % (12.1-15.1); White Blood Count 10.3 10^3/uL (4.0-10.0)
[2022-04-24 12:05] LABS: Alanine Aminotransferase 22 U/L (0-33); Albumin Level 3.9 g/dL (3.5-5.2); Alkaline Phosphatase 70 U/L (35-105); Aspartate Amino Transferase 14 U/L (0-32); C Reactive Protein 48.4 mg/L (0.0-4.9); Globulin 3.6 g/dL (1.3-4.6); Total Bilirubin 0.2 mg/dL (0.15-1.2); Total Protein 7.5 g/dL (6.6-8.7)
[2022-04-24 12:29] LABS: Anion Gap 14.6 (5-19); Blood Urea Nitrogen 49 mg/dL (8-23); Calcium 9.4 mg/dL (8.5-10.5); Carbon Dioxide 29 mmol/L (22-29); Chloride 94 mmol/L (98-107); Glucose 274 mg/dL (65-115); Osmolality Calculated 301 mOsm/kg (285-295); Potassium 3.6 mmol/L (3.5-5.1); Sodium 134 mmol/L (136-145)
== END 2022-04-24 10:20 | disposition home or self-care (01) ==
PROVIDERS: Internal Medicine Hematology & Oncology; PCP Physician Assistant; Visit Provider Internal Medicine Rheumatology
DX: M05.79 Rheumatoid arthritis with rheumatoid factor of multiple sites without organ or systems involvement (principal); D63.8 Anemia in other chronic diseases classified elsewhere; Z79.899 Other long term (current) drug therapy
CPT/HCPCS: 36415; 80048; 80076; 82565; 85025; 86140

== ENCOUNTER 2022-05-22 10:02 | Oncology outpatient (recurring) (ONCR) | payer MEDICARE, SELFPAY ==
[2022-05-08] MEDS: DARBEPOETIN SUBCUT (13:42)
[2022-05-22 09:29] LABS: Basophils # 0.1 10^3/uL (0.0-0.1); Basophils % 0.5 %; Eosinophils # 0.4 10^3/uL (0.0-0.8); Eosinophils % 4.1 %; Hematocrit 35.6 % (37.0-47.0); Hemoglobin 10.2 g/dL (11.5-15.3); Lymphocytes # 1.2 10^3/uL (0.8-4.8); Lymphocytes % 13.3 %; Mean Corpuscular HGB Conc 28.7 g/dL (30.0-36.0); Mean Corpuscular Hemoglobin 25.1 pg (28.0-34.0); Mean Corpuscular Volume 87.5 fl (81-99); Mean Platelet Volume 10.1 fL (7.4-10.4); Monocytes # 0.5 10^3/uL (0.2-0.9); Monocytes % 5.8 %; Neutrophils # 7.01 10^3/uL (1.8-7.7); Neutrophils % 75.5 %; Nucleated Red Blood Cells % 0 %; Platelet Count 207 10^3/cmm (130-400); Red Blood Count 4.07 10^6/uL (4.1-5.3); Red Cell Distribution Width 15.7 % (12.1-15.1); White Blood Count 9.3 10^3/uL (4.0-10.0)
[2022-05-22 09:41] LABS: Ferritin 150 ng/mL (15-150); Iron 39 ug/dL (37-145); Percent Saturation 19.7 % (20-50); Total Iron Binding Capacity 197 mcg/dl; Unsaturated Iron Binding 158 ug/dL (112-347)
== END 2022-05-31 23:59 | disposition home or self-care (01) ==
PROVIDERS: PCP Physician Assistant; Visit Provider Internal Medicine Hematology & Oncology
DX: D63.8 Anemia in other chronic diseases classified elsewhere (principal); N18.9 Chronic kidney disease, unspecified; I12.9 Hypertensive chronic kidney disease with stage 1 through stage 4 chronic kidney disease, or unspecified chronic kidney disease; R53.1 Weakness; R53.83 Other fatigue; Z79.899 Other long term (current) drug therapy; Z87.891 Personal history of nicotine dependence
CPT/HCPCS: 36415; 82728; 83540; 83550; 85025; 96372; 99214; J0881

== ENCOUNTER 2022-08-06 12:22 | Emergency (ER) | payer MEDICARE, SELFPAY ==
[2022-08-06 12:25] VITALS: BP 185/72; PULSE 91; RESP 18; TEMP 36.5; O2SAT 98; BMI 28.3
--- NOTE | 2022-08-06 12:30 | ECG_ITS ---
[facility] Test Date: 2022-08-06 Pat Name: Peri Monge Department: Room: Gender: Female School Standards Coach: : 1945 Requested By: Marcel Jacobson Order Number: [id number] Jacey MD: Adilson Montgomery M.D. Measurements Intervals [place] Rate: 84 P: 71 AR: 181 QRS: 254 QRSD: 145 T: 72 QT: 453 QTc: 537 Interpretive Statements ELECTRONIC VENTRICULAR PACEMAKER Compared to ECG 08/13/2021 15:48:22 Ventricular premature complex(es) no longer present AV dual-paced complex(es) or rhythm no longer present Electronically Signed On 08-07-2022 2:56:10 CDT by Adilson Montgomery M.D. [id number]
--- NOTE | 2022-08-06 12:34 | XRR_ITS ---
PROCEDURE INFORMATION: Exam: XR Chest Exam date and time: 08/06/2022 12:39 PM Age: 76 years old Clinical indication: Pain; Angina pectoris; Prior surgery; Surgery date: 6+ months; Surgery type: Pacer; Additional info: Chest pain, irregular hr TECHNIQUE: Imaging protocol: Radiologic exam of the chest. 1image(s) are provided. Views: 1 view. COMPARISON: 1. CT lung screening [id number] 04/15/2022 1:46 PM 2. CR XR chest 1V portable [id number] 08/13/2021 2:53 PM FINDINGS: Tubes, catheters and devices: There are biventricular cardiac leads similar overall in appearance and distribution. Lungs: No lobar consolidation is appreciated. There is some mild chronic air trapping and scarring appearance similar overall. Basal aeration does appears slightly improved overall. Pleural spaces: No pneumothorax is appreciated. There is some minimal costophrenic angle blunting.No pneumothorax is appreciated. Heart/Mediastinum: The cardiomediastinal silhouette is upper normal in size.This can be seen with central averaging as well as sunny enlargement.No cardiac decompensation is appreciated. Diaphragm: The hemidiaphragms are symmetric. Bones/joints: Osseous alignment is maintained.No interval displaced fracture or dislocation is appreciated. Soft tissues: No radiopaque foreign body or subcutaneous emphysema is appreciated. Other findings: No other significant interval changes are appreciated. XR/XR chest 1V portable [id number] IMPRESSION: There is some mild chronic air trapping appearance with similar overall biventricular lead distribution.No interval acute cardiopulmonary changes are appreciated.
--- NOTE | 2022-08-06 12:39 | W.ED.CHESTPA ---
HPI - Chest Pain General: Chief Complaint: Chest Pain Stated Complaint: Swan sent for heart problems Time Seen by Provider: 08/06/22 12:34 History of Present Illness: Patient sent directly over here from her PA's office with complaints of irregular heartbeat, overall weakness, feeling bad all over, patient had 1 episode of chest pain approximately 2 weeks ago and has been going downhill ever since then. Patient has a significant amount of multiple comorbidities but she said she has never felt quite like this before. MD complaint: chest pain Onset (ago): week(s) (2 weeks ago) Timing of current episode: now resolved Prior episodes: No Pain location: parasternal Pain radiation: none Severity: mild Quality: aching Relieving factors: nothing Exacerbating factors: nothing Associated symptoms: Reports palpitations Review of Systems General: Reports: 10 or more systems reviewed and unremarkable except in HPI and below Card: Reports: palpitations PFS ED PFSH: Medical History AICD malfunction Anemia Anemia of chronic disease Cardiac resynchronization therapy defibrillator ([employer]D) in place Cardiomyopathy Carpal tunnel syndrome Carpal tunnel syndrome of right wrist CHF (congestive heart failure), NYHA class III Chronic diastolic heart failure Echocardiogram done in September 2019 showed EF of 60%, grade 1 diastolic dysfunction, normal RV functions. Chronic steroid use counseled about blood sugar monitoring Chronic systolic (congestive) heart failure CKD (chronic kidney disease) stage 4, GFR 15-29 ml/min COPD (chronic obstructive pulmonary disease) COPD (chronic obstructive pulmonary disease) Diabetes mellitus Hepatitis B core antibody positive Hepatitis B PCR is negative High risk medication use High risk medication use Hypertension ICD (implantable cardioverter-defibrillator) battery depletion Immunization counseling Iron deficiency anemia, unspecified Non-ischemic cardiomyopathy Peripheral neuropathy Rheumatoid arthritis Rheumatoid arthritis, seropositive, 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 Surgical History History of appendectomy History of hysterectomy with bilateral oophorectomy S/P ICD (internal cardiac defibrillator) procedure Family History Mother Diabetes Hypertension CHF (congestive heart failure) Other CAD (coronary artery disease) Cancer Hyperlipidemia Lung disease Denies family history of Rheumatoid arthritis Lupus Chronic kidney disease (CKD) Stroke Social History Smoking and tobacco status: former smoker Quit status (tobacco): has quit using tobacco Year quit tobacco: 2010 Former quit date comment: 1ppd x 45years Second hand smoke exposure: No Alcohol intake: never Substance/Drug Use: never Household members: spouse Housing: House Marital status: Do you think of yourself as: Straight/Heterosexual Current gender identity: Female Physical Exam Const: COMMON NORMALS: no acute distress, average body habitus, patient oriented x3, no limitations, alert and well nourished HENMT: COMMON NORMALS: normocephalic, atraumatic, hearing grossly normal bilaterally, external ears normal, Normal external nose present and moist oral mucous membranes HEAD & SCALP: normocephalic and atraumatic NOSE: Normal external nose present EXTERNAL EAR: Yes external ears normal Eye: COMMON NORMALS: Equal, round and reactive pupils present, EOMs intact bilaterally, conjunctivae normal and no scleral icterus CONJUNCTIVA: Yes conjunctivae normal PUPIL: Yes Equal, round and reactive pupils present Neck/C-Spine: COMMON NORMALS: full ROM, no lymphadenopathy, supple, no meningeal signs, no JVD and Thyroid normal THYROID: Thyroid normal Lymph: LYMPHATIC: no lymphadenopathy noted Chest: COMMONS NORMALS: normal inspection of the chest and normal palpation of entire chest wall Resp: COMMON NORMALS: normal respiratory effort, No retractions, No use of accessory muscles and clear to auscultation bilaterally AUSCULTATION: clear to auscultation bilaterally Cardio: COMMON NORMALS: no JVD, regular rate, regular rhythm, S1 normal heart sound present, S2 normal heart sound present, No gallops present (Cardio), No clicks present (Cardio), No murmurs present (Cardio) and No rub (Cardio) RATE: regular rate RHYTHM: regular rhythm HEART SOUNDS: S1 normal heart sound present and S2 normal heart sound present GI: COMMON NORMALS: Normal to inspection, nondistended, normoactive bowel sounds present, Soft to palpation, non-tender, No hepatosplenomegaly present, no masses and no bruits PALPATION: Yes Soft to palpation and Yes No hepatosplenomegaly present : COMMON NORMALS: Yes no CVA tenderness BLADDER/KIDNEY EXAM: Yes no CVA tenderness Back/Pelvis: COMMON NORMALS: no CVA tenderness Neuro: COMMON NORMALS: patient oriented x3 SENSORIUM/ORIENTATION: Yes alert MENINGEAL SIGNS: Yes no meningeal signs Course Vital Signs: Vital signs: Vital Signs Temperature 97.7 F 08/06/22 12:25 Pulse Rate 81 08/06/22 12:43 Respiratory Rate 13 08/06/22 12:43 Blood Pressure 164/69 08/06/22 12:43 Pulse Oximetry 99 08/06/22 12:43 Oxygen Delivery Me thod Room Air 08/06/22 12:43 Oxygen Flow Rate 3 08/06/22 12:25 MDM - Chest Pain Medical Decision Making Patient presents to the ER from her PCP due to irregular heartbeat. And just feeling bad in general. Patient had cardiac work-up which showed hemoglobin hematocrit stable but low at 10.0 and 33.1, BUN/creatinine was 44 and 2.1 this is consistent with where she normally runs. Baseline troponin was 35 with a 2-hour troponin of 32 for delta of -3, EKG showed electronic ventricular pacer with a rate in the 80s. Chest x-ray showed some mild chronic air trapping with no interval changes. BNP was elevated at approximately 4000 patient has run high multiple times in the past. Patient is currently on Lasix. Patient was given 40 mg Lasix IV. These results were explained to the patient. Patient will follow up with her PCP in approximately 1 to 2 weeks. Patient will cut back on fluid intake during this time. Differential Diagnosis Unlikely acute massive pulmonary embolism, acute respiratory failure, acute myocardial infarction, cardiac arrest or sudden cardiac Medical Records I reviewed the patient's medical records. Lab Data I reviewed the patient's lab results. 08/06/22 13:05 08/06/22 13:05 Radiology Impressions Chest X-Ray 08/06/22 12:34 IMPRESSION: There is some mild chronic air trapping appearance with similar overall biventricular lead distribution.No interval acute cardiopulmonary changes are appreciated. Laboratory Results WBC 8.1 10^3/uL (4.0-10.0) 08/06/22 13:05 RBC 3.74 10^6/uL (4.1-5.3) L 08/06/22 13:05 Hgb 10.0 g/dL (11.5-15.3) L 08/06/22 13:05 Hct 33.1 % (37.0-47.0) L 08/06/22 13:05 MCV 88.5 fl (81-99) 08/06/22 13:05 MCH 26.7 pg (28.0-34.0) L 08/06/22 13:05 MCHC 30.2 g/dL (30.0-36.0) 08/06/22 13:05 RDW 15.4 % (12.1-15.1) H 08/06/22 13:05 Plt Count 191 10^3/cmm (130-400) 08/06/22 13:05 MPV 10.3 fL (7.4-10.4) 08/06/22 13:05 Neut % (Auto) 68.3 % 08/06/22 13:05 Lymph % (Auto) 16.0 % 08/06/22 13:05 [place] % (Auto) 8.8 % 08/06/22 13:05 Eos % (Auto) 4.8 % 08/06/22 13:05 Baso % (Auto) 0.6 % 08/06/22 13:05 Neut # (Auto) 5.52 10^3/uL (1.8-7.7) 08/06/22 13:05 Lymph # (Auto) 1.3 10^3/uL (0.8-4.8) 08/06/22 13:05 [place] # (Auto) 0.7 10^3/uL (0.2-0.9) 08/06/22 13:05 Eos # (Auto) 0.4 10^3/uL (0.0-0.8) 08/06/22 13:05 Baso # (Auto) 0.1 10^3/uL (0.0-0.1) 08/06/22 13:05 Nucleated RBC % (auto) 0 % 08/06/22 13:05 Nucleated RBCs # 0.0 /100WBC 08/06/22 13:05 PT 13.60 SECONDS (12.1-14.9) 08/06/22 13:05 INR 1.01 (0.8-1.2) 08/06/22 13:05 Sodium 138 mmol/L (136-145) 08/06/22 13:05 Potassium 4.3 mmol/L (3.5-5.1) 08/06/22 13:05 Chloride 100 mmol/L (98-107) 08/06/22 13:05 Carbon Dioxide 28 mmol/L (22-29) 08/06/22 13:05 Anion Gap 14.3 (5-19) 08/06/22 13:05 BUN 44 mg/dL (8-23) H 08/06/22 13:05 Creatinine 2.1 mg/dL (0.5-0.9) H 08/06/22 13:05 GFR Calculation Not Reportable 08/06/22 13:05 Glucose 111 mg/dL (65-115) 08/06/22 13:05 Calculated Osmolality 298 mOsm/kg (285-295) H 08/06/22 13:05 Calcium 9.0 mg/dL (8.5-10.5) 08/06/22 13:05 Total Bilirubin 0.3 mg/dL (0.15-1.2) 08/06/22 13:05 AST 15 U/L (0-32) 08/06/22 13:05 ALT 17 U/L (0-33) 08/06/22 13:05 Alkaline Phosphatase 63 U/L (35-105) 08/06/22 13:05 Troponin T Baseline 35 ng/L (0-10) H 08/06/22 13:05 Troponin T 120 Minute 32.65 ng/L (0-10) H 08/06/22 14:56 Delta Troponin T -2.35 ABS# (0-10) L 08/06/22 14:56 NT-Pro-B Natriuret Pep 4615 pg/mL (0-125) H 08/06/22 13:05 Total Protein 7.6 g/dL (6.6-8.7) 08/06/22 13:05 Albumin 4.4 g/dL (3.5-5.2) 08/06/22 13:05 Globulin 3.2 g/dL (1.3-4.6) 08/06/22 13:05 EKG Data EKG 1: I personally reviewed and interpreted this EKG as follows: EKG interpretation date: 08/06/22 EKG interpretation time: 12:30 Prior EKG tracings: not available for review Interpretation: EKG shows ventricular rate 84 bpm, WA interval 181, QRS 145, QTc 494, electronic ventricular pacemaker, EKG 2: I personally reviewed and interpreted this EKG as follows: EKG interpretation date: 08/06/22 EKG interpretation time: 15:07 Prior EKG tracings: available for review Interpretation: EKG shows ventricular rate of 85 bpm, WA interval 166, QRS 157, QTc of 477, electric ventricular pacemaker Discharge Plan Discharge Patient Disposition: Home Clinical Impression: Atypical chest pain CHF (congestive heart failure), NYHA class III Qualifiers: Congestive heart failure chronicity: unspecified Condition: Stable Prescriptions: No Action aspirin 81 mg tablet,delayed release (DR/EC) 81 mg PO QPM Tresiba FlexTouch U-200 200 unit/mL (3 mL) insulin pen 90 unit SUBCUT QPM zolpidem 10 mg tablet 10 mg PO BEDTIME omeprazole 40 mg capsule,delayed release(DR/EC) 40 mg PO QAM cholecalciferol (vitamin D3) 25 mcg (1,000 unit) capsule 25 mcg PO QAM ascorbate calcium (vitamin C) 500 mg tablet 1,000 mg PO DAILY albuterol sulfate 90 mcg/actuation HFA aerosol inhaler 1 inh inhalation QID PRN (Reason: shortness of breath or wheezing) Qty: 8.5 3RF metoprolol tartrate 50 mg tablet 50 mg PO BID Qty: 180 5RF garlic 500 mg capsule 500 mg PO DAILY fluticasone propion-salmeterol [Advair Diskus] 500-50 mcg/dose blister with device 1 inh inhalation BID Qty: 60 3RF Spiriva Respimat 2.5 mcg/actuation mist 2 inh inhalation QAM Qty: 4 3RF cetirizine 10 mg tablet 10 mg PO DAILY nitroglycerin [Nitrostat] 0.4 mg tablet, sublingual 0.4 mg sublingual Q5M PRN (Reason: chest pain) Qty: 50 1RF Rx Instructions: do not exceed 3 doses per episode amlodipine 10 mg tablet 10 mg PO QAM Qty: 90 3RF isosorbide mononitrate 60 mg tablet extended release 24 hr 60 mg PO QAM Qty: 90 3RF prednisone 5 mg tablet 5 mg PO DAILY PRN (Reason: joint pain) Qty: 30 3RF hydralazine 50 mg tablet See Rx Instructions .ROUTE .COMPLEX Qty: 105 4RF Dose Instruction: TAKE 2 TABLETS BY MOUTH EVERY MORNING AND 1&1/2 AT NIGHT DAILY Rx Instructions: TAKE 2 TABLETS BY MOUTH EVERY MORNING AND 1&1/2 AT NIGHT DAILY cyanocobalamin (vitamin B-12) [Vitamin B-12] 1,000 mcg Tablet 1,000 mcg PO BID potassium chloride 20 mEq Tablet Extended Release 20 meq PO DAILY Novolog FlexPen U-100 Insulin 100 unit/mL (3 mL) Insulin Pen 20 unit SUBCUT TID Rx Instructions: with meals furosemide [Lasix] 80 mg tablet 80 mg PO DAILY Qty: 30 0RF Discharge Orders: Discharge ED (Routine); Ordered 08/06/22 Ordered By: Marcel Jacobson Referrals: Nancy Swan PA [Primary Care Provider] - 1 week Patient Instructions: Heart Failure (ED), Noncardiac Chest Pain (ED) Activity Restrictions/Additional Instructions: Please take all medicines as directed. Please cut back on your fluid intake. Please follow-up with your family practice doc in the next 1 to 2 weeks or as needed. Please return to the ER if symptoms worsen or change for further evaluation. Coding Level of Care Code ED Lathe Operator Contact Lens for Ora Kerr
[2022-08-06 12:43] VITALS: BP 164/69; PULSE 81; RESP 13; O2SAT 99
[2022-08-06 13:24] LABS: Basophils # 0.1 10^3/uL (0.0-0.1); Basophils % 0.6 %; Eosinophils # 0.4 10^3/uL (0.0-0.8); Eosinophils % 4.8 %; Hematocrit 33.1 % (37.0-47.0); Lymphocytes # 1.3 10^3/uL (0.8-4.8); Mean Corpuscular HGB Conc 30.2 g/dL (30.0-36.0); Mean Corpuscular Hemoglobin 26.7 pg (28.0-34.0); Mean Corpuscular Volume 88.5 fl (81-99); Mean Platelet Volume 10.3 fL (7.4-10.4); Monocytes # 0.7 10^3/uL (0.2-0.9); Monocytes % 8.8 %; Neutrophils # 5.52 10^3/uL (1.8-7.7); Neutrophils % 68.3 %; Nucleated Red Blood Cells % 0 %; Platelet Count 191 10^3/cmm (130-400); Red Blood Count 3.74 10^6/uL (4.1-5.3); Red Cell Distribution Width 15.4 % (12.1-15.1); White Blood Count 8.1 10^3/uL (4.0-10.0)
[2022-08-06 13:31] LABS: INR 1.01 (0.8-1.2)
[2022-08-06 13:42] LABS: Troponin(5th) Baseline 35 ng/L (0-10)
[2022-08-06 13:50] LABS: Alanine Aminotransferase 17 U/L (0-33); Albumin Level 4.4 g/dL (3.5-5.2); Alkaline Phosphatase 63 U/L (35-105); Anion Gap 14.3 (5-19); Aspartate Amino Transferase 15 U/L (0-32); Blood Urea Nitrogen 44 mg/dL (8-23); Carbon Dioxide 28 mmol/L (22-29); Chloride 100 mmol/L (98-107); Globulin 3.2 g/dL (1.3-4.6); Glucose 111 mg/dL (65-115); NT Pro B Type Natriuretic Pept 4615 pg/mL (0-125); Osmolality Calculated 298 mOsm/kg (285-295); Potassium 4.3 mmol/L (3.5-5.1); Sodium 138 mmol/L (136-145); Total Bilirubin 0.3 mg/dL (0.15-1.2); Total Protein 7.6 g/dL (6.6-8.7)
--- NOTE | 2022-08-06 15:07 | ECG_ITS ---
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 Measurements Intervals [place] Rate: 85 P: 70 OK: 166 QRS: 252 QRSD: 157 T: 79 QT: 435 QTc: 518 Interpretive Statements ELECTRONIC VENTRICULAR PACEMAKER WITH PVC'S ABNORMAL RHYTHM ECG Compared to ECG 08/06/2022 12:30:53 No significant changes Electronically Signed On 08-07-2022 6:31:50 CDT by Malathi Leon M.D. [id number]
[2022-08-06] MEDS: FUROsemide 10 mg/mL SDV 4mL 40 MG IVP (15:22)
[2022-08-06 15:28] LABS: Troponin 5 2HR 32.65 ng/L (0-10); Troponin 5 2HR Delta -2.35 ABS# (0-10)
[2022-08-06 16:05] VITALS: PULSE 88; RESP 18; O2SAT 94
== END 2022-08-06 16:06 | disposition home or self-care (01) ==
PROVIDERS: Emergency Provider Emergency Medicine; PCP Physician Assistant
DX: R07.89 Other chest pain (principal); I13.0 Hypertensive heart and chronic kidney disease with heart failure and stage 1 through stage 4 chronic kidney disease, or unspecified chronic kidney disease; I50.42 Chronic combined systolic (congestive) and diastolic (congestive) heart failure; N18.4 Chronic kidney disease, stage 4 (severe); E11.22 Type 2 diabetes mellitus with diabetic chronic kidney disease
CPT/HCPCS: 36415; 71045; 80053; 83880; 84484; 85025; 85610; 93005; 96374; 99285; J1940

== ENCOUNTER → 2022-09-09 10:34 | Outpatient (BNVA) | payer MEDICARE, SELFPAY | PROVIDERS: PCP Physician Assistant; Visit Provider Internal Medicine Rheumatology | DX: M05.79 Rheumatoid arthritis with rheumatoid factor of multiple sites without organ or systems involvement (principal); Z79.899 Other long term (current) drug therapy; I50.9 Heart failure, unspecified; N18.4 Chronic kidney disease, stage 4 (severe) | CPT/HCPCS: 36415; 80076; 82565; 85025; 86140; 99214 ==

== ENCOUNTER → 2022-09-26 15:19 | Outpatient (BNVA) | payer MEDICARE, SELFPAY | PROVIDERS: PCP Physician Assistant; Visit Provider Internal Medicine Cardiovascular Disease | DX: I13.0 Hypertensive heart and chronic kidney disease with heart failure and stage 1 through stage 4 chronic kidney disease, or unspecified chronic kidney disease (principal); N18.4 Chronic kidney disease, stage 4 (severe); I50.9 Heart failure, unspecified; Z95.810 Presence of automatic (implantable) cardiac defibrillator; I42.8 Other cardiomyopathies; Z87.891 Personal history of nicotine dependence | CPT/HCPCS: 99214 ==

== ENCOUNTER 2022-11-28 10:47 | Emergency (ER) | payer MEDICARE, SELFPAY ==
[2022-11-28 10:52] VITALS: BP 166/63; PULSE 75; RESP 24; TEMP 36.5; O2SAT 99; BMI 36.0
[2022-11-28 11:02] VITALS: BP 166/63; PULSE 77; RESP 18; O2SAT 99
--- NOTE | 2022-11-28 11:09 | ECG_ITS ---
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 Measurements Intervals [place] Rate: 70 P: 100 NV: 169 QRS: 216 QRSD: 148 T: 52 QT: 452 QTc: 488 Interpretive Statements ELECTRONIC ATRIAL PACEMAKER ELECTRONIC VENTRICULAR PACEMAKER Compared to ECG 08/06/2022 15:07:47 No significant changes Electronically Signed On 11-28-2022 14:10:44 CDT by Adilson Montgomery M.D. [id number]
--- NOTE | 2022-11-28 11:18 | W.ED.SOB ---
HPI - SOB/Dyspnea General: Chief Complaint: Shortness of Breath/Dyspnea Stated Complaint: chest pain short breath Time Seen by Provider: 11/28/22 11:05 Source: patient Mode of arrival: ambulatory History of Present Illness: HPI Narrative: 77-year-old female presents emergency room with progressive shortness of breath over the last week. Patient has a history of COPD and is chronically on oxygen. She had increased her oxygen to 5 L prior to coming in today. She states it has not really helped her breathing. She had had a productive cough or a fever but she has been coughing and wheezing to the point where she states she has chest discomfort associated with it. No vomiting no diarrhea no anosmia. She has noticed increased swelling in her legs she has chronic orthopnea which seems to worsen slightly last week as well. She did not use her rescue inhaler or nebulizer prior to coming in today. MD elicited complaint: shortness of breath and cough Pertinent past history: COPD Onset (ago): week(s) (1) Exacerbating factors: lying flat, exertion and coughing Relieving factors: nothing Known history of: COPD and congestive heart failure Associated symptoms: Reports chest pain and orthopnea; Deny abdominal pain, chest congestion, cough, diaphoresis, dizziness, extremity pain, fever(s), hemoptysis, lightheadedness, myalgias, nausea, palpitations, paresthesias, polydipsia, polyuria, rash, sense of impending doom, syncope or vomiting Treatment prior to arrival: oxygen Review of Systems Const: Reports: fatigue and malaise; Denies: fever(s), chills or diaphoresis ENMT: Denies: throat pain, ear or mastoid pain, nasal discharge or nasal congestion Card: Reports: chest pain, edema, swelling of feet/ankles and orthopnea; Denies: palpitations, irregular heart rhythm, lightheadedness or syncope Resp: Reports: dyspnea, non-productive cough and wheezing; Denies: hemoptysis or chest congestion GI: Denies: abdominal pain, nausea or vomiting : Denies: flank pain, dysuria, urinary frequency or urinary urgency Musc: Denies: extremity pain Skin/Breast: Denies: rash or pruritus Neuro: Denies: dizziness Endo: Denies: polyuria or polydipsia PFS ED PFSH: Medical History AICD malfunction Anemia Anemia of chronic disease Cardiac resynchronization therapy defibrillator (TECHNICAL ARCHITECT-D) in place Cardiomyopathy Carpal tunnel syndrome Carpal tunnel syndrome of right wrist CHF (congestive heart failure), NYHA class III Chronic diastolic heart failure Echocardiogram done in September 2019 showed EF of 60%, grade 1 diastolic dysfunction, normal RV functions. Chronic steroid use counseled about blood sugar monitoring Chronic systolic (congestive) heart failure CKD (chronic kidney disease) stage 4, GFR 15-29 ml/min COPD (chronic obstructive pulmonary disease) COPD (chronic obstructive pulmonary disease) Diabetes mellitus Hepatitis B core antibody positive Hepatitis B PCR is negative High risk medication use High risk medication use Hypertension ICD (implantable cardioverter-defibrillator) battery depletion Immunization counseling Iron deficiency anemia, unspecified Non-ischemic cardiomyopathy Peripheral neuropathy Rheumatoid arthritis Rheumatoid arthritis, seropositive, 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 Surgical History History of appendectomy History of hysterectomy with bilateral oophorectomy S/P ICD (internal cardiac defibrillator) procedure Family History Mother Diabetes Hypertension CHF (congestive heart failure) Other CAD (coronary artery disease) Cancer Hyperlipidemia Lung disease Denies family history of Rheumatoid arthritis Lupus Chronic kidney disease (CKD) Stroke Social History Smoking and tobacco status: former smoker Quit status (tobacco): has quit using tobacco Year quit tobacco: 2010 Former quit date comment: 1ppd x 45years Second hand smoke exposure: No Alcohol intake: never Substance/Drug Use: never Household members: spouse Housing: House Marital status: Do you think of yourself as: Straight/Heterosexual Current gender identity: Female Physical Exam Const: GENERAL APPEARANCE: cooperative and comfortable ORIENTATION/CONSCIOUSNESS: Yes awake, Yes oriented to person, Yes oriented to place and Yes oriented to time HENMT: COMMON NORMALS: normocephalic, atraumatic and hearing grossly normal bilaterally HEAD & SCALP: normocephalic and atraumatic Resp: COMMON NORMALS: No retractions EFFORT & INSPECTION: Yes uses accessory muscles AUSCULTATION: crackles, wheezes and diminished lung sounds Cardio: COMMON NORMALS: regular rate, regular rhythm and No murmurs present (Cardio) RATE: regular rate RHYTHM: regular rhythm GI: COMMON NORMALS: Soft to palpation and No hepatosplenomegaly present AUSCULTATION: Yes normoactive bowel sounds PALPATION: Yes Soft to palpation, No Tenderness to palpation present (GI), No Guarding due to palpation present (GI) and Yes No hepatosplenomegaly present Extremity: COMMON NORMALS: normal to inspection, capillary refill normal and no calf tenderness GENERAL: Yes edema (2+ edema lower extremities) Neuro: SENSORIUM/ORIENTATION: Yes oriented to person, Yes oriented to place and Yes oriented to time Skin: COMMON NORMALS: no rashes or lesions noted GENERAL SKIN EXAM: no rashes or lesions noted Course Vital Signs: Vital signs: Vital Signs Temperature 97.7 F 11/28/22 10:52 Pulse Rate 59 L 11/28/22 12:49 Respiratory Rate 22 H 11/28/22 12:49 Blood Pressure 161/61 11/28/22 12:49 Pulse Oximetry 97 11/28/22 12:49 Oxygen Delivery Me thod Room Air 11/28/22 12:49 Oxygen Flow Rate 3 11/28/22 12:24 MDM - SOB/Dyspnea Medical Decision Making Improved after Lasix. Chest x-ray shows vascular congestion. Patient does have compromised renal function as well intermittently she uses Lasix her primary care doctor she has been off of it for over a week now. We will have her resume. She did get good results from the single dose here in the emergency room is at her baseline for oxygen consumption. Have her follow-up early next week with her primary care provider will need to repeat BMP. Medical Records I reviewed the patient's medical records. Lab Data I reviewed the patient's lab results. 11/28/22 11:09 11/28/22 11:09 Labs/Radiology: Laboratory Results WBC 13.21 10^3/uL (3.29-11.43) H 11/28/22 11:09 RBC 3.03 10^6/uL (3.85-5.65) L 11/28/22 11:09 Hgb 8.30 g/dL (11.27-16.99) L 11/28/22 11:09 Hct 26.8 % (36-47) L 11/28/22 11:09 MCV 88.4 fl (85-98) 11/28/22 11:09 MCH 27.4 pg (27-33) 11/28/22 11:09 MCHC 31.0 g/dL (30-55) 11/28/22 11:09 RDW 16.8 % (12.1-15.1) H 11/28/22 11:09 Plt Count 264 10^3/cmm (157-399) 11/28/22 11:09 MPV 10.0 fL (7.4-10.4) 11/28/22 11:09 Neut % (Auto) 73.3 % 11/28/22 11:09 Lymph % (Auto) 16.3 % 11/28/22 11:09 Crosby % (Auto) 7.8 % 11/28/22 11:09 Eos % (Auto) 0.6 % 11/28/22 11:09 Baso % (Auto) 0.4 % 11/28/22 11:09 Neut # (Auto) 9.69 10^3/uL (1.8-7.7) H 11/28/22 11:09 Lymph # (Auto) 2.2 10^3/uL (0.8-4.8) 11/28/22 11:09 Crosby # (Auto) 1.0 10^3/uL (0.2-0.9) H 11/28/22 11:09 Eos # (Auto) 0.1 10^3/uL (0.0-0.8) 11/28/22 11:09 Baso # (Auto) 0.1 10^3/uL (0.0-0.1) 11/28/22 11:09 Nucleated RBC % (auto) 0.2 % 11/28/22 11:09 Nucleated RBCs # 0.0 /100WBC 11/28/22 11:09 Specimen Type Arterial 11/28/22 11:36 Sample Site Radial, left 11/28/22 11:36 ABG pH 7.36 (7.35-7.45) 11/28/22 11:36 ABG pCO2 42.7 mmHg (35-45) 11/28/22 11:36 ABG pO2 89.6 mmHg (80.0-100.0) 11/28/22 11:36 ABG HCO3 24.3 mmol/L (22-26) 11/28/22 11:36 ABG O2 Saturation 98.2 11/28/22 11:36 ABG Base Excess -1.1 mmol/L (-2.0-2.0) 11/28/22 11:36 Paco Test Pos 11/28/22 11:36 A-a O2 Gradient 0.9 mmHg (5-10) L 11/28/22 11:36 Hematocrit 26.8 % (37-47) L 11/28/22 11:36 Hgb O2 Saturation 96.3 % (95-100) 11/28/22 11:36 Carboxyhemoglobin 1.6 %THgb (0.4-20.1) 11/28/22 11:36 Methemoglobin 0.4 % (0.4-1.5) 11/28/22 11:36 Total Hemoglobin 8.7 g/dL (12-16) L 11/28/22 11:36 Sodium 143.0 mmol/L (131-143) 11/28/22 11:36 Potassium 4.2 mmol/L (3.5-5.0) 11/28/22 11:36 Glucose 102.0 mg/dL (70-115) 11/28/22 11:36 Ionized Calcium 1.2 mmol/L (1.1-1.4) 11/28/22 11:36 O2 Delivery Device Nc 11/28/22 11:36 O2 Liters/Min 5.0 % 11/28/22 11:36 Family Service Caseworker ID Cak 11/28/22 11:36 Sodium 143 mmol/L (136-145) 11/28/22 11:09 Potassium 4.6 mmol/L (3.5-5.1) 11/28/22 11:09 Chloride 104 mmol/L (98-107) 11/28/22 11:09 Carbon Dioxide 25 mmol/L (22-29) 11/28/22 11:09 Anion Gap 18.6 (5-19) 11/28/22 11:09 BUN 56 mg/dL (8-23) H 11/28/22 11:09 Creatinine 2.3 mg/dL (0.5-0.9) H 11/28/22 11:09 GFR Calculation Not Reportable 11/28/22 11:09 Glucose 109 mg/dL (65-115) 11/28/22 11:09 Calculated Osmolality 312 mOsm/kg (285-295) H 11/28/22 11:09 Calcium 9.4 mg/dL (8.5-10.5) 11/28/22 11:09 Total Bilirubin 0.2 mg/dL (0.15-1.2) 11/28/22 11:09 AST 12 U/L (0-32) 11/28/22 11:09 ALT 18 U/L (0-33) 11/28/22 11:09 Alkaline Phosphatase 56 U/L (35-105) 11/28/22 11:09 Troponin T Baseline 50 ng/L (0-10) H 11/28/22 11:09 Troponin T 120 Minute 49.84 ng/L (0-10) H 11/28/22 12:55 Delta Troponin T -0.16 ABS# (0-10) L 11/28/22 12:55 NT-Pro-B Natriuret Pep 9441 pg/mL (0-450) H 11/28/22 11:09 Total Protein 7.0 g/dL (6.6-8.7) 11/28/22 11:09 Albumin 4.7 g/dL (3.5-5.2) 11/28/22 11:09 Globulin 2.3 g/dL (1.3-4.6) 11/28/22 11:09 All radiology interpretation(s) finalized by discharge Discharge Plan Discharge Patient Disposition: Home Clinical Impression: CHF (congestive heart failure), NYHA class III Condition: Stable Prescriptions: No Action aspirin 81 mg tablet,delayed release (DR/EC) 81 mg PO QPM Tresiba FlexTouch U-200 200 unit/mL (3 mL) insulin pen 90 unit SUBCUT QPM zolpidem 10 mg tablet 10 mg PO BEDTIME omeprazole 40 mg capsule,delayed release(DR/EC) 40 mg PO QAM cholecalciferol (vitamin D3) 25 mcg (1,000 unit) capsule 25 mcg PO QAM ascorbate calcium (vitamin C) 500 mg tablet 1,000 mg PO DAILY albuterol sulfate 90 mcg/actuation HFA aerosol inhaler 1 inh inhalation QID PRN (Reason: shortness of breath or wheezing) Qty: 8.5 3RF metoprolol tartrate 50 mg tablet 50 mg PO BID Qty: 180 5RF ferrous sulfate [Feosol] 325 mg (65 mg iron) tablet 325 mg PO DAILY garlic 500 mg capsule 500 mg PO DAILY cetirizine 10 mg tablet 10 mg PO DAILY Xeljanz 5 mg tablet 5 mg PO DAILY Qty: 30 3RF nitroglycerin [Nitrostat] 0.4 mg tablet, sublingual 0.4 mg sublingual Q5M PRN (Reason: chest pain) Qty: 50 1RF Rx Instructions: do not exceed 3 doses per episode isosorbide mononitrate 60 mg tablet extended release 24 hr 60 mg PO QAM Qty: 90 3RF hydralazine 50 mg tablet See Rx Instructions .ROUTE .COMPLEX Qty: 105 4RF Dose Instruction: TAKE 2 TABLETS BY MOUTH EVERY MORNING AND 1&1/2 AT NIGHT DAILY Rx Instructions: TAKE 2 TABLETS BY MOUTH EVERY MORNING AND 1&1/2 AT NIGHT DAILY amlodipine 10 mg tablet 10 mg PO QAM Qty: 90 3RF cyanocobalamin (vitamin B-12) [Vitamin B-12] 1,000 mcg Tablet 1,000 mcg PO BID potassium chloride 20 mEq Tablet Extended Release 20 meq PO DAILY insulin aspart U-100 [Novolog FlexPen U-100 Insulin] 100 unit/mL (3 mL) Insulin Pen 20 unit SUBCUT TID Rx Instructions: with meals Trelegy Ellipta 200-62.5-25 mcg Blister With Device 1 inh INHALATION DAILY prednisone 5 mg tablet 5 mg PO DAILY PRN (Reason: joint pain) furosemide [Lasix] 80 mg tablet 80 mg PO DAILY Qty: 30 0RF Discharge Orders: Discharge ED (Routine); Ordered 11/28/22 Ordered By: Terry Peguero Referrals: Nancy Swan PA [Primary Care Provider] - Discharge Diet: Usual diet Discharge Activity: Increase activity as tolerated Patient Instructions: Heart Failure (ED), Opioid Safety, Pain Management Activity Restrictions/Additional Instructions: Lasix daily for the next 5 days follow-up with primary care doctor early next week given worsening signs or symptoms return to the emergency room. Coding Level of Care Code ED Professor Of Medicine for Ora Kerr
[2022-11-28 11:20] LABS: Basophils # 0.1 10^3/uL (0.0-0.1); Basophils % 0.4 %; Eosinophils # 0.1 10^3/uL (0.0-0.8); Eosinophils % 0.6 %; Hematocrit 26.8 % (36-47); Lymphocytes # 2.2 10^3/uL (0.8-4.8); Lymphocytes % 16.3 %; Mean Corpuscular Hemoglobin 27.4 pg (27-33); Mean Corpuscular Volume 88.4 fl (85-98); Monocytes % 7.8 %; Neutrophils # 9.69 10^3/uL (1.8-7.7); Neutrophils % 73.3 %; Nucleated Red Blood Cells % 0.2 %; Platelet Count 264 10^3/cmm (157-399); Red Blood Count 3.03 10^6/uL (3.85-5.65); Red Cell Distribution Width 16.8 % (12.1-15.1); White Blood Count 13.21 10^3/uL (3.29-11.43)
[2022-11-28 11:25] VITALS: PULSE 71; RESP 22; O2SAT 96
[2022-11-28] MEDS: ipratropium-albuterol 3 mL Neb INHALATION (11:25)
[2022-11-28 11:29] VITALS: PULSE 78
[2022-11-28 11:38] LABS: Alanine Aminotransferase 18 U/L (0-33); Albumin Level 4.7 g/dL (3.5-5.2); Alkaline Phosphatase 56 U/L (35-105); Anion Gap 18.6 (5-19); Aspartate Amino Transferase 12 U/L (0-32); Blood Urea Nitrogen 56 mg/dL (8-23); Calcium 9.4 mg/dL (8.5-10.5); Carbon Dioxide 25 mmol/L (22-29); Chloride 104 mmol/L (98-107); Globulin 2.3 g/dL (1.3-4.6); Glucose 109 mg/dL (65-115); Osmolality Calculated 312 mOsm/kg (285-295); Potassium 4.6 mmol/L (3.5-5.1); Sodium 143 mmol/L (136-145); Total Bilirubin 0.2 mg/dL (0.15-1.2); Troponin(5th) Baseline 50 ng/L (0-10)
[2022-11-28] MEDS: dexamethasone 10 mg/mL INJ IVP (11:44)
[2022-11-28] MEDS: FUROsemide 10 mg/mL SDV 4mL 40 MG IVP (11:44)
[2022-11-28 11:48] LABS: ABG PCO2 42.7 mmHg (35-45); ABG PH Result 7.36 (7.35-7.45); Alveolar-Arterial Oxygen Gradi 0.9 mmHg (5-10); Arterial Blood Gas Hematocrit 26.8 % (37-47); Base Excess ABG -1.1 mmol/L (-2.0-2.0); Blood Gas Allen Test Pos; Blood Gas Operator Identificat CAK; Blood Gas Sample Site Radial, left; Blood Gas Sample Type Arterial; Carboxyhemoglobin 1.6 %THgb (0.4-20.1); HCO3 ABG 24.3 mmol/L (22-26); HGB O2 Sat 96.3 % (95-100); Ionized Calcium Level - ABG 1.2 mmol/L (1.1-1.4); Methemoglobin 0.4 % (0.4-1.5); Oxygen Device NC; Oxygen Saturation ABG 98.2; PO2 ABG 89.6 mmHg (80.0-100.0); Potassium Level - ABG 4.2 mmol/L (3.5-5.0); Total Hemoglobin 8.7 g/dL (12-16)
[2022-11-28 11:49] LABS: NT Pro B Type Natriuretic Pept 9441 pg/mL (0-450)
[2022-11-28 12:24] VITALS: BP 158/62; PULSE 78; RESP 24; O2SAT 96
--- NOTE | 2022-11-28 12:45 | XR_ITS ---
WS: [id number] Portable AP upright chest, 11/28/2022 Clinical Data: dyspnea/cough Comparison: Portable chest, 08/06/2022 Findings: There is a patchy peripheral opacity at the right costophrenic angle which may represent pn eumonia and/or atelectasis. No nodules, masses or effusions are seen. The heart is slightly enlarged. The pulmonary vascularity is not increased. No pneumothorax is seen. The aortic arch shows calcifica tion and tortuosity. There is a cardiac pacemaker with defibrillator whose wires end in the heart. Th ere are monitor leads on the chest wall. Impression: 1. Patchy opacity at right costophrenic angle which may represent pneumonia and/or atelectasis. 2. Cardiomegaly and atherosclerosis.
[2022-11-28 12:49] VITALS: BP 161/61; PULSE 59; RESP 22; O2SAT 97
[2022-11-28 13:17] LABS: Troponin 5 2HR 49.84 ng/L (0-10); Troponin 5 2HR Delta -0.16 ABS# (0-10)
== END 2022-11-28 13:55 | disposition home or self-care (01) ==
PROVIDERS: Emergency Provider Family Medicine; PCP Physician Assistant
DX: E11.22 Type 2 diabetes mellitus with diabetic chronic kidney disease (principal); I13.0 Hypertensive heart and chronic kidney disease with heart failure and stage 1 through stage 4 chronic kidney disease, or unspecified chronic kidney disease; N18.4 Chronic kidney disease, stage 4 (severe); I50.9 Heart failure, unspecified; Z79.82 Long term (current) use of aspirin; Z79.4 Long term (current) use of insulin; Z87.891 Personal history of nicotine dependence; J44.9 Chronic obstructive pulmonary disease, unspecified; Z86.19 Personal history of other infectious and parasitic diseases; Z95.810 Presence of automatic (implantable) cardiac defibrillator
CPT/HCPCS: 36415; 36600; 71045; 80051; 80053; 82330; 82805; 83880; 84484; 85025; 93005; 94640; 96374; 96375; 99285; J1100; J1940

== ENCOUNTER → 2022-12-09 10:46 | Outpatient (BNVA) | payer MEDICARE, SELFPAY | PROVIDERS: PCP Physician Assistant; Visit Provider Internal Medicine Rheumatology | DX: M05.79 Rheumatoid arthritis with rheumatoid factor of multiple sites without organ or systems involvement (principal); Z79.899 Other long term (current) drug therapy; I50.9 Heart failure, unspecified; N18.4 Chronic kidney disease, stage 4 (severe) | CPT/HCPCS: 99214 ==

== ENCOUNTER 2022-12-09 15:09 | Outpatient (CLI) | payer MEDICARE, SELFPAY ==
[2022-12-09 16:30] LABS: Anion Gap 14.9 (5-19); Blood Urea Nitrogen 47 mg/dL (8-23); Calcium 8.9 mg/dL (8.5-10.5); Carbon Dioxide 26 mmol/L (22-29); Chloride 100 mmol/L (98-107); Glucose 255 mg/dL (65-115); NT Pro B Type Natriuretic Pept 3160 pg/mL (0-450); Osmolality Calculated 305 mOsm/kg (285-295); Potassium 3.9 mmol/L (3.5-5.1); Sodium 137 mmol/L (136-145)
== END 2022-12-09 15:10 | disposition home or self-care (01) ==
LOC: LAB 15:10
PROVIDERS: PCP Physician Assistant; Visit Provider Nurse Practitioner Family
DX: I13.0 Hypertensive heart and chronic kidney disease with heart failure and stage 1 through stage 4 chronic kidney disease, or unspecified chronic kidney disease (principal); I50.32 Chronic diastolic (congestive) heart failure; E11.22 Type 2 diabetes mellitus with diabetic chronic kidney disease; N18.4 Chronic kidney disease, stage 4 (severe); Z87.891 Personal history of nicotine dependence; Z79.4 Long term (current) use of insulin; Z79.899 Other long term (current) drug therapy
CPT/HCPCS: 36415; 80048; 83880; 99214

== ENCOUNTER 2022-12-17 15:21 | Emergency (ER) | payer MEDICARE, SELFPAY ==
[2022-12-17 15:37] VITALS: BP 179/80; PULSE 52; RESP 18; TEMP 36.7; O2SAT 95; BMI 29.5
--- NOTE | 2022-12-17 15:58 | XRR_ITS ---
PROCEDURE INFORMATION: Exam: XR Chest Exam date and time: 12/17/2022 4:06 PM Age: 77 years old Clinical indication: Shortness of breath; Additional info: SOB TECHNIQUE: Imaging protocol: Radiologic exam of the chest. Views: 1 view. COMPARISON: CR XR chest 1V portable [id number] 11/28/2022 12:56 PM FINDINGS: Tubes, catheters and devices: Pacemaker and ICD in place. Lungs: Minor bibasilar infiltrates. Pleural spaces: Unremarkable. No pleural effusion. No pneumothorax. Heart/Mediastinum: Unremarkable. No cardiomegaly. Bones/joints: Unremarkable. XR/XR chest 1V portable [id number] IMPRESSION: Minor bibasilar infiltrates.
--- NOTE | 2022-12-17 16:17 | ED_ITS ---
Documented by User: BROOKS Lemus 12/18/22 13:47 HPI - SOB/Dyspnea General: Chief Complaint: Shortness of Breath/Dyspnea Stated Complaint: sob Time Seen by Provider: 12/17/22 16:06 Source: patient Mode of arrival: wheelchair Limitations: no limitations History of Present Illness: HPI Narrative: Patient is a 77-year-old female with an extensive medical history including HTN, cardiomyopathy, CHF, diabetes, rheumatoid arthritis here for complaints of dyspnea. Patient feels like I just cannot take a deep breath . Patient states she was seen recently by her hide dyer and taken off of her Lasix and started on Bumex 1 mg twice daily. She feels like this medication is not helping. She is reportedly on 3 L continuous oxygen via nasal cannula and has not had to increase this. She is reporting some chest heaviness. Feels like her lower extremities are swollen. Last echo 08/2021 with results as follows: CONCLUSIONS ?Normal LV size with borderline low ejection fraction of 52%. ?Mild diffuse hypokinesia of the septum and anteroseptal ?segments.? ?Mild concentric left ventricular hypertrophy. ?Mild mitral valve regurgitation. ?Pacemaker wire in the right atrium and right ventricle ?There is no pericardial effusion. ?There are no intracardiac masses. ?Compared to the study from 10/01/2019, there is slight drop in ?the LV ejection fraction from 60% to 52% MD elicited complaint: shortness of breath Pertinent past history: congestive heart failure and diabetes Onset (ago): day(s) Timing: constant Severity: moderate Exacerbating factors: lying flat and exertion Relieving factors: nothing Known history of: congestive heart failure and diabetes Associated symptoms: Reports chest pain and orthopnea; Deny abdominal pain, chest congestion, dizziness, extremity pain, fever(s), hemoptysis, lightheadedness, nausea, palpitations, syncope or vomiting Treatment prior to arrival: oxygen Related Data: Home oxygen amount: 3 liters Review of Systems Const: Denies: fever(s), chills, body aches, fatigue or malaise Eyes: Denies: change in vision or blurry vision Card: Reports: chest pain, edema, swelling of feet/ankles, dyspnea on exertion and orthopnea; Denies: palpitations, irregular heart rhythm, lightheadedness, syncope, pre- syncope, leg pain with exertion or acrocyanosis Resp: Reports: dyspnea; Denies: productive cough, wheezing, pain on inspiration, hemoptysis or chest congestion GI: Denies: abdominal pain, nausea, vomiting, heartburn or diarrhea : Denies: dysuria Musc: Reports: extremity swelling; Denies: neck pain, back pain, extremity pain, joint pain, joint swelling, joint redness, joint warmth or limited range of motion Skin/Breast: Denies: rash Neuro: Denies: headache(s), numbness in extremities, weakness in extremities, sensory changes or dizziness PFSH ED PFSH: Medical History AICD malfunction Anemia Anemia of chronic disease Cardiac resynchronization therapy defibrillator ([employer] MANAGEMENT CONSULTANT-D) in place Cardiomyopathy Carpal tunnel syndrome Carpal tunnel syndrome of right wrist CHF (congestive heart failure), NYHA class III Chronic diastolic heart failure Echocardiogram done in September 2019 showed EF of 60%, grade 1 diastolic dysfunction, normal RV functions. Chronic steroid use counseled about blood sugar monitoring Chronic systolic (congestive) heart failure CKD (chronic kidney disease) stage 4, GFR 15-29 ml/min COPD (chronic obstructive pulmonary disease) COPD (chronic obstructive pulmonary disease) Diabetes mellitus Hepatitis B core antibody positive Hepatitis B PCR is negative High risk medication use High risk medication use Hypertension ICD (implantable cardioverter-defibrillator) battery depletion Immunization counseling Iron deficiency anemia, unspecified Non-ischemic cardiomyopathy Peripheral neuropathy Rheumatoid arthritis Rheumatoid arthritis, seropositive, 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 Surgical History History of appendectomy History of hysterectomy with bilateral oophorectomy S/P ICD (internal cardiac defibrillator) procedure Family History Mother Diabetes Hypertension CHF (congestive heart failure) Other CAD (coronary artery disease) Cancer Hyperlipidemia Lung disease Denies family history of Rheumatoid arthritis Lupus Chronic kidney disease (CKD) Stroke Social History Smoking and tobacco/nicotine status: former use of tobacco/nicotine Quit status (tobacco/nicotine): has quit using Year quit tobacco: 2010 Former quit date comment: 1ppd x 45years Second hand smoke exposure: No Alcohol intake: never Substance/Drug Use: never Household members: spouse Housing: House Marital status: Do you think of yourself as: Straight/Heterosexual Current gender identity: Female Physical Exam Const: COMMON NORMALS: no acute distress, patient oriented x3, no limitations, alert and well nourished GENERAL APPEARANCE: cooperative ORIENTATION/CONSCIOUSNESS: Yes awake, Yes oriented to person, Yes oriented to place and Yes oriented to time HENMT: FACE & SINUS: normal facial exam Neck/C-Spine: COMMON NORMALS: no JVD Chest: COMMONS NORMALS: normal inspection of the chest and normal palpation of entire chest wall Resp: COMMON NORMALS: clear to auscultation bilaterally EFFORT & INSP ECTION: Yes tachypneic AUSCULTATION: clear to auscultation bilaterally Cardio: COMMON NORMALS: no JVD, regular rate and regular rhythm RATE: regular rate RHYTHM: regular rhythm GI: COMMON NORMALS: Normal to inspection, nondistended, normoactive bowel sounds present, Soft to palpation and non-tender PALPATION: Yes Soft to palpation Extremity: COMMON NORMALS: full ROM, capillary refill normal, no joint enlargement and no calf tenderness NARRATIVE EXTREMITY EXAM: bilateral symmetrical LE pitting edema GENERAL: Yes normal exam except as noted Neuro: COMMON NORMALS: patient oriented x3, moves all extremities, no focal motor deficits and no sensory deficits noted SENSORIUM/ORIENTATION: Yes alert, Yes oriented to person, Yes oriented to place and Yes oriented to time Skin: COMMON NORMALS: no rashes or lesions noted GENERAL SKIN EXAM: no rashes or lesions noted Course Vital Signs: Vital signs: Vital Signs Temperature 98.1 F 12/17/22 15:37 Pulse Rate 76 12/17/22 18:10 Respiratory Rate 16 12/17/22 17:19 Blood Pressure 181/79 12/17/22 18:10 Pulse Oximetry 98 12/17/22 18:10 Oxygen Delivery Me thod Nasal Cannula 12/17/22 17:19 Oxygen Flow Rate 3 12/17/22 17:19 MDM - SOB/Dyspnea Lab Data 12/17/22 16:14 12/17/22 16:14 Labs/Radiology: Radiology Impressions Chest X-Ray 12/17/22 15:58 IMPRESSION: Minor bibasilar infiltrates. Laboratory Results WBC 7.75 10^3/uL (3.29-11.43) 12/17/22 16:14 RBC 3.34 10^6/uL (3.85-5.65) L 12/17/22 16:14 Hgb 9.20 g/dL (11.27-16.99) L 12/17/22 16:14 Hct 30.2 % (36-47) L 12/17/22 16:14 MCV 90.4 fl (85-98) 12/17/22 16:14 MCH 27.5 pg (27-33) 12/17/22 16:14 MCHC 30.5 g/dL (30-55) 12/17/22 16:14 RDW 16.0 % (12.1-15.1) H 12/17/22 16:14 Plt Count 258 10^3/cmm (157-399) 12/17/22 16:14 MPV 9.3 fL (7.4-10.4) 12/17/22 16:14 Neut % (Auto) 72.6 % 12/17/22 16:14 Lymph % (Auto) 17.3 % 12/17/22 16:14 Petroleum % (Auto) 6.1 % 12/17/22 16:14 Eos % (Auto) 2.3 % 12/17/22 16:14 Baso % (Auto) 0.5 % 12/17/22 16:14 Neut # (Auto) 5.63 10^3/uL (1.8-7.7) 12/17/22 16:14 Lymph # (Auto) 1.3 10^3/uL (0.8-4.8) 12/17/22 16:14 Petroleum # (Auto) 0.5 10^3/uL (0.2-0.9) 12/17/22 16:14 Eos # (Auto) 0.2 10^3/uL (0.0-0.8) 12/17/22 16:14 Baso # (Auto) 0.0 10^3/uL (0.0-0.1) 12/17/22 16:14 Nucleated RBC % (auto) 0 % 12/17/22 16:14 Nucleated RBCs # 0.0 /100WBC 12/17/22 16:14 Sodium 144 mmol/L (136-145) 12/17/22 16:14 Potassium 4.4 mmol/L (3.5-5.1) 12/17/22 16:14 Chloride 104 mmol/L (98-107) 12/17/22 16:14 Carbon Dioxide 25 mmol/L (22-29) 12/17/22 16:14 Anion Gap 19.4 (5-19) H 12/17/22 16:14 BUN 42 mg/dL (8-23) H 12/17/22 16:14 Creatinine 2.6 mg/dL (0.5-0.9) H 12/17/22 16:14 GFR Calculation Not Reportable 12/17/22 16:14 Glucose 97 mg/dL (65-115) 12/17/22 16:14 Calculated Osmolality 308 mOsm/kg (285-295) H 12/17/22 16:14 Calcium 9.3 mg/dL (8.5-10.5) 12/17/22 16:14 Total Bilirubin 0.2 mg/dL (0.15-1.2) 12/17/22 16:14 AST 12 U/L (0-32) 12/17/22 16:14 ALT 15 U/L (0-33) 12/17/22 16:14 Alkaline Phosphatase 55 U/L (35-105) 12/17/22 16:14 Troponin T Baseline 47 ng/L (0-10) H 12/17/22 16:14 NT-Pro-B Natriuret Pep 5493 pg/mL (0-450) H 12/17/22 16:14 Total Protein 6.8 g/dL (6.6-8.7) 12/17/22 16:14 Albumin 4.3 g/dL (3.5-5.2) 12/17/22 16:14 Globulin 2.5 g/dL (1.3-4.6) 12/17/22 16:14 Urine Color Light yellow (Yellow) 12/17/22 16:55 Urine Appearance Clear (CLEAR) 12/17/22 16:55 Urine pH 5 (5-7) 12/17/22 16:55 Ur Specific Dexter 1.015 (1.005-1.030) 12/17/22 16:55 Urine Protein 1+ (Negative) H 12/17/22 16:55 Urine Glucose (UA) Norm (Normal) 12/17/22 16:55 Urine Ketones Negative (Negative) 12/17/22 16:55 Urine Blood Neg (Negative) 12/17/22 16:55 Urine Nitrate Negative (Negative) 12/17/22 16:55 Urine Bilirubin Neg (Negative) 12/17/22 16:55 Urine Urobilinogen Norm mg/dL (Negative) 12/17/22 16:55 Ur Leukocyte Esterase Negative (Negative) 12/17/22 16:55 Urine RBC Rare /hpf (0-2) 12/17/22 16:55 Urine WBC 0-4 /hpf (0-5) H 12/17/22 16:55 Ur Squamous Epith Cells 0-4 /hpf (0-5) H 12/17/22 16:55 Amorphous Sediment Not Reportable 12/17/22 16:55 Urine Bacteria Trace /hpf (NONE) 12/17/22 16:55 Hyaline Casts 0-4 /lpf H 12/17/22 16:55 Urine Mucus 1+ /hpf 12/17/22 16:55 Discharge Plan Discharge Patient Disposition: Home Clinical Impression: CHF (congestive heart failure), NYHA class III Qualifiers: Congestive heart failure type: unspecified Qualified Code(s): I50.9 - Heart failure, unspecified Diabetes mellitus Qualifiers: Diabetes mellitus type: type 2 Diabetes mellitus senior living insulin use: unspecified bed bug exterminator insulin use status Diabetes mellitus complication status: with circulatory complication Diabetes mellitus complication detail: with other circulatory complications Qualified Code(s): E11.59 - Type 2 diabetes mellitus with other circulatory complications COPD (chronic obstructive pulmonary disease) Qualifiers: COPD type: unspecified COPD Qualified Code(s): J44.9 - Chronic obstructive pulmonary disease, unspecified Condition: Stable Prescriptions: New doxycycline hyclate 100 mg tablet 100 mg PO BID 7 Days Qty: 14 0RF prednisone 20 mg tablet 20 mg PO DAILY Qty: 5 0RF No Action aspirin 81 mg tablet,delayed release (DR/EC) 81 mg PO QPM Tresiba FlexTouch U-200 200 unit/mL (3 mL) insulin pen 90 unit SUBCUT QPM zolpidem 10 mg tablet 10 mg PO BEDTIME omeprazole 40 mg capsule,delayed release(DR/EC) 40 mg PO QAM cholecalciferol (vitamin D3) 25 mcg (1,000 unit) capsule 25 mcg PO QAM ascorbate calcium (vitamin C) 500 mg tablet 1,000 mg PO DAILY albuterol sulfate 90 mcg/actuation HFA aerosol inhaler 1 inh inhalation QID PRN (Reason: shortness of breath or wheezing) Qty: 8.5 3RF metoprolol tartrate 50 mg tablet 50 mg PO BID Qty: 180 5RF ferrous sulfate [Feosol] 325 mg (65 mg iron) tablet 325 mg PO DAILY prednisone 5 mg tablet 5 mg PO DAILY PRN (Reason: joint pain) Qty: 30 1RF Xeljanz 5 mg tablet 5 mg PO DAILY Qty: 30 3RF garlic 500 mg capsule 500 mg PO DAILY cetirizine 10 mg tablet 10 mg PO DAILY bumetanide 1 mg tablet 1 mg PO BID Qty: 60 0RF nitroglycerin [Nitrostat] 0.4 mg tablet, sublingual 0.4 mg sublingual Q5M PRN (Reason: chest pain) Qty: 50 1RF Rx Instructions: do not exceed 3 doses per episode amlodipine 10 mg tablet 10 mg PO QAM Qty: 90 3RF isosorbide mononitrate 60 mg tablet extended release 24 hr 60 mg PO QAM Qty: 90 3RF hydralazine 50 mg tablet See Rx Instructions .ROUTE .COMPLEX Qty: 105 4RF Dose Instruction: TAKE 2 TABLETS BY MOUTH EVERY MORNING AND 1&1/2 AT NIGHT DAILY Rx Instructions: TAKE 2 TABLETS BY MOUTH EVERY MORNING AND 1&1/2 AT NIGHT DAILY cyanocobalamin (vitamin B-12) [Vitamin B-12] 1,000 mcg Tablet 1,000 mcg PO BID potassium chloride 20 mEq Tablet Extended Release 20 meq PO DAILY insulin aspart U-100 [Novolog FlexPen U-100 Insulin] 100 unit/mL (3 mL) Insulin Pen 20 unit SUBCUT TID Rx Instructions: with meals Trelegy Ellipta 200-62.5-25 mcg Blister With Device 1 inh INHALATION DAILY Discharge Orders: Discharge ED (Routine); Ordered 12/17/22 Ordered By: Bill Faith Referrals: Nancy Swan PA [Primary Care Provider] - Discharge Diet: Usual diet Discharge Activity: Increase activity as tolerated Patient Instructions: Heart Failure (ED) Activity Restrictions/Additional Instructions: Increase Bumex as directed by hide dyer. Take antibiotics and steroids for COPD. Follow-up with primary care as needed. I would recommend discussing this with your primary care provider the use of Jardiance to help with both your CHF and your diabetes. Return to ER for worsening symptoms such as high fever, worsening shortness of breath, chest pain, or new concerns. Sign Out Sign Out Data: Patient Sign Out occurred on 12/17/22 at 17:08. Patient's care was discussed, and care was transferred from to Bill Faith. Coding Level of Care Code ED Quality Control Engineering Technician for Chg Fwd Documented by User: CJ Mckeon 12/17/22 17:41 HPI - SOB/Dyspnea General: Chief Complaint: Shortness of Breath/Dyspnea Stated Complaint: sob Time Seen by Provider: 12/17/22 16:06 PFSH ED PFSH: Medical History AICD malfunction Anemia Anemia of chronic disease Cardiac resynchronization therapy defibrillator ([employer] MANAGEMENT CONSULTANT-D) in place Cardiomyopathy Carpal tunnel syndrome Carpal tunnel syndrome of right wrist CHF (congestive heart failure), NYHA class III Chronic diastolic heart failure Echocardiogram done in September 2019 showed EF of 60%, grade 1 diastolic dysfunction, normal RV functions. Chronic steroid use counseled about blood sugar monitoring Chronic systolic (congestive) heart failure CKD (chronic kidney disease) stage 4, GFR 15-29 ml/min COPD (chronic obstructive pulmonary disease) COPD (chronic obstructive pulmonary disease) Diabetes mellitus Hepatitis B core antibody positive Hepatitis B PCR is negative High risk medication use High risk medication use Hypertension ICD (implantable cardioverter-defibrillator) battery depletion Immunization counseling Iron deficiency anemia, unspecified Non-ischemic cardiomyopathy Peripheral neuropathy Rheumatoid arthritis Rheumatoid arthritis, seropositive, 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 Surgical History History of appendectomy History of hysterectomy with bilateral oophorectomy S/P ICD (internal cardiac defibrillator) procedure Family History Mother Diabetes Hypertension CHF (congestive heart failure) Other CAD (coronary artery disease) Cancer Hyperlipidemia Lung disease Denies family history of Rheumatoid arthritis Lupus Chronic kidney disease (CKD) Stroke Social History Smoking and tobacco/nicotine status: former use of tobacco/nicotine Quit status (tobacco/nicotine): has quit using Year quit tobacco: 2010 Former quit date comment: 1ppd x 45years Second hand smoke exposure: No Alcohol intake: never Substance/Drug Use: never Household members: spouse Housing: House Marital status: Do you think of yourself as: Straight/Heterosexual Current gender identity: Female Course Vital Signs: Vital signs: Vital Signs Temperature 98.1 F 12/17/22 15:37 Pulse Rate 76 12/17/22 18:10 Respiratory Rate 16 12/17/22 17:19 Blood Pressure 181/79 12/17/22 18:10 Pulse Oximetry 98 12/17/22 18:10 Oxygen Delivery Me thod Nasal Cannula 12/17/22 17:19 Oxygen Flow Rate 3 12/17/22 17:19 MDM - SOB/Dyspnea Medical Decision Making 77-year-old female comes in today with complaints of persistent shortness of breath even after change of medication from Lasix to Bumex on December 09. Patient continues to feel like she cannot take a deep breath. Patient is on chronic oxygen. Patient reports some increased swelling to her lower extremities. Patient complains of orthopnea. Patient appears nontoxic. Patient appears chronically ill. Patient appears in no pain. Differential diagnosis includes but not limited to exacerbation of CHF, pneumonia, ACS, electrolyte imbalance. Chest x-ray noted bibasilar infiltrates. White blood cell count 7.75. Hemoglobin was 9.2. Creatinine is 2.6 which is increased from 2.2 from December 09. BNP is 5493 increased from 3160 from December 09. Urinalysis is unremarkable. I discussed this patient with Dr. Peguero who agreed with plan for admission due to exacerbation of CHF. I reviewed it with patient but patient refused admission at this time she wished to have a dose of Lasix through the IV and be placed on some steroids that she reports usually takes care of symptoms. Patient was in no acute distress. I discussed the benefits of admission but patient continued to refuse. We will go ahead and give 80 mg of Lasix IV, place patient on doxycycline 100 mg twice a day for 7 days, and 20 mg of prednisone for the next 5 days. Patient agreed to plan and need for follow-up or return to the ER. Lab Data 12/17/22 16:14 12/17/22 16:14 Labs/Radiology: Radiology Impressions Chest X-Ray 12/17/22 15:58 IMPRESSION: Minor bibasilar infiltrates. Laboratory Results WBC 7.75 10^3/uL (3.29-11.43) 12/17/22 16:14 RBC 3.34 10^6/uL (3.85-5.65) L 12/17/22 16:14 Hgb 9.20 g/dL (11.27-16.99) L 12/17/22 16:14 Hct 30.2 % (36-47) L 12/17/22 16:14 MCV 90.4 fl (85-98) 12/17/22 16:14 MCH 27.5 pg (27-33) 12/17/22 16:14 MCHC 30.5 g/dL (30-55) 12/17/22 16:14 RDW 16.0 % (12.1-15.1) H 12/17/22 16:14 Plt Count 258 10^3/cmm (157-399) 12/17/22 16:14 MPV 9.3 fL (7.4-10.4) 12/17/22 16:14 Neut % (Auto) 72.6 % 12/17/22 16:14 Lymph % (Auto) 17.3 % 12/17/22 16:14 Petroleum % (Auto) 6.1 % 12/17/22 16:14 Eos % (Auto) 2.3 % 12/17/22 16:14 Baso % (Auto) 0.5 % 12/17/22 16:14 Neut # (Auto) 5.63 10^3/uL (1.8-7.7) 12/17/22 16:14 Lymph # (Auto) 1.3 10^3/uL (0.8-4.8) 12/17/22 16:14 Petroleum # (Auto) 0.5 10^3/uL (0.2-0.9) 12/17/22 16:14 Eos # (Auto) 0.2 10^3/uL (0.0-0.8) 12/17/22 16:14 Baso # (Auto) 0.0 10^3/uL (0.0-0.1) 12/17/22 16:14 Nucleated RBC % (auto) 0 % 12/17/22 16:14 Nucleated RBCs # 0.0 /100WBC 12/17/22 16:14 Sodium 144 mmol/L (136-145) 12/17/22 16:14 Potassium 4.4 mmol/L (3.5-5.1) 12/17/22 16:14 Chloride 104 mmol/L (98-107) 12/17/22 16:14 Carbon Dioxide 25 mmol/L (22-29) 12/17/22 16:14 Anion Gap 19.4 (5-19) H 12/17/22 16:14 BUN 42 mg/dL (8-23) H 12/17/22 16:14 Creatinine 2.6 mg/dL (0.5-0.9) H 12/17/22 16:14 GFR Calculation Not Reportable 12/17/22 16:14 Glucose 97 mg/dL (65-115) 12/17/22 16:14 Calculated Osmolality 308 mOsm/kg (285-295) H 12/17/22 16:14 Calcium 9.3 mg/dL (8.5-10.5) 12/17/22 16:14 Total Bilirubin 0.2 mg/dL (0.15-1.2) 12/17/22 16:14 AST 12 U/L (0-32) 12/17/22 16:14 ALT 15 U/L (0-33) 12/17/22 16:14 Alkaline Phosphatase 55 U/L (35-105) 12/17/22 16:14 Troponin T Baseline 47 ng/L (0-10) H 12/17/22 16:14 NT-Pro-B Natriuret Pep 5493 pg/mL (0-450) H 12/17/22 16:14 Total Protein 6.8 g/dL (6.6-8.7) 12/17/22 16:14 Albumin 4.3 g/dL (3.5-5.2) 12/17/22 16:14 Globulin 2.5 g/dL (1.3-4.6) 12/17/22 16:14 Urine Color Light yellow (Yellow) 12/17/22 16:55 Urine Appearance Clear (CLEAR) 12/17/22 16:55 Urine pH 5 (5-7) 12/17/22 16:55 Ur Specific Dexter 1.015 (1.005-1.030) 12/17/22 16:55 Urine Protein 1+ (Negative) H 12/17/22 16:55 Urine Glucose (UA) Norm (Normal) 12/17/22 16:55 Urine Ketones Negative (Negative) 12/17/22 16:55 Urine Blood Neg (Negative) 12/17/22 16:55 Urine Nitrate Negative (Negative) 12/17/22 16:55 Urine Bilirubin Neg (Negative) 12/17/22 16:55 Urine Urobilinogen Norm mg/dL (Negative) 12/17/22 16:55 Ur Leukocyte Esterase Negative (Negative) 12/17/22 16:55 Urine RBC Rare /hpf (0-2) 12/17/22 16:55 Urine WBC 0-4 /hpf (0-5) H 12/17/22 16:55 Ur Squamous Epith Cells 0-4 /hpf (0-5) H 12/17/22 16:55 Amorphous Sediment Not Reportable 12/17/22 16:55 Urine Bacteria Trace /hpf (NONE) 12/17/22 16:55 Hyaline Casts 0-4 /lpf H 12/17/22 16:55 Urine Mucus 1+ /hpf 12/17/22 16:55 All radiology interpretation(s) finalized by discharge Discharge Plan Discharge Patient Disposition: Home Clinical Impression: CHF (congestive heart failure), NYHA class III Qualifiers: Congestive heart failure type: unspecified Qualified Code(s): I50.9 - Heart failure, unspecified Diabetes mellitus Qualifiers: Diabetes mellitus type: type 2 Diabetes mellitus senior living insulin use: unspecified bed bug exterminator insulin use status Diabetes mellitus complication status: with circulatory complication Diabetes mellitus complication detail: with other circulatory complications Qualified Code(s): E11.59 - Type 2 diabetes mellitus with other circulatory complications COPD (chronic obstructive pulmonary disease) Qualifiers: COPD type: unspecified COPD Qualified Code(s): J44.9 - Chronic obstructive pulmonary disease, unspecified Condition: Stable Prescriptions: New doxycycline hyclate 100 mg tablet 100 mg PO BID 7 Days Qty: 14 0RF prednisone 20 mg tablet 20 mg PO DAILY Qty: 5 0RF No Action aspirin 81 mg tablet,delayed release (DR/EC) 81 mg PO QPM Tresiba FlexTouch U-200 200 unit/mL (3 mL) insulin pen 90 unit SUBCUT QPM zolpidem 10 mg tablet 10 mg PO BEDTIME omeprazole 40 mg capsule,delayed release(DR/EC) 40 mg PO QAM cholecalciferol (vitamin D3) 25 mcg (1,000 unit) capsule 25 mcg PO QAM ascorbate calcium (vitamin C) 500 mg tablet 1,000 mg PO DAILY albuterol sulfate 90 mcg/actuation HFA aerosol inhaler 1 inh inhalation QID PRN (Reason: shortness of breath or wheezing) Qty: 8.5 3RF metoprolol tartrate 50 mg tablet 50 mg PO BID Qty: 180 5RF ferrous sulfate [Feosol] 325 mg (65 mg iron) tablet 325 mg PO DAILY prednisone 5 mg tablet 5 mg PO DAILY PRN (Reason: joint pain) Qty: 30 1RF Xeljanz 5 mg tablet 5 mg PO DAILY Qty: 30 3RF garlic 500 mg capsule 500 mg PO DAILY cetirizine 10 mg tablet 10 mg PO DAILY bumetanide 1 mg tablet 1 mg PO BID Qty: 60 0RF nitroglycerin [Nitrostat] 0.4 mg tablet, sublingual 0.4 mg sublingual Q5M PRN (Reason: chest pain) Qty: 50 1RF Rx Instructions: do not exceed 3 doses per episode amlodipine 10 mg tablet 10 mg PO QAM Qty: 90 3RF isosorbide mononitrate 60 mg tablet extended release 24 hr 60 mg PO QAM Qty: 90 3RF hydralazine 50 mg tablet See Rx Instructions .ROUTE .COMPLEX Qty: 105 4RF Dose Instruction: TAKE 2 TABLETS BY MOUTH EVERY MORNING AND 1&1/2 AT NIGHT DAILY Rx Instructions: TAKE 2 TABLETS BY MOUTH EVERY MORNING AND 1&1/2 AT NIGHT DAILY cyanocobalamin (vitamin B-12) [Vitamin B-12] 1,000 mcg Tablet 1,000 mcg PO BID potassium chloride 20 mEq Tablet Extended Release 20 meq PO DAILY insulin aspart U-100 [Novolog FlexPen U-100 Insulin] 100 unit/mL (3 mL) Insulin Pen 20 unit SUBCUT TID Rx Instructions: with meals Trelegy Ellipta 200-62.5-25 mcg Blister With Device 1 inh INHALATION DAILY Discharge Orders: Discharge ED (Routine); Ordered 12/17/22 Ordered By: Bill Faith Referrals: Nancy Swan PA [Primary Care Provider] - Discharge Diet: Usual diet Discharge Activity: Increase activity as tolerated Patient Instructions: Heart Failure (ED) Activity Restrictions/Additional Instructions: Increase Bumex as directed by hide dyer. Take antibiotics and steroids for COPD. Follow-up with primary care as needed. I would recommend discussing this with your primary care provider the use of Jardiance to help with both your CHF and your diabetes. Return to ER for worsening symptoms such as high fever, worsening shortness of breath, chest pain, or new concerns. Sign Out Sign Out Data: Patient Sign Out occurred on 12/17/22 at 17:08. Patient's care was discussed, and care was transferred from to Bill Faith. Coding Level of Care Code ED Quality Control Engineering Technician for Chg Fwd Documented by User: Terry Peguero DO 12/18/22 16:31 HPI - SOB/Dyspnea General: Chief Complaint: Shortness of Breath/Dyspnea Stated Complaint: sob Time Seen by Provider: 12/17/22 16:06 [facility] ED PFSH: Medical History AICD malfunction Anemia Anemia of chronic disease Cardiac resynchronization therapy defibrillator ([employer]ENT[employer] MANAGEMENT CONSULTANT-D) in place Cardiomyopathy Carpal tunnel syndrome Carpal tunnel syndrome of right wrist CHF (congestive heart failure), NYHA class III Chronic diastolic heart failure Echocardiogram done in September 2019 showed EF of 60%, grade 1 diastolic dysfunction, normal RV functions. Chronic steroid use counseled about blood sugar monitoring Chronic systolic (congestive) heart failure CKD (chronic kidney disease) stage 4, GFR 15-29 ml/min COPD (chronic obstructive pulmonary disease) COPD (chronic obstructive pulmonary disease) Diabetes mellitus Hepatitis B core antibody positive Hepatitis B PCR is negative High risk medication use High risk medication use Hypertension ICD (implantable cardioverter-defibrillator) battery depletion Immunization counseling Iron deficiency anemia, unspecified Non-ischemic cardiomyopathy Peripheral neuropathy Rheumatoid arthritis Rheumatoid arthritis, seropositive, 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 Surgical History History of appendectomy History of hysterectomy with bilateral oophorectomy S/P ICD (internal cardiac defibrillator) procedure Family History Mother Diabetes Hypertension CHF (congestive heart failure) Other CAD (coronary artery disease) Cancer Hyperlipidemia Lung disease Denies family history of Rheumatoid arthritis Lupus Chronic kidney disease (CKD) Stroke Social History Smoking and tobacco/nicotine status: former use of tobacco/nicotine Quit status (tobacco/nicotine): has quit using Year quit tobacco: 2010 Former quit date comment: 1ppd x 45years Second hand smoke exposure: No Alcohol intake: never Substance/Drug Use: never Household members: spouse Housing: House Marital status: Do you think of yourself as: Straight/Heterosexual Current gender identity: Female Course Vital Signs: Vital signs: Vital Signs Temperature 98.1 F 12/17/22 15:37 Pulse Rate 76 12/17/22 18:10 Respiratory Rate 16 12/17/22 17:19 Blood Pressure 181/79 12/17/22 18:10 Pulse Oximetry 98 12/17/22 18:10 Oxygen Delivery Me thod Nasal Cannula 12/17/22 17:19 Oxygen Flow Rate 3 12/17/22 17:19 MDM - SOB/Dyspnea Medical Decision Making 77-year-old female comes in today with complaints of persistent shortness of breath even after change of medication from Lasix to Bumex on December 09. Patient continues to feel like she cannot take a deep breath. Patient is on chronic oxygen. Patient reports some increased swelling to her lower extremities. Patient complains of orthopnea. Patient appears nontoxic. Patient appears chronically ill. Patient appears in no pain. Differential diagnosis includes but not limited to exacerbation of CHF, pneumonia, ACS, electrolyte imbalance. Chest x-ray noted bibasilar infiltrates. White blood cell count 7.75. Hemoglobin was 9.2. Creatinine is 2.6 which is increased from 2.2 from December 09. BNP is 5493 increased from 3160 from December 09. Urinalysis is unremarkable. I discussed this patient with Dr. Peguero who agreed with plan for admission due to exacerbation of CHF. I reviewed it with patient but patient refused admission at this time she wished to have a dose of Lasix through the IV and be placed on some steroids that she reports usually takes care of symptoms. Patient was in no acute distress. I discussed the benefits of admission but patient continued to refuse. We will go ahead and give 80 mg of Lasix IV, place patient on doxycycline 100 mg twice a day for 7 days, and 20 mg of prednisone for the next 5 days. Patient agreed to plan and need for follow-up or return to the ER. Chart reviewed and patient discussed with midlevel. Agree with assessment and plan. Lab Data 12/17/22 16:14 12/17/22 16:14 Labs/Radiology: Radiology Impressions Chest X-Ray 12/17/22 15:58 IMPRESSION: Minor bibasilar infiltrates. Laboratory Results WBC 7.75 10^3/uL (3.29-11.43) 12/17/22 16:14 RBC 3.34 10^6/uL (3.85-5.65) L 12/17/22 16:14 Hgb 9.20 g/dL (11.27-16.99) L 12/17/22 16:14 Hct 30.2 % (36-47) L 12/17/22 16:14 MCV 90.4 fl (85-98) 12/17/22 16:14 MCH 27.5 pg (27-33) 12/17/22 16:14 MCHC 30.5 g/dL (30-55) 12/17/22 16:14 RDW 16.0 % (12.1-15.1) H 12/17/22 16:14 Plt Count 258 10^3/cmm (157-399) 12/17/22 16:14 MPV 9.3 fL (7.4-10.4) 12/17/22 16:14 Neut % (Auto) 72.6 % 12/17/22 16:14 Lymph % (Auto) 17.3 % 12/17/22 16:14 Petroleum % (Auto) 6.1 % 12/17/22 16:14 Eos % (Auto) 2.3 % 12/17/22 16:14 Baso % (Auto) 0.5 % 12/17/22 16:14 Neut # (Auto) 5.63 10^3/uL (1.8-7.7) 12/17/22 16:14 Lymph # (Auto) 1.3 10^3/uL (0.8-4.8) 12/17/22 16:14 Petroleum # (Auto) 0.5 10^3/uL (0.2-0.9) 12/17/22 16:14 Eos # (Auto) 0.2 10^3/uL (0.0-0.8) 12/17/22 16:14 Baso # (Auto) 0.0 10^3/uL (0.0-0.1) 12/17/22 16:14 Nucleated RBC % (auto) 0 % 12/17/22 16:14 Nucleated RBCs # 0.0 /100WBC 12/17/22 16:14 Sodium 144 mmol/L (136-145) 12/17/22 16:14 Potassium 4.4 mmol/L (3.5-5.1) 12/17/22 16:14 Chloride 104 mmol/L (98-107) 12/17/22 16:14 Carbon Dioxide 25 mmol/L (22-29) 12/17/22 16:14 Anion Gap 19.4 (5-19) H 12/17/22 16:14 BUN 42 mg/dL (8-23) H 12/17/22 16:14 Creatinine 2.6 mg/dL (0.5-0.9) H 12/17/22 16:14 GFR Calculation Not Reportable 12/17/22 16:14 Glucose 97 mg/dL (65-115) 12/17/22 16:14 Calculated Osmolality 308 mOsm/kg (285-295) H 12/17/22 16:14 Calcium 9.3 mg/dL (8.5-10.5) 12/17/22 16:14 Total Bilirubin 0.2 mg/dL (0.15-1.2) 12/17/22 16:14 AST 12 U/L (0-32) 12/17/22 16:14 ALT 15 U/L (0-33) 12/17/22 16:14 Alkaline Phosphatase 55 U/L (35-105) 12/17/22 16:14 Troponin T Baseline 47 ng/L (0-10) H 12/17/22 16:14 NT-Pro-B Natriuret Pep 5493 pg/mL (0-450) H 12/17/22 16:14 Total Protein 6.8 g/dL (6.6-8.7) 12/17/22 16:14 Albumin 4.3 g/dL (3.5-5.2) 12/17/22 16:14 Globulin 2.5 g/dL (1.3-4.6) 12/17/22 16:14 Urine Color Light yellow (Yellow) 12/17/22 16:55 Urine Appearance Clear (CLEAR) 12/17/22 16:55 Urine pH 5 (5-7) 12/17/22 16:55 Ur Specific Dexter 1.015 (1.005-1.030) 12/17/22 16:55 Urine Protein 1+ (Negative) H 12/17/22 16:55 Urine Glucose (UA) Norm (Normal) 12/17/22 16:55 Urine Ketones Negative (Negative) 12/17/22 16:55 Urine Blood Neg (Negative) 12/17/22 16:55 Urine Nitrate Negative (Negative) 12/17/22 16:55 Urine Bilirubin Neg (Negative) 12/17/22 16:55 Urine Urobilinogen Norm mg/dL (Negative) 12/17/22 16:55 Ur Leukocyte Esterase Negative (Negative) 12/17/22 16:55 Urine RBC Rare /hpf (0-2) 12/17/22 16:55 Urine WBC 0-4 /hpf (0-5) H 12/17/22 16:55 Ur Squamous Epith Cells 0-4 /hpf (0-5) H 12/17/22 16:55 Amorphous Sediment Not Reportable 12/17/22 16:55 Urine Bacteria Trace /hpf (NONE) 12/17/22 16:55 Hyaline Casts 0-4 /lpf H 12/17/22 16:55 Urine Mucus 1+ /hpf 12/17/22 16:55 Discharge Plan Discharge Patient Disposition: Home Clinical Impression: CHF (congestive heart failure), NYHA class III Qualifiers: Congestive heart failure type: unspecified Qualified Code(s): I50.9 - Heart failure, unspecified Diabetes mellitus Qualifiers: Diabetes mellitus type: type 2 Diabetes mellitus bed bug exterminator insulin use: unspecified bed bug exterminator insulin use status Diabetes mellitus complication status: with circulatory complication Diabetes mellitus complication detail: with other circulatory complications Qualified Code(s): E11.59 - Type 2 diabetes mellitus with other circulatory complications COPD (chronic obstructive pulmonary disease) Qualifiers: COPD type: unspecified COPD Qualified Code(s): J44.9 - Chronic obstructive pulmonary disease, unspecified Condition: Stable Prescriptions: New doxycycline hyclate 100 mg tablet 100 mg PO BID 7 Days Qty: 14 0RF prednisone 20 mg tablet 20 mg PO DAILY Qty: 5 0RF No Action aspirin 81 mg tablet,delayed release (DR/EC) 81 mg PO QPM Tresiba FlexTouch U-200 200 unit/mL (3 mL) insulin pen 90 unit SUBCUT QPM zolpidem 10 mg tablet 10 mg PO BEDTIME omeprazole 40 mg capsule,delayed release(DR/EC) 40 mg PO QAM cholecalciferol (vitamin D3) 25 mcg (1,000 unit) capsule 25 mcg PO QAM ascorbate calcium (vitamin C) 500 mg tablet 1,000 mg PO DAILY albuterol sulfate 90 mcg/actuation HFA aerosol inhaler 1 inh inhalation QID PRN (Reason: shortness of breath or wheezing) Qty: 8.5 3RF metoprolol tartrate 50 mg tablet 50 mg PO BID Qty: 180 5RF ferrous sulfate [Feosol] 325 mg (65 mg iron) tablet 325 mg PO DAILY prednisone 5 mg tablet 5 mg PO DAILY PRN (Reason: joint pain) Qty: 30 1RF Xeljanz 5 mg tablet 5 mg PO DAILY Qty: 30 3RF garlic 500 mg capsule 500 mg PO DAILY cetirizine 10 mg tablet 10 mg PO DAILY bumetanide 1 mg tablet 1 mg PO BID Qty: 60 0RF nitroglycerin [Nitrostat] 0.4 mg tablet, sublingual 0.4 mg sublingual Q5M PRN (Reason: chest pain) Qty: 50 1RF Rx Instructions: do not exceed 3 doses per episode amlodipine 10 mg tablet 10 mg PO QAM Qty: 90 3RF isosorbide mononitrate 60 mg tablet extended release 24 hr 60 mg PO QAM Qty: 90 3RF hydralazine 50 mg tablet See Rx Instructions .ROUTE .COMPLEX Qty: 105 4RF Dose Instruction: TAKE 2 TABLETS BY MOUTH EVERY MORNING AND 1&1/2 AT NIGHT DAILY Rx Instructions: TAKE 2 TABLETS BY MOUTH EVERY MORNING AND 1&1/2 AT NIGHT DAILY cyanocobalamin (vitamin B-12) [Vitamin B-12] 1,000 mcg Tablet 1,000 mcg PO BID potassium chloride 20 mEq Tablet Extended Release 20 meq PO DAILY insulin aspart U-100 [Novolog FlexPen U-100 Insulin] 100 unit/mL (3 mL) Insulin Pen 20 unit SUBCUT TID Rx Instructions: with meals Trelegy Ellipta 200-62.5-25 mcg Blister With Device 1 inh INHALATION DAILY Discharge Orders: Discharge ED (Routine); Ordered 12/17/22 Ordered By: Bill Faith Referrals: Nancy Swan PA [Primary Care Provider] - Discharge Diet: Usual diet Discharge Activity: Increase activity as tolerated Patient Instructions: Heart Failure (ED) Activity Restrictions/Additional Instructions: Increase Bumex as directed by hide dyer. Take antibiotics and steroids for COPD. Follow-up with primary care as needed. I would recommend discussing this with your primary care provider the use of Jardiance to help with both your CHF and your diabetes. Return to ER for worsening symptoms such as high fever, worsening shortness of breath, chest pain, or new concerns. Sign Out Sign Out Data: Patient Sign Out occurred on 12/17/22 at 17:08. Patient's care was discussed, and care was transferred from to Bill Faith. Coding Level of Care Code ED Quality Control Engineering Technician for Ora Kerr
[2022-12-17 16:21] LABS: Basophils % 0.5 %; Eosinophils # 0.2 10^3/uL (0.0-0.8); Eosinophils % 2.3 %; Hematocrit 30.2 % (36-47); Lymphocytes # 1.3 10^3/uL (0.8-4.8); Lymphocytes % 17.3 %; Mean Corpuscular HGB Conc 30.5 g/dL (30-55); Mean Corpuscular Hemoglobin 27.5 pg (27-33); Mean Corpuscular Volume 90.4 fl (85-98); Mean Platelet Volume 9.3 fL (7.4-10.4); Monocytes # 0.5 10^3/uL (0.2-0.9); Monocytes % 6.1 %; Neutrophils # 5.63 10^3/uL (1.8-7.7); Neutrophils % 72.6 %; Nucleated Red Blood Cells % 0 %; Platelet Count 258 10^3/cmm (157-399); Red Blood Count 3.34 10^6/uL (3.85-5.65); White Blood Count 7.75 10^3/uL (3.29-11.43)
--- NOTE | 2022-12-17 16:30 | ECG_ITS ---
[facility] Test Date: 2022-12-17 Pat Name: Peri Monge Department: Room: Gender: Female Visual Developer: : 1945 Requested By: Pamela Moreira Order Number: [id number] Jacey MD: Malathi Leon M.D. Measurements Intervals [place] Rate: 76 P: 137 GA: 188 QRS: -15 QRSD: 130 T: 163 QT: 402 QTc: 453 Interpretive Statements ELECTRONIC ATRIAL PACEMAKER ELECTRONIC VENTRICULAR PACEMAKER PVC's ABNORMAL RHYTHM ECG Compared to ECG 11/28/2022 10:54:11 No significant changes Electronically Signed On 12-17-2022 17:42:24 CDT by Malathi Leon M.D. [email or web address].[employer]/store/[id number]
[2022-12-17 16:54] VITALS: RESP 16
[2022-12-17 16:54] LABS: Troponin(5th) Baseline 47 ng/L (0-10)
[2022-12-17 17:03] LABS: Alanine Aminotransferase 15 U/L (0-33); Albumin Level 4.3 g/dL (3.5-5.2); Alkaline Phosphatase 55 U/L (35-105); Anion Gap 19.4 (5-19); Aspartate Amino Transferase 12 U/L (0-32); Blood Urea Nitrogen 42 mg/dL (8-23); Calcium 9.3 mg/dL (8.5-10.5); Carbon Dioxide 25 mmol/L (22-29); Chloride 104 mmol/L (98-107); Globulin 2.5 g/dL (1.3-4.6); Glucose 97 mg/dL (65-115); NT Pro B Type Natriuretic Pept 5493 pg/mL (0-450); Osmolality Calculated 308 mOsm/kg (285-295); Potassium 4.4 mmol/L (3.5-5.1); Sodium 144 mmol/L (136-145); Total Bilirubin 0.2 mg/dL (0.15-1.2); Total Protein 6.8 g/dL (6.6-8.7)
[2022-12-17 17:09] LABS: Add Urine Microscopic? YES; Bilirubin Urine Neg (Negative); Blood Urine Neg (Negative); Glucose Urine UA Norm (Normal); Ketones Urine Negative (Negative); Leukocyte Esterase Urine Negative (Negative); Nitrate Urine Negative (Negative); Protein Urine 1+ (Negative); Specific Gravity, Urine 1.015 (1.005-1.030); Urine Appearance Clear (CLEAR); Urine Color Light yellow (Yellow); Urobilinogen Urine Norm (Negative); pH Urine 5 (5-7)
[2022-12-17 17:19] VITALS: BP 159/59; PULSE 72; RESP 16; O2SAT 97
[2022-12-17 17:20] LABS: RBC Urine RARE /hpf (0-2); WBC Urine 0-4 /hpf (0-5)
[2022-12-17 17:21] LABS: Add Urine Culture? No; Bacteria Urine TRACE /hpf; Hyaline Casts Urine 0-4 /lpf; Mucus Urine 1+ /hpf; Squamous Epithelial Cell Urine 0-4 /hpf (0-5)
[2022-12-17] MEDS: doxycycline 100 mg Tablet PO (17:52)
[2022-12-17] MEDS: FUROsemide 10 mg/mL SDV 10mL 80 MG IVP (17:58)
[2022-12-17] MEDS: dexamethasone 10 mg/mL INJ 6 MG IVP (17:58)
[2022-12-17 18:10] VITALS: BP 181/79; PULSE 76; O2SAT 98
== END 2022-12-17 18:12 | disposition home or self-care (01) ==
PROVIDERS: Physician Assistant; Emergency Provider Nurse Practitioner Family; PCP Physician Assistant
DX: J44.9 Chronic obstructive pulmonary disease, unspecified (principal); E11.59 Type 2 diabetes mellitus with other circulatory complications; Z79.82 Long term (current) use of aspirin; Z79.4 Long term (current) use of insulin; Z87.891 Personal history of nicotine dependence; E11.22 Type 2 diabetes mellitus with diabetic chronic kidney disease; I13.0 Hypertensive heart and chronic kidney disease with heart failure and stage 1 through stage 4 chronic kidney disease, or unspecified chronic kidney disease; N18.4 Chronic kidney disease, stage 4 (severe); I50.32 Chronic diastolic (congestive) heart failure; Z86.19 Personal history of other infectious and parasitic diseases; Z95.810 Presence of automatic (implantable) cardiac defibrillator
CPT/HCPCS: 36415; 71045; 80053; 81001; 83880; 84484; 85025; 93005; 96374; 96375; 99285; J1100; J1940

== ENCOUNTER 2023-02-11 18:15 | Emergency (ER) | payer MEDICARE, SELFPAY ==
--- NOTE | 2023-02-11 18:20 | ECG_ITS ---
[facility] Test Date: 2023-02-11 Pat Name: Peri Monge Department: Room: Gender: Female Video Clerk: : 1945 Requested By: Angel Lamar Order Number: [id number] Jacey MD: Adilson Montgomery M.D. Measurements Intervals Luke Rate: 66 P: 70 AL: 153 QRS: 266 QRSD: 142 T: 70 QT: 444 QTc: 468 Interpretive Statements ELECTRONIC VENTRICULAR PACEMAKER ABNORMAL RHYTHM ECG Compared to ECG 12/17/2022 16:30:55 Atrial-paced complex(es) or rhythm no longer present Electronically Signed On 02-12-2023 8:20:58 AUTOMATION ENGINEERING TECHNICIAN by Adilson Montgomery M.D. [id number]
--- NOTE | 2023-02-11 18:20 | XRR_ITS ---
PROCEDURE INFORMATION: Exam: XR Chest Exam date and time: 02/11/2023 6:32 PM Age: 77 years old Clinical indication: Pain; Chest pressure; Prior surgery; Surgery date: 6+ months; Surgery type: Pacemaker; Additional info: Cp TECHNIQUE: Imaging protocol: Radiologic exam of the chest. Views: 1 view. COMPARISON: CR XR chest 1V portable [id number] 12/17/2022 4:06 PM FINDINGS: Tubes, catheters and devices: Left subclavian pacemaker in position. Lungs: No consolidation. Pleural spaces: No pleural effusion. No pneumothorax. Heart/Mediastinum: No cardiomegaly. Prominent descending thoracic aorta. Bones/joints: Unremarkable. Intraperitoneal space: There is no free intraperitoneal air. XR/XR chest 1V portable [id number] IMPRESSION: No acute cardiopulmonary disease.
[2023-02-11 18:23] VITALS: BP 187/63; PULSE 68; RESP 18; TEMP 37.7; O2SAT 96; BMI 30.9
--- NOTE | 2023-02-11 18:29 | ED_ITS ---
HPI - Chest Pain 2 General: Chief Complaint: Chest Pain Stated Complaint: Chest Pains Time Seen by Provider: 02/11/23 18:28 History of Present Illness: 77-year-old female presents emergency de partment with complaints of substernal chest pain that started approximately 1530 while she was sitting down. She states that the pain does not radiate. She states it was substernal and 4 out of 10 pressure type pain. She denies nausea, vomiting, dizziness or lightheaded feeling. She denies shortness of breath or diaphoresis. Associated symptoms: Reports dyspnea Review of Systems 2 General: Reports: 10 or more systems reviewed and unremarkable except in HPI and below Card: Reports: chest pain Resp: Reports: dyspnea PFSH ED 2 PFSH: Medical History AICD malfunction Anemia Anemia of chronic disease Cardiac resynchronization therapy defibrillator (CLINICAL TEAM MANAGER-D) in place Cardiomyopathy Carpal tunnel syndrome Carpal tunnel syndrome of right wrist CHF (congestive heart failure), NYHA class III Chronic diastolic heart failure Echocardiogram done in September 2019 showed EF of 60%, grade 1 diastolic dysfunction, normal RV functions. Chronic steroid use counseled about blood sugar monitoring Chronic systolic (congestive) heart failure CKD (chronic kidney disease) stage 4, GFR 15-29 ml/min COPD (chronic obstructive pulmonary disease) COPD (chronic obstructive pulmonary disease) Diabetes mellitus Hepatitis B core antibody positive Hepatitis B PCR is negative High risk medication use High risk medication use Hypertension ICD (implantable cardioverter-defibrillator) battery depletion Immunization counseling Iron deficiency anemia, unspecified Non-ischemic cardiomyopathy Peripheral neuropathy Rheumatoid arthritis Rheumatoid arthritis, seropositive, 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 Surgical History History of appendectomy History of hysterectomy with bilateral oophorectomy S/P ICD (internal cardiac defibrillator) procedure Family History Mother Diabetes Hypertension CHF (congestive heart failure) Other CAD (coronary artery disease) Cancer Hyperlipidemia Lung disease Denies family history of Rheumatoid arthritis Lupus Chronic kidney disease (CKD) Stroke Social History Smoking and tobacco/nicotine status: former use of tobacco/nicotine Quit status (tobacco/nicotine): has quit using Year quit tobacco: 2010 Former quit date comment: 1ppd x 45years Second hand smoke exposure: No Alcohol intake: never Substance/Drug Use: never Household members: spouse Housing: House Marital status: Do you think of yourself as: Straight/Heterosexual Current gender identity: Female Physical Exam 2 Narrative: EXAM NARRATIVE: Constitutional: the patient appears well nourished and with normal development. Vital signs reviewed as documented. HENMT: Normocephalic, atraumatic. Extermal ears with normal appearance without drainage. Nose without drainage, normal appearance. Mucus membranes moist. Neck is supple, No jugular venous distension, trachea is midline, no appreciable carotid bruits. No lymphadenopathy. No meningeal signs. Flexion, extension and lateral rotation is without pain. Eyes: Pupils are equal, round, reactive to light and accommodation. No scleral icterus. Extra-ocular movement are intact. Thorax is symmetrical and with equal rise and fall with respirations. Resp: Lungs are clear to auscultation. No wheezes, rales, crackles or ronchi at present. Cardio: Regular rate and rhythm. Positive S1, S2. No appreciable murmurs, rubs or gallops. GI: Abdominal exam reveals normal bowel sounds to all quadrants. No organomegaly. No obvious palpable masses noted. No hepatomegally appreciated. Soft, nontender to palpation. Extremity: Extremities are non-edematous and both femoral and pedal pulses are 2+ and equal bilaterally. Moves all extremities well, sensation in all extremities. Neuro: Alert and oriented x4, person, place, time and situation. Cranial nerves II through XII are grossly intact, there is no focal neurological deficits that I can appreciate at present. Motor strength in the upper and lower extremities are equal and bilateral 5/5. Psych: Cooperative, calm, normal thought process, appropriate judgment. Skin: No lesions, rashes. No gross abnormalities noted. Back: Symmetrical, no obvious deformity, No CVA tenderness Course 2 Vital Signs: Vital signs: Vital Signs Temperature 100 F H 02/11/23 18:23 Pulse Rate 61 02/11/23 20:21 Respiratory Rate 16 02/11/23 20:21 Blood Pressure 183/58 02/11/23 20:21 Pulse Oximetry 99 02/11/23 20:21 Oxygen Delivery Me thod Nasal Cannula 02/11/23 18:23 Oxygen Flow Rate 3 02/11/23 18:23 MDM - Chest Pain Medical Decision Making Physical exam completed and documented, I will obtain serial cardiac enzymes, serial twelve-lead EKGs, chest x-ray, CBC, CMP, urinalysis, B-type natriuretic peptide, PT/PTT/INR, and a chest x-ray. I provide cardiac dose aspirin if indicated and nitroglycerin administration if indicated. Pending the review of the twelve-lead EKG I will also consider providing loading dose of heparin and possible heparin drip as well as evaluate the need for nitroglycerin drip, and reevaluate accordingly. I have reviewed any pervious and pertinent medical records for assist in obtaining beneficial medical information to improved the care and treatment of the patient. Medical Records I reviewed the patient's medical records. Lab Data I reviewed the patient's lab results. 02/11/23 18:46 02/11/23 18:46 Radiology Impressions Chest X-Ray 02/11/23 18:20 IMPRESSION: No acute cardiopulmonary disease. Laboratory Results WBC 7.05 10^3/uL (3.29-11.43) 02/11/23 18:46 RBC 2.94 10^6/uL (3.85-5.65) L 02/11/23 18:46 Hgb 8.00 g/dL (11.27-16.99) L 02/11/23 18:46 Hct 26.6 % (36-47) L 02/11/23 18:46 MCV 90.5 fl (85-98) 02/11/23 18:46 MCH 27.2 pg (27-33) 02/11/23 18:46 MCHC 30.1 g/dL (30-55) 02/11/23 18:46 RDW 15.9 % (12.1-15.1) H 02/11/23 18:46 Plt Count 169 10^3/cmm (157-399) 02/11/23 18:46 MPV 10.4 fL (7.4-10.4) 02/11/23 18:46 Neut % (Auto) 82.0 % 02/11/23 18:46 Lymph % (Auto) 4.8 % 02/11/23 18:46 [place] % (Auto) 11.1 % 02/11/23 18:46 Eos % (Auto) 1.4 % 02/11/23 18:46 Baso % (Auto) 0.3 % 02/11/23 18:46 Neut # (Auto) 5.78 10^3/uL (1.8-7.7) 02/11/23 18:46 Lymph # (Auto) 0.3 10^3/uL (0.8-4.8) L 02/11/23 18:46 [place] # (Auto) 0.8 10^3/uL (0.2-0.9) 02/11/23 18:46 Eos # (Auto) 0.1 10^3/uL (0.0-0.8) 02/11/23 18:46 Baso # (Auto) 0.0 10^3/uL (0.0-0.1) 02/11/23 18:46 Nucleated RBC % (auto) 0 % 02/11/23 18:46 Nucleated RBCs # 0.0 /100WBC 02/11/23 18:46 PT 14.60 SECONDS (12.1-14.9) 02/11/23 18:46 INR 1.11 (0.8-1.2) 02/11/23 18:46 Sodium 139 mmol/L (136-145) 02/11/23 18:46 Potassium 5.5 mmol/L (3.5-5.1) H 02/11/23 18:46 Chloride 104 mmol/L (98-107) 02/11/23 18:46 Carbon Dioxide 24 mmol/L (22-29) 02/11/23 18:46 Anion Gap 16.5 (5-19) 02/11/23 18:46 BUN 55 mg/dL (8-23) H 02/11/23 18:46 Creatinine 2.6 mg/dL (0.5-0.9) H 02/11/23 18:46 GFR Calculation Not Reportable 02/11/23 18:46 Glucose 120 mg/dL (65-115) H 02/11/23 18:46 Calculated Osmolality 304 mOsm/kg (285-295) H 02/11/23 18:46 Calcium 8.7 mg/dL (8.5-10.5) 02/11/23 18:46 Total Bilirubin 0.2 mg/dL (0.15-1.2) 02/11/23 18:46 AST 13 U/L (0-32) 02/11/23 18:46 ALT 13 U/L (0-33) 02/11/23 18:46 Alkaline Phosphatase 49 U/L (35-105) 02/11/23 18:46 Troponin T Baseline 52 ng/L (0-10) H 02/11/23 18:46 Troponin T 120 Minute 54.86 ng/L (0-10) H 02/11/23 20:26 Delta Troponin T 2.86 ABS# (0-10) 02/11/23 20:26 Total Protein 6.6 g/dL (6.6-8.7) 02/11/23 18:46 Albumin 4.2 g/dL (3.5-5.2) 02/11/23 18:46 Globulin 2.4 g/dL (1.3-4.6) 02/11/23 18:46 Lipase 35 U/L (13-60) 02/11/23 18:46 All radiology interpretation(s) finalized by discharge EKG Data EKG 1: Interpretation: Twelve-lead EKG obtained at 1824 reviewed at 1827 demonstrates a ventricular paced rhythm at a rate of 66 bpm MD interval 153 QRS 142 QT [address] elevation or depression to demonstrate acute ischemia or infarction at present. EKG 2: Interpretation: Repeat twelve-lead EKG at 2031 demonstrates ventricular paced rhythm with a rate of 67 bpm MD interval 157 QRS duration 150 QT [address] elevation or depression to demonstrate acute ischemia or infarction at present. Discharge Plan Discharge Patient Disposition: Home Clinical Impression: Atypical chest pain, Chronic renal disease Condition: Stable Prescriptions: No Action aspirin 81 mg tablet,delayed release (DR/EC) 81 mg PO QPM Tresiba FlexTouch U-200 200 unit/mL (3 mL) insulin pen 90 unit SUBCUT QPM zolpidem 10 mg tablet 10 mg PO BEDTIME omeprazole 40 mg capsule,delayed release(DR/EC) 40 mg PO QAM cholecalciferol (vitamin D3) 25 mcg (1,000 unit) capsule 25 mcg PO QAM ascorbate calcium (vitamin C) 500 mg tablet 1,000 mg PO DAILY albuterol sulfate 90 mcg/actuation HFA aerosol inhaler 1 inh inhalation QID PRN (Reason: shortness of breath or wheezing) Qty: 8.5 3RF ferrous sulfate [Feosol] 325 mg (65 mg iron) tablet 325 mg PO DAILY prednisone 5 mg tablet 5 mg PO DAILY PRN (Reason: joint pain) Qty: 30 1RF garlic 500 mg capsule 500 mg PO DAILY cetirizine 10 mg tablet 10 mg PO DAILY nitroglycerin [Nitrostat] 0.4 mg tablet, sublingual 0.4 mg sublingual Q5M PRN (Reason: chest pain) Qty: 50 1RF Rx Instructions: do not exceed 3 doses per episode amlodipine 10 mg tablet 10 mg PO QAM Qty: 90 3RF isosorbide mononitrate 60 mg tablet extended release 24 hr 60 mg PO QAM Qty: 90 3RF hydralazine 50 mg tablet See Rx Instructions .ROUTE .COMPLEX Qty: 105 4RF Dose Instruction: TAKE 2 TABLETS BY MOUTH EVERY MORNING AND 1&1/2 AT NIGHT DAILY Rx Instructions: TAKE 2 TABLETS BY MOUTH EVERY MORNING AND 1&1/2 AT NIGHT DAILY metoprolol tartrate 50 mg tablet See Rx Instructions .ROUTE .COMPLEX Qty: 180 5RF Dose Instruction: TAKE 1 TABLET BY MOUTH TWICE A DAY Rx Instructions: TAKE 1 TABLET BY MOUTH TWICE A DAY Xeljanz 5 mg tablet 5 mg PO DAILY Qty: 30 3RF bumetanide 1 mg tablet See Rx Instructions PO BID Qty: 252 0RF Rx Instructions: 2mg in the AM, 1mg in the PM orally twice a day; cyanocobalamin (vitamin B-12) [Vitamin B-12] 1,000 mcg Tablet 1,000 mcg PO BID potassium chloride 20 mEq Tablet Extended Release 20 meq PO DAILY insulin aspart U-100 [Novolog FlexPen U-100 Insulin] 100 unit/mL (3 mL) Insulin Pen 20 unit SUBCUT TID Rx Instructions: with meals Trelegy Ellipta 200-62.5-25 mcg Blister With Device 1 inh INHALATION DAILY prednisone 20 mg tablet 20 mg PO DAILY Qty: 5 0RF Discharge Orders: Discharge ED (Routine); Ordered 02/11/23 Ordered By: Shar Reeder Referrals: Nancy Swan PA [Primary Care Provider] - Discharge Diet: Low Salt Discharge Activity: Resume usual activity Patient Instructions: Opioid Safety, Pain Management Activity Restrictions/Additional Instructions: Activity Restrictions/Additional Instructions: Thank you for choosing [facility] for your healthcare needs today. Please realize that you were seen in the Emergency Department and that we are providing you with an emergency medical screening exam and this may not be a complete and all inclusive of all the testing and or medical work-up that you may need to determine your ailment or severity of your illness. It is very important that you follow-up as instructed with your Primary care provider or Specialist for additional evaluation and to discuss your medical treatment plan. You may return to the Emergency Department should you have concerns or if your condition changes or worsens in any way. Coding Level of Care Code ED Immigration Officer for Ora Kerr
[2023-02-11 19:07] LABS: Basophils % 0.3 %; Eosinophils # 0.1 10^3/uL (0.0-0.8); Eosinophils % 1.4 %; Hematocrit 26.6 % (36-47); Lymphocytes # 0.3 10^3/uL (0.8-4.8); Lymphocytes % 4.8 %; Mean Corpuscular HGB Conc 30.1 g/dL (30-55); Mean Corpuscular Hemoglobin 27.2 pg (27-33); Mean Corpuscular Volume 90.5 fl (85-98); Mean Platelet Volume 10.4 fL (7.4-10.4); Monocytes # 0.8 10^3/uL (0.2-0.9); Monocytes % 11.1 %; Neutrophils # 5.78 10^3/uL (1.8-7.7); Nucleated Red Blood Cells % 0 %; Platelet Count 169 10^3/cmm (157-399); Red Blood Count 2.94 10^6/uL (3.85-5.65); Red Cell Distribution Width 15.9 % (12.1-15.1); White Blood Count 7.05 10^3/uL (3.29-11.43)
[2023-02-11 19:22] LABS: Alanine Aminotransferase 13 U/L (0-33); Albumin Level 4.2 g/dL (3.5-5.2); Alkaline Phosphatase 49 U/L (35-105); Anion Gap 16.5 (5-19); Aspartate Amino Transferase 13 U/L (0-32); Blood Urea Nitrogen 55 mg/dL (8-23); Calcium 8.7 mg/dL (8.5-10.5); Carbon Dioxide 24 mmol/L (22-29); Chloride 104 mmol/L (98-107); Globulin 2.4 g/dL (1.3-4.6); Glucose 120 mg/dL (65-115); INR 1.11 (0.8-1.2); Lipase 35 U/L (13-60); Osmolality Calculated 304 mOsm/kg (285-295); Potassium 5.5 mmol/L (3.5-5.1); Sodium 139 mmol/L (136-145); Total Bilirubin 0.2 mg/dL (0.15-1.2); Total Protein 6.6 g/dL (6.6-8.7)
[2023-02-11 19:23] LABS: Troponin(5th) Baseline 52 ng/L (0-10)
[2023-02-11 20:21] VITALS: BP 183/58; PULSE 61; RESP 16; O2SAT 99
--- NOTE | 2023-02-11 20:32 | ECG_ITS ---
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 Measurements Intervals [place] Rate: 67 P: 71 AR: 157 QRS: 267 QRSD: 150 T: 76 QT: 457 QTc: 485 Interpretive Statements ELECTRONIC VENTRICULAR PACEMAKER ABNORMAL RHYTHM ECG Compared to ECG 02/11/2023 18:25:00 No significant changes Electronically Signed On 02-12-2023 8:21:22 SLABBER LIGHT by Adilson Montgomery M.D. [id number]
[2023-02-11 21:01] LABS: Troponin 5 2HR 54.86 ng/L (0-10); Troponin 5 2HR Delta 2.86 ABS# (0-10)
[2023-02-11 21:54] VITALS: BP 183/58; PULSE 61; RESP 16; TEMP 37.7; O2SAT 99
== END 2023-02-11 22:30 | disposition home or self-care (01) ==
PROVIDERS: Emergency Medicine; Emergency Provider Internal Medicine; PCP Physician Assistant
DX: R07.89 Other chest pain (principal); E11.22 Type 2 diabetes mellitus with diabetic chronic kidney disease; I13.0 Hypertensive heart and chronic kidney disease with heart failure and stage 1 through stage 4 chronic kidney disease, or unspecified chronic kidney disease; N18.4 Chronic kidney disease, stage 4 (severe); I50.9 Heart failure, unspecified; I43 Cardiomyopathy in diseases classified elsewhere; J44.9 Chronic obstructive pulmonary disease, unspecified; Z86.19 Personal history of other infectious and parasitic diseases; Z95.810 Presence of automatic (implantable) cardiac defibrillator; Z87.891 Personal history of nicotine dependence; Z79.82 Long term (current) use of aspirin; Z79.4 Long term (current) use of insulin
CPT/HCPCS: 36415; 71045; 80053; 83690; 84484; 85025; 85610; 93005; 99285

== ENCOUNTER → 2023-03-20 08:10 | Outpatient (BNVA) | payer MEDICARE, SELFPAY | PROVIDERS: PCP Physician Assistant; Visit Provider Internal Medicine Pulmonary Disease | DX: J44.9 Chronic obstructive pulmonary disease, unspecified (principal); I50.9 Heart failure, unspecified; I42.8 Other cardiomyopathies; R91.8 Other nonspecific abnormal finding of lung field; M05.9 Rheumatoid arthritis with rheumatoid factor, unspecified; Z87.891 Personal history of nicotine dependence; Z79.52 Long term (current) use of systemic steroids | CPT/HCPCS: 99214 ==

== ENCOUNTER → 2023-04-10 09:38 | Outpatient (BNVA) | payer MEDICARE, SELFPAY | PROVIDERS: PCP Physician Assistant; Visit Provider Internal Medicine Rheumatology | DX: M05.79 Rheumatoid arthritis with rheumatoid factor of multiple sites without organ or systems involvement (principal); Z79.899 Other long term (current) drug therapy; I50.9 Heart failure, unspecified; N18.4 Chronic kidney disease, stage 4 (severe) | CPT/HCPCS: 99214 ==

== ENCOUNTER 2023-06-06 11:09 | Emergency (ER) | payer MEDICARE, SELFPAY ==
[2023-06-06 12:08] VITALS: BP 155/77; PULSE 89; RESP 18; TEMP 37.8; O2SAT 95; BMI 29.5
[2023-06-06 12:15] LABS: Basophils # 0.1 10^3/uL (0.0-0.1); Basophils % 0.4 %; Eosinophils # 0.4 10^3/uL (0.0-0.8); Eosinophils % 2.4 %; Hematocrit 29.5 % (36-47); Lymphocytes # 0.7 10^3/uL (0.8-4.8); Lymphocytes % 4.6 %; Mean Corpuscular HGB Conc 30.5 g/dL (30-55); Mean Corpuscular Hemoglobin 27.4 pg (27-33); Mean Corpuscular Volume 89.9 fl (85-98); Mean Platelet Volume 9.4 fL (7.4-10.4); Monocytes # 1.2 10^3/uL (0.2-0.9); Monocytes % 7.5 %; Neutrophils # 13.12 10^3/uL (1.8-7.7); Neutrophils % 84.3 %; Nucleated Red Blood Cells % 0 %; Platelet Count 193 10^3/cmm (157-399); Red Blood Count 3.28 10^6/uL (3.85-5.65); Red Cell Distribution Width 14.8 % (12.1-15.1); White Blood Count 15.59 10^3/uL (3.29-11.43)
[2023-06-06 12:39] LABS: Alanine Aminotransferase 7 U/L (0-33); Albumin Level 3.8 g/dL (3.5-5.2); Alkaline Phosphatase 56 U/L (35-105); Aspartate Amino Transferase 7 U/L (0-32); Blood Urea Nitrogen 38 mg/dL (8-23); C Reactive Protein 83.5 mg/L (0.0-4.9); Calcium 9.1 mg/dL (8.5-10.5); Carbon Dioxide 24 mmol/L (22-29); Chloride 103 mmol/L (98-107); Glucose 190 mg/dL (65-115); Osmolality Calculated 302 mOsm/kg (285-295); Sodium 139 mmol/L (136-145); Total Bilirubin 0.2 mg/dL (0.15-1.2); Total Protein 6.8 g/dL (6.6-8.7)
[2023-06-06 12:42] LABS: Lactic Sepsis W/Reflex 0.9 mmol/L (0.5-2.2)
--- NOTE | 2023-06-06 12:57 | ED_ITS ---
HPI - Abdominal Pain 2 General: Chief Complaint: Abdominal Pain Stated Complaint: abd pain/ N/V/D Time Seen by Provider: 06/06/23 12:52 History of Present Illness: 77-year-old female with a history of pac emaker/AICD placement, COPD, chronic hypoxemic respiratory failure on 3 L nasal cannula at all time, diabetes, nonischemic cardiomyopathy/CHF, chronic kidney disease, anemia and hypertension who presents to the emergency room with diarrhea for 2 weeks and nausea over the last couple of days. No recent antibiotic usage. No focal abdominal pain. No altered mental status. No known fevers. No increased oxygen needs. She has been having fevers. Today her temp is 100.1. Review of Systems 2 Narrative: Constitutional symptoms: Negative except as documented in HPI. Skin symptoms: Negative except as documented in HPI. Eye symptoms: Negative except as documented in HPI. ENMT symptoms: Negative except as documented in HPI. Respiratory symptoms: Negative except as documented in HPI. Cardiovascular symptoms: Negative except as documented in HPI. Gastrointestinal symptoms: Negative except as documented in HPI. Genitourinary symptoms: Negative except as documented in HPI. Musculoskeletal symptoms: Negative except as documented in HPI. Neurologic symptoms: Negative except as documented in HPI. Psychiatric symptoms: Negative except as documented in HPI. Endocrine symptoms: Negative except as documented in HPI. PFSH ED 2 PFSH: Medical History Anemia of chronic disease CKD (chronic kidney disease) stage 4, GFR 15-29 ml/min Rheumatoid arthritis, seropositive, multiple sites Iron deficiency anemia, unspecified High risk medication use Seropositive rheumatoid arthritis of multiple sites COPD (chronic obstructive pulmonary disease) AICD malfunction Chronic steroid use counseled about blood sugar monitoring Chronic diastolic heart failure Echocardiogram done in September 2019 showed EF of 60%, grade 1 diastolic dysfunction, normal RV functions. 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 TILE SETTER APPRENTICE-D) in place ICD (implantable cardioverter-defibrillator) battery depletion Non-ischemic cardiomyopathy Chronic systolic (congestive) heart failure Rheumatoid arthritis COPD (chronic obstructive pulmonary disease) CHF (congestive heart failure), NYHA class III Peripheral neuropathy Cardiomyopathy Anemia Diabetes mellitus Hypertension Surgical History History of hysterectomy with bilateral oophorectomy History of appendectomy S/P ICD (internal cardiac defibrillator) procedure Family History Mother Diabetes Hypertension Congestive heart failure (CHF) Other CAD (coronary artery disease) Cancer Hyperlipidemia Lung disease Denies family history of Rheumatoid arthritis Lupus Chronic kidney disease (CKD) Stroke Social History Smoking and tobacco/nicotine status: former use of tobacco/nicotine Quit status (tobacco/nicotine): has quit using Year quit tobacco: 2010 Former quit date comment: 1ppd x 45years Second hand smoke exposure: No Alcohol intake: never Substance/Drug Use: never Household members: spouse Housing: House Marital status: Do you think of yourself as: Straight/Heterosexual Current gender identity: Female Physical Exam 2 Narrative: EXAM NARRATIVE: General: Alert, no acute distress. Skin: Warm, dry. Head: Normocephalic, atraumatic. Neck: Supple, trachea midline. Eye: Extraocular movements are intact. Ears, nose, mouth and throat: Tacky oral mucosa Cardiovascular: Regular, Normal peripheral perfusion. Respiratory: Lungs are clear to auscultation, respirations are non-labored, breath sounds are equal, Symmetrical chest wall expansion. Gastrointestinal: Soft, Nontender, Non distended, Normal bowel sounds. Musculoskeletal: Normal ROM, no deformity. Neurological: Alert and oriented, No focal neurological deficit observed. Psychiatric: Cooperative, appropriate mood & affect. Course 2 Vital Signs: Vital signs: Vital Signs Temperature 100.1 F H 06/06/23 12:08 Pulse Rate 85 06/06/23 15:00 Respiratory Rate 18 06/06/23 12:08 Blood Pressure 175/63 06/06/23 15:00 Pulse Oximetry 100 06/06/23 15:00 Oxygen Delivery Me thod Nasal Cannula 06/06/23 12:08 Oxygen Flow Rate 3 06/06/23 12:08 MDM - Abdominal Pain Medical Decision Making Medical decision making: Differential diagnosis including but not limited to and based on the above HPI, review of systems and physical exam: In this patient with diarrhea initially and now with some nausea chief concern would be that she had a viral gastroenteritis and now has a urinary tract infection secondarily. Particular that she is now developed nausea and vomiting along with fever. She has not had any recent antibiotic usage so C. difficile would be low on my differential. Orders placed to evaluate differential diagnosis based on the above differential, HPI and physical exam Lab Review: Laboratory results were reviewed and interpreted by myself the emergency room physician. Patient has leukocytosis with a white count of 16. Previous white counts have been 7 consistently. Patient has chronic anemia. Her hemoglobin is 9 today which is stable. Previous hemoglobins were 8 and 9.2. Sodium is 139. Potassium is 4. Bicarb is 24. BUN and creatinine are 38 and 2. Previous lab work showed BUN/creatinine of 55 and 2.6 and 42 and 2.6. LFTs are normal. She does not have hepatitis. Urine does show some leukocytosis and some bacteria. Also is a bit concentrated. This would indicate some dehydration. Reexamination: Patient remained stable. No altered mental status. No increased work of breathing. She has received fluids and antibiotics for UTI. I am going to place her on Flagyl and Cipro for the urine infection and a possible intra- abdominal infection. Medical Records I reviewed the patient's medical records. Lab Data 06/06/23 12:06 06/06/23 12:06 Labs/Radiology: Laboratory Results WBC 15.59 10^3/uL (3.29-11.43) H 06/06/23 12:06 RBC 3.28 10^6/uL (3.85-5.65) L 06/06/23 12:06 Hgb 9.00 g/dL (11.27-16.99) L 06/06/23 12:06 Hct 29.5 % (36-47) L 06/06/23 12:06 MCV 89.9 fl (85-98) 06/06/23 12:06 MCH 27.4 pg (27-33) 06/06/23 12:06 MCHC 30.5 g/dL (30-55) 06/06/23 12:06 RDW 14.8 % (12.1-15.1) 06/06/23 12:06 Plt Count 193 10^3/cmm (157-399) 06/06/23 12:06 MPV 9.4 fL (7.4-10.4) 06/06/23 12:06 Neut % (Auto) 84.3 % 06/06/23 12:06 Lymph % (Auto) 4.6 % 06/06/23 12:06 Ector % (Auto) 7.5 % 06/06/23 12:06 Eos % (Auto) 2.4 % 06/06/23 12:06 Baso % (Auto) 0.4 % 06/06/23 12:06 Neut # (Auto) 13.12 10^3/uL (1.8-7.7) H 06/06/23 12:06 Lymph # (Auto) 0.7 10^3/uL (0.8-4.8) L 06/06/23 12:06 Ector # (Auto) 1.2 10^3/uL (0.2-0.9) H 06/06/23 12:06 Eos # (Auto) 0.4 10^3/uL (0.0-0.8) 06/06/23 12:06 Baso # (Auto) 0.1 10^3/uL (0.0-0.1) 06/06/23 12:06 Nucleated RBC % (auto) 0 % 06/06/23 12:06 Nucleated RBCs # 0.0 /100WBC 06/06/23 12:06 Sodium 139 mmol/L (136-145) 06/06/23 12:06 Potassium 4.0 mmol/L (3.5-5.1) 06/06/23 12:06 Chloride 103 mmol/L (98-107) 06/06/23 12:06 Carbon Dioxide 24 mmol/L (22-29) 06/06/23 12:06 Anion Gap 16.0 (5-19) 06/06/23 12:06 BUN 38 mg/dL (8-23) H 06/06/23 12:06 Creatinine 2.0 mg/dL (0.5-0.9) H 06/06/23 12:06 GFR Calculation Not Reportable 06/06/23 12:06 Glucose 190 mg/dL (65-115) H 06/06/23 12:06 Calculated Osmolality 302 mOsm/kg (285-295) H 06/06/23 12:06 Lactic Acid 0.9 mmol/L (0.5-2.2) 06/06/23 12:06 Calcium 9.1 mg/dL (8.5-10.5) 06/06/23 12:06 Total Bilirubin 0.2 mg/dL (0.15-1.2) 06/06/23 12:06 AST 7 U/L (0-32) 06/06/23 12:06 ALT 7 U/L (0-33) 06/06/23 12:06 Alkaline Phosphatase 56 U/L (35-105) 06/06/23 12:06 C-Reactive Protein 83.5 mg/L (0.0-4.9) H 06/06/23 12:06 Total Protein 6.8 g/dL (6.6-8.7) 06/06/23 12:06 Albumin 3.8 g/dL (3.5-5.2) 06/06/23 12:06 Globulin 3.0 g/dL (1.3-4.6) 06/06/23 12:06 Urine Color Yellow (Yellow) 06/06/23 14:25 Urine Appearance Clear (CLEAR) 06/06/23 14:25 Urine pH 5 (5-7) 06/06/23 14:25 Ur Specific [place] 1.020 (1.005-1.030) 06/06/23 14:25 Urine Protein 2+ (Negative) H 06/06/23 14:25 Urine Glucose (UA) Norm (Normal) 06/06/23 14:25 Urine Ketones Negative (Negative) 06/06/23 14:25 Urine Blood Neg (Negative) 06/06/23 14:25 Urine Nitrate Negative (Negative) 06/06/23 14:25 Urine Bilirubin Neg (Negative) 06/06/23 14:25 Urine Urobilinogen Neg mg/dL (Negative) 06/06/23 14:25 Ur Leukocyte Esterase Negative (Negative) 06/06/23 14:25 Urine RBC Rare /hpf (0-2) 06/06/23 14:25 Urine WBC 0-4 /hpf (0-5) H 06/06/23 14:25 Ur Squamous Epith Cells 5-10 /hpf (0-5) H 06/06/23 14:25 Amorphous Sediment Trace /hpf 06/06/23 14:25 Urine Bacteria Trace /hpf (NONE) 06/06/23 14:25 Hyaline Casts 0-4 /lpf H 06/06/23 14:25 Urine Mucus Trace /hpf 06/06/23 14:25 Influenza Type A Ag negative (Negative) 06/06/23 13:00 Influenza Type B Ag negative (Negative) 06/06/23 13:00 SARS-CoV-2 Ag (Rapid) negative (Negative) 06/06/23 13:00 All radiology interpretation(s) finalized by discharge Other Data Assessment and plan: UTI Dehydration Gastroenteritis - IV fluids, IV Zofran and IV Rocephin in the emergency room - Discharged home - Discussed plan with patient. Answered any questions. - Evaluation and treatment of this problem were appropriate in the emergency setting. Discharge Plan Discharge Patient Disposition: Home Clinical Impression: Gastroenteritis, Dehydration, Urinary tract infection Condition: Stable Prescriptions: New metronidazole 500 mg tablet 500 mg PO Q8H 10 Days Qty: 30 0RF ciprofloxacin HCl 500 mg tablet 500 mg PO BID 10 Days Qty: 20 0RF ondansetron 8 mg tablet,disintegrating 8 mg PO .q6 PRN (Reason: nausea and vomiting) Qty: 14 0RF No Action aspirin 81 mg tablet,delayed release (DR/EC) 81 mg PO QPM Tresiba FlexTouch U-200 200 unit/mL (3 mL) insulin pen 90 unit SUBCUT QPM zolpidem 10 mg tablet 10 mg PO BEDTIME omeprazole 40 mg capsule,delayed release(DR/EC) 40 mg PO QAM cholecalciferol (vitamin D3) 25 mcg (1,000 unit) capsule 25 mcg PO QAM ascorbate calcium (vitamin C) 500 mg tablet 1,000 mg PO DAILY ferrous sulfate [Feosol] 325 mg (65 mg iron) tablet 325 mg PO DAILY garlic 500 mg capsule 500 mg PO DAILY rosuvastatin 10 mg tablet 10 mg PO DAILY Entresto 24-26 mg tablet 1 tab PO BID cetirizine 10 mg tablet 10 mg PO DAILY nitroglycerin [Nitrostat] 0.4 mg tablet, sublingual 0.4 mg sublingual Q5M PRN (Reason: chest pain) Qty: 50 1RF Rx Instructions: do not exceed 3 doses per episode amlodipine 10 mg tablet 10 mg PO QAM Qty: 90 3RF isosorbide mononitrate 60 mg tablet extended release 24 hr 60 mg PO QAM Qty: 90 3RF bumetanide 1 mg tablet See Rx Instructions PO BID Qty: 252 0RF Rx Instructions: 2mg in the AM, 1mg in the PM orally twice a day; hydralazine 50 mg tablet See Rx Instructions .ROUTE .COMPLEX Qty: 315 1RF Dose Instruction: TAKE 2 TABLETS BY MOUTH EVERY MORNING AND 1&1/2 AT NIGHT DAILY Rx Instructions: TAKE 2 TABLETS BY MOUTH EVERY MORNING AND 1 AND 1/2 TABLETS AT NIGHT DAILY Spiriva Respimat 1.25 mcg/actuation mist 2 puff inhalation DAILY Qty: 4 3RF prednisone 5 mg tablet 10 mg PO DAILY Qty: 60 3RF cyclobenzaprine 10 mg tablet 10 mg PO Q8H PRN (Reason: muscle spasm) Qty: 30 1RF Rinvoq 15 mg tablet extended release 24 hr 15 mg PO DAILY Qty: 30 3RF cyanocobalamin (vitamin B-12) [Vitamin B-12] 1,000 mcg Tablet 1,000 mcg PO BID potassium chloride 20 mEq Tablet Extended Release 20 meq PO DAILY insulin aspart U-100 [Novolog FlexPen U-100 Insulin] 100 unit/mL (3 mL) Insulin Pen 20 unit SUBCUT TID Rx Instructions: with meals metoprolol tartrate 50 mg tablet 50 mg PO BID Discharge Orders: Discharge ED (Routine); Ordered 06/06/23 Ordered By: Earnestine Meraz Referrals: Nancy Swan PA [Primary Care Provider] - (You have been screened and evaluated and felt safe for discharge. Health conditions do change or evolve sometimes and as such it is important that you follow up with your Primary Doctor to be re checked, 3-5 days is a general good time frame for follow up. You are always welcome to return to the ED for re assessment if your symptoms are worsening or you have new concerns) Discharge Diet: Advance as tolerated Discharge Activity: Resume usual activity Patient Instructions: Gastroenteritis (ED) Coding Level of Care Code ED Commercial Baking Teacher for Ora Kerr
[2023-06-06 13:11] VITALS: BP 179/78; PULSE 85; O2SAT 100
[2023-06-06] MEDS: sodium chloride 0.9% 1,000 ML 999 ML IV (13:18)
[2023-06-06] MEDS: ondansetron 2 mg/ML SDV 2 mL 8 MG IVP (13:18)
[2023-06-06 13:40] LABS: SARS Covid-2 Antigen negative (Negative)
[2023-06-06 13:41] LABS: Influenza A by IFA negative (Negative); Influenza B by IFA negative (Negative)
[2023-06-06 14:30] VITALS: BP 174/65; PULSE 88; O2SAT 100
[2023-06-06 15:00] VITALS: BP 175/63; PULSE 85; O2SAT 100
[2023-06-06 15:00] LABS: Urine Appearance Clear (CLEAR); Urine Color Yellow (Yellow); pH Urine 5 (5-7)
[2023-06-06 15:01] LABS: Bilirubin Urine Neg (Negative); Blood Urine Neg (Negative); Glucose Urine UA Norm (Normal); Ketones Urine Negative (Negative); Leukocyte Esterase Urine Negative (Negative); Nitrate Urine Negative (Negative); Protein Urine 2+ (Negative); Urobilinogen Urine Neg (Negative)
[2023-06-06 15:02] LABS: Add Urine Culture? No; Amorphous Sediment Urine TRACE /hpf; Bacteria Urine TRACE /hpf; Hyaline Casts Urine 0-4 /lpf; Mucus Urine TRACE /hpf; RBC Urine RARE /hpf (0-2); WBC Urine 0-4 /hpf (0-5)
[2023-06-06] MEDS: cefTRIAXone 1,000 MG in sodium chloride 0.9% (plus) 50 ML 100 MG IV (15:24)
[2023-06-06 15:52] VITALS: BP 171/55; PULSE 83; O2SAT 96
== END 2023-06-06 15:54 | disposition home or self-care (01) ==
PROVIDERS: Emergency Provider Emergency Medicine; PCP Physician Assistant
DX: K52.9 Noninfective gastroenteritis and colitis, unspecified (principal); E86.0 Dehydration; N39.0 Urinary tract infection, site not specified; Z79.82 Long term (current) use of aspirin; Z79.4 Long term (current) use of insulin; Z11.52 Encounter for screening for COVID-19; Z87.891 Personal history of nicotine dependence; E11.22 Type 2 diabetes mellitus with diabetic chronic kidney disease; I13.0 Hypertensive heart and chronic kidney disease with heart failure and stage 1 through stage 4 chronic kidney disease, or unspecified chronic kidney disease; N18.4 Chronic kidney disease, stage 4 (severe); I50.9 Heart failure, unspecified; J44.9 Chronic obstructive pulmonary disease, unspecified; Z86.19 Personal history of other infectious and parasitic diseases; Z95.810 Presence of automatic (implantable) cardiac defibrillator; I42.8 Other cardiomyopathies
CPT/HCPCS: 80053; 81001; 83605; 85025; 86140; 87426; 87804; 96361; 96365; 96375; 99284; J0696; J2405; J7030

== ENCOUNTER → 2023-07-02 09:39 | Outpatient (BNVA) | payer MEDICARE, SELFPAY | PROVIDERS: PCP Physician Assistant; Visit Provider Nurse Practitioner Family | DX: I13.0 Hypertensive heart and chronic kidney disease with heart failure and stage 1 through stage 4 chronic kidney disease, or unspecified chronic kidney disease (principal); Z95.810 Presence of automatic (implantable) cardiac defibrillator; I50.9 Heart failure, unspecified; N18.4 Chronic kidney disease, stage 4 (severe); Z87.891 Personal history of nicotine dependence; E11.22 Type 2 diabetes mellitus with diabetic chronic kidney disease; Z79.4 Long term (current) use of insulin | CPT/HCPCS: 99214 ==

== ENCOUNTER → 2023-12-09 11:02 | Outpatient (BNVA) | payer MEDICARE, SELFPAY | PROVIDERS: PCP Physician Assistant; Visit Provider Internal Medicine Rheumatology | DX: M05.79 Rheumatoid arthritis with rheumatoid factor of multiple sites without organ or systems involvement (principal); E11.22 Type 2 diabetes mellitus with diabetic chronic kidney disease; N18.4 Chronic kidney disease, stage 4 (severe); I50.9 Heart failure, unspecified; Z79.899 Other long term (current) drug therapy; Z87.891 Personal history of nicotine dependence; Z95.0 Presence of cardiac pacemaker | CPT/HCPCS: 36415; 80076; 82565; 85025; 85651; 86140; 99214 ==

== ENCOUNTER 2024-03-26 17:19 | Emergency (ER) | payer MEDICARE, SELFPAY ==
[2024-03-26 17:52] VITALS: BP 200/41; PULSE 68; RESP 18; TEMP 36.9; O2SAT 98
--- NOTE | 2024-03-26 17:56 | ECG_ITS ---
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 Measurements Intervals [place] Rate: 71 P: 74 [place]: 184 QRS: 246 QRSD: 135 T: 52 QT: 456 QTc: 496 Interpretive Statements ELECTRONIC VENTRICULAR PACEMAKER Compared to ECG 02/11/2023 20:32:41 No significant changes Electronically Signed On 03-27-2024 23:07:04 BLEACHER [employer]ARD by Adilson Montgomery M.D. [id number]
--- NOTE | 2024-03-26 18:51 | XRR_ITS ---
PROCEDURE INFORMATION: Exam: XR Chest Exam date and time: 03/26/2024 6:58 PM Age: 78 years old Clinical indication: Dyspnea; Additional info: SOB TECHNIQUE: Imaging protocol: Radiologic exam of the chest. Views: 1 view. COMPARISON: CR XR chest 1V portable [id number] 02/11/2023 6:32 PM FINDINGS: Tubes, catheters and devices: Left-sided AICD device. Lungs: No focal consolidation. Pleural spaces: Unremarkable. No pleural effusion. No pneumothorax. Heart/Mediastinum: Unremarkable. No cardiomegaly. Bones/joints: Unremarkable. XR/XR chest 1V portable [id number] IMPRESSION: No focal consolidation.
[2024-03-26 19:31] LABS: Basophils % 0.3 %; Eosinophils # 0.1 10^3/uL (0.0-0.8); Eosinophils % 1.7 %; Hematocrit 24.8 % (36-47); Lymphocytes # 0.7 10^3/uL (0.8-4.8); Lymphocytes % 9.2 %; Mean Corpuscular HGB Conc 29.8 g/dL (30-55); Mean Corpuscular Hemoglobin 29.7 pg (27-33); Mean Corpuscular Volume 99.6 fl (85-98); Mean Platelet Volume 9.7 fL (7.4-10.4); Monocytes # 0.6 10^3/uL (0.2-0.9); Monocytes % 8.4 %; Neutrophils # 6.06 10^3/uL (1.8-7.7); Neutrophils % 79.9 %; Nucleated Red Blood Cells % 0 %; Platelet Count 175 10^3/cmm (157-399); Red Blood Count 2.49 10^6/uL (3.85-5.65); White Blood Count 7.59 10^3/uL (3.29-11.43)
[2024-03-26 19:53] LABS: Anion Gap 16.7 (5-19); Blood Urea Nitrogen 50 mg/dL (8-23); Carbon Dioxide 25 mmol/L (22-29); Chloride 103 mmol/L (98-107); Glucose 127 mg/dL (65-115); Osmolality Calculated 305 mOsm/kg (285-295); Potassium 4.7 mmol/L (3.5-5.1); Sodium 140 mmol/L (136-145)
--- NOTE | 2024-03-26 20:22 | W.ED.SOB ---
HPI - SOB/Dyspnea General: Chief Complaint: Shortness of Breath/Dyspnea Stated Complaint: retaining fluid Time Seen by Provider: 03/26/24 19:51 History of Present Illness: HPI Narrative: 78-year-old female with chronic shortness of breath is been on for at least 2 weeks. She reports that she is just getting tired of it. Patient denies any fever or chills. Patient is on a baseline couple liters. No increased cough. She is concerned that maybe she has some fluid buildup. Associated symptoms: Deny abdominal pain, chest pain, nausea, palpitations or vomiting Related Data Home Medications Medication Instructions Recorded Confirmed aspirin 81 mg tablet,delayed 81 mg PO QPM 06/24/19 12/09/23 release cholecalciferol (vitamin D3) 25 25 mcg PO QAM 03/09/20 12/09/23 mcg (1,000 unit) capsule omeprazole 40 mg capsule,delayed 40 mg PO QAM 03/09/20 12/09/23 release zolpidem 10 mg tablet 10 mg PO BEDTIME 03/21/21 12/09/23 cyanocobalamin (vitamin B-12) 1,000 mcg PO BID 04/11/21 12/09/23 1,000 mcg tablet (Vitamin B-12) garlic 500 mg capsule 500 mg PO DAILY 01/07/22 12/09/23 ascorbate calcium (vitamin C) 500 1,000 mg PO DAILY 01/14/22 12/09/23 mg tablet insulin degludec 200 unit/mL (3 90 unit SUBCUT QPM 01/14/22 12/09/23 mL) subcutaneous pen (Tresiba FlexTouch U-200 insulin) cetirizine 10 mg tablet 10 mg PO DAILY 05/22/22 12/09/23 insulin aspart U-100 100 unit/mL 20 unit SUBCUT TID 08/06/22 12/09/23 (3 mL) subcutaneous pen (Novolog FlexPen U-100 Insulin aspart) potassium chloride 20 mEq 20 meq PO DAILY 08/06/22 12/09/23 tablet,extended release ferrous sulfate 325 mg (65 mg 325 mg PO DAILY 09/26/22 12/09/23 iron) tablet (Feosol) rosuvastatin 10 mg tablet 10 mg PO DAILY 03/20/23 12/09/23 sacubitril 24 mg-valsartan 26 mg 1 tab PO BID 03/20/23 12/09/23 tablet (Entresto) Previous Rx's Medication Instructions Recorded nitroglycerin 0.4 mg sublingual 0.4 mg sublingual Q5M PRN chest 04/21/20 tablet (Nitrostat) pain #50 tabs ondansetron 8 mg disintegrating 8 mg PO .q6 PRN nausea and 06/06/23 tablet vomiting #14 tabs ondansetron 8 mg disintegrating 8 mg PO .q6 PRN nausea and 06/06/23 tablet vomiting #14 tabs budesonide 160 mcg-glycopyr 9 2 inh inhalation BID #10.7 grams 07/15/23 mcg-formot 4.8 mcg/actuation HFA inhaler (Breztri Aerosphere) cyclobenzaprine 10 mg tablet 10 mg PO Q8H PRN muscle spasm #30 09/10/23 tabs amlodipine 10 mg tablet See Rx Instructions .Route 09/25/23 .COMPLEX #90 tabs hydralazine 50 mg tablet See Rx Instructions .Route 09/25/23 .COMPLEX #315 tabs prednisone 5 mg tablet 5 mg PO DAILY #90 tabs 12/09/23 upadacitinib 15 mg tablet,extended 15 mg PO DAILY #30 tabs 12/16/23 release 24 hr (Rinvoq) isosorbide mononitrate 60 mg See Rx Instructions .Route 12/29/23 tablet,extended release 24 hr .COMPLEX #90 tabs bumetanide 1 mg tablet See Rx Instructions .Route 01/22/24 .COMPLEX #252 tabs metoprolol tartrate 50 mg tablet 50 mg PO BID #180 tabs 01/26/24 Allergies Allergy/AdvReac Type Severity Reaction Status Date / Time codeine Allergy Severe ALGY-Swell Verified 12/09/23 11:14 Lip/Tongue/Throat Penicillins Allergy ALGY-Swell Verified 12/09/23 11:14 Lip/Tongue/Throat sulfasalazine AdvReac Intermediate made her Verified 12/09/23 11:14 feel very bad Review of Systems Card: Reports: dyspnea on exertion; Denies: chest pain or palpitations Resp: Reports: dyspnea GI: Denies: abdominal pain, nausea or vomiting : Denies: flank pain or difficulty voiding Skin/Breast: Denies: rash PFSH ED PFSH: Medical History Anemia of chronic disease CKD (chronic kidney disease) stage 4, GFR 15-29 ml/min Rheumatoid arthritis, seropositive, multiple sites Iron deficiency anemia, unspecified High risk medication use Seropositive rheumatoid arthritis of multiple sites COPD (chronic obstructive pulmonary disease) AICD malfunction Chronic steroid use counseled about blood sugar monitoring Chronic diastolic heart failure Echocardiogram done in September 2019 showed EF of 60%, grade 1 diastolic dysfunction, normal RV functions. Hepatitis B core antibody positive Hepatitis B PCR is negative Immunization counseling High risk medication use Seropositive rheumatoid arthritis of multiple sites Carpal tunnel syndrome Carpal tunnel syndrome of right wrist Cardiac resynchronization therapy defibrillator (EXTRACTOR TENDER RAW STOCK-D) in place ICD (implantable cardioverter-defibrillator) battery depletion Non-ischemic cardiomyopathy Chronic systolic (congestive) heart failure Rheumatoid arthritis COPD (chronic obstructive pulmonary disease) CHF (congestive heart failure), NYHA class III Peripheral neuropathy Cardiomyopathy Anemia Diabetes mellitus Hypertension Surgical History History of hysterectomy with bilateral oophorectomy History of appendectomy S/P ICD (internal cardiac defibrillator) procedure Family History Mother Diabetes Hypertension Congestive heart failure (CHF) Other CAD (coronary artery disease) Cancer Hyperlipidemia Lung disease Denies family history of Rheumatoid arthritis Lupus Chronic kidney disease (CKD) Stroke Social History Smoking and tobacco/nicotine status: former use of tobacco/nicotine Quit status (tobacco/nicotine): has quit using Year quit tobacco: 2010 Former quit date comment: 1ppd x 45years Second hand smoke exposure: No Alcohol intake: never Substance/Drug Use: never Household members: spouse Housing: House Marital status: Do you think of yourself as: Straight/Heterosexual Current gender identity: Female Physical Exam Const: COMMON NORMALS: no acute distress and patient oriented x3 NUTRITIONAL APPEARANCE: obese Resp: COMMON NORMALS: normal respiratory effort and clear to auscultation bilaterally EFFORT & INSPECTION: Yes able to speak in complete sentences and No tachypneic AUSCULTATION: clear to auscultation bilaterally Cardio: COMMON NORMALS: regular rate RATE: regular rate RHYTHM: abnormal rhythm GI: COMMON NORMALS: Soft to palpation and non-tender PALPATION: Yes Soft to palpation Neuro: COMMON NORMALS: patient oriented x3 and no focal motor deficits Course Vital Signs: Vital signs: Vital Signs Temperature 98.4 F 03/26/24 17:52 Pulse Rate 93 03/26/24 21:20 Respiratory Rate 16 03/26/24 21:20 Blood Pressure 215/83 03/26/24 21:20 Pulse Oximetry 92 03/26/24 21:20 Oxygen Delivery Me thod Nasal Cannula 03/26/24 17:52 Oxygen Flow Rate 3 03/26/24 17:52 MDM - SOB/Dyspnea Medical Decision Making Patient's diagnostic studies were ordered and reviewed. Patient does have decreased hemoglobin consistent with anemia. She reports that she has had to have iron transfusions in the past and has had chronic anemia. Patient has a very minimally elevated BNP off her baseline. However chest x-ray does not show any acute findings. I suspect her dyspnea on exertion is due to her chronic anemia that is worse. I discussed with her need to follow-up and rediscuss iron transfusions with her primary care provider which they have had that discussion in the past. Also rec mended vitamin B12 testing. Patient's blood pressure is elevated however she reports she did not take her blood pressure medication at home and at this time we will defer any treatment and will take her medications when she gets home. Patient was stable and discharged. She has a increased risk of morbidity and mortality based on her underlying health conditions. Lab Data 03/26/24 19:21 03/26/24 19:21 Labs/Radiology: Radiology Impressions Chest X-Ray 03/26/24 18:51 IMPRESSION: No focal consolidation. Laboratory Results WBC 7.59 10^3/uL (3.29-11.43) 03/26/24 19:21 RBC 2.49 10^6/uL (3.85-5.65) L 03/26/24 19:21 Hgb 7.40 g/dL (11.27-16.99) L 03/26/24 19:21 Hct 24.8 % (36-47) L 03/26/24 19:21 MCV 99.6 fl (85-98) H 03/26/24 19:21 MCH 29.7 pg (27-33) 03/26/24 19:21 MCHC 29.8 g/dL (30-55) L 03/26/24 19:21 RDW 15.0 % (12.1-15.1) 03/26/24 19:21 Plt Count 175 10^3/cmm (157-399) 03/26/24 19:21 MPV 9.7 fL (7.4-10.4) 03/26/24 19:21 Neut % (Auto) 79.9 % 03/26/24 19:21 Lymph % (Auto) 9.2 % 03/26/24 19:21 [place]upe % (Auto) 8.4 % 03/26/24 19:21 Eos % (Auto) 1.7 % 03/26/24 19:21 Baso % (Auto) 0.3 % 03/26/24 19:21 Neut # (Auto) 6.06 10^3/uL (1.8-7.7) 03/26/24 19:21 Lymph # (Auto) 0.7 10^3/uL (0.8-4.8) L 03/26/24 19:21 [place]upe # (Auto) 0.6 10^3/uL (0.2-0.9) 03/26/24 19:21 Eos # (Auto) 0.1 10^3/uL (0.0-0.8) 03/26/24 19:21 Baso # (Auto) 0.0 10^3/uL (0.0-0.1) 03/26/24 19:21 Nucleated RBC % (auto) 0 % 03/26/24 19:21 Nucleated RBCs # 0.0 /100WBC 03/26/24 19:21 Sodium 140 mmol/L (136-145) 03/26/24 19:21 Potassium 4.7 mmol/L (3.5-5.1) 03/26/24 19:21 Chloride 103 mmol/L (98-107) 03/26/24 19:21 Carbon Dioxide 25 mmol/L (22-29) 03/26/24 19:21 Anion Gap 16.7 (5-19) 03/26/24 19:21 BUN 50 mg/dL (8-23) H 03/26/24 19:21 Creatinine 2.2 mg/dL (0.5-0.9) H 03/26/24 19:21 GFR Calculation Not Reportable 03/26/24 19:21 Glucose 127 mg/dL (65-115) H 03/26/24 19:21 Calculated Osmolality 305 mOsm/kg (285-295) H 03/26/24 19:21 Calcium 9.0 mg/dL (8.5-10.5) 03/26/24 19:21 NT-Pro-B Natriuret Pep 7489 pg/mL (0-450) H 03/26/24 19:21 All radiology interpretation(s) finalized by discharge Discharge Plan Discharge Patient Disposition: Home Clinical Impression: Iron deficiency anemia, Hypertension, Dyspnea on exertion Condition: Stable Prescriptions: No Action aspirin 81 mg tablet,delayed release (DR/EC) 81 mg PO QPM Tresiba FlexTouch U-200 200 unit/mL (3 mL) insulin pen 90 unit SUBCUT QPM zolpidem 10 mg tablet 10 mg PO BEDTIME omeprazole 40 mg capsule,delayed release(DR/EC) 40 mg PO QAM cholecalciferol (vitamin D3) 25 mcg (1,000 unit) capsule 25 mcg PO QAM ascorbate calcium (vitamin C) 500 mg tablet 1,000 mg PO DAILY ferrous sulfate [Feosol] 325 mg (65 mg iron) tablet 325 mg PO DAILY garlic 500 mg capsule 500 mg PO DAILY rosuvastatin 10 mg tablet 10 mg PO DAILY Entresto 24-26 mg tablet 1 tab PO BID cetirizine 10 mg tablet 10 mg PO DAILY prednisone 5 mg tablet 5 mg PO DAILY Qty: 90 1RF nitroglycerin [Nitrostat] 0.4 mg tablet, sublingual 0.4 mg sublingual Q5M PRN (Reason: chest pain) Qty: 50 1RF Rx Instructions: do not exceed 3 doses per episode Rachellgigitri Aerosphere 160-9-4.8 mcg/actuation HFA aerosol inhaler 2 inh inhalation BID Qty: 10.7 3RF cyclobenzaprine 10 mg tablet 10 mg PO Q8H PRN (Reason: muscle spasm) Qty: 30 1RF amlodipine 10 mg tablet See Rx Instructions .ROUTE .COMPLEX Qty: 90 3RF Dose Instruction: TAKE 1 TABLET BY MOUTH EVERY MORNING Rx Instructions: TAKE 1 TABLET BY MOUTH EVERY MORNING hydralazine 50 mg tablet See Rx Instructions .ROUTE .COMPLEX Qty: 315 1RF Dose Instruction: TAKE 2 TABLETS BY MOUTH EVERY MORNING AND 1&1/2 AT NIGHT DAILY Rx Instructions: TAKE 2 TABLETS BY MOUTH EVERY MORNING AND 1&1/2 AT NIGHT DAILY Rinvoq 15 mg tablet extended release 24 hr 15 mg PO DAILY Qty: 30 5RF isosorbide mononitrate 60 mg tablet extended release 24 hr See Rx Instructions .ROUTE .COMPLEX Qty: 90 3RF Dose Instruction: TAKE 1 TABLET BY MOUTH IN THE MORNING Rx Instructions: TAKE 1 TABLET BY MOUTH IN THE MORNING bumetanide 1 mg tablet See Rx Instructions .ROUTE .COMPLEX Qty: 252 0RF Dose Instruction: TAKE 2 TABLETS BY MOUTH IN THE MORNING, AND 1 TABLET IN THE EVENING DAILY Rx Instructions: TAKE 2 TABLETS BY MOUTH IN THE MORNING, AND 1 TABLET IN THE EVENING DAILY metoprolol tartrate 50 mg tablet 50 mg PO BID Qty: 180 2RF cyanocobalamin (vitamin B-12) [Vitamin B-12] 1,000 mcg Tablet 1,000 mcg PO BID potassium chloride 20 mEq Tablet Extended Release 20 meq PO DAILY insulin aspart U-100 [Novolog FlexPen U-100 Insulin] 100 unit/mL (3 mL) Insulin Pen 20 unit SUBCUT TID Rx Instructions: with meals ondansetron 8 mg tablet,disintegrating 8 mg PO .q6 PRN (Reason: nausea and vomiting) Qty: 14 0RF ondansetron 8 mg tablet,disintegrating 8 mg PO .q6 PRN (Reason: nausea and vomiting) Qty: 14 0RF Discharge Orders: Discharge ED (Routine); Ordered 03/26/24 Ordered By: Francisco Molina Referrals: Nancy Swan PA [Primary Care Provider] - Discharge Diet: Usual diet Discharge Activity: Increase activity as tolerated Patient Instructions: Anemia (ED), Opioid Safety, Pain Management Activity Restrictions/Additional Instructions: Please follow-up with your primary care provider and discuss iron infusions and possible vitamin B12 testing. Please be sure you take your blood pressure medications when you get home. Coding Level of Care Code ED Credit Review Analyst for Ora Kerr
[2024-03-26 20:41] LABS: NT Pro B Type Natriuretic Pept 7489 pg/mL (0-450)
[2024-03-26 21:20] VITALS: BP 215/83; PULSE 93; RESP 16; O2SAT 92
== END 2024-03-26 21:18 | disposition home or self-care (01) ==
PROVIDERS: Emergency Provider Student in an Organized Health Care Education/Training Program; PCP Physician Assistant
DX: D50.9 Iron deficiency anemia, unspecified (principal); R06.00 Dyspnea, unspecified; I13.0 Hypertensive heart and chronic kidney disease with heart failure and stage 1 through stage 4 chronic kidney disease, or unspecified chronic kidney disease; N18.9 Chronic kidney disease, unspecified; I50.9 Heart failure, unspecified; J44.9 Chronic obstructive pulmonary disease, unspecified
CPT/HCPCS: 36415; 71045; 80048; 83880; 85025; 93005; 99285